=== PATIENT | female | born 1960 | race Caucasian/White ===

== ENCOUNTER → 2017-12-22 10:55 | Outpatient (POV) | payer MEDICAID, SELFPAY | PROVIDERS: PCP Physician Assistant; Visit Provider Internal Medicine | DX: Z00.00 Encounter for general adult medical examination without abnormal findings (principal) ==

== ENCOUNTER → 2018-11-02 15:45 | Outpatient (POV) | payer MEDICAID, SELFPAY | PROVIDERS: Visit Provider Internal Medicine | DX: Z00.00 Encounter for general adult medical examination without abnormal findings (principal) ==

== ENCOUNTER → 2018-11-12 12:49 | Outpatient (CLI) | payer BC, MEDICAID, SELFPAY | PROVIDERS: PCP Family Medicine; Visit Provider Internal Medicine | DX: I35.1 Nonrheumatic aortic (valve) insufficiency (principal) | CPT/HCPCS: 93306 ==

== ENCOUNTER → 2019-09-13 14:38 | Outpatient (POV) | payer BC, MEDICAID, SELFPAY | PROVIDERS: Visit Provider Internal Medicine | DX: Z00.00 Encounter for general adult medical examination without abnormal findings (principal) ==

== ENCOUNTER 2020-12-25 01:47 | Observation (INO) | payer BC, SELFPAY ==
[2020-12-25] VITALS (8 sets, daily range): BP systolic 113–155; BP diastolic 60–90; PULSE 55–76; RESP 14–18; TEMP 36.5–36.8; O2SAT 94–98; BMI 29.7; BMI 30.7
--- NOTE | 2020-12-25 01:54 | CT_ITS ---
PROCEDURE: CT ABDOMEN PELVIS WO CON CLINICAL INDICATION: flank pain Right flank pain COMPARISON: No exams were available for comparison TECHNIQUE: Axial images obtained with sagittal and coronal reformats. All CT scans at the facility use one or more dose reduction, viz: automated exposure control, ma/kV adjustment per patient size (including targeted exams where dose is matched to indication, i.e. head), or iterative reconstruction technique. FINDINGS: There is a medium-sized hiatal hernia. There are atelectatic changes in the left lower lobe. 12 mm hypodensity right hepatic lobe inferiorly and may represent a cyst. There has been a prior cholecystectomy. The liver, adrenal glands, and pancreas have an unremarkable appearance. There is mild dilatation of the right renal collecting system and proximal ureter secondary to a 6 mm stone in the mid right ureter at the L4-5 level. There are multiple left renal calculi. No evidence of appendicitis. There is a mild amount of retained colonic feces. There has been a prior hysterectomy. There does appear to be a small cystocele with a small knuckle bladder projecting into the vaginal region. There are few scattered small mesenteric lymph nodes. There is a small umbilical hernia containing fat. There is also a small left inguinal hernia containing fat. No acute bony findings. IMPRESSION: 1. 6 mm right mid ureteral stone with mild right-sided hydroureteronephrosis. 2. Left nephrolithiasis 3. Small cystocele. 4. Other nonacute findings as described above. Dictated by: Ilan Cross MD 12/25/2020 06:35 Ilan Cross MD in [place] 12/25/2020 06:35
[2020-12-25 02:01] LABS: Microscopic, Urine URINE MICROSCOPIC (MICROSCOPIC)
--- NOTE | 2020-12-25 02:01 | PC.NURSE ---
pt to radiology during this time
[2020-12-25 02:05] LABS: Basophils # 0.1 K/mm3 (0-0.2); Basophils % 0.7 % (0.1-2.0); Eosinophils # 0.1 K/mm3 (0.0-0.4); Eosinophils % 1.5 % (0.1-12.0); Hematocrit 49.3 % (37.0-47.0); Hemoglobin 16.5 g/dL (12.2-16.2); Lymphocytes # 1.7 K/mm3 (0.7-4.5); Mean Corpuscular HGB Conc 33.4 g/dL (31.8-35.4); Mean Corpuscular Hemoglobin 30.7 pg (27.0-31.2); Mean Platelet Volume 7.2 fl (7.4-10.4); Monocytes # 0.2 K/mm3 (0.1-1.0); Monocytes % 3.5 % (1.7-9.3); Neutrophils # 4.9 K/mm3 (1.8-7.8); Neutrophils % 70.3 % (37.0-80.0); Platelet Count 259 K/mm3 (142-424); Red Blood Count 5.36 M/mm3 (4.20-5.40); Red Cell Distribution Width 13.6 % (11.5-17.5)
[2020-12-25 02:06] LABS: Appearance,Urine CLEAR (Clear); Bilirubin,Urine Negative (Negative); Blood, Urine 2+ (Negative); Color,Urine YELLOW (Yellow); Glucose,Urine (UA) Negative (Negative); Ketones,Urine Negative (Negative); Leukocyte Esterase,Urine 1+ (Negative); Nitrate,Urine Negative (Negative); Protein,Urine Negative (Negative); Specific Gravity, Urine 1.025 (1.005-1.030); Urobilinogen,Urine 0.2 EU/dl (0.2)
[2020-12-25 02:09] LABS: Alanine Aminotransferase 32 U/L (12-78); Albumin/Globulin Ratio 1.4 (1.1-1.8); Alkaline Phosphatase 76 U/L (38-126); Anion Gap 11.2 mEq/L (5-15); Aspartate Amino Transferase 37 U/L (14-36); Bilirubin,Total 0.5 mg/dl (0.2-1.3); Blood Urea Nitrogen 20 mg/dl (7-17); Calcium 10.1 mg/dl (8.4-10.2); Carbon Dioxide 26 mmol/L (22.0-30.0); Chloride 104 mmol/L (98-107); Creatinine Clearance Estimated 48 mL/min (50-200); Estimated Glomerular Filt Rate 46 ml/min (>60); GFR (African American) 55 ML/MIN (>60); Globulin 3.7 g/dL (1.3-3.2); Glucose 166 mg/dl (74-100); Potassium 4.2 mmoL/L (3.5-5.1); Sodium 137 mmol/L (136-145); Total Protein,Serum 8.7 g/dl (6.3-8.2)
[2020-12-25 02:14] LABS: C-Reactive Protein 5.8 mg/L (0-4)
[2020-12-25 02:37] LABS: Erythrocyte Sedimentation Rate 16 mm/hr (0-30)
[2020-12-25 02:39] LABS: Bacteria,Urine 1+ /lpf; Mucus,Urine 1+ /lpf
[2020-12-25 02:42] LABS: Lipase 115 U/L (23-300)
[2020-12-25 02:43] LABS: Amylase 78 U/L (30-110)
--- NOTE | 2020-12-25 02:43 | HMH.EDNVD ---
ED Disposition Clinical Impression: Renal colic on right side, Calculus of kidney Disposition: Admitted as Observation Condition on Discharge: Good Instructions: DI for Acute Abdominal Pain Referrals: PCP,No [Non-Staff] - - Critical Care Critical Care Time: No Attestation: On 12/25/20, the high probability of a clinically significant, sudden or life threatening deterioration of the following system(s) required my full and direct attention, intervention and personal management. The time I documented below is in addition to time spent performing reported procedures but includes the following listed in this critical care notation. Medical Decision Making - Medical Records Medical records reviewed: Yes: I reviewed the patient's medical records. - Rodger Inquiry Pt receiving controlled substance: No Vital Signs: 12/25/20 01:45 12/25/20 02:40 Temperature 97.7 F Temperature Source Oral Pulse Rate [Right Brachial] 55 L 65 Respiratory Rate 17 Blood Pressure [Right Arm] 155/90 H 130/64 Blood Pressure Mean [Right Arm] 111 86 Blood Pressure Source [Right Arm] Automatic Cuff Blood Pressure Position [Right Arm] Sitting 02 Sat by Pulse Oximetry 97 97 Oxygen Delivery Method Room Air Room Air - Lab Data Lab results reviewed: Yes: I reviewed the patient's lab results. Lab Results 12/25/20 01:48: WBC 7.0, RBC 5.36, Hgb 16.5 H, Hct 49.3 H, MCV 92.0, MCH 30.7, MCHC 33.4, RDW 13.6, Plt Count 259, MPV 7.2 L, Neut % (Auto) 70.3, Lymph % (Auto) 24.0, [place] % (Auto) 3.5, Eos % (Auto) 1.5, Baso % (Auto) 0.7, Neut # (Auto) 4.9, Lymph # (Auto) 1.7, [place] # (Auto) 0.2, Eos # (Auto) 0.1, Baso # (Auto) 0.1 12/25/20 01:48: Sodium 137, Potassium 4.2, Chloride 104, Carbon Dioxide 26, Anion Gap 11.2, BUN 20 H, Creatinine 1.20 H, Estimated Creat Clear 48, Estimated GFR 46 L, Est GFR ( Amer) 55 L, Glucose 166 H, Calcium 10.1, Total Bilirubin 0.5, AST 37 H, ALT 32, Alkaline Phosphatase 76, C-Reactive Protein 5.8 H, Total Protein 8.7 H, Albumin 5.0, Globulin 3.7 H, Albumin/Globulin Ratio 1.4 12/25/20 01:48: ESR 16 12/25/20 01:48: Amylase 78, Procalcitonin 0.050 12/25/20 01:48: Lipase 115 12/25/20 01:53: Urine Color Yellow, Urine Appearance Clear, Urine pH 7.0, Ur Specific [place] 1.025, Urine Protein Negative, Urine Glucose (UA) Negative, Urine Ketones Negative, Urine Blood 2+, Urine Nitrate Negative, Urine Bilirubin Negative, Urine Urobilinogen 0.2, Ur Leukocyte Esterase 1+ A, Urine RBC 10-20, Urine WBC 5-10, Ur Squamous Epith Cells 3-5, Urine Bacteria 1+, Urine Mucus 1+ Result diagrams: 12/25/20 01:48 12/25/20 01:48 Orders (Tests/Meds): ED MEDICATIONS Generic Name Dose Route Start Last Admin Trade Name Vipin PRN Reason Stop Dose Admin Sodium Chloride 1,000 mls @ 999 mls/hr 12/25/20 02:00 12/25/20 01:52 Sod Chlor 0.9% 1000ml Bag IV 12/25/20 03:00 999 mls/hr .Q1H1M SEAN Administration Tamsulosin HCl 0.4 mg 12/25/20 02:20 12/25/20 02:21 Tamsulosin 0.4mg Capsule PO 01/24/21 02:19 0.4 mg HS SEAN Administration Discontinued Medications Generic Name Dose Route Start Last Admin Trade Name Freq PRN Reason Stop Dose Admin Ketorolac Tromethamine 30 mg 12/25/20 01:51 12/25/20 01:52 Ketorolac 30mg/Ml Vial IV 12/25/20 01:52 30 mg ONCE ONE Administration Morphine Sulfate 4 mg 12/25/20 01:51 12/25/20 01:52 Morphine 4mg/Ml Syringe IV 12/25/20 01:52 4 mg ONCE ONE Administration Ondansetron HCl 4 mg 12/25/20 01:51 12/25/20 01:52 Ondansetron 4mg/2ml Vial IV 12/25/20 01:52 4 mg ONCE ONE Administration ORDERS Category Date Time Status CT abdomen pelvis wo con Stat Cat Scan 12/25/20 01:54 Taken Urine Culture Stat Micro 12/25/20 01:53 Received - CT Data CT Scan: Abdomen, Pelvis Time Received: 02:[address] Reviewed: Yes: I have viewed the radiologist's interpretation Preliminary Findings: Abnormal (3mm kidney stone ) - Physician Consults Physician Consulted: azam
--- NOTE | 2020-12-25 04:20 | PC.NURSE ---
REPORT RECEIVED FROM Hiram FIELDS RN. PENDING COVID IGG/IGM RESULTS
[2020-12-25 05:23] LABS: Coronavirus 19 IgG Antibody Negative (Negative); Coronavirus 19 IgM Antibody Negative (Negative)
--- NOTE | 2020-12-25 05:35 | PC.NURSE ---
pt to ob per wheelchair at this time per s. yogesh beckett
--- NOTE | 2020-12-25 06:47 | HMH.HP ---
*Admission Date: 12/25/20 *Chief complaint: nausea, abdominal pain *History of present illness: 60-year-old female with presentation to the ER last night after acute onset of nausea and vomiting and flank pain. States approximately 10:00 last night she developed severe right flank pain that radiated to her groin that led to her feeling nauseous and vomiting. Denies fever, dysuria, previous similar symptoms. States it was worse than when she had her gallbladder attack. As her symptoms did not improve, she came to the ER for further assessment. On arrival, imaging of her abdomen showed an obstructing 5 mm kidney stone mid ureter with dilation of proximal ureter and hydronephrosis. Pain control achieved with Toradol and opiates. Admitted for further management of obstructing kidney stone. Consult placed for urology. Patient denies previous history of kidney stones that she is aware of. On assessment this morning, she is feeling somewhat better. Pain stable with current regimen. Making adequate urine but has not passed any stones, straining her urine currently. No further vomiting since admission. Remains afebrile. [facility] History I have reviewed the patient's past medical history: Yes Medical History: Reports:: Asthma, Chronic Obstructive Pulmonary Disease (COPD), Hypertension Denies:: Diabetes Mellitus Type 1, Diabetes Mellitus Type 2, Hyperlipidemia *Have you ever received a pneumonia vaccine?: No *Have you received a flu vaccine this season?: No Other Medical History: Reports: Arthritis, Hypothyroidism Laterality Cases: Bilateral: Tonsillectomy Other Surgeries: Yes: Colonoscopy, Hysterectomy-Total, Other - *Social History Smoking Status: Former smoker Tobacco Type: cigarettes # Packs/Day (cigarettes): 0 #Yrs smoked (if former smoker): 10 Alcohol Intake: current Alcohol Intake Frequency:: holidays/special occasions only Substance Use Type: denies use *Occupational Status:: other *Travel in the last 8 weeks: None Family Hx:: Heart Attack, Stroke Review of Systems - Review of Systems Review of systems:: pertinent systems reviewed and negative unless documented below (14 point review of systems performed, pertinent positives and negatives as per HPI) - *Neurologic Denies localized weakness, Denies headache(s), Denies seizure-like activity Meds Home Medications Medication Instructions Recorded Confirmed Type fluticasone furoate 100 1 inh INHALATION Q24H 12/22/17 12/25/20 History mcg-vilanterol 25 mcg/dose inhalation powder nystatin 100,000 unit/gram topical 1 applicatio TOPICAL NEEDED PRN 12/22/17 12/25/20 History powder 20 Days #60 Allergies Allergy/AdvReac Type Severity Reaction Status Date / Time No Known Allergies Allergy Verified 12/25/20 02:17 Exam Vital signs and Labs for Last 24 Hours: Temp Pulse Resp BP Pulse Ox 97.8 F 61 14 121/68 95 12/25/20 06:16 12/25/20 06:16 12/25/20 06:16 12/25/20 06:16 12/25/20 06:16 Laboratory Results - last 24 hr 12/25/20 01:48: WBC 7.0, RBC 5.36, Hgb 16.5 H, Hct 49.3 H, MCV 92.0, MCH 30.7, MCHC 33.4, RDW 13.6, Plt Count 259, MPV 7.2 L, Neut % (Auto) 70.3, Lymph % (Auto) 24.0, [place] % (Auto) 3.5, Eos % (Auto) 1.5, Baso % (Auto) 0.7, Neut # (Auto) 4.9, Lymph # (Auto) 1.7, [place] # (Auto) 0.2, Eos # (Auto) 0.1, Baso # (Auto) 0.1 12/25/20 01:48: Sodium 137, Potassium 4.2, Chloride 104, Carbon Dioxide 26, Anion Gap 11.2, BUN 20 H, Creatinine 1.20 H, Estimated Creat Clear 48, Estimated GFR 46 L, Est GFR ( Amer) 55 L, Glucose 166 H, Calcium 10.1, Total Bilirubin 0.5, AST 37 H, ALT 32, Alkaline Phosphatase 76, C-Reactive Protein 5.8 H, Total Protein 8.7 H, Albumin 5.0, Globulin 3.7 H, Albumin/Globulin Ratio 1.4 12/25/20 01:48: ESR 16 12/25/20 01:48: Amylase 78, Procalcitonin 0.050 12/25/20 01:48: Lipase 115 12/25/20 01:48: SARS-CoV-2 IgG Ab (Rapid) Negative, SARS-CoV-2 IgM Ab (Rapid) Negative 12/25/20 01:53: Urine Color Yellow, Urine Appearance Clear
--- NOTE | 2020-12-25 07:51 | PC.NURSE ---
REPORT RECEIVED FROM Yuliana BUCHANAN RN
--- NOTE | 2020-12-25 08:30 | PC.NURSE ---
PT ASSESSED AT THIS TIME. PT IS A&O X4. BILATERAL LUNG SOUNDS CLEAR. NO EDEMA NOTED. PT STATES R FLANK PAIN AND RATES IT 7/10 ON VERBAL SCALE. PT LYING IN BED ON RIGHT SIDE. WARM BLANKET PROVIDED. DENIES ANY FURTHER NEEDS. WILL CONTINUE TO OBSERVE.
--- NOTE | 2020-12-25 09:31 | PC.NURSE ---
PT MEDICATED PER EMAR AT THIS TIME R/T R FLANK PAIN. RN STAND BY ASSIST TO BR AND BACK TO BED.
--- NOTE | 2020-12-25 09:48 | PC.NURSE ---
DR. DELATORRE AT BEDSIDE AT THIS TIME
--- NOTE | 2020-12-25 10:12 | PC.NURSE ---
DR. DURAN AT BEDSIDE AT THIS TIME.
--- NOTE | 2020-12-25 12:41 | P.CONPHA_ITS ---
[facility] Pharmacy VTE Monitoring - Patient Demographics Admission date: 12/25/20 Report Date: 12/25/20 Time: 12:41 Allergies/Adverse Reactions: Patient Allergies No Known Allergies Allergy (Verified 12/25/20 02:17) Height: 1.7 m Weight: 89.074 kg Patient Problems: Current Active Problems Renal colic on right side (Acute) Calculus of kidney (Acute) Hydronephrosis with obstructing calculus (Acute) - VTE Risk Labs: VTE Related Lab Results Hgb 16.5 g/dL (12.2-16.2) H 12/25/20 01:48 Hct 49.3 % (37.0-47.0) H 12/25/20 01:48 Plt Count 259 K/mm3 (142-424) 12/25/20 01:48 BUN 20 mg/dl (7-17) H 12/25/20 01:48 Creatinine 1.20 mg/dl (0.52-1.04) H 12/25/20 01:48 Estimated Creat Clear 48 mL/min (50-200) 12/25/20 01:48 Was VTE Risk Assessment Performed: Yes VTE Score: 1 VTE Risk Level: Very Low Risk Clinical Trial Participant: No - Prophylaxis VTE Prophylaxis Ordered?: Yes Types of VTE Prophylaxis: TEDS Knee High
--- NOTE | 2020-12-25 13:00 | PC.NURSE ---
DR. DURAN AT BEDSIDE AT THIS TIME. ORDERS TO CHANGE PAIN MEDICATION TO PO HYDROCONE 5-10 MG Q4H PRN AND USE MORPHINE FOR BREAK THROUGH PAIN. IF PT DOES WELL THROUGHOUT THE NIGHT WITH PAIN AND NAUSEA. WANTS TO SEE HER IN OFFICE THURSDAY.
--- NOTE | 2020-12-25 13:44 | PC.NURSE ---
PT MEDICATED PER EMAR AT THIS TIME R/T NAUSEA. PT ATTEMPTED TO EAT LUNCH. WILL CONTINUE TO OBSERVE.
--- NOTE | 2020-12-25 14:13 | HMH.CONS ---
*Admission Date: 12/25/20 *Reason for consult:: Right ureteral stone *History of present illness: Patient is a 60-year-old white female came to the emergency room last evening with the acute onset of right flank pain. Her pain was associated with nausea and vomiting. She presented to the emergency room where a CT scan showed a 6 mm proximal ureteral stone with hydronephrosis. Her white count was normal at 7.0. Her creatinine is slightly elevated at 1.2. Her urine shows some microscopic hematuria. She was admitted for pain control and is on Toradol and morphine as needed. She is also on Flomax. On examination this morning she appears comfortable states no further significant colic that she does continue to have some discomfort. She denies a previous history of kidney stones. [facility] History Medical History: Reports:: Asthma, Chronic Obstructive Pulmonary Disease (COPD), Hypertension Denies:: Diabetes Mellitus Type 1, Diabetes Mellitus Type 2, Hyperlipidemia *Have you ever received a pneumonia vaccine?: No *Have you received a flu vaccine this season?: No Other Medical History: Reports: Arthritis, Hypothyroidism Laterality Cases: Bilateral: Tonsillectomy Other Surgeries: Yes: Colonoscopy, Hysterectomy-Total, Other - *Social History Smoking Status: Former smoker Tobacco Type: cigarettes # Packs/Day (cigarettes): 0 #Yrs smoked (if former smoker): 10 Alcohol Intake: current Alcohol Intake Frequency:: holidays/special occasions only Substance Use Type: denies use *Occupational Status:: other *Travel in the last 8 weeks: None Family Hx:: Heart Attack, Stroke Review of Systems - Review of Systems Review of systems:: pertinent systems reviewed and negative unless documented below - *Neurologic Denies localized weakness, Denies headache(s), Denies seizure-like activity Meds Home Medications Medication Instructions Recorded Confirmed Type nystatin 100,000 unit/gram topical 1 applicatio TOPICAL NEEDED PRN 12/22/17 12/25/20 History powder 20 Days #60 Fluticasone/Salmeterol [Advair 1 inh IH BID 12/25/20 12/25/20 History 250/50mcg Diskus] Allergies Allergy/AdvReac Type Severity Reaction Status Date / Time No Known Allergies Allergy Verified 12/25/20 02:17 Exam Vital signs and Labs for Last 24 Hours: Temp Pulse Resp BP Pulse Ox 97.8 F 72 18 127/63 98 12/25/20 08:00 12/25/20 08:00 12/25/20 08:00 12/25/20 08:00 12/25/20 08:00 Laboratory Results - last 24 hr 12/25/20 01:48: WBC 7.0, RBC 5.36, Hgb 16.5 H, Hct 49.3 H, MCV 92.0, MCH 30.7, MCHC 33.4, RDW 13.6, Plt Count 259, MPV 7.2 L, Neut % (Auto) 70.3, Lymph % (Auto) 24.0, [place] % (Auto) 3.5, Eos % (Auto) 1.5, Baso % (Auto) 0.7, Neut # (Auto) 4.9, Lymph # (Auto) 1.7, [place] # (Auto) 0.2, Eos # (Auto) 0.1, Baso # (Auto) 0.1 12/25/20 01:48: Sodium 137, Potassium 4.2, Chloride 104, Carbon Dioxide 26, Anion Gap 11.2, BUN 20 H, Creatinine 1.20 H, Estimated Creat Clear 48, Estimated GFR 46 L, Est GFR ( Amer) 55 L, Glucose 166 H, Calcium 10.1, Total Bilirubin 0.5, AST 37 H, ALT 32, Alkaline Phosphatase 76, C-Reactive Protein 5.8 H, Total Protein 8.7 H, Albumin 5.0, Globulin 3.7 H, Albumin/Globulin Ratio 1.4 12/25/20 01:48: ESR 16 12/25/20 01:48: Amylase 78, Procalcitonin 0.050 12/25/20 01:48: Lipase 115 12/25/20 01:48: SARS-CoV-2 IgG Ab (Rapid) Negative, SARS-CoV-2 IgM Ab (Rapid) Negative 12/25/20 01:53: Urine Color Yellow, Urine Appearance Clear, Urine pH 7.0, Ur Specific [place] 1.025, Urine Protein Negative, Urine Glucose (UA) Negative, Urine Ketones Negative, Urine Blood 2+, Urine Nitrate Negative, Urine Bilirubin Negative, Urine Urobilinogen 0.2, Ur Leukocyte Esterase 1+ A, Urine RBC 10-20, Urine WBC 5-10, Ur Squamous Epith Cells 3-5, Urine Bacteria 1+, Urine Mucus 1+ I & O for Last 24 hours: Intake & Output 12/22/20 12/23/20 12/24/20 12/25/20 23:59 23:59 23:59 23:59 Intake Total 1000 / 1000 Output Total 550 / 550 Balance 450 /
--- NOTE | 2020-12-25 16:30 | PC.NURSE ---
PT SITTING UP IN BED, VISITOR AT BEDSIDE. PT DENIES ANY PAIN AT THIS TIME AND STATES THAT NAUSEA HAS SUBSIDED. PT GIVEN JELLO PER REQUEST AT THIS TIME. WILL CONTINUE TO OBSERVE.
--- NOTE | 2020-12-25 17:22 | PC.NURSE ---
DR. DELATORRE CALLED TO CHECK ON PT. STATES IF PT DOES WELL THROUGHOUT THE NIGHT WITH NAUSEA AND PAIN THEN OK TO GO HOME.
--- NOTE | 2020-12-25 19:04 | PC.NURSE ---
REPORT GIVEN TO Anthony YANEZ RN.
[2020-12-26 04:40] VITALS: BP 125/76; PULSE 106; RESP 18; TEMP 37.5; O2SAT 93
--- NOTE | 2020-12-26 06:47 | PC.NURSE ---
Pt has slept comfortably throughout the shift, Pt A&O x4, BLT lung sounds CTA, Bowel sounds present in all 4 quadrants. Pt medicated per MAR for pain and nausea, Pts urine strained, IV infusing well. Pt denies SOA, headache, or vomiting
[2020-12-26 07:00] LABS: Basophils % 0.2 % (0.1-2.0); Eosinophils # 0.1 K/mm3 (0.0-0.4); Eosinophils % 0.7 % (0.1-12.0); Hematocrit 40.7 % (37.0-47.0); Hemoglobin 13.4 g/dL (12.2-16.2); Lymphocytes # 1.1 K/mm3 (0.7-4.5); Lymphocytes % 12.9 % (10-50); Mean Corpuscular Hemoglobin 30.9 pg (27.0-31.2); Mean Corpuscular Volume 93.6 fl (81-99); Mean Platelet Volume 7.9 fl (7.4-10.4); Monocytes # 0.4 K/mm3 (0.1-1.0); Monocytes % 4.4 % (1.7-9.3); Neutrophils # 6.8 K/mm3 (1.8-7.8); Neutrophils % 81.8 % (37.0-80.0); Platelet Count 187 K/mm3 (142-424); Red Blood Count 4.35 M/mm3 (4.20-5.40); Red Cell Distribution Width 14.2 % (11.5-17.5); White Blood Count 8.4 K/mm3 (4.8-10.8)
[2020-12-26 07:09] LABS: Chloride 108 mmol/L (98-107); Sodium 137 mmol/L (136-145)
[2020-12-26 07:10] LABS: Potassium 4.2 mmoL/L (3.5-5.1)
[2020-12-26 07:13] LABS: Anion Gap 6.2 mEq/L (5-15); Blood Urea Nitrogen 18 mg/dl (7-17); Carbon Dioxide 27 mmol/L (22.0-30.0); Creatinine Clearance Estimated 47 mL/min (50-200); Estimated Glomerular Filt Rate 29 ml/min (>60); GFR (African American) 35 ML/MIN (>60); Glucose 122 mg/dl (74-100)
[2020-12-26 07:16] LABS: Calcium 8.5 mg/dl (8.4-10.2)
[2020-12-26 08:35] VITALS: BP 128/86; PULSE 74; RESP 18; TEMP 36.8; O2SAT 100
--- NOTE | 2020-12-26 08:42 | HMH.DCSUM ---
General - General Admission date:: 12/25/20 Discharge date: 12/26/20 HPI HPI: 60-year-old female with presentation to the ER last night after acute onset of nausea and vomiting and flank pain. States approximately 10:00 last night she developed severe right flank pain that radiated to her groin that led to her feeling nauseous and vomiting. Denies fever, dysuria, previous similar symptoms. States it was worse than when she had her gallbladder attack. As her symptoms did not improve, she came to the ER for further assessment. On arrival, imaging of her abdomen showed an obstructing 5 mm kidney stone mid ureter with dilation of proximal ureter and hydronephrosis. Pain control achieved with Toradol and opiates. Admitted for further management of obstructing kidney stone. Consult placed for urology. Patient denies previous history of kidney stones that she is aware of. On assessment this morning, she is feeling somewhat better. Pain stable with current regimen. Making adequate urine but has not passed any stones, straining her urine currently. No further vomiting since admission. Remains afebrile. Hospital Course Hospital Course: Patient was admitted, CT scan confirmed the finding of stone, urology was consulted, appreciate input, patient was able to tolerate oral pain medications and nausea medications and antibiotics. Overnight she did well, this morning she was feeling well, keeping fluids down wished to be discharged home. We will discharge with pain medication, nausea medication and antibiotics, urology follow-up arranged. She is instructed to come back if intractable pain occurs. Objective Vital signs: Temp Pulse Resp BP Pulse Ox 99.5 F 106 H 18 125/76 93 L 12/26/20 04:40 12/26/20 04:40 12/26/20 04:40 12/26/20 04:40 12/26/20 04:40 no acute distress - *Routine HEENT Exam Head: Present: normocephalic Eye: Present: EOMI, PERRL ENT: Present: mucous membranes moist - *Routine Neck Exam Present: supple - *Routine Respiratory Exam Present: CTA bilaterally - *Routine Cardiovascular Exam Present: RRR - *Routine Abdominal Exam Present: soft, normoactive bowel sounds. Absent: tenderness - *Routine Extremities Exam Absent: cyanosis, clubbing, edema - *Routine Skin Exam Present: warm. Absent: rash - *Routine Neurological Exam Previously noted upper extremity contractions - Detailed Eye Exam Eyelids: Bilateral normal inspection Results Labs on day of discharge: Labs from last 24 hours 12/26/20 12/26/20 06:40 06:40 WBC 8.4 RBC 4.35 Hgb 13.4 Hct 40.7 MCV 93.6 MCH 30.9 MCHC 33.0 RDW 14.2 Plt Count 187 D MPV 7.9 Neut % (Auto) 81.8 H Lymph % (Auto) 12.9 [place] % (Auto) 4.4 Eos % (Auto) 0.7 Baso % (Auto) 0.2 Neut # (Auto) 6.8 Lymph # (Auto) 1.1 [place] # (Auto) 0.4 Eos # (Auto) 0.1 Baso # (Auto) 0.0 Sodium 137 Potassium 4.2 Chloride 108 H Carbon Dioxide 27 Anion Gap 6.2 BUN 18 H Creatinine 1.80 H D Estimated Creat Clear 47 Estimated GFR 29 L Est GFR ( Amer) 35 L D Glucose 122 H Calcium 8.5 D Preliminary micro results at discharge 12/25/20 01:53 Urine Culture - Preliminary Urine,Clean Catch NO GROWTH AFTER 24 HOURS DS: Diagnosis - Discharge Diagnosis (1) Hydronephrosis with obstructing calculus Status: Acute (2) Renal colic on right side Status: Acute Discharge Plan - Patient Discharge Instructions ACTIVITY: Continue current activity DIET: continue same diet - Follow up Plan Follow up with: Steven Al MD [Staff Physician] - 12/28/20 Disposition: Home, Self-Half-Way Medications: Home Medications Medication Instructions Recorded Confirmed Type nystatin 100,000 unit/gram topical 1 applicatio TOPICAL NEEDED PRN 12/22/17 12/25/20 History powder 20 Days #60 Fluticasone/Salmeterol [Advair 1 inh IH BID 12/25/20 12/25/20 History 250/5
--- NOTE | 2020-12-26 10:50 | PC.NURSE ---
Discharged ambulatory with OB nurse and her daughter present. Verbalized understanding of discharge instructions. Urine collection hat and strainer sent home with her for straining urine.
== END 2020-12-26 10:55 | disposition home or self-care (01) ==
LOC: ER 04:02 → OB 13:18
PROVIDERS: Internal Medicine Adolescent Medicine; Admitting Provider Family Medicine; Emergency Provider Emergency Medicine; Visit Provider Internal Medicine Adolescent Medicine
DX: N13.2 Hydronephrosis with renal and ureteral calculous obstruction (principal); J44.9 Chronic obstructive pulmonary disease, unspecified; I10 Essential (primary) hypertension; Z87.891 Personal history of nicotine dependence; Z79.899 Other long term (current) drug therapy
CPT/HCPCS: 36415; 74176; 80048; 80053; 81001; 82150; 83690; 84145; 85025; 85651; 86140; 86328; 87086; 96365; 96375; 96376; 99283; G0378; J2405

== ENCOUNTER → 2020-12-28 13:24 | Outpatient (CLI) | payer BC, SELFPAY ==
--- NOTE | 2020-12-28 13:29 | XR_ITS ---
PROCEDURE: XR KUB CLINICAL INDICATION: kidney stone COMPARISON: CT CT ABDOMEN PELVIS WO CON from 12/25/2020 FINDINGS: A 6 mm stone is present to the right of the the L4-5 lumbar vertebra in the mid ureteral region. Surgical clips are present in the right upper quadrant. There small stones overlying the left kidney. There is a mild amount of retained colonic feces. There is some sclerosis of the iliac aspect of the right SI joint. IMPRESSION: 1. 6 mm right mid ureteral stone. The stone does not appear significantly changed from 12/25/2020 CT scan 2. Left nephrolithiasis. Dictated by: Ilan Cross MD 12/28/2020 14:03 Ilan Cross MD in [place] 12/28/2020 14:03
== END ==
PROVIDERS: Visit Provider Urology
DX: N20.0 Calculus of kidney (principal)
CPT/HCPCS: 74018

== ENCOUNTER → 2020-12-29 09:10 | Outpatient (CLI) | payer BC, SELFPAY ==
[2020-12-29 09:33] LABS: Basophils % 0.6 % (0.1-2.0); Eosinophils # 0.3 K/mm3 (0.0-0.4); Hematocrit 44.4 % (37.0-47.0); Hemoglobin 14.6 g/dL (12.2-16.2); Lymphocytes # 1.5 K/mm3 (0.7-4.5); Lymphocytes % 27.8 % (10-50); Mean Corpuscular HGB Conc 32.9 g/dL (31.8-35.4); Mean Corpuscular Hemoglobin 30.2 pg (27.0-31.2); Mean Corpuscular Volume 91.8 fl (81-99); Mean Platelet Volume 7.7 fl (7.4-10.4); Monocytes # 0.3 K/mm3 (0.1-1.0); Monocytes % 5.5 % (1.7-9.3); Neutrophils # 3.2 K/mm3 (1.8-7.8); Neutrophils % 60.1 % (37.0-80.0); Platelet Count 264 K/mm3 (142-424); Red Blood Count 4.84 M/mm3 (4.20-5.40); Red Cell Distribution Width 13.8 % (11.5-17.5); White Blood Count 5.3 K/mm3 (4.8-10.8)
[2020-12-29 10:29] LABS: Anion Gap 9.8 mEq/L (5-15); Blood Urea Nitrogen 18 mg/dl (7-17); Calcium 9.3 mg/dl (8.4-10.2); Carbon Dioxide 31 mmol/L (22.0-30.0); Chloride 104 mmol/L (98-107); Estimated Glomerular Filt Rate 29 ml/min (>60); GFR (African American) 35 ML/MIN (>60); Glucose 91 mg/dl (74-100); Potassium 3.8 mmoL/L (3.5-5.1); Sodium 141 mmol/L (136-145)
[2020-12-29 11:14] LABS: Coronavirus 19 IgG Antibody Negative (Negative); Coronavirus 19 IgM Antibody Negative (Negative)
== END ==
PROVIDERS: Visit Provider Urology
DX: Z01.818 Encounter for other preprocedural examination (principal); Z20.822 Contact with and (suspected) exposure to COVID-19; N20.0 Calculus of kidney; N20.1 Calculus of ureter
CPT/HCPCS: 36415; 80048; 85025; 86328

== ENCOUNTER 2020-12-31 08:29 | Day surgery (SDC) | payer BC, SELFPAY ==
[2020-12-31] VITALS (11 sets, daily range): BP systolic 122–138; BP diastolic 71–95; PULSE 66–93; RESP 16–18; TEMP 36.2–43; O2SAT 95–98; BMI 29.7
--- NOTE | 2020-12-31 09:11 | P.PN_ITS ---
[facility] Anesthesia Checklist - Patient Identification Patient Identification: Arm Band - Structural Data Admitted From: Home Planned Operative Procedure/s: Right Uretertoscopy with Stone Extraction Consent for Planned Operative Procedure(s) Verified: Yes Verified Documents: Surgical Consent, History and Physical - NPO Status Verified Time NPO: 00:00 - Additional verifications Anesthesia Reactions: No Hx Blood Transfusions: No Blood Transfusion Reaction: No - Airway Assessment C-Spine Mobility Assessed: Yes (mp2) TMJ Mobility Assessed: Yes Dentition: Poor Dentition (chipped upper teeth) - Neurological Assessment Level of Consciousness: Awake, Alert - Anesthesia Plan Anesthesia Risk discussed: Yes Anesthesia Plan: Verified ASA Class: II Anesthesia Type: General [facility] History I have reviewed the patient's past medical history: Yes Medical History: Reports:: Asthma, Chronic Obstructive Pulmonary Disease (COPD) Denies:: Cancer, Diabetes Mellitus Type 1, Diabetes Mellitus Type 2, Hyperlipidemia, MRSA, Seizures *Have you ever received a pneumonia vaccine?: No *Have you received a flu vaccine this season?: No Other Medical History: Reports: Arthritis, Hypothyroidism. Denies: Blood Transfusion Reaction Anesthesia experience/problems:: nac Laterality Cases: Bilateral: Tonsillectomy Other Surgeries: Yes: Cholecystectomy, Colonoscopy, Dilation and Curettage, Hysterectomy-Total, Other Amputation: No Fractures: Yes (screws in foot) - *Social History Last grade of school completed: Advanced degree Smoking Status: Former smoker Tobacco Type: cigarettes # Packs/Day (cigarettes): 0 #Yrs smoked (if former smoker): 10 Alcohol Intake: current Alcohol Intake Frequency:: holidays/special occasions only Substance Use Type: denies use *Occupational Status:: retired Housing: house *Travel in the last 8 weeks: None Family Hx:: Heart Attack, Stroke
--- NOTE | 2020-12-31 10:00 | XR_ITS ---
PROCEDURE: XR KUB CLINICAL INDICATION: STONE EXTRACTION WITH LASER COMPARISON: CT CT ABDOMEN PELVIS WO CON from 12/25/2020 FINDINGS: Fluoroscopy time: ? Two images are submitted showing a balloon catheter overlying the right pelvic region. IMPRESSION: As above. C-arm utilized for ureteroscopy and manipulation Dictated by: Ilan Cross MD 01/01/2021 06:58 Ilan Cross MD in [place] 01/01/2021 06:58
--- NOTE | 2020-12-31 12:39 | P.PN_ITS ---
[facility] Anesthesia Record Part I Intake, IV Amount: 1,000 Estimated blood loss (mL): 0 Urine output (mL): 0 Blood Pressure: 131/78 SaO2: 98 Pulse Rate: 93 Respiratory Rate: 16 Temperature: 97.4 F Patient is:: Drowsy, Stable Stable to PACU at:: 12:30
--- NOTE | 2020-12-31 12:44 | HMH.OPNOTE ---
Date of procedure: 12/31/20 Pre-op Diagnosis:: 5 mm right proximal ureteral stone Post-op Diagnosis:: 5 mm right distal ureteral stone Procedure performed:: Right ureteroscopy dilation of right ureter, stone extraction Surgeon:: Steven Al MD AUTOMOBILE GLASS TECHNICIAN:: Milan Marshall Anesthesia: GETA Estimated blood loss (mL): 0 Clinical Note:: 60-year-old white female with a recent right renal colic noted to have a 5 mm proximal ureteral stone. She has yet to pass a stone and has continued to have some right flank discomfort. She presents for urologic management today. Operative findings:: 5 mm right distal ureteral stone. Operative note:: Patient taken to the operating room after informed consent was obtained. Placed on the operating table in the supine position and general anesthesia administered. Preoperative antibiotics and sequential compression devices placed. She was then placed into the dorsal lithotomy position and prepped and draped in the standard surgical fashion. A 22 Armenian cystoscope passed into the urethra and into the bladder. Bladder was examined in a systematic fashion there is no evidence of mucosal abnormalities, stones, trabeculation or cellule formation. The ureteral orifices were a little more lateral than normal but are of normal shape and size. A guidewire passed through the scope and into the right ureteral orifice and under fluoroscopy passed into the right renal pelvis. There appeared to be a calcification now in the distal ureter. The cystoscope removed and our semirigid ureteroscope was placed into the bladder but we could not negotiate the right ureteral orifice so the ureteroscope was removed and the distal ureter dilated to 12 ellie for 3 minutes. We then removed the balloon after deflating it and our semirigid ureteroscope was passed back into the right ureter. This time it passed up to the level of the stone. The stone was grasped with a 3 Armenian stone basket and removed without difficulty. The ureteroscope was passed back into the bladder and there was a copious amount blood-tinged urine coming from the right ureteral orifice and no stent was deemed necessary. The bladder drained and the patient tolerated procedure well. She is to be discharged home to continue antibiotics. Condition: stable Disposition: PACU Specimens:: Right ureteral stone Complications:: None
--- NOTE | 2020-12-31 13:35 | HMH.ANESII ---
[facility] Anesthesia Record Part II Discharge Time: 13:00 Destination: Surgical Day Care (OP Surgery) PACU nurse assessment reviewed?: Yes Patient Condition:: Good Anesthesia Complications:: None Swallowing reflex intact?: Yes Cyanosis?: No Blood Pressure: 122/87 Pulse Rate: 68 Temperature: 97.4 F Mental Status: Alert & Oriented Pain level:: 0 Nausea and/or vomitting:: None Intake, IV Amount: 0
[2021-01-11 19:33] LABS: Composition SEE BELOW:; Size 6X4 mm; Specimen Type URETER
[2021-01-11 19:34] LABS: Photo TO FOLLOW
== END 2020-12-31 13:36 | disposition home or self-care (01) ==
LOC: OR 08:31
PROVIDERS: Visit Provider Urology
PROC: (CPT 52352; principal; 2020-12-31 10:00)
DX: N20.1 Calculus of ureter (principal); N23 Unspecified renal colic; J44.9 Chronic obstructive pulmonary disease, unspecified; M19.90 Unspecified osteoarthritis, unspecified site; E03.9 Hypothyroidism, unspecified; Z79.899 Other long term (current) drug therapy
CPT/HCPCS: 52352; 52344; 74018; 76000; 82370; 96374; J0330; J2405; J2710

== ENCOUNTER → 2021-01-17 10:42 | Outpatient (CLI) | payer BC, SELFPAY ==
[2021-01-17 11:03] LABS: Basophils % 0.5 % (0.1-2.0); Eosinophils # 0.2 K/mm3 (0.0-0.4); Eosinophils % 2.1 % (0.1-12.0); Hematocrit 50.1 % (37.0-47.0); Hemoglobin 15.9 g/dL (12.2-16.2); Lymphocytes # 1.4 K/mm3 (0.7-4.5); Lymphocytes % 18.6 % (10-50); Mean Corpuscular HGB Conc 31.7 g/dL (31.8-35.4); Mean Corpuscular Hemoglobin 30.1 pg (27.0-31.2); Mean Corpuscular Volume 94.8 fl (81-99); Mean Platelet Volume 7.6 fl (7.4-10.4); Monocytes # 0.3 K/mm3 (0.1-1.0); Monocytes % 3.3 % (1.7-9.3); Neutrophils # 5.8 K/mm3 (1.8-7.8); Neutrophils % 75.6 % (37.0-80.0); Platelet Count 287 K/mm3 (142-424); Red Blood Count 5.29 M/mm3 (4.20-5.40); Red Cell Distribution Width 13.6 % (11.5-17.5); White Blood Count 7.6 K/mm3 (4.8-10.8)
[2021-01-17 12:25] LABS: Chloride 104 mmol/L (98-107); Potassium 4.3 mmoL/L (3.5-5.1); Sodium 141 mmol/L (136-145)
[2021-01-17 12:27] LABS: Blood Urea Nitrogen 15 mg/dl (7-17); Estimated Glomerular Filt Rate 57 ml/min (>60); GFR (African American) 68 ML/MIN (>60)
[2021-01-17 12:28] LABS: Alanine Aminotransferase 20 U/L (12-78); Albumin Level 5.1 g/dl (3.5-5.0); Albumin/Globulin Ratio 1.3 (1.1-1.8); Alkaline Phosphatase 73 U/L (38-126); Anion Gap 14.3 mEq/L (5-15); Aspartate Amino Transferase 28 U/L (14-36); Bilirubin,Total 1.2 mg/dl (0.2-1.3); Calcium 10.1 mg/dl (8.4-10.2); Carbon Dioxide 27 mmol/L (22.0-30.0); Cholesterol 294 mg/dl (140-200); Globulin 3.8 g/dL (1.3-3.2); Glucose 88 mg/dl (74-100); Total Protein,Serum 8.9 g/dl (6.3-8.2); Triglycerides 185 mg/dl (30-150); VLDL Cholesterol 37 mg/dL (0-40)
[2021-01-17 12:29] LABS: Chol/HDL Ratio 7.2 (1-3.5); HDL Cholesterol 41 mg/dl (40-60)
[2021-01-17 12:58] LABS: Thyroid Stimulating Hormone 2.64 uIU/mL (0.465-4.68)
[2021-01-17 13:20] LABS: Direct LDL Cholesterol 189.65 mg/dL (100-129)
[2021-01-17 13:58] LABS: Vitamin B12 455 pg/mL (239-931)
== END ==
PROVIDERS: Visit Provider Nurse Practitioner Family
DX: Z00.00 Encounter for general adult medical examination without abnormal findings (principal); R79.89 Other specified abnormal findings of blood chemistry; E53.8 Deficiency of other specified B group vitamins; Z79.899 Other long term (current) drug therapy
CPT/HCPCS: 36415; 80053; 80061; 82607; 84443; 85025

== ENCOUNTER → 2021-01-21 10:18 | Outpatient (CLI) | payer BC, SELFPAY ==
--- NOTE | 2021-01-21 10:22 | MM_ITS ---
PROCEDURE: MM DIG SCREENING MAMM BI W/CAD Digital Breast Tomosynthesis Included CLINICAL INDICATION: ROUTINE MEDICAL EXAM There is no personal or family history of breast cancer. COMPARISON: MG DIGMAMMS MAMMOGRAM SCREEN-TRANSCRIPTION TYPIST N/C from 12/23/2004 MG DMSB DIG MAMM-SCREEN BLAYNE from 01/02/2015 MG DMSB DIG MAMM-SCREEN BLAYNE W/CAD from 01/20/2017 TECHNIQUE: Standard CC and MLO images and 3D Tomosynthesis was obtained. R2 CAD reviewed. FINDINGS: The breasts are composed primarily of fat with minimal scattered fibroglandular densities in each breast. There are no CAD markings. There is no suspicious lesion and no suspicious microcalcifications. There are stable fatty replaced nodes in both axilla. IMPRESSION: Stable primarily fatty type breast parenchyma with no suspicious lesions seen BI-RAD Category: 1 Negative FOLLOW-UP: 1YR 1 Year Follow-up (A letter has been sent to the patient regarding results of the study.) Dictated by: Dr. Xavier Curtis MD 01/22/2021 13:37 Dr. Xavier Curtis MD in [place] 01/22/2021 13:37
== END ==
PROVIDERS: PCP Nurse Practitioner Family; Visit Provider Nurse Practitioner Family
DX: Z12.31 Encounter for screening mammogram for malignant neoplasm of breast (principal)
CPT/HCPCS: 77063; 77067

== ENCOUNTER → 2021-03-13 12:47 | Outpatient (CLI) | payer BC, SELFPAY ==
--- NOTE | 2021-03-13 12:56 | CA_ITS ---
APPROVED REPORT EXAM: Comprehensive 2D, Doppler, and color-flow Echocardiogram Sales Agent Financial Report Service: Chandni Medina RVT Ht: 5 ft 7 in Wt: 183lbs BSA: 1.95 BP: 115/75 mmHg Indications: MURMUR,COPOD,EX SMOKER,HTN,?-DELAYED UPTAKE OF CARTOID PULSE 2D Dimensions LVOT 1.70 cm (M/F) 1.5-2.5 LA Volume 19.90 mL LA Volume Index 10.25 mL/m2 (M/F) 16-34 M-Mode Dimensions RVDd 2.54 cm (0.9-2.6) LA Diam 3.25 cm (1.9-4.0) LVDd 4.99 cm (3.5-5.7) Ao Diam 2.88 cm (2.0-3.7) LVDs 2.78 cm (3.5-5.7) IVSd 0.77 cm (0.6-1.1) PWd 0.57 cm (0.6-1.1) EF (Teich) 75.40% FS 44.30% EDV (Teich) 117.70 mL TAPSE 2.44 (<1.7) ESV (Teich) 29.00 mL LV Diastology E Decel Time 267.00 (160-240 msec) E/A Ratio 1.1 MED E' 6.60 (< 7 cm/sec) E'/MED E' Ratio 11.44 (>14) LAT E' 7.60 (<10 cm/sec) E/LAT E' Ratio 9.93 (>14) Aortic Valve LVOT Max 116.00 (70-110 cm/s) LVOT VTI 21.09 cm AoV Peak Garcia. 165.00 (50-130 cm/s) AO Peak GR. 11.00 mmHg AO Mean GR. 5.10 (<5 mmHg) AO VTI 29.43 (18-25 cm) NGUYEN (VTI) 1.63 (2.5-4.5 cm2) Mitral Valve MV E Max Garcia. 76.00 (40-130 cm/s) MV A Velocity 70.00 (40-130 cm/s) E/A Ratio 1.07 MV Decel. Time 267.00 (160-240 ms) MV PHT 78.00 ms Pulmonary Valve PV Peak Velocity 101.00 (50-150 cm/s) Tricuspid Valve TR P. Velocity 220.00 cm/s RAP Estimate 10.00 mmHg RVSP 29.40 mmHg Left Ventricle Left atrium is mildly enlarged, left ventricle is normal size, mild concentric left ventricular hypertrophy, visually estimated ejection fraction 55% with no regional wall motion abnormality, grade 1 diastolic dysfunction seen without tissue Doppler evidence of raise left atrial pressure. Right Ventricle Right atrium and right ventricle are normal size and contractility. Aortic Valve Aortic valve is minimally thickened and calcified, without restriction in the leaflet mobility, there is no aortic stenosis or aortic insufficiency. Mitral Valve Mitral valve is grossly normal, there is mild mitral regurgitation. Tricuspid Valve Tricuspid grossly normal, there is mild tricuspid regurgitation, tricuspid regurgitation jet velocity is inadequate for calculation of the right ventricular systolic pressure. Pulmonic Valve Pulmonic valve is poorly visualized. Great Vessels Aortic root is normal size. Pericardium No significant pericardial effusion noted. Conclusion 1. Mildly enlarged left atrium, normal left ventricular size, mild concentric left ventricular hypertrophy, visually estimated ejection fraction 55% with no regional wall motion abnormality, grade 1 diastolic dysfunction seen without tissue Doppler evidence of raise left atrial pressure. 2. Thickened and calcified aortic valve without Doppler evidence of aortic stenosis or aortic insufficiency. 3. Mild mitral and tricuspid regurgitation. 4. No significant pericardial effusion noted. Electronically signed by : Enoch Gann, 03/14/2021 15:43:08
--- NOTE | 2021-03-13 13:42 | ECG_ITS ---
APPROVED REPORT Exam: Resting ECG HR:58 bpm ECG Measurements Heart Rate 58 AXES VA 134 P 44 QRSd 82 QRS 20 QT 402 T 36 QTc 394 Conclusion Sinus bradycardia Otherwise normal ECG Electronically signed by : Jatinder Li, 03/13/2021 17:33:48
== END ==
PROVIDERS: PCP Nurse Practitioner Family; Visit Provider Internal Medicine
DX: I35.0 Nonrheumatic aortic (valve) stenosis (principal); J44.9 Chronic obstructive pulmonary disease, unspecified
CPT/HCPCS: 93005; 93306

== ENCOUNTER 2021-03-13 13:49 | Outpatient (RCR) | payer BC, SELFPAY | END 2021-03-13 15:21 | disposition home or self-care (01) | LOC: PT 13:49 | PROVIDERS: Visit Provider Internal Medicine | DX: J44.9 Chronic obstructive pulmonary disease, unspecified (principal) ==

== ENCOUNTER → 2021-04-23 12:13 | Outpatient (CLI) | payer BC, SELFPAY ==
--- NOTE | 2021-04-23 12:26 | XR_ITS ---
PROCEDURE: XR FOOT WT BEARING RT 3V CLINICAL INDICATION: comparison COMPARISON: CR FTR3 FOOT-RT-3 VIEWS from 07/07/2017 CR FTL3 FOOT-LT-3 VIEWS from 07/07/2017 FINDINGS: No fracture or dislocation. No lytic or blastic change. There is normal mineralization. There are mild osteoarthritic changes of the talonavicular joint. Other findings:None. IMPRESSION: No change with no acute finding Dictated by: Ilan Cross MD 04/23/2021 15:31 Ilan Cross MD in [place] 04/23/2021 15:31
--- NOTE | 2021-04-23 12:26 | XR_ITS ---
PROCEDURE: XR FOOT WT BEARING LT 3V CLINICAL INDICATION: pain, hx of lisfranc fracture. COMPARISON: CR FTR3 FOOT-RT-3 VIEWS from 07/07/2017 CR FTL3 FOOT-LT-3 VIEWS from 07/07/2017 FINDINGS: There are mild osteoarthritic changes at the talonavicular joint. There has been prior fusion of the 1st, 2nd, and 3rd metatarsal tarsal junction. Longitudinal screws present at the base of the 5th metatarsal. Mild osteoarthritic changes are present at the 4th and 5th metatarsal tarsal junction. Bandage artifact is present at the great toe and at the 5th toe IMPRESSION: Bandage artifact at the 1st and 5th toes. Postsurgical changes which are stable Dictated by: Ilan Cross MD 04/23/2021 15:35 Ilan Cross MD in [place] 04/23/2021 15:35
== END ==
PROVIDERS: PCP Nurse Practitioner Family; Visit Provider Podiatrist
DX: M79.672 Pain in left foot (principal); M79.671 Pain in right foot
CPT/HCPCS: 73630

== ENCOUNTER 2022-04-14 09:02 | Emergency (ER) | payer BC, SELFPAY ==
[2022-04-14 09:20] VITALS: BP 140/84; PULSE 85; RESP 20; TEMP 36.7; O2SAT 95; BMI 27.3
--- NOTE | 2022-04-14 09:55 | HMH.EDUTC ---
[facility] [place] Clinical Impression: Sinusitis Qualifiers: Sinusitis location: unspecified location Chronicity: unspecified Qualified Code(s): J32.9 - Chronic sinusitis, unspecified Disposition: Home, Self-Care Condition on Discharge: Good Instructions: Sinusitis, DI for Sinusitis Additional Instructions: *Monitor Temp, Over the counter Motrin or Tylenol as directed/as needed Tylenol every 4 hours and Motrin every 6 hours (as long as your family doctor has told you that you can take it) for fever or pain. and straight to ER if unable to lower temp less than 101.0 after medication given *Warm salt water gargles may help to soothe the throat *Warm fluids like tea with honey may help to soothe the throat an open drainage passages *Sleep elevated *Humidifier/Vaporizer Take medications as prescribed FOllow up with Family Doctor and dentist Follow up IMMEDIATELY for new or worsening symptoms or no Noticeable improvement over the next 48-72 hours. 911 for difficulty breathing or swallowing Prescriptions: Amoxicillin/Potassium Clav [Amox-Clav 875-125 mg Tablet] 1 tab PO BID #14 tab Transmission Status: Pending to [facility] Referrals: Jatinder Li MD [Primary Care Provider] - As needed Time of Disposition: 10:04 Medical Decision Making - Rodger Inquiry Pt receiving controlled substance: No Rodger was queried for this patient: No Vital Signs: 04/14/22 09:20 04/14/22 10:01 Temperature 98.0 F 98.0 F Temperature Source Oral Pulse Rate 85 Pulse Rate [Right Brachial] 85 Respiratory Rate 20 20 Blood Pressure 140/84 Blood Pressure [Right Arm] 140/84 Blood Pressure Mean [Right Arm] 102 Blood Pressure Source [Right Arm] Automatic Cuff Blood Pressure Position [Right Arm] Sitting 02 Sat by Pulse Oximetry 95 Oxygen Delivery Method Room Air Medical Decision Narrative: Patient states that she has taken augmentin in the past without complications and reactions [facility] [place] - General Stated complaint: h/a, left ear ache, sinus pressure Time Seen by Provider: 04/14/22 09:55 Mode of Arrival: Ambulatory Source of Information: Patient Limitations: No Limitations Description of Symptoms (Recalled from Triage Doc. by RN): PATIENT C/O HEADACHE, SINUS PRESSURE AND LEFT EAR PAIN SINCE THURSDAY HEENT Symptoms (Recalled from RN notes): Yes Resp Symptoms (Recalled from RN notes): No Skin Symptoms (Recalled from RN notes): No MS Symptoms (Recalled from RN notes): No Functional Status (Recalled from RN notes): WNL - History of Present Illness Provider Complaint: Patient states that she has been having pain in her left ear, headache and sinus pain and pressure since Thursday State that she also has a bad tooth on her left upper teeth States that she wasnt sure if she may have a sinus infection making her teeth hurt or tooth making her ear and sinus hurt so she came in - Related Data Home Medications Medication Instructions Recorded Confirmed atorvastatin 20 mg tablet 20 mg PO tab 04/23/21 05/15/21 umeclidinium 62.5 mcg-vilanterol ea INHALATION 04/23/21 05/15/21 25 mcg/actuation powdr for inhalation Previous Rx's Medication Instructions Recorded ciclopirox 0.77 % topical cream 1 applic TOPICAL BID 90 Days #90 g 04/23/21 ketoconazole 2 % topical cream 1 applic TOPICAL QDAY 90 Days #60 g 04/23/21 Amoxicillin/Potassium Clav 1 tab PO BID #14 tab 04/14/22 [Amox-Clav 875-125 mg Tablet] Allergies Allergy/AdvReac Type Severity Reaction Status Date / Time No Known Allergies Allergy Verified 05/15/21 13:12 - Worker's Comp Is this a Worker's Comp case?: No [facility] [place] History - Hepatitis A Screen Attestation statement:: This patient has been screened for Hepatitis A risk factors. I have reviewed the patient's past medical history: Yes Medical History: Reports:: Asthma, Chronic Obstructive Pulmonary Disease (COPD), Hypertension Denies:: Cancer, Diabetes Mellitus Type 1, Diabetes Mellitus
[2022-04-14 10:01] VITALS: BP 140/84; PULSE 85; RESP 20; TEMP 36.7; O2SAT 95
== END 2022-04-14 10:15 | disposition home or self-care (01) ==
PROVIDERS: Emergency Provider Nurse Practitioner; PCP Internal Medicine Adolescent Medicine
DX: J32.9 Chronic sinusitis, unspecified (principal); H92.02 Otalgia, left ear; I10 Essential (primary) hypertension
CPT/HCPCS: 99212; G0463

== ENCOUNTER → 2022-05-09 12:54 | Outpatient (CLI) | payer BC, SELFPAY ==
--- NOTE | 2022-05-09 13:03 | MM_ITS ---
PROCEDURE INFORMATION: Exam: MG Bilateral Screening 3D Mammography Exam date and time: 05/09/2022 12:58 PM Age: 61 years old Clinical indication: Screening examination. No family history of breast cancer. TECHNIQUE: Imaging protocol: Bilateral Screening tomosynthesis and 2D mammography including computer-aided detection (CAD) when performed. COMPARISON: 1. MG MM DIG SCREENING MAMM BI W/CAD 01/21/2021 10:38 AM 2. MG DMSB DIG MAMM-SCREEN BLAYNE W/CAD 01/20/2017 9:26 AM FINDINGS: MAMMOGRAPHY: Breast composition: There are scattered areas of fibroglandular density. Mass: None. Architectural distortion: None. Calcifications: No suspicious calcifications. Asymmetric density: None. Skin thickening: None. Axillary adenopathy: None. IMPRESSION: No mammographic evidence of malignancy. Annual screening is recommended unless otherwise clinically indicated. ASSESSMENT: BI-RADS Category 1: Negative
== END ==
PROVIDERS: PCP Internal Medicine Adolescent Medicine; Visit Provider Internal Medicine Adolescent Medicine
DX: Z12.31 Encounter for screening mammogram for malignant neoplasm of breast (principal)
CPT/HCPCS: 77063; 77067

== ENCOUNTER 2022-07-25 17:38 | Emergency (ER) | payer BC, SELFPAY ==
--- NOTE | 2022-07-25 18:44 | EXP.UTC ---
Discharge Plan Disposition Patient Disposition: Home, Self-Care Condition: Good Prescriptions Prescriptions: New amoxicillin-pot clavulanate 875-125 mg Tablet 1 tab PO Q12H 7 Days Qty: 14 0RF No Action umeclidinium-vilanterol 62.5-25 mcg/actuation blister with device INHALATION atorvastatin 20 mg tablet 20 mg PO ketoconazole 2 % cream 1 applic TOPICAL QDAY 90 Days Qty: 60 3RF Rx Instructions: Apply to affected areas. Do not apply between toes. ciclopirox [Ciclodan] 0.77 % cream 1 applic TOPICAL BID 90 Days Qty: 90 3RF Rx Instructions: Apply to the affected toenails daily. Once a week, smooth nails with zach board amoxicillin-pot clavulanate 1 EACH tablet 1 tab PO BID Qty: 14 0RF Referrals Follow up/Referrals: Jatinder Li MD [Primary Care Provider] - See instructions Clinical Impressions Clinical Impression: Sinusitis Stand Alone Forms Stand Alone Forms: Work/School Release Instructions Patient Instructions: Sore Throat, Sinusitis Discharge ED Provider: Summer Coelho [facility] General Stated complaint: SOA,allergies,earache,Sinus ? Time Seen by Provider: 07/25/22 18:56 History of Present Illness Provider Complaint: Patient states that she has been having sinus congestion and pressure, drianage in the back of her throat, pain and pressure in her ears and feeling achy and having a headache States that today she was having drainage in the back of her throat that was making her throat burn and hurt so she came in to get checked Related Data Home Medications Medication Instructions Recorded Confirmed atorvastatin 20 mg tablet 20 mg PO 04/23/21 05/15/21 umeclidinium 62.5 mcg-vilanterol ea inhalation 04/23/21 05/15/21 25 mcg/actuation powdr for inhalation Previous Rx's Medication Instructions Recorded ciclopirox 0.77 % topical cream 1 applic topical BID toenail 04/23/21 (Ciclodan) fungus 90 days #90 grams ketoconazole 2 % topical cream 1 applic topical QDAY tinea pedis 04/23/21 90 days #60 grams amoxicillin 875 mg-potassium 1 tab PO BID #14 tabs 04/14/22 clavulanate 125 mg tablet amoxicillin 875 mg-potassium 1 tab PO Q12H 7 days #14 tabs 07/25/22 clavulanate 125 mg tablet Allergies Allergy/AdvReac Type Severity Reaction Status Date / Time No Known Allergies Allergy Verified 05/15/21 13:12 PFSH PFSH Medical History (Updated 07/25/22 @ 19:18 by Summer Coelho APRN) Asthma COPD (chronic obstructive pulmonary disease) Hyperlipidemia Kidney stone Surgical History (Updated 07/25/22 @ 19:16 by Maryana Duarte RN) History of cholecystectomy History of hysterectomy History of tonsillectomy Social History (Updated 07/25/22 @ 19:16 by Maryana Duarte RN) Smoking Status: Former smoker pack-years: 10 alcohol intake: never substance use type: denies use current occupational status: other Travel in the last 8 weeks: None housing: house caffeine: Yes ROS Obtained: Yes All systems reviewed & no additional complaints except as documented and Yes Systems reviewed as appropriate & no additional complaints except as documented ENT Ears, Nose, Mouth, and Throat: Reports system reviewed and no additional complaints, except as documented, Reports as per HPI, Reports nasal congestion, Reports sinus pressure and Reports sore throat Cardiovascular Cardiovascular: Reports system reviewed and no additional complaints, except as documented, Reports as per HPI and Denies chest pain Respiratory Respiratory: Reports system reviewed and no additional complaints, except as documented and Reports as per HPI Gastrointestinal Gastrointestingal: Reports system reviewed and no additional complaints, except as documented and as per HPI Physical Exam General General appearance: alert and in no apparent distress Expanded ENT Exam Nose exam: Present sinus tenderness Comment: Pharyngeal erythema wity PND noted Chest
[2022-07-25 19:00] VITALS: BP 146/86; PULSE 77; RESP 19; TEMP 36.8; O2SAT 100; BMI 29.3
[2022-07-25 19:24] LABS: UTC Influenza A Antigen Negative (Negative); UTC Influenza B Antigen Negative (Negative); UTC Strep Screen (Rapid) Negative (Negative)
[2022-07-25 19:25] VITALS: BP 146/86; PULSE 77; RESP 19; TEMP 36.8; O2SAT 100
== END 2022-07-25 19:40 | disposition home or self-care (01) ==
PROVIDERS: Emergency Provider Nurse Practitioner; PCP Internal Medicine Adolescent Medicine
DX: J32.9 Chronic sinusitis, unspecified (principal); J02.9 Acute pharyngitis, unspecified; H92.03 Otalgia, bilateral; R06.02 Shortness of breath; R51.9 Headache, unspecified; E78.5 Hyperlipidemia, unspecified; Z20.822 Contact with and (suspected) exposure to COVID-19; J44.9 Chronic obstructive pulmonary disease, unspecified; Z79.899 Other long term (current) drug therapy; Z87.442 Personal history of urinary calculi; Z87.891 Personal history of nicotine dependence
CPT/HCPCS: 87804; 87880; 99213; C9803; G0463; U0003; U0005

== ENCOUNTER 2022-11-07 06:15 | Day surgery (SDC) | payer BC, SELFPAY ==
[2022-11-04 16:39] VITALS: BMI 28.1
[2022-11-07] VITALS (8 sets, daily range): BP systolic 76–140; BP diastolic 48–88; PULSE 60–83; RESP 16–18; TEMP 36.2–36.5; O2SAT 91–99
--- NOTE | 2022-11-07 07:02 | EXP.ANES.CKL ---
[facility] Disclaimer: The information contained in this section may have been updated after the patient was seen, as this information can be updated by other users. Medical History Asthma COPD (chronic obstructive pulmonary disease) Generalized anxiety disorder Grief Hyperlipidemia Kidney stone Surgical History History of bladder surgery History of cholecystectomy History of hysterectomy History of tonsillectomy Family History Other History of VT (myocardial infarction) Social History Smoking Status: Former smoker pack-years: 10 alcohol intake: never substance use type: denies use current occupational status: other Travel in the last 8 weeks: None housing: house caffeine: Yes [facility] Anesthesia Checklist Patient Identification Patient Identification: Arm Band and Verbal (Name & ) Structural Data Admitted From: Home Planned Operative Procedure/s: Colonoscopy Consent for Planned Operative Procedure(s) Verified: Yes NPO Status Verified Time NPO: 00:00 Additional verifications Anesthesia Reactions: No Hx Blood Transfusions: No Blood Transfusion Reaction: No Airway Assessment C-Spine Mobility Assessed: Yes TMJ Mobility Assessed: Yes Neurological Assessment Level of Consciousness: Awake Hx Seizures: No Numbness or tingling in extremities: No Anesthesia Plan Anesthesia Risk discussed: Yes Anesthesia Plan: Verified ASA Class: II Anesthesia Type: MAC
--- NOTE | 2022-11-07 07:50 | P.PCN_ITS ---
Procedure: Date: 11/07/22 Patient Date of :: 1960 Procedure Performed:: Total colonoscopy to terminal ileum with random biopsies Indications:: Patient is a 62-year-old female. She had undergone colonoscopy [place] [address] Boogie and had a 5 mm polyp in the cecum. Exact histopathology unknown. She was scheduled for colonoscopy. She does state that she has had some stomach issues for a couple of weeks. She had a GI illness and has had some postprandial cramping and some diarrhea. No bleeding. Performing Provider:: Kvng Claudio MD Referring Provider:: Jatinder Li Sedation:: MAC sedation Procedure:: Patient history was obtained and appropriate physical examination was performed. Patient's medications and allergies were reviewed. Informed consent was obtained after explaining the benefits, alternatives, and risks of the procedure including, but not limited to, bleeding, perforation, missed lesions, and adverse reaction to anesthesia medications. Patient was transported to endoscopy procedure room. Patient was connected to monitoring devices. Throughout the procedure the patient's blood pressure, pulse, and oxygen saturations were monitored continuously. Patient identificati on and planned procedure were verified by the staff. Patient was positioned in lateral decubitus position. Digital anorectal exam was performed. Variable stiffness Olympus colonoscope was inserted and advanced under direct visualization to the cecum. Adequacy of the colonic preparation was noted. The colonoscope was advanced a short distance into the terminal ileum very briefly. The colonoscope was then slowly withdrawn while carefully examining the color, texture, anatomy, and integrity of the mucosoa circumferentially. Within the rectum retroflexion was performed. Colonoscope was then withdrawn. Findings:: The colon preparation was excellent. Ileocecal valve and appendiceal orifice were identified. With repeated attempts the colonoscope was advanced into the terminal ileum very briefly and biopsy was obtained. There was limited visualization of the ileum however. Colonoscope slowly withdrawn through the colon with careful surveillance. Due to her history of GI symptoms random right and left colon biopsies were obtained. She had some sigmoid diverticulosis. There were noted to be no polyps. Findings: Minimal diverticulosis. Otherwise unremarkable. Recommendations:: Plan to follow-up on histopathology. GI symptoms could be functional. Likely repeat colonoscopy up to 10 years Complications:: None immediately apparent Estimated blood obtained (mL): 1
== END 2022-11-07 08:57 | disposition home or self-care (01) ==
PROVIDERS: PCP Internal Medicine Adolescent Medicine; Visit Provider Surgery
PROC: 0DJD8ZZ Inspection of Lower Intestinal Tract, Via Natural or Artificial Opening Endoscopic (ICD-10-PCS; CPT 45380; principal; 2022-11-07 07:30)
DX: Z12.11 Encounter for screening for malignant neoplasm of colon (principal); Z86.010 Personal history of colon polyps; Z79.899 Other long term (current) drug therapy
CPT/HCPCS: 45380; J2704

== ENCOUNTER 2023-01-18 23:57 | Emergency (ER) | payer OTHER, SELFPAY ==
[2023-01-18 23:59] VITALS: BP 161/105; PULSE 112; RESP 23; TEMP 37.1; O2SAT 97; BMI 29.7
--- NOTE | 2023-01-19 00:29 | XR_ITS ---
PROCEDURE INFORMATION: Exam: XR Chest Exam date and time: 01/19/2023 12:24 AM Age: 62 years old Clinical indication: Cough and shortness of breath; Additional info: Cough, SOA TECHNIQUE: Imaging protocol: Radiologic exam of the chest. Views: 2 views. COMPARISON: CR CXR CHEST(2 VIEWS-NOT PORTABLE) 07/24/2016 2:22 PM FINDINGS: Lungs: Unremarkable. No consolidation. Pleural spaces: Unremarkable. No pleural effusion. No pneumothorax. Heart/Mediastinum: Large hiatal hernia. Bones/joints: Unremarkable. IMPRESSION: No acute findings.
--- NOTE | 2023-01-19 00:34 | PC.NURSE ---
pt to xray
[2023-01-19 00:36] LABS: Coronavirus 19, PCR Not Detected (NotDetected); Influenza A, PCR Not Detected (NotDetected); Influenza B, PCR Not Detected (NotDetected)
--- NOTE | 2023-01-19 00:36 | HMH.EDSOB ---
Discharge Plan Disposition Patient Disposition: Home, Self-Care Prescriptions Prescriptions: New azithromycin [azithromycin] 250 mg tablet 250 mg PO DIRECTED Qty: 6 0RF Rx Instructions: Take two (2) tablets on day #1, then one (1) tablet day #2 thru #5 prednisone [prednisone] 20 mg tablet 20 mg PO BID Qty: 10 0RF benzonatate 100 mg Capsule 100 mg PO Q8H Qty: 21 0RF No Action atorvastatin 20 mg tablet 20 mg PO DAILY loratadine 10 mg tablet 10 mg PO DAILY Anoro Ellipta 62.5-25 mcg/actuation Blister With Device 1 inh INHALATION DAILY albuterol sulfate [Ventolin HFA] 90 mcg/actuation HFA aerosol inhaler 1 puff INHALATION BIDP PRN (Reason: COPD) Referrals Follow up/Referrals: Jatinder Li MD [Primary Care Provider] - See instructions Clinical Impressions Clinical Impression: Acute exacerbation of chronic obstructive airways disease, Bronchitis, RAD (reactive airway disease) Instructions Patient Instructions: DI for Chronic Obstructive Pulmonary Disease Discharge ED Provider: Stan (ED)Marck Resp/SOB HPI General Chief Complaint: Shortness of Breath/Dyspnea Stated Complaint: SOA,cough,body aches Time Seen by Provider: 01/19/23 00:36 Mode of Arrival: Family Vehicle Source of Information: Patient and Medical Record Limitations: No Limitations Description of Symptoms (Recalled from ER Triage Doc. by RN): Pt c/o non-productive, hacking cough that has been present for about 1 wk. States she was tolerating the cough well until yesterday. She started to have chills, SOA, and increased chest congestion. She has been taking an old prescription of Tessalon pearls, Cold & Cough, Mucinex, and rescue albuterol inhaler. However, the SOA and congestion worsened so she presented to ER. She denies any chest pain. She has not taken her temperature but has felt feverish and chills. She also c/o body aches. 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 Complaint: shortness of breath and cough Onset (ago): day(s) Severity: moderate Consistency/Duration: intermittent Known history of: COPD Associated symptoms: denies other symptoms Related Data Home oxygen amount: none Home Medications Medication Instructions Recorded Confirmed atorvastatin 20 mg tablet 20 mg PO DAILY HLD 06/01/21 02/27/23 albuterol sulfate 90 mcg/actuation 1 puff inhalation BIDP PRN COPD 11/04/22 01/19/23 aerosol inhaler (Ventolin HFA) loratadine 10 mg tablet 10 mg PO DAILY ALLERGIES 11/04/22 01/19/23 umeclidinium 62.5 mcg-vilanterol 1 inh inhalation DAILY COPD 11/04/22 01/19/23 25 mcg/actuation powdr for inhalation (Anoro Ellipta) Previous Rx's Medication Instructions Recorded azithromycin 250 mg tablet 250 mg PO DIRECTED #6 tabs 01/19/23 benzonatate 100 mg capsule 100 mg PO Q8H #21 caps 01/19/23 prednisone 20 mg tablet 20 mg PO BID #10 tabs 01/19/23 Allergies Allergy/AdvReac Type Severity Reaction Status Date / Time No Known Allergies Allergy Verified 10/07/22 09:20 [facility] Disclaimer: The information contained in this section may have been updated after the patient was seen, as this information can be updated by other users. Medical History Asthma COPD (chronic obstructive pulmonary disease) Generalized anxiety disorder Grief Hyperlipidemia Kidney stone Surgical History History of bladder surgery History of cholecystectomy History of hysterectomy History of tonsillectomy Family History Other History of [place] (myocardial infarction) Social History Smoking Status: Never smoker alcohol intake: never substance use type: denies use current occupational status: other Travel in the last 8 weeks: No
[2023-01-19 00:39] LABS: Basophils # 0.1 K/mm3 (0-0.2); Basophils % 1.2 % (0.1-2.0); Eosinophils # 0.5 K/mm3 (0.0-0.4); Eosinophils % 8.5 % (0.1-12.0); Hematocrit 46.8 % (37.0-47.0); Hemoglobin 15.5 g/dL (12.2-16.2); Lymphocytes # 1.2 K/mm3 (0.7-4.5); Lymphocytes % 22.4 % (10-50); Mean Corpuscular HGB Conc 33.1 g/dL (31.8-35.4); Mean Corpuscular Hemoglobin 30.7 pg (27.0-31.2); Mean Corpuscular Volume 92.5 fl (81-99); Mean Platelet Volume 7.2 fl (7.4-10.4); Monocytes # 0.3 K/mm3 (0.1-1.0); Monocytes % 4.9 % (1.7-9.3); Neutrophils # 3.3 K/mm3 (1.8-7.8); Neutrophils % 62.9 % (37.0-80.0); Platelet Count 286 K/mm3 (142-424); Red Blood Count 5.05 M/mm3 (4.20-5.40); White Blood Count 5.3 K/mm3 (4.8-10.8)
--- NOTE | 2023-01-19 00:40 | PC.NURSE ---
pt back to room. Called respiratory for a neb tx
[2023-01-19 00:47] LABS: Alanine Aminotransferase 27 U/L (12-78); Albumin Level 4.4 g/dl (3.5-5.0); Albumin/Globulin Ratio 1.3 (1.1-1.8); Alkaline Phosphatase 60 U/L (38-126); Aspartate Amino Transferase 33 U/L (14-36); Bilirubin,Total 0.7 mg/dl (0.2-1.3); Blood Urea Nitrogen 15 mg/dl (7-17); Calcium 8.6 mg/dl (8.4-10.2); Carbon Dioxide 30 mmol/L (22.0-30.0); Chloride 108 mmol/L (98-107); Creatinine Clearance Estimated 66 mL/min (50-200); Estimated Glomerular Filt Rate 46 ml/min (>60); GFR (African American) 55 ML/MIN (>60); Globulin 3.4 g/dL (1.3-3.2); Glucose 79 mg/dl (74-100); Magnesium 2.4 mg/dl (1.6-2.3); Sodium 139 mmol/L (136-145); Total Protein,Serum 7.8 g/dl (6.3-8.2)
[2023-01-19 00:53] VITALS: PULSE 83
[2023-01-19 00:55] LABS: NT Pro Brain Natriuretic Pep. 24.2 pg/mL (0-125)
[2023-01-19 01:04] LABS: Procalcitonin 0.134 ng/mL (0.0-2.0)
[2023-01-19 01:10] LABS: Erythrocyte Sedimentation Rate 16 mm/hr (0-30)
[2023-01-19 01:11] LABS: Troponin I < 0.01 ng/ml (0.00-0.034)
[2023-01-19 01:17] VITALS: BP 151/88; PULSE 90; RESP 20; TEMP 36.7; O2SAT 97
== END 2023-01-19 01:38 | disposition home or self-care (01) ==
PROVIDERS: Emergency Provider Emergency Medicine; PCP Internal Medicine Adolescent Medicine
DX: J44.1 Chronic obstructive pulmonary disease with (acute) exacerbation (principal); J20.9 Acute bronchitis, unspecified; J45.901 Unspecified asthma with (acute) exacerbation; F41.0 Panic disorder [episodic paroxysmal anxiety]; E78.5 Hyperlipidemia, unspecified; Z90.49 Acquired absence of other specified parts of digestive tract; Z87.442 Personal history of urinary calculi; Z82.49 Family history of ischemic heart disease and other diseases of the circulatory system; Z20.822 Contact with and (suspected) exposure to COVID-19
CPT/HCPCS: 71046; 80053; 83735; 83880; 84145; 84484; 85025; 85651; 86140; 87070; 87205; 96361; 96374; 99285; C9803; U0003; U0005

== ENCOUNTER → 2023-01-20 07:56 | Outpatient (CLI) | payer OTHER, SELFPAY ==
--- NOTE | 2023-01-20 | CA_ITS ---
APPROVED REPORT EXAM: Comprehensive 2D, Doppler, and color-flow Echocardiogram Automation Tech: Tonja Valentine CRT Ht: 5 ft 7 in Wt: 190lbs BSA: 1.98 BP: 161/105 mmHg Indications: COPD, Murmur, Shortness of Breath, Peripheral Edema, Hyperlipidemia 2D Dimensions LVOT 1.85 cm (M/F) 1.5-2.5 LA Volume 32.90 mL LA Volume Index 16.20 mL/m2 (M/F) 16-34 M-Mode Dimensions RVDd 2.61 cm (0.9-2.6) LA Diam 3.11 cm (1.9-4.0) LVDd 4.39 cm (3.5-5.7) Ao Diam 3.79 cm (2.0-3.7) LVDs 2.54 cm (3.5-5.7) IVSd 1.36 cm (0.6-1.1) PWd 0.82 cm (0.6-1.1) EF (Teich) 73.40% FS 42.10% EDV (Teich) 87.20 mL TAPSE 1.17 (<1.7) ESV (Teich) 23.20 mL LV Diastology E Decel Time 207.00 (160-240 msec) E/A Ratio 0.92 MED E' 8.00 (< 7 cm/sec) MED A' 11.90 cm/s E'/MED E' Ratio 9.81 (>14) LAT E' 5.70 (<10 cm/sec) LAT A' 8.10 cm/s E/LAT E' Ratio 13.77 (>14) Aortic Valve LVOT Max 133.00 (70-110 cm/s) LVOT VTI 29.21 cm AoV Peak Garcia. 156.00 (50-130 cm/s) AO Peak GR. 9.70 mmHg AO Mean GR. 5.60 (<5 mmHg) AO VTI 33.25 (18-25 cm) NGUYEN (VTI) 2.36 (2.5-4.5 cm2) Mitral Valve MV A Velocity 85.00 (40-130 cm/s) E/A Ratio 0.92 MV Decel. Time 207.00 (160-240 ms) Pulmonary Valve PV Peak Velocity 107.00 (50-150 cm/s) Tricuspid Valve TR P. Velocity 253.00 cm/s RAP Estimate 10.00 mmHg RVSP 35.50 mmHg Left Ventricle Left atrium is mildly enlarged, left ventricle is normal size, mild concentric left ventricular hypertrophy, estimated ejection fraction 55% with no regional wall motion abnormality, grade 1 diastolic dysfunction seen without tissue Doppler evidence of trace left atrial pressure. Right Ventricle Right atrium and right ventricular normal size and contractility. Aortic Valve Aortic valve is thickened and calcified without aortic stenosis or aortic insufficiency. Mitral Valve Mitral valve is grossly normal, there is trace mitral regurgitation. Tricuspid Valve Tricuspid grossly normal, there is trace tricuspid regurgitation, tricuspid regurgitation jet velocity is inadequate for calculation of the right ventricular systolic pressure. Pulmonic Valve Pulmonic valve is poorly visualized. Great Vessels Aortic root is normal size. Inferior vena cava is normal size with normal inspiratory collapse. Pericardium No significant pericardial effusion noted. Conclusion 1. Mildly enlarged left atrium, normal left ventricular size mild concentric left ventricular hypertrophy, estimated ejection fraction 55% with no regional wall motion abnormality, grade 1 diastolic dysfunction seen without tissue Doppler evidence of raise left atrial pressure. 2. Trace mitral and tricuspid regurgitation. 3. Thickened and calcified aortic valve without aortic stenosis aortic insufficiency. 4. No significant pericardial failure. 5. Inferior vena cava is normal size with normal inspiratory collapse. Electronically signed by : Enoch Gann MD 01/20/2023 19:00:24
--- NOTE | 2023-01-20 | CA_ITS ---
FINAL REPORT CLINICAL HISTORY: Pain edema right leg FINDINGS: DUPLEX VENOUS SONOGRAPHY OF THE BILATERAL LOWER EXTREMITIES Multiple transverse and longitudinal scans were performed of the femoropopliteal deep venous systems, with augmentation and compression maneuvers. FINDINGS: There is echogenic material within the right distal femoral, right popliteal, and right posterior tibial veins which are noncompressive. The left lower extremity shows no evidence of deep vein thrombosis. IMPRESSION: Positive for deep vein thrombosis in the right distal femoral, popliteal, and posterior tibial veins. CAM Flores was notified of these findings at the time of the exam. Reviewed, Interpreted and Dictated by Zainab Mendez MD Transcribed by Nereida Flores Authenticated and [facility]
--- NOTE | 2023-01-20 11:41 | CT_ITS ---
FINAL REPORT TECHNIQUE: Axial imaging of the chest is obtained after the administration of contrast. 3-D MIP reformatted images were also obtained and reviewed per PE protocol. CLINICAL HISTORY: Right lower extremity DVT FINDINGS: The pulmonary arteries are well filled. There is no evidence of pulmonary embolus. There is no aortic dissection or intimal flap. There is no mediastinal, hilar, or axillary lymphadenopathy. There is a large hiatal hernia. There is bilateral lower lobe atelectasis. Reticulonodular opacities in the right lower lobe with a few additional scattered subcentimeter nodules are favored to represent pneumonia. The lungs are otherwise clear. There is no pleural or pericardial effusion. Limited evaluation of the upper abdomen is without acute abnormality. There is no acute osseous abnormality. IMPRESSION: No evidence of pulmonary embolism or aortic dissection. Right lower lobe bronchopneumonia. Three month follow-up chest CT is recommended. Large hiatal hernia. Reviewed, Interpreted and Dictated by Zainab Mendez MD Transcribed by Nereida Flores Authenticated and [facility]
[2023-01-20 11:55] LABS: Blood Urea Nitrogen 22 mg/dl (7-17); Estimated Glomerular Filt Rate 63 ml/min (>60); GFR (African American) 77 ML/MIN (>60)
[2023-01-20 14:30] LABS: Activated Partial Thrombo Time 25.6 seconds (22.8-30.6); INR 1.01 (0.9-1.1); Prothrombin Time 10.9 seconds (10.1-12.5)
[2023-01-20 15:39] LABS: Erythrocyte Sedimentation Rate 72 mm/hr (0-30)
[2023-01-22 15:23] LABS: Anti-Centromere B Antibodies <0.2 AI (0.0-0.9); Anti-DNA (DS) Ab Qn <1 IU/mL (0-9); Anti-Jo-1 <0.2 AI (0.0-0.9); Anti-Smith Antibody <0.2 AI (0.0-0.9); Antichromatin Antibodies 0.4 AI (0.0-0.9); Antiscleroderma-70 Antibodies 0.3 AI (0.0-0.9); RNP Antibodies <0.2 AI (0.0-0.9); Sjogren's Anti-SS-A <0.2 AI (0.0-0.9); Sjogren's Anti-SS-B <0.2 AI (0.0-0.9)
[2023-01-24 02:54] LABS: Protein S Antigen, Total 89 % (60-150)
[2023-01-24 04:34] LABS: Lupus Reflex Interpretation Comment: (.); PTT-LA 33.6 sec (0.0-43.5); dRVVT 42.6 sec (0.0-47.0)
[2023-01-29 18:07] LABS: Protein C Antigen 105 % (60-150)
== END ==
PROVIDERS: Nurse Practitioner Family; PCP Nurse Practitioner Family; Visit Provider Nurse Practitioner
DX: R06.02 Shortness of breath (principal); R00.2 Palpitations; R06.09 Other forms of dyspnea; M79.661 Pain in right lower leg; M79.89 Other specified soft tissue disorders; I82.411 Acute embolism and thrombosis of right femoral vein; I82.441 Acute embolism and thrombosis of right tibial vein; I82.431 Acute embolism and thrombosis of right popliteal vein
CPT/HCPCS: 36415; 71275; 81241; 82565; 84520; 85302; 85305; 85610; 85613; 85651; 85730; 86140; 86225; 86235; 93306; 93970; Q9967

== ENCOUNTER → 2023-05-13 16:46 | Outpatient (CLI) | payer OTHER, SELFPAY ==
--- NOTE | 2023-05-13 16:51 | MM_ITS ---
PROCEDURE INFORMATION: Exam: MG Bilateral Screening 3D Mammography Exam date and time: 05/13/2023 4:38 PM Age: 62 years old Clinical indication: Screening. No family history of breast cancer. TECHNIQUE: Imaging protocol: Bilateral Screening tomosynthesis and 2D mammography including computer-aided detection (CAD) when performed. COMPARISON: 1. MG MM DIG SCREENING MAMM BI W/CAD 05/09/2022 12:58 PM 2. MG MM DIG SCREENING MAMM BI W/CAD 01/21/2021 10:38 AM 3. MG DMSB DIG MAMM-SCREEN BLAYNE W/CAD 01/20/2017 9:26 AM 4. MG DMSB DIG MAMM-SCREEN BLAYNE 01/02/2015 8:35 AM FINDINGS: MAMMOGRAPHY: Breast composition: There are scattered areas of fibroglandular density. Mass: No suspicious mass. Architectural distortion: None. Calcifications: No suspicious calcifications. Asymmetric density: None. Skin thickening: None. Axillary adenopathy: None. IMPRESSION: No mammographic evidence of malignancy. Annual screening is recommended unless otherwise clinically indicated. ASSESSMENT: BI-RADS Category 1: Negative
== END ==
PROVIDERS: PCP Nurse Practitioner Family; Visit Provider Nurse Practitioner Family
DX: Z12.31 Encounter for screening mammogram for malignant neoplasm of breast (principal)
CPT/HCPCS: 77063; 77067

== ENCOUNTER → 2023-05-18 09:24 | Outpatient (CLI) | payer OTHER, SELFPAY ==
[2023-05-18 09:56] LABS: Basophils % 0.7 % (0.1-2.0); Eosinophils # 0.2 K/mm3 (0.0-0.4); Eosinophils % 4.8 % (0.1-12.0); Hematocrit 45.7 % (37.0-47.0); Hemoglobin 14.5 g/dL (12.2-16.2); Lymphocytes # 1.7 K/mm3 (0.7-4.5); Lymphocytes % 34.6 % (10-50); Mean Corpuscular HGB Conc 31.7 g/dL (31.8-35.4); Mean Corpuscular Hemoglobin 28.7 pg (27.0-31.2); Mean Corpuscular Volume 90.5 fl (81-99); Mean Platelet Volume 7.6 fl (7.4-10.4); Monocytes # 0.3 K/mm3 (0.1-1.0); Monocytes % 5.9 % (1.7-9.3); Neutrophils # 2.6 K/mm3 (1.8-7.8); Platelet Count 303 K/mm3 (142-424); Red Blood Count 5.05 M/mm3 (4.20-5.40); Red Cell Distribution Width 13.2 % (11.5-17.5); White Blood Count 4.9 K/mm3 (4.8-10.8)
[2023-05-18 11:18] LABS: Chloride 104 mmol/L (98-107); Potassium 4.1 mmoL/L (3.5-5.1); Sodium 142 mmol/L (136-145)
[2023-05-18 11:21] LABS: Alanine Aminotransferase 28 U/L (12-78); Albumin Level 4.1 g/dl (3.5-5.0); Albumin/Globulin Ratio 1.5 (1.1-1.8); Alkaline Phosphatase 56 U/L (38-126); Anion Gap 14.1 mEq/L (5-15); Aspartate Amino Transferase 32 U/L (14-36); Bilirubin,Total 0.4 mg/dl (0.2-1.3); Blood Urea Nitrogen 13 mg/dl (7-17); Calcium 8.9 mg/dl (8.4-10.2); Carbon Dioxide 28 mmol/L (22.0-30.0); Chol/HDL Ratio 5.8 (1-3.5); Cholesterol 198 mg/dl (140-200); Estimated Glomerular Filt Rate 63 ml/min (>60); GFR (African American) 77 ML/MIN (>60); Globulin 2.7 g/dL (1.3-3.2); Glucose 86 mg/dl (74-100); HDL Cholesterol 34 mg/dl (40-60); Total Protein,Serum 6.8 g/dl (6.3-8.2); Triglycerides 200 mg/dl (30-150); VLDL Cholesterol 40 mg/dL (0-40)
[2023-05-18 11:53] LABS: Thyroid Stimulating Hormone 3.95 uIU/mL (0.465-4.68)
[2023-05-18 13:10] LABS: Vitamin B12 552 pg/mL (239-931)
== END ==
PROVIDERS: PCP Nurse Practitioner Family; Visit Provider Nurse Practitioner Family
DX: E03.9 Hypothyroidism, unspecified (principal); E78.5 Hyperlipidemia, unspecified; E53.8 Deficiency of other specified B group vitamins; Z86.718 Personal history of other venous thrombosis and embolism
CPT/HCPCS: 36415; 80053; 80061; 82607; 84443; 85025

== ENCOUNTER → 2023-10-28 08:39 | Outpatient (CLI) | payer OTHER, SELFPAY ==
--- NOTE | 2023-10-28 08:55 | XR_ITS ---
FINAL REPORT TECHNIQUE: Bone mineral density was calculated of the lumbar spine and hip. CLINICAL HISTORY: post menopausal FINDINGS: Using L1-4, the bone mineral density of the spine is 0.878 g/cm2, corresponding to T-score of -1.5. Using the left hip, the bone mineral density of the femoral neck is 0.661 g/cm2, corresponding to a T-score of -1.7. Using the right hip, the bone mineral density of the femoral neck is 0.681 g/cm2, corresponding to a T-score of -1.5. NOTE: T-score: Standard deviation compared with peak bone mass of young adult mean. *Following the recommendations of the International Society of Bone densitometry, classification of hip BMD is based on the lower of two T-scores; total hip or femoral neck. IMPRESSION: Diminished bone mineral density consistent with low bone density. FRAX data reports 15% major osteoporotic fracture and 1.5% hip fracture. Reviewed, Interpreted and Dictated by Kvng Andrea III, MD Transcribed by Katya Hunter Authenticated and [facility]
== END ==
PROVIDERS: PCP Nurse Practitioner Family; Visit Provider Obstetrics & Gynecology
DX: Z78.0 Asymptomatic menopausal state (principal); Z13.820 Encounter for screening for osteoporosis
CPT/HCPCS: 77080

== ENCOUNTER 2024-01-05 12:03 | Outpatient (CLI) | payer OTHER, SELFPAY ==
--- NOTE | 2024-01-05 12:09 | XR_ITS ---
FINAL REPORT CLINICAL HISTORY: SHORTNESS OF BREATH COMPARISON: 01/19/2023 FINDINGS: TWO-VIEW CHEST The heart size is normal. The mediastinum is normal. There is a moderate hiatal hernia. There is mild scarring in the left lung base. The right lung is clear. There is no pneumothorax. IMPRESSION: No acute cardiopulmonary process. Reviewed, Interpreted and Dictated by Kvng Andrea III, MD Transcribed by Katya Hunter Authenticated and [facility]
--- NOTE | 2024-01-05 13:10 | CA_ITS ---
FINAL REPORT TECHNIQUE: Color Doppler, duplex Doppler and compression sonography of the right lower extremity venous system was performed. CLINICAL HISTORY: PAIN/FULLNESS RIGHT POPLITEAL JAMESON,HX DVT FINDINGS: There is no evidence of deep venous thrombosis from the level of the groin to the calf. The veins are patent and compressible. There is a heterogeneous mass in the popliteal fossa measuring up to 6.6 cm of uncertain etiology. IMPRESSION: No evidence of deep venous thrombosis right lower extremity. Heterogeneous mass in the popliteal fossa. Consider MRI. Reviewed, Interpreted and Dictated by Kvng Andrea III, MD Transcribed by Katya Hunter Authenticated and [facility]
== END 2024-01-05 23:59 ==
LOC: RT 12:03
PROVIDERS: PCP Nurse Practitioner Family; Visit Provider Nurse Practitioner Family
DX: R06.02 Shortness of breath (principal); M79.89 Other specified soft tissue disorders
CPT/HCPCS: 71046; 93971

== ENCOUNTER 2024-01-14 13:32 | Outpatient (CLI) | payer OTHER, SELFPAY ==
--- NOTE | 2024-01-14 13:37 | US_ITS ---
FINAL REPORT CLINICAL HISTORY: KNEE MASS RIGHT-- PT HAD RECENT VASC US FINDINGS: ULTRASOUND SOFT TISSUE RIGHT KNEE Limited sonographic images of the soft tissues of the right knee were obtained in the region of a palpable mass. There are 2 small hypoechoic foci in the region of clinical interest measuring less than 1 cm in size. Significance is unclear. These do not appear to be cystic. No abnormal fluid collection is identified. IMPRESSION: 2 hyperechoic foci in the region of interest measuring less than 1 cm, significance is unclear. Consider MRI if indicated. Reviewed, Interpreted and Dictated by Skip Delvalle MD Transcribed by Nereida Flores Authenticated and [facility]
== END 2024-01-14 23:59 ==
LOC: RAD 13:32
PROVIDERS: PCP Nurse Practitioner Family; Visit Provider Nurse Practitioner Family
DX: R22.41 Localized swelling, mass and lump, right lower limb (principal)
CPT/HCPCS: 76882

== ENCOUNTER → 2024-02-02 14:53 | Outpatient (CLI) | payer OTHER, SELFPAY | PROVIDERS: PCP Nurse Practitioner Family; Visit Provider Nurse Practitioner Family | DX: R06.83 Snoring (principal); R40.0 Somnolence | CPT/HCPCS: G0399 ==

== ENCOUNTER 2024-02-04 08:58 | Outpatient (CLI) | payer OTHER, SELFPAY ==
--- NOTE | 2024-02-04 09:06 | XR_ITS ---
FINAL REPORT CLINICAL HISTORY: Rt Knee Pain COMPARISON: None FINDINGS: Three views of the right knee reveal no evidence of fracture or dislocation. The bony alignment is normal. There is moderate to severe degenerative change, with severe medial compartment narrowing. There is no evidence of joint effusion. No localized soft tissue abnormality is identified. IMPRESSION: Moderate to severe degenerative change with severe medial compartment narrowing. Reviewed, Interpreted and Dictated by Kvng Andrea III, MD Transcribed by Shira Oreilly Authenticated and [facility]
== END 2024-02-04 23:59 ==
LOC: RAD 08:59
PROVIDERS: PCP Nurse Practitioner Family; Visit Provider Orthopaedic Surgery
DX: M25.561 Pain in right knee (principal)
CPT/HCPCS: 73562

== ENCOUNTER 2024-02-20 09:45 | Emergency (ER) | payer OTHER, SELFPAY ==
[2024-02-20 10:00] VITALS: BP 126/89; PULSE 83; RESP 17; TEMP 36.8; O2SAT 96; BMI 35.9
--- NOTE | 2024-02-20 10:11 | ED_ITS ---
Discharge Plan Disposition Patient Disposition: Home, Self-Care Condition: Good Prescriptions Prescriptions: New benzonatate 100 mg capsule 100 mg PO TIDP PRN (Reason: Cough) Qty: 30 0RF methylprednisolone 4 mg Tablets,Dose Pack 4 mg PO DIRECTED 6 Days Qty: 21 0RF Rx Instructions: Take 1 pack as directed for 6 days cefdinir 300 mg capsule 300 mg PO BID Qty: 20 0RF guaifenesin [Mucinex] 600 mg tablet extended release 12hr 600 - 1,200 mg PO BIDP PRN (Reason: Congestion) Qty: 30 0RF No Action rosuvastatin 5 mg tablet 5 mg PO DAILY pitavastatin calcium 2 mg tablet 2 mg PO DAILY Referrals Follow up/Referrals: Belle [place] APRN [Primary Care Provider] - See instructions Activity Restrictions/Add. Instructions Additional Instructions/Restrictions: Drink plenty of fluids. Take tylenol or ibuprofen for pain or fever. Take the medications as directed. Follow up with your regular doctor. GO TO THE ER FOR ANY WORSENING SYMPTOMS Don't start the oral steroids until tomorrow since you had the steroid shot here today. Clinical Impressions Clinical Impression: Acute exacerbation of chronic obstructive airways disease Instructions Patient Instructions: DI for Chronic Obstructive Pulmonary Disease, Dexamethasone Injection Discharge ED Provider: Onel Sexton [facility] General Stated complaint: cough, congestion Mode of Arrival: Ambulatory Source of Information: Patient Limitations: No Limitations Time Seen by Provider: 02/20/24 10:11 Description of Symptoms (Recalled from Triage Doc. by RN): PATIENT C/O PRODUCTIVE COUGH AND CONGETION X 2 DAYS HEENT Symptoms (Recalled from RN notes): Yes Resp Symptoms (Recalled from RN notes): Yes Skin Symptoms (Recalled from RN notes): No MS Symptoms (Recalled from RN notes): No Functional Status (Recalled from RN notes): WNL History of Present Illness Provider Complaint: She states that for the past 3 days she has had worsening chest congestion, productive cough, sinus congestion, and malaise. She has a history of copd, so she came in to try to get ahead of this before it gets worse. Related Data Home Medications Medication Instructions Recorded Confirmed pitavastatin calcium 2 mg tablet 2 mg PO DAILY 02/20/24 02/20/24 rosuvastatin 5 mg tablet 5 mg PO DAILY 02/20/24 02/20/24 Previous Rx's Medication Instructions Recorded benzonatate 100 mg capsule 100 mg PO TIDP PRN Cough #30 caps 02/20/24 cefdinir 300 mg capsule 300 mg PO BID #20 caps 02/20/24 guaifenesin 600 mg tablet, 600 - 1,200 mg (1 - 2 x 600 mg) PO 02/20/24 extended release 12 hr (Mucinex) BIDP PRN Congestion #30 tabs methylprednisolone 4 mg tablets in 4 mg PO DIRECTED 6 days #21 tabs 02/20/24 a dose pack Allergies Allergy/AdvReac Type Severity Reaction Status Date / Time No Known Allergies Allergy Verified 02/04/24 09:28 Worker's Comp Is this a Worker's Comp case?: No [facility] Disclaimer: The information contained in this section may have been updated after the patient was seen, as this information can be updated by other users. Medical History Grief Generalized anxiety disorder Kidney stone COPD (chronic obstructive pulmonary disease) Asthma Hyperlipidemia Surgical History History of bladder surgery History of tonsillectomy History of hysterectomy History of cholecystectomy Family History Other History of [place] (myocardial infarction) Social History Smoking Status: Never smoker alcohol intake: never substance use type: denies use current occupational status: other Travel in the last 8 weeks: None housing: house caffeine: Yes ROS Obtained: Yes All systems reviewed & no additional complaints except as documented Constitutional Constitutional: Reports poor appetite Eyes Eyes: Reports system reviewed and no additional complaints, except as documented ENT Ears, Nose, Mouth, and Throat: Reports as per HPI Cardiovascular Cardiovascular: Reports system reviewed and no additional complaints, except as documented and Denies chest pain Respiratory Respiratory: Denies shortness of breath, Reports chest congestion, Reports cough, Denies stridor and Reports wheezing Gastrointestinal Gastrointestingal: Reports system reviewed and no additional complaints, except as documented; Denies abdominal pain, diarrhea or vomiting Musculoskeletal Musculoskeletal: Reports system reviewed and no additional complaints, except as documented and Denies arthralgias Integumentary/Breasts Skin/Breast: Reports system reviewed and no additional complaints, except as documented and Denies rash Neurologic Neurologic: Denies paresthesias Allergic/Immunologic Allergic/Immunologic: Reports wheezing Physical Exam General General appearance: alert and in no apparent distress Eye Eye exam: Present normal appearance, PERRL and EOMI ENT ENT exam: Present mucous membranes moist and normal external ear exam Expanded ENT Exam External ear exam: Present normal external inspection TM/Canal exam: Bilateral TM: erythema and bulging Nose exam: Absent sinus tenderness Nasal speculum exam: Bilateral: normal Mouth exam: Present normal external inspection; Absent drooling Teeth exam: Present normal inspection Throat exam: Present tonsillar erythema and tonsillomegaly Neck Neck exam: Present normal inspection, full ROM and trachea midline; Absent tenderness, lymphadenopathy or thyromegaly Chest Chest inspection: Present normal inspection and symmetric chest wall rise; Absent tenderness or rash Respiratory Respiratory exam: Present normal lung sounds bilaterally; Absent respiratory distress, wheezes, stridor or accessory muscle use Cardiovascular Cardiovascular exam: Present regular rate, normal rhythm and normal heart sounds Abdominal Exam Abdominal exam: Present soft; Absent distention, tenderness, guarding, rebound or rigidity Extremities Exam Extremities exam: Present normal inspection, full ROM and normal capillary refill; Absent tenderness or calf tenderness Back Exam Back exam: Present normal inspection and full ROM; Absent tenderness Neurological Exam Neurological exam: Present alert and oriented X3 Psychiatric Psychiatric exam: Present normal affect and normal mood Skin Skin exam: Present warm, dry, intact and normal color Lymphatic Lymphatic Findings: no adenopathy Medical Decision Making Medical Records Medical records reviewed: No I reviewed the patient's medical records. Rodger Inquiry Pt receiving controlled substance: No Vital Signs: 02/20/24 10:00 Temperature 98.2 F Temperature Source Oral Pulse Rate [Left Brachial] 83 Respiratory Rate 17 Blood Pressure [Left Arm] 126/89 Blood Pressure Mean [Left Arm] 101 Blood Pressure Source [Left Arm] Automatic Cuff Blood Pressure Position [Left Arm] Sitting 02 Sat by Pulse Oximetry 96 Oxygen Delivery Method Room Air
[2024-02-20] MEDS: DEXAMETHASONE 4MG/ML 1ML VIAL 8 MG IM (10:40)
[2024-02-20 10:42] VITALS: BP 126/89; PULSE 83; RESP 17; TEMP 36.8; O2SAT 96
== END 2024-02-20 10:58 | disposition home or self-care (01) ==
PROVIDERS: Emergency Provider Nurse Practitioner Family; PCP Nurse Practitioner Family
DX: J44.1 Chronic obstructive pulmonary disease with (acute) exacerbation (principal); R05.9 Cough, unspecified; R09.81 Nasal congestion; E78.5 Hyperlipidemia, unspecified
CPT/HCPCS: 96372; 99212; 99214; G0463

== ENCOUNTER 2024-02-29 13:34 | Outpatient (CLI) | payer OTHER, SELFPAY ==
--- NOTE | 2024-02-29 13:48 | XR_ITS ---
FINAL REPORT CLINICAL HISTORY: SHORTNESS OF BREATH, cough copd, asthma COMPARISON: 01/05/2024 FINDINGS: Two views of the chest were obtained. The heart size and pulmonary vascularity are within normal limits. The mediastinum is normal. No acute pulmonary abnormality is identified. There is mild bibasilar scarring. There is no pneumothorax. The bony thorax is intact. There is a moderate hiatal hernia with air-fluid level. IMPRESSION: No active cardiopulmonary disease. Moderate hiatal hernia with air-fluid level. Reviewed, Interpreted and Dictated by Kvng Andrea III, MD Transcribed by Angelique Macias Authenticated and [facility]
--- NOTE | 2024-02-29 13:57 | MR_ITS ---
FINAL REPORT CLINICAL HISTORY: Rt Knee Mass POSTERIOR ASPECT. SWELLING IN KNEE. FINDINGS: Multiplanar MR imaging of the right knee was performed with and without contrast. There is medial meniscal degeneration with a tear of the posterior horn and medial subluxation of the body. Lateral meniscus is intact. The anterior and posterior cruciate ligaments are intact. The medial collateral ligament and lateral ligamentous complex are intact. The patellar and quadriceps tendons are intact. There is no evidence of fracture. No focal abnormality is identified of the articular cartilage. There are osteochondral lesions of the medial femoral condyle and medial tibial plateau. A moderate-sized joint effusion is seen. The musculature is intact. No soft tissue mass or cyst is identified.There is no abnormal contrast enhancement. IMPRESSION: Tear of the posterior horn of the medial meniscus with medial subluxation of the body. Moderate to severe degenerative changes with osteochondral lesions of the medial femoral condyle and medial tibial plateau. Moderate sized joint effusion. No mass or abnormal contrast-enhancement is seen. Reviewed, Interpreted and Dictated by Kvng Andrea III, MD Transcribed by Marlene Nur Authenticated and [facility]
[2024-02-29 14:18] LABS: Blood Urea Nitrogen 21 mg/dl (7-17); Estimated Glomerular Filt Rate 45 ml/min (>60); GFR (African American) 55 ML/MIN (>60)
[2024-02-29] MEDS: SODIUM CHLORIDE 0.9% 10ML SYR (RAD ONLY) 10 ML IV (15:14)
[2024-02-29] MEDS: GADOTERIDOL INJ 17ML SYRINGE 18 ML IV (15:14)
== END 2024-02-29 23:59 | disposition home or self-care (01) ==
LOC: RAD 13:34
PROVIDERS: PCP Nurse Practitioner Family; Visit Provider Orthopaedic Surgery
DX: R06.02 Shortness of breath (principal); R22.41 Localized swelling, mass and lump, right lower limb
CPT/HCPCS: 36415; 71046; 73723; 82565; 84520; A9576

== ENCOUNTER 2024-03-07 11:06 | Outpatient (CLI) | payer OTHER, SELFPAY ==
[2024-03-07 11:44] LABS: Alanine Aminotransferase 32 U/L (12-78); Albumin Level 3.9 g/dl (3.5-5.0); Albumin/Globulin Ratio 1.4 (1.1-1.8); Alkaline Phosphatase 57 U/L (38-126); Aspartate Amino Transferase 30 U/L (14-36); Bilirubin,Total 0.6 mg/dl (0.2-1.3); Blood Urea Nitrogen 16 mg/dl (7-17); Calcium 9.4 mg/dl (8.4-10.2); Carbon Dioxide 28 mmol/L (22.0-30.0); Chloride 108 mmol/L (98-107); Chol/HDL Ratio 4.7 (1-3.5); Cholesterol 231 mg/dl (140-200); Estimated Glomerular Filt Rate 50 ml/min (>60); GFR (African American) 61 ML/MIN (>60); Globulin 2.7 g/dL (1.3-3.2); Glucose 111 mg/dl (74-100); HDL Cholesterol 49 mg/dl (40-60); Sodium 142 mmol/L (136-145); Total Protein,Serum 6.6 g/dl (6.3-8.2); Triglycerides 201 mg/dl (30-150); VLDL Cholesterol 40 mg/dL (0-40)
[2024-03-07 11:55] LABS: Direct LDL Cholesterol 117.61 mg/dL (100-129)
[2024-03-07 12:13] LABS: Basophils # 0.1 K/mm3 (0-0.2); Basophils % 1.5 % (0.1-2.0); Eosinophils # 0.3 K/mm3 (0.0-0.4); Hematocrit 45.2 % (37.0-47.0); Hemoglobin 14.5 g/dL (12.2-16.2); Lymphocytes # 2.2 K/mm3 (0.7-4.5); Lymphocytes % 36.5 % (10-50); Mean Corpuscular Hemoglobin 29.6 pg (27.0-31.2); Mean Corpuscular Volume 92.4 fl (81-99); Mean Platelet Volume 7.6 fl (7.4-10.4); Monocytes # 0.4 K/mm3 (0.1-1.0); Monocytes % 5.8 % (1.7-9.3); Neutrophils % 51.1 % (37.0-80.0); Platelet Count 228 K/mm3 (142-424); Red Blood Count 4.89 M/mm3 (4.20-5.40); Red Cell Distribution Width 14.1 % (11.5-17.5); White Blood Count 5.9 K/mm3 (4.8-10.8)
[2024-03-07 12:17] LABS: Thyroid Stimulating Hormone 4.93 uIU/mL (0.465-4.68)
[2024-03-07 12:36] LABS: Vitamin B12 522 pg/mL (239-931)
== END 2024-03-07 23:59 | disposition home or self-care (01) ==
LOC: LAB 11:07
PROVIDERS: PCP Nurse Practitioner Family; Visit Provider Nurse Practitioner Family
DX: E03.9 Hypothyroidism, unspecified (principal); E53.8 Deficiency of other specified B group vitamins; E78.5 Hyperlipidemia, unspecified; Z68.35 Body mass index [BMI] 35.0-35.9, adult
CPT/HCPCS: 36415; 80053; 80061; 82607; 84443; 85025

== ENCOUNTER 2024-04-20 10:48 | Outpatient (CLI) | payer OTHER, SELFPAY ==
--- NOTE | 2024-04-20 10:52 | FL_ITS ---
FINAL REPORT CLINICAL HISTORY: soa, dysphagia 9.85mGy DAP:160.19 FT: 1.27 FINDINGS: MODIFIED BARIUM SWALLOW History: Dysphagia. FINDINGS: Fluoroscopy was provided for the speech pathologist to evaluate the swallowing mechanism. The patient was given several different consistencies of barium while the swallow was visualized fluoroscopically. The report of the speech pathologist should be consulted prior to making dietary decisions. Fluoro time: 1 minute 27 seconds DAP: 160.19 Radiation exposure in Reference air Kerma: 9.85 mGy. IMPRESSION: Modified barium swallow under fluoroscopic guidance. Please see the report of the speech pathologist for more detail. Films reviewed , interpreted and dictated by Dr. Delvalle. Transcribed by Chilo Acosta PA-C. Reviewed, Interpreted and Dictated by Skip Delvalle MD Transcribed by MARSHA Huston Authenticated and . [facility]
[2024-04-20] MEDS: BARIUM SULFATE(LIQUID E-Z-PAQUE);355ML BOTTLE 355 ML PO (11:42)
--- NOTE | 2024-04-20 11:44 | HMH.SLMBS2 ---
Speech & Language Evaluation Speech/Language Mod Barium Swallow Start: 04/20/24 11:37 Freq: once Status: Complete Protocol: Document 04/20/24 11:37 MISAEL (Rec: 04/20/24 11:44 MISAEL Laptop) General Information General Current Food Consistancy Regular,Thin Liquids Dentition Good Dentition Oxygen Status Room Air Patient Orientation Person,Place,Time,Situation Ability to Follow Directions Excellent Communication Ability No Impairment Voice Voice Quality Normal Voice Pitch Normal Voice Loudness Normal MBS Recommendations Diet Dietary Recommendations Regular,Thin Liquids Treatment/Strategies Strategy/Precaution Recommend Sitting Upright (90 deg),No Straw,Small Bites and Sips, Alternate Liquids/Solids Referrals/Other Recommended Referrals GI Consult Other Recommendations hiatal hernia, globus sensation, minimal to mild retrograde flow of bolus Mod Barium Swallow Impressions Summary and Impressions Oral Phase Impression No Impairment (WFL) Oral Phase Summary No impairment of the oral preparatory and oral transit phases of the swallow. Mastication and manipulation of the bolus are WFL with adequate tongue ROM. Pharyngeal Phase Impression Minimal Impairment Pharyngeal Phase Summary Minimal impairment of the pharyngeal phase of the swallow 2' minimal retrograde flow of solid bolus trials that was cleared with a subsequent swallow. Trace residual observed at the pyriform sinus during straw sips of thin liquids; cleared with secondary swallow. 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 Pt expressed understanding. Speech/Language MBS Assessment/Goals/Plan Assessment Date of Evaluation: 04/20/24 Evaluation Type Initial Certification Assessment/Problems dysphagia per MD order. Does Patient Qualify for Service No Qualify/Failure Comment Based on clinical observations made during instrumental assessment via MBSS, pt's oropharyngeal phases of the swallow appear to be WFL. It is recommended pt pursue GI consult to assess further. At this time, no further skilled speech therapy services are warranted at this time 2' no aspiration or penetration observed. Recommendations PHYSICIAN CERTIFICATION: The specified therapy services are required, authorized, and reviewed every 30 days. Diet Recommendations Normal Liquid Type Recommendations Normal/Thin SL Swallow Guidelines Alt bite w/sip thru meal,Eat at slow rate,Reflux precautions Dysphagia Swallow Precautions/Strategies Sitting Upright (90 deg),No Straw,Small Bites and Sips, Alternate Liquids/Solids Plan Pt/Guardian verbally ack understanding Yes of dx/prognosis/goals G -code Required No Education Instructions provided Discussed results of MBSS, diet recommendations, compensatory strategies, and GI consult referral with pt who expressed understanding. Pt/Caregiver able to recall information Able to recall/restate Reinforcement needed No Mod Barium Swallow Setup Exam Setup Radiologist Kvng Andrea Level of Consciousness Awake,Alert,Appropriate, Follows Commands Mod Barium Swallow-Lat View Textures Lateral View Food Presentation Thin Liquid via Cup,Thin Liquid via Straw,Pureed Food- Thin,Mech. Soft Food- Regular, Barium Tablet,Regular Food, Pudding Oral Phase Labial Closure No Impairment (WFL) Bolus Formation Pooling L/R No Impairment (WFL) Bolus Formation under Tongue No Impairment (WFL) Bolus Formation Scattered Loss No Impairment (WFL) Mastication Rotary Chew No Impairment (WFL) Mastication Munching No Impairment (WFL) Mastication Lateralization No Impairment (WFL) Lingual Movement No Impairment (WFL) Residue Clearing No Impairment (WFL) Pharyngeal Phase A/P Lingual Propulsion Spills No Impairment (WFL) Swallow Response Delay No Impairment (WFL) Base of Tongue Minimal Impairment Epiglottic Coverage No Impairment (WFL) Laryngeal Elevation No Impairment (WFL) Vallecular Retention Clearing No Impairment (WFL) Pharyn. Wall Residue Clearing No Impairment (WFL) Piriform Sinus Retention Minimal Impairment Aspiration? No Silent aspiration? No Mod Barium Swallow-AP View Performed Mod Barium Swallow A/P View Test Not Applicable/Performed PHYSICIAN CERTIFICATION: I certify the specified therapy services for Mago Maxwell are required, authorized, and reviewed every 30 days.
== END 2024-04-20 23:59 | disposition home or self-care (01) ==
LOC: RAD 10:49
PROVIDERS: PCP Nurse Practitioner Family; Visit Provider Nurse Practitioner Family
DX: R13.19 Other dysphagia (principal); R06.02 Shortness of breath; K44.9 Diaphragmatic hernia without obstruction or gangrene
CPT/HCPCS: 70371; 92611

== ENCOUNTER 2024-05-27 15:09 | Outpatient (CLI) | payer OTHER, SELFPAY ==
--- NOTE | 2024-05-27 15:13 | MM_ITS ---
PROCEDURE INFORMATION: Exam: MG Bilateral Screening 3D Mammography Exam date and time: 05/27/2024 2:57 PM Age: 63 years old Clinical indication: Screening examination TECHNIQUE: Imaging protocol: Bilateral Screening tomosynthesis and 2D mammography including computer-aided detection (CAD) when performed. COMPARISON: 1. MG MM DIG SCREENING MAMM BI W/CAD 05/13/2023 4:38 PM 2. MG MM DIG SCREENING MAMM BI W/CAD 05/09/2022 12:58 PM FINDINGS: MAMMOGRAPHY: Breast composition: There are scattered areas of fibroglandular density. Mass: None. Architectural distortion: None. Calcifications: No suspicious calcifications. Asymmetric density: None. Skin thickening: None. Axillary adenopathy: None. IMPRESSION: No mammographic evidence of malignancy. Annual screening is recommended unless otherwise clinically indicated. ASSESSMENT: BI-RADS Category 1: Negative
== END 2024-05-27 23:59 | disposition home or self-care (01) ==
LOC: RAD 15:10
PROVIDERS: PCP Nurse Practitioner Family; Visit Provider Nurse Practitioner Family
DX: Z12.31 Encounter for screening mammogram for malignant neoplasm of breast (principal)
CPT/HCPCS: 77063; 77067

== ENCOUNTER 2025-01-01 09:31 | Emergency (ER) | payer OTHER, SELFPAY ==
[2025-01-01] VITALS (10 sets, daily range): BP systolic 132–173; BP diastolic 83–95; PULSE 49–70; RESP 11–18; TEMP 36.7; O2SAT 95–100; BMI 30.2
--- NOTE | 2025-01-01 09:33 | ECG_ITS ---
APPROVED REPORT Exam: Resting ECG HR:53 bpm ECG Measurements Heart Rate 53 AXES ME 166 P 64 QRSd 106 QRS 50 QT 422 T 42 QTc 405 Conclusion SINUS BRADYCARDIA BORDERLINE ECG Electronically signed by : RANDAL CUI, 01/01/2025 23:25:17
--- NOTE | 2025-01-01 09:35 | CT_ITS ---
PROCEDURE INFORMATION: Exam: CTA Chest With Contrast Exam date and time: 01/01/2025 10:25 AM Age: 64 years old Clinical indication: Pain; Other: Cp R sided to back TECHNIQUE: Imaging protocol: Computed tomographic angiography of the chest with contrast. Exam focused on the arteries. 3D rendering (Not supervised by radiologist): MIP and/or 3D reconstructed images were created by the technologist. Radiation optimization: All CT scans at this facility use at least one of these dose optimization techniques: automated exposure control; mA and/or kV adjustment per patient size (includes targeted exams where dose is matched to clinical indication); or iterative reconstruction. Contrast material: ISOVUE; Contrast volume: 80 ml; Contrast route: INTRAVENOUS (IV); COMPARISON: CT ANGIO CHEST PE PROTOCOL 01/20/2023 12:05 PM FINDINGS: Pulmonary arteries: Normal. No pulmonary emboli. Great vessels off aortic arch: Origin of the great vessels including the innominate artery, the right common carotid artery, the subclavian arteries and the left common carotid artery are normal. Aorta: Unremarkable. No aortic aneurysm. No aortic dissection. Celiac trunk and mesenteric arteries: Flow within the visualized portions of the celiac artery and superior mesenteric artery. Lungs: Dense alveolar airspace consolidation within the right lower lobe greater than left. Air bronchograms. Favor pneumonic process. Pleural spaces: Unremarkable. No pneumothorax. No pleural effusion. Heart: Small amount of fluid within the superior pericardial recess. Mediastinal space: Thoracic inlet is unremarkable. Lymph nodes: mediastinum is unremarkable other than a few small mediastinal lymph nodes. Diaphragm: Large hiatal hernia. Bones/joints: Unremarkable. No acute fracture. Soft tissues: Soft tissues are unremarkable. Other findings: No dissection. No visualized embolism as characterized to the proximal segmental level. Consider alternative form of imaging if indicated. IMPRESSION: 1. Large hiatal hernia. 2. No dissection. No visualized embolism as characterized to the proximal segmental level. Consider alternative form of imaging if indicated. 3. Dense alveolar airspace consolidation within the right lower lobe greater than left. Air bronchograms. Favor pneumonic process. Airspace consolidation represents a change from 2--23. Small right pleural effusion.
--- NOTE | 2025-01-01 09:37 | ED_ITS ---
Discharge Plan Disposition Patient Disposition: Home, Self-Care Prescriptions Prescriptions: No Action pitavastatin calcium 2 mg tablet 2 mg PO DAILY levothyroxine 50 mcg tablet 50 mcg PO DAILY Breztri Aerosphere 160-9-4.8 mcg/actuation HFA aerosol inhaler 1 puff INHALATION DAILY Trelegy Ellipta 200-62.5-25 mcg blister with device 1 inh INHALATION DAILY Referrals Follow up/Referrals: [place] APRN [Primary Care Provider] - See instructions Activity Restrictions/Add. Instructions Additional Instructions/Restrictions: At this time it was felt you are safe to be discharged home. If new or worsening symptoms please do not hesitate to return the emergency department. Please call and schedule an appointment with Dr. Claudio as soon as you are able for evaluation of your hiatal hernia. Please take your antibiotics as prescribed and follow-up with your family doctor within 1 week to ensure resolution of your pneumonia. Clinical Impressions Clinical Impression: Pneumonia, Chest pain, Hiatal hernia Print Language Print Language: Divehi Discharge ED Provider: Pa Matt [facility] General Chief Complaint: Chest Pain Stated Complaint: cp Time Seen by Provider: 01/01/25 09:32 History of Present Illness HPI narrative: Patient is a 64-year-old female with past medical history of COPD not on home oxygen, hyperlipidemia who presents to the emergency department for evaluation of chest pain. Onset was acute, over the last week. Initially it was over her lower sternum and since then has gone to right parasternal area. A couple of times it is radiated through to her back. No abdominal pain, no vomiting. It is worse with position with rolling over and movement. She has a cough but it is at her baseline with COPD and is not worse than normal. No other acute complaints at this time. No trauma reported. Related Data Home Medications ?Medication ?Instructions ?Recorded ?Confirmed pitavastatin calcium 2 mg tablet 2 mg PO DAILY 02/20/24 01/01/25 budesonide 160 mcg-glycopyr 9 1 puff inhalation DAILY 01/01/25 01/01/25 mcg-formot 4.8 mcg/actuation HFA inhaler (Breztri Aerosphere) fluticasone fur. 200 mcg-umeclid 1 inh inhalation DAILY 01/01/25 01/01/25 62.5 mcg-vilant 25 mcg inhalat.powder (Trelegy Ellipta) levothyroxine 50 mcg tablet 50 mcg PO DAILY 01/01/25 01/01/25 Allergies Allergy/AdvReac Type Severity Reaction Status Date / Time No Known Allergies Allergy Verified 03/17/24 09:26 [facility] Disclaimer: The information contained in this section may have been updated after the patient was seen, as this information can be updated by other users. Medical History Grief Generalized anxiety disorder Kidney stone COPD (chronic obstructive pulmonary disease) Asthma Hyperlipidemia Surgical History History of bladder surgery History of tonsillectomy History of hysterectomy History of cholecystectomy Family History Other History of MT (myocardial infarction) Social History (Updated 01/01/25 @ 09:50 by Beatris Colvin RN) Smoking Status: Never smoker alcohol intake: never substance use type: denies use current occupational status: other Travel in the last 8 weeks: None housing: house caffeine: Yes Have you lived/traveled outside [place] in past 30 days?: No Contact w/someone who lives/traveled outside US past 30 days?: No Exposure to someone with infectious disease in past 14 days?: No Do you have a fever (greater than 100.4 F or 38 C)?: No Have you tested positive for COVID-19: No Exposed to someone with COVID-19 in past 14 days?: No Do you have a sore throat?: No Do you have a cough?: No Do you have any weakness?: No Do you have any diarrhea?: No Are you experiencing any unusual bleeding?: No Do you have any muscle aches/pain?: No Do you have any abdominal pain?: No Are you experiencing loss of taste or smell?: No Other Medical History Have you received the Flu Vaccine for this season: No Have you received the Pneumonia Vaccine: Yes ROS Obtained: Yes Systems reviewed as appropriate & no additional complaints except as documented Physical Exam General General appearance: alert and in no apparent distress Head Head exam: atraumatic and normocephalic Eye Eye exam: Present PERRL ENT ENT exam: Present mucous membranes moist Neck Neck exam: Present normal inspection Chest Chest inspection: Present normal inspection and symmetric chest wall rise Respiratory Respiratory exam: Present normal lung sounds bilaterally; Absent respiratory distress, wheezes, stridor or accessory muscle use Cardiovascular Cardiovascular exam: Present regular rate and normal rhythm Abdominal Exam Abdominal exam: Present soft; Absent tenderness, guarding, rebound or rigidity Extremities Exam Extremities exam: Present normal inspection Neurological Exam Neurological exam: Present alert Psychiatric Psychiatric exam: Present normal affect Skin Skin exam: Present warm and dry HEART Score HEART Score HEART Score assessment performed?: Yes History (anamnesis): Moderately suspicious ECG: Normal Age: 45-65 years Risk factors: 1-2 risk factors Troponin: </= normal limit HEART Score: 3 Critical Care Critical Care Time Critical Care Time: No Medical Decision Making Rodger Inquiry Pt receiving controlled substance: No Vital Signs Vital Signs: 01/01/25 09:32 01/01/25 09:33 01/01/25 10:00 Temperature 98.0 F Temperature Source Oral Pulse Rate 58 L 60 Pulse Rate [Apical] 70 Respiratory Rate 18 12 12 Blood Pressure 169/95 H 161/86 H Blood Pressure [Right Arm] 169/95 H Blood Pressure Mean [Right Arm] 119 Blood Pressure Source [Right Arm] Automatic Cuff Blood Pressure Position [Right Arm] Sitting 02 Sat by Pulse Oximetry 99 100 97 Oxygen Delivery Method Room Air Room Air Room Air 01/01/25 10:15 01/01/25 10:32 01/01/25 10:45 Temperature Temperature Source Pulse Rate 59 L 63 49 L Pulse Rate [Apical] Respiratory Rate 14 16 11 L Blood Pressure 162/86 H 173/93 H Blood Pressure [Right Arm] Blood Pressure Mean [Right Arm] Blood Pressure Source [Right Arm] Blood Pressure Position [Right Arm] 02 Sat by Pulse Oximetry 97 97 96 Oxygen Delivery Method Room Air Room Air Room Air 01/01/25 11:00 Temperature Temperature Source Pulse Rate Pulse Rate [Apical] Respiratory Rate 11 L Blood Pressure 150/94 H Blood Pressure [Right Arm] Blood Pressure Mean [Right Arm] Blood Pressure Source [Right Arm] Blood Pressure Position [Right Arm] 02 Sat by Pulse Oximetry 96 Oxygen Delivery Method Room Air Lab Data Labs: Lab Results 01/01/25 09:38: WBC 10.4, RBC 4.89, Hgb 13.2, Hct 41.6, MCV 85.1, MCH 27.0, MCHC 31.7 L, RDW 13.1, Plt Count 315, MPV 8.7, Neut % (Auto) 74.1, Lymph % (Auto) 18.7, [place] % (Auto) 4.5, Eos % (Auto) 1.8, Baso % (Auto) 0.4, Neut # (Auto) 7.7, Lymph # (Auto) 2.0, [place] # (Auto) 0.5, Eos # (Auto) 0.2, Baso # (Auto) 0.0, Sodium 140, Potassium 3.7, Chloride 103, Carbon Dioxide 29, Anion Gap 11.7, BUN 19 H, Creatinine 0.90, Estimated Creat Clear 76, Estimated GFR 63, Est GFR ( Amer) 76, Glucose 110 H, Calcium 9.4, Total Bilirubin 0.5, AST 34, ALT 30, Alkaline Phosphatase 81, Troponin I < 0.01, Total Protein 8.3 H D, Albumin 4.6, Globulin 3.7 H, Albumin/Globulin Ratio 1.2, Lipase 106, SARS-CoV-2 (PCR) Not detected, HCV Ab MILES w/Rflx PCR Qn Negative, HIV Ag/Ab Combo Qual Negative, Influenza A Untype (PCR) Not detected, Influenza Type B (PCR) Not detected 01/01/25 09:38 01/01/25 09:38 Response Orders (Tests/Meds): ED MEDICATIONS Discontinued Medications Generic Name Dose Route Start Last Admin Trade Name Freq PRN Reason Stop Dose Admin Acetaminophen 1,000 mg 01/01/25 09:35 01/01/25 09:49 Acetaminophen 500mg Tab PO 01/01/25 09:36 1,000 mg ONCE ONE Administration Aspirin 324 mg 01/01/25 09:35 01/01/25 09:49 Aspirin 81mg Chewable Tablet PO 01/01/25 09:36 324 mg ONCE ONE Administration Iopamidol 80 ml 01/01/25 10:30 01/01/25 10:31 Iopamidol-370 (76%);100ml Bottle IV 01/01/25 10:31 80 ml ONCE ONE Administration Levofloxacin 500 mg 01/01/25 11:14 Levofloxacin 500mg Tab PO 01/01/25 11:15 ONCE ONE Morphine Sulfate 4 mg 01/01/25 09:35 01/01/25 09:49 Morphine 4mg/Ml Syringe IV 01/01/25 09:36 4 mg ONCE ONE Administration Ondansetron HCl 4 mg 01/01/25 09:35 01/01/25 09:49 Ondansetron 4mg/2ml Vial IV 01/01/25 09:36 4 mg ONCE ONE Administration Sodium Chloride 10 ml 01/01/25 10:30 01/01/25 10:31 Sodium Chloride 0.9% 10ml Syr (Rad Only) IV 01/01/25 10:31 10 ml ONCE ONE Administration Sodium Chloride 50 ml 01/01/25 10:30 01/01/25 10:31 0.9 % Sodium Chloride 50 Ml Vial IV 01/01/25 10:31 50 ml ONCE ONE Administration ORDERS Category Date Time Status CT angio chest - dissection Stat Cat Scan 01/01/25 09:35 Completed CBC w/Auto Diff [Complete Blood Count Auto Diff] Stat Lab 01/01/25 09:38 Completed CMP [Comprehensive Metabolic Panel] Stat Lab 01/01/25 09:38 Completed HIV Combo Stat Lab 01/01/25 09:38 Completed Hepatitis C Ab Qual. W/ RFX Stat Lab 01/01/25 09:38 Completed Lipase Stat Lab 01/01/25 09:38 Completed Rapid PCR Covid and Flu A/B Stat Lab 01/01/25 09:38 Completed Trop I [Troponin I] Stat Lab 01/01/25 09:38 Completed Troponin I Q3H Lab 01/01/25 12:45 Ordered Troponin I Q3H Lab 01/01/25 15:45 Ordered ECG Data Tracing #1: ECG Narrative: Independently interpreted by me rate is 53, rhythm is regular, axis is normal, sinus bradycardia, no ST elevation in anatomical contiguous leads, QTc 405. [facility] Narrative Medical Decision Narrative: In summary patient is 64-year-old female past medical history described above who presents emergency department for evaluation of chest pain. Patient is hemodynamically stable and nontoxic-appearing upon arrival, afebrile. Differential diagnosis includes musculoskeletal chest pain, ACS, aortic dissection, pulmonary embolism, viral infection, among others. Workup will be conducted with hematologic labs, CT angio chest dissection protocol. Initial inventions include aspirin, morphine, Tylenol, Zofran. Initial workup reviewed by me, hematologic labs have no significant leukocytosis, no anemia. No PAM or critical electrolyte abnormality. Initial troponin undetectably low. CTA chest informally interpreted by me no obvious large dissection or saddle pulmonary embolism. The patient was placed in observation status at 10:52 AM. Medical necessity for observational status is imaging reading and serial exams in the setting of chest pain. The patient was provided serial reevaluations and cardiac monitoring while awaiting results. CT imaging informally interpreted by me, no saddle pulmonary embolism, no obvious aortic dissection. Formal read shows a large hiatal hernia, no evidence of dissection or pulmonary embolism, dense alveolar airspace consolidation right lower lobe greater than left favoring pneumonic process. Upon repeat evaluation patient continued to be well-appearing no respiratory distress, saturating well on room air. Given this I feel that although patient has pneumonia is appropriate for outpatient management at this time. First dose of levofloxacin will be administered here and she will be discharged with additional 4 days of levofloxacin was given return precautions verbalized understanding. Total time in observation 25 minutes.
[2025-01-01 09:43] LABS: Coronavirus 19, PCR Not Detected (NotDetected); Influenza A, PCR Not Detected (NotDetected); Influenza B, PCR Not Detected (NotDetected)
[2025-01-01 09:48] LABS: Basophils % 0.4 % (0.1-2.0); Eosinophils # 0.2 K/mm3 (0.0-0.4); Eosinophils % 1.8 % (0.1-12.0); Hematocrit 41.6 % (37.0-47.0); Hemoglobin 13.2 g/dL (12.2-16.2); Lymphocytes % 18.7 % (10-50); Mean Corpuscular HGB Conc 31.7 g/dL (31.8-35.4); Mean Corpuscular Volume 85.1 fl (81-99); Mean Platelet Volume 8.7 fl (7.4-10.4); Monocytes # 0.5 K/mm3 (0.1-1.0); Monocytes % 4.5 % (1.7-9.3); Neutrophils # 7.7 K/mm3 (1.8-7.8); Neutrophils % 74.1 % (37.0-80.0); Platelet Count 315 K/mm3 (142-424); Red Blood Count 4.89 M/mm3 (4.20-5.40); Red Cell Distribution Width 13.1 % (11.5-17.5); White Blood Count 10.4 K/mm3 (4.8-10.8)
[2025-01-01] MEDS: ASPIRIN 81MG CHEWABLE TABLET 324 MG PO (09:49)
[2025-01-01] MEDS: MORPHINE 4MG/ML SYRINGE 4 MG IV (09:49)
[2025-01-01] MEDS: ACETAMINOPHEN 500MG TAB 1000 MG PO (09:49)
[2025-01-01] MEDS: ONDANSETRON 4MG/2ML VIAL 4 MG IV (09:49)
[2025-01-01 09:51] LABS: Albumin Level 4.6 g/dl (3.5-5.0); Chloride 103 mmol/L (98-107); Potassium 3.7 mmoL/L (3.5-5.1); Sodium 140 mmol/L (136-145)
[2025-01-01 09:53] LABS: Blood Urea Nitrogen 19 mg/dl (7-17); Creatinine Clearance Estimated 76 mL/min (50-200); Estimated Glomerular Filt Rate 63 ml/min (>60); GFR (African American) 76 ML/MIN (>60)
[2025-01-01 09:54] LABS: Alanine Aminotransferase 30 U/L (12-78); Albumin/Globulin Ratio 1.2 (1.1-1.8); Alkaline Phosphatase 81 U/L (38-126); Anion Gap 11.7 mEq/L (5-15); Aspartate Amino Transferase 34 U/L (14-36); Bilirubin,Total 0.5 mg/dl (0.2-1.3); Carbon Dioxide 29 mmol/L (22.0-30.0); Globulin 3.7 g/dL (1.3-3.2); Lipase 106 U/L (23-300); Total Protein,Serum 8.3 g/dl (6.3-8.2)
[2025-01-01 09:55] LABS: Calcium 9.4 mg/dl (8.4-10.2); Glucose 110 mg/dl (74-100)
--- NOTE | 2025-01-01 10:18 | PC.NURSE ---
PT TO CT
[2025-01-01 10:19] LABS: Troponin I < 0.01 ng/ml (0.00-0.034)
[2025-01-01] MEDS: 0.9 % SODIUM CHLORIDE 50 ML VIAL IV (10:31)
[2025-01-01] MEDS: SODIUM CHLORIDE 0.9% 10ML SYR (RAD ONLY) 10 ML IV (10:31)
[2025-01-01] MEDS: IOPAMIDOL-370 (76%);100ML BOTTLE 80 ML IV (10:31)
--- NOTE | 2025-01-01 10:31 | PC.NURSE ---
PT RETURNED FROM CT
--- NOTE | 2025-01-01 10:38 | PC.NURSE ---
ROUNDED ON THE PT. THE PT VOICES THAT SHE DOES NOT NEED ANYTHING AT THIS TIME. CALL LIGHT IS WITHIN REACH OF THE PT.
[2025-01-01 10:45] LABS: HIV Combo NEGATIVE (Negative)
[2025-01-01 10:54] LABS: Hepatitis C Ab Qual. W/ RFX NEGATIVE (Negative)
[2025-01-01] MEDS: levoFLOXacin 500MG TAB 500 MG PO (11:30)
--- NOTE | 2025-01-01 11:42 | PC.NURSE ---
ROUNDED ON THE PT. THE PT VOICES THAT SHE DOES NOT NEED ANYTHING AT THIS TIME. CALL LIGHT IS WITHIN REACH OF THE PT.
== END 2025-01-01 11:48 | disposition home or self-care (01) ==
PROVIDERS: Emergency Provider Emergency Medicine; PCP Nurse Practitioner Family
DX: J18.9 Pneumonia, unspecified organism (principal); K44.9 Diaphragmatic hernia without obstruction or gangrene; R07.9 Chest pain, unspecified; R05.9 Cough, unspecified
CPT/HCPCS: 71275; 80053; 83690; 84484; 85025; 86803; 87389; 87636; 93005; 96374; 96375; 99285; J2270; J2405; Q9967

== ENCOUNTER 2025-02-15 12:10 | Outpatient (CLI) | payer OTHER, SELFPAY ==
--- NOTE | 2025-02-15 12:15 | XR_ITS ---
FINAL REPORT CLINICAL HISTORY: HX OF PNEUMONIA/ sob COMPARISON: 02/29/2024 FINDINGS: PA and lateral views of the chest were obtained. The cardiac and mediastinal silhouettes are within normal limits. A large hiatal hernia is unchanged. Discoid opacity in the lingula and left lower lobe is favored to represent atelectasis. The lungs are otherwise clear. There is no pleural effusion or pneumothorax. A chronic midthoracic compression fracture is noted. IMPRESSION: Lingular and left lower lobe atelectasis. Stable, large, hiatal hernia. Reviewed, Interpreted and Dictated by Zainab Mendez MD Transcribed by Nereida Flores Authenticated and [facility]
== END 2025-02-15 23:59 | disposition home or self-care (01) ==
LOC: RAD 12:11
PROVIDERS: PCP Nurse Practitioner Family; Visit Provider Nurse Practitioner
DX: R06.02 Shortness of breath (principal); Z87.01 Personal history of pneumonia (recurrent)
CPT/HCPCS: 71046

== ENCOUNTER 2025-05-30 12:57 | Outpatient (CLI) | payer OTHER, SELFPAY ==
--- OUTSIDE RECORDS SUMMARY | 2025-05-29 13:41 | XMS_ITS | Encounter Summary ---
Author Organization [facility] Address [address] [place] [address] Care Team Providers Care Pillowcase Folder Name Role Phone Belle Barksdale Lizbeth DOMINGUEZ Primary Care Provider [phone] Reason for Referral * Imaging (Routine) - Closed Specialty Diagnoses / Procedures Referred By Niya delarosa Referred To Contact Radiology Diagnoses Lung nodules Procedures CT Chest wo IV Contrast Rebekah Son APRN [address] [address] Phone: tel: fax: Referral ID Status Reason Start Date Expiration Date Visits Re quested Visits Authorized [id number] Closed 11/25/2024 05/27/2026 1 1 Reason for Visit * Imaging (Routine) - Closed Specialty Diagnoses / Procedures Referred By Niya delarosa Referred To Contact Radiology Diagnoses Lung nodules Procedures CT Chest wo IV Contrast Rebekah Son APRN [address] [address] Phone: tel: fax: Referral ID Status Reason Start Date Expiration Date Visits Re quested Visits Authorized [id number] Closed 11/25/2024 05/27/2026 1 1 Encounter Details Date Type Department Care Team (Latest Contact Info) Description 05/29/2025 1:41 PM EDT - 05/29/2025 11:59 PM EDT Hospital Encounter [facility] Radiology [address] [place] [address] Lung nodules Discharge Disposition: Home or Self Care Social History Tobacco Use Types Packs/Day Years Used Date Smoking Tobacco: Former Cigarettes 3 10.9 0 12/20/1975 - 1986 Passive Smoke Exposure: Past Smokeless Tobacco: Never Alcohol Use Standard Drinks/Week Comments Yes 0 (1 standard drink = 0.6 oz pure alcohol) Alcoholic Drinks/day: Social alcohol use PHQ-2 Answer Date Recorded Patient Health Questionnaire-2 Score 0 11/25/2024 PHQ-9 Answer Date Recorded Patient Health Questionnaire-9 Score 0 11/25/2024 Comments Unknown Sex and Gender Information Value Date Recorded Sex Assigned at Not on file Legal Sex Female 6:07 PM EDT Gender Identity Not on file Sexual Orientation Not on file documented as of this encounter Medications at Time of Discharge albuterol (Ventolin HFA) 108 (90 Base) MCG/ACT inhalerIndications :Chronic obstructive pulmonary disease, unspecified COPD type (CMS/HCC) INHALE 2 PUFFS EVERY 4 (FOUR) HOURS IF NEEDED FOR WHEEZING. 18 g 5 02/22/2024 Fluticasone-Umecli din-Vilant (Trelegy Ellipta) 200-62.5-25 MCG/ACT aerosol powder Inhale 1 puff 1 (one) time each day. 60 each 11 08/17/2024 furosemide (Lasix) 20 MG tablet 04/22/2024 HM Mucus Relief 600 MG 12 hr tablet 02/20/2024 ibuprofen 200 MG tablet Take 1 tablet (200 mg) by mouth every 6 (six) hours if needed for mild pain. ipratropium-albute rol (Duo-Neb) 0.5-2.5 mg/3 mL nebulizer solution 01/27/2023 levothyroxine (Synthroid, Levoxyl) 25 MCG tablet Take 2 tablets (50 mcg) by mouth 1 (one) time each day. 05/05/2024 Pitavastatin Calcium 2 MG tablet 01/15/2024 documented as of this encounter Plan of Treatment Upcoming Encounters Date Type Department Care Team (Late st Contact Info) Description 11/06/2025 3:40 PM EST Office Visit [facility] [address] [place] [address] Rebekah Son, POULTICE MACHINE OPERATOR [address] [place] [address] documented as of this encounter Procedures Procedure Name Priority Date/Time Associated Diagnosis Comments CT CHEST WO IV CONTRAST Routine 05/29/2025 1:50 PM EDT Lung nodules documented in this encounter Results * CT Chest wo IV Contrast (05/29/2025 1:50 PM EDT) Anatomical Region Laterality Modality Chest Computed Tomogra phy Impressions 05/29/2025 3:14 PM EDT Stable bilateral pulmonary nodules. No new or suspicious pulmonary nodules. Based on current guidelines, further follow-up is not required. CRITICAL RESULT: No. COMMUNICATION: Per this written report. By electronically signing this report, I, the attending physician, attest that I have personally reviewed the images/data for the above examination(s) and agree with the final edited report. Drafted by Joaquin Kwon MD on 05/29/2025 2:31 PM Final report signed by Jatinder Lyons MD on 05/29/2025 3:14 PM Narrative 05/29/2025 3:14 PM EDT CLINICAL INDICATION: Lung nodules, multiple TECHNIQUE: Multiple CT helical images were obtained from thoracic inlet through upper abdomen without administration of IV contrast. Total DLP (Dose-Length Product): 103.09 mGy.cm. Please note: The reported value represents the total of one or more individual components during the CT acquisition on this date and at this time, and as such, the same value may appear in more than one CT report depending on the interpreting/reporting physicians. COMPARISON: CT chest 05/20/2024 FINDINGS: Mediastinum and Pleura: No mediastinal or hilar adenopathy. No pleural or pericardial effusion. Moderate to large hiatal hernia. Lungs: Central airways are patent. Mild upper lobe predominant centrilobular emphysema. Unchanged multifocal areas of right middle lobe and lower lobe scarring. Stable subcentimeter pulmonary nodules in both lung (series 3, image 70, 150, 176, 183, and 186). No new or suspicious pulmonary nodules. Upper Abdomen: No suspicious lesions in the partially visualized upper abdomen. Surgically absent gallbladder. Nonobstructing left renal calculus, unchanged. Musculoskeletal: No suspicious lytic or sclerotic lesion. Chronic appearing T8 compression fracture. Procedure Note Jatinder Lyons MD - 05/29/2025 CLINICAL INDICATION: Lung nodules, multiple TECHNIQUE: Multiple CT helical images were obtained from thoracic inlet through upperabdomen without administration of IV contrast. Total DLP (Dose-Length Product): 103.09 mGy.cm. Please note: The reportedvalue represents the total of one or more individual components during theCT acquisition on this date and at this time, and as such, the same valuemay appear in more than one CT report depending on theinterpreting/reporting physicians. COMPARISON: CT chest 05/20/2024 FINDINGS: Mediastinum and Pleura: No mediastinal or hilar adenopathy. No pleural orpericardial effusion. Moderate to large hiatal hernia. Lungs: Central airways are patent. Mild upper lobe predominantcentrilobular emphysema. Unchanged multifocal areas of right middle lobeand lower lobe scarring. Stable subcentimeter pulmonary nodules in bothlung (series 3, image 70, 150, 176, 183, and 186). No new or suspiciouspulmonary nodules. Upper Abdomen: No suspicious lesions in the partially visualized upperabdomen. Surgically absent gallbladder. Nonobstructing left renalcalculus, unchanged. Musculoskeletal: No suspicious lytic or sclerotic lesion. Chronicappearing T8 compression fracture. IMPRESSION: Stable bilateral pulmonary nodules. No new or suspicious pulmonarynodules. Based on current guidelines, further follow-up is not required. CRITICAL RESULT: No. COMMUNICATION: Per this written report. By electronically signing this report, I, the attending physician, attjoanna I have personally reviewed the images/data for the aboveexamination(s) and agree with the final edited report. Drafted by Joaquin Kwon MD on 05/29/2025 2:31 PM Final report signed by Jatinder Lyons MD on 05/29/2025 3:14 PM us Rebekah Son POULTICE MACHINE OPERATOR IMG CT PROCEDURES Final R esult documented in this encounter Visit Diagnoses Diagnosis Lung nodules Other diseases of lung, not elsewhere classified documented in this encounter Additional Health Concerns Assessment Noted Time PHQ-9 Depression Total Score: 0 11/25/19 25 1:48 PM EST A fall risk assessment has been complete d for the patient 05/29/2025 2:51 PM EDT A Body Mass Index follow-up plan has been documented for the patient 05/29/2025 4:11 PM EDT documented as of this encounter Care Teams Pillowcase Folder Relationship Specialty Start Date End Date Belle Barksdale, ALBERTO [facility] [place] [address] PCP - General 04/05/21 documented as of this encounter
--- OUTSIDE RECORDS SUMMARY | 2025-05-29 15:10 | XMS_ITS | Encounter Summary ---
Author Organization [facility] Address [address] [place] [address] Care Team Providers Care Yard Jacker Name Role Phone Belle Barksdale ALBERTO Primary Care Provider [phone] Reason for Referral * Consultation (Routine) - Authorized Specialty Diagnoses / Procedures Referred By Niya t Referred To Contact Diagnoses Asthma-COPD overlap syndrome (CMS/HCC) Dyspnea on exertion Rebekah Son APRN [address] [address] Phone: tel: fax: Referral ID Status Reason Start Date Expiration Date V isits Requested Visits Authorized [id number] Authorized 05/29/2025 11/28/2026 1 1 * Consultation (Routine) - Pending Review Specialty Diagnoses / Procedures Referred By Contsabrina delarosa Referred To Contact Pulmonology Diagnoses Asthma-COPD overlap syndrome (CMS/HCC) Dyspnea on exertion Rebekah Son APRN [address] [address] Phone: tel: fax: [facility] [address] [place] [address] Phone: tel: fax: Referral ID Status Reason Start Date Expiration Date V isits Requested Visits Authorized [id number] Pending Review 05/29/2025 11/28/2026 1 1 Scheduling Instructions EKG done in past [address] [facility] I have ordered repeat PFTs Reason for Visit * Reason Comments Follow-up Lung nodules Encounter Details Date Type Department Care Team (Late st Contact Info) Description 05/29/2025 3:10 PM EDT [facility] Visit [facility] [address] [place] [address] Rebekah Son APRN [address] [place] [address] Asthma-COPD overlap syndrome (CMS/HCC) (Primary Dx); Dyspnea on exertion; Hiatal hernia; Allergic rhinitis, unspecified seasonality, unspecified trigger; Lung nodules Social History Tobacco Use Types Packs/Day Years [...] on file documented as of this encounter Last Filed Vital Signs Vital Sign Reading Time Taken Comments Blood Pressure 129/88 05/29/2025 2:45 PM EDT Pulse 86 05/29/2025 2:45 PM EDT Temperature 37 C (98.6 F) 05/29/2025 2:45 PM EDT Respiratory Rate - - Oxygen Saturation 95% 05/29/2025 2:45 PM EDT RA Inhaled Oxygen Concentration - - Weight 87.6 kg (193 lb 2 oz) 05/29/2025 2:45 PM EDT Height 167.6 cm (5' 6 ) 05/29/2025 2:45 PM EDT Body Mass Index 31.17 05/29/2025 2:45 PM EDT documented in this encounter Miscellaneous Notes * Progress Notes - Rebekah Son S, ROLLING MACHINE OPERATOR - 05/29/2025 3:10 PM EDT PULMONARY FOLLOW-UP VISIT: Mago Maxwell is a 64 y.o. female is presenting today for for follow up of COPD/asthma overlap HISTORY OF PRESENT ILLNESS She is overall doing well, but feels she is more short of breath with day to day activities. Hernia is bothering her, has gas pains and has to reposition to get comfortable. She is wondering if this is affecting her lung function. She does not feel any reflux or heartburn; only if she eats ice cream late. Had pneumonia over the winter that cleared She had an ECG when she was in the ED at [facility] at this time. Has a hard time with cold air, and steps. Has been doing trelegy, one puff daily. Takes lasix PRN for peripheral edema, however hasn't needed in a long time. She had a sleep study done and she was negative for ERNA. She did have her swallow study done which she tells me was normal and she was referred to GI for her hiatal hernia. Her PCP has started her on Synthroid for elevated TSH. PMHx, Surgical Hx, Family Hx, and Social Hx Reviewed in EMR. Significant Changes Noted Above. Immunizations: Immunization History Administered Date(s) Administered Influenza, injectable, quadrivalent, preservative free 11/09/2023 Influenza, recombinant, quadrivalent, injectable, preservative free 08/26/2022 Influenza, seasonal, injectable 09/13/2019 [place] COVID-19 Vaccine (Purple Cap) 12+ 07/15/2021 Pneumococcal 20-richard Conj Vaccine 05/20/2022 Tdap 11/09/2023 VACCINE / DOSE DATE DATE DATE Flu 09/13/2019 08/26/2022 11/09/2023 Tetanus 11/09/2023 Pneumovax Shingles Allergies: Tree extract Medications: Current Outpatient Medications Medication Sig Dispense Refill albuterol (Ventolin HFA) 108 (90 Base) MCG/ACT inhaler INHALE 2 PUFFS EVERY 4 (FOUR) HOURS IF NEEDED FOR WHEEZING. 18 g 5 Gkeiuqkxhdf-Gmeazdijh-Jlvhyl (Trelegy Ellipta) 200-62.5-25 MCG/ACT aerosol powder Inhale 1 puff 1 (one) time each day. 60 each 11 HM Mucus Relief 600 MG 12 hr tablet ibuprofen 200 MG tablet Take 1 tablet (200 mg) by mouth every 6 (six) hours if needed for mild pain. ipratropium-albuterol (Duo-Neb) 0.5-2.5 mg/3 mL nebulizer solution levocetirizine (Xyzal) 5 MG tablet Take 1 tablet (5 mg) by mouth 1 (one) time each day in the evening. (Patient taking differently: Take 1 tablet (5 mg) by mouth 1 (one) time each day in the evening.) 30 tablet 11 levothyroxine (Synthroid, Levoxyl) 25 MCG tablet Take 2 tablets (50 mcg) by mouth 1 (one) time eachday. (Patient taking differently: Take 2 tablets (50 mcg) by mouth 1 (one) time each day.) Pitavastatin Calcium 2 MG tablet (Patient taking differently: Take 2 mg by mouth.) furosemide (Lasix) 20 MG tablet No current facility-administered medications for this visit. REVIEW OF SYSTEMS Review of Systems Constitutional: Negative for chills, diaphoresis, fatigue, fever and unexpected weight change. HENT: Negative for postnasal drip, rhinorrhea and sore throat. Respiratory: Positive for shortness of breath. Negative for cough, chest tightness and wheezing. Cardiovascular: Negative for leg swelling. Skin: Negative for color change, pallor and rash. Allergic/Immunologic: Positive for environmental allergies. Psychiatric/Behavioral: Negative for sleep disturbance. Assessment Scales: CAT: COPD ASSESSMENT (CAT) How often do you cough?: 2 Do you have phelgm (mucus) in your chest?: 2 Do you have tightness in your chest?: 0 No tightness at all Do you feel breathless walking up a hill or stairs?: 3 Are you limited to doing activities at home?: 3 Are you confident in leaving home despite your lung condition?: 0 Confident leaving home Do you have the ability to sleep soundly despite your lung condition?: 0 Sleeps very soundly How are your energy levels?: 3 COPD Score Score: 13 PHYSICAL EXAMINATION Visit Vitals BP 129/88 Pulse 86 Temp 37 ??C (98.6 ??F) (Oral) Ht 1.676 m (5' 6 ) Wt 87.6 kg (193 lb 2 oz) SpO2 95% Comment: RA BMI 31.17 kg/m?? Physical Exam Vitals reviewed. Constitutional: General: She is not in acute distress. Appearance: Normal appearance. She is not ill-appearing. HENT: Head: Normocephalic. Nose: Nose normal. Eyes: Conjunctiva/sclera: Conjunctivae normal. Pupils: Pupils are equal, round, and reactive to light. Cardiovascular: Rate and Rhythm: Normal rate and regular rhythm. Pulmonary: Effort: Pulmonary effort is normal. No respiratory distress. Breath sounds: Normal breath sounds. No wheezing, rhonchi or rales. Musculoskeletal: Cervical back: Normal range of motion. Right lower leg: No edema. Left lower leg: No edema. Skin: General: Skin is warm and dry. Capillary Refill: Capillary refill takes less than 2 seconds. Coloration: Skin is not pale. Findings: No bruising or rash. Nails: There is no clubbing. Neurological: Mental Status: She is alert and oriented to person, place, and time. Psychiatric: Mood and Affect: Mood normal. Behavior: Behavior normal. Thought Content: Thought content normal. Judgment: Judgment normal. DATA Data Reviewed (personally by me this visit): Radiology Results: I have personally reviewed the images in EMR. CT Chest 05/29/25 CT CHEST WO IV CONTRAST authorized by: Rebekah Son APRN Study Result Narrative & Impression CLINICAL INDICATION: Lung nodules, multiple TECHNIQUE: Multiple [...] and lower lobe scarring. Stable subcentimeter pulmonary nodulesin both lung (series 3, image 70, 150, 176, 183, and 186). No new or suspicious pulmonary nodules. Upper Abdomen: No suspicious lesions in the partially visualized upper abdomen. Surgically absent gallbladder. Nonobstructing left renal calculus, unchanged. Musculoskeletal: No suspicious lytic or sclerotic lesion. Chronic appearing T8 compression fracture. IMPRESSION: Stable bilateral pulmonary nodules. No new or suspicious pulmonary nodules. Based on current guidelines, further follow-up is not required. Pulmonary Function Testing: (03/30/2024) I have personally reviewed and interpreted these values. Impression: Spirometry: Reduced FEV1 with a normal FVC and reduced ratio consistent with mild obstruction. There is no significant positive bronchodilator response. Lung Volumes: Normal lung volumes. Diffusion Capacity: Diffusion capacity uncorrected for Hb is normal. IMPRESSION 1. Asthma-COPD overlap syndrome (CMS/HCC) 2. Dyspnea on exertion 3. Hiatal hernia 4. Allergic rhinitis, unspecified seasonality, unspecified trigger 5. Lung nodules Orders Placed This Encounter Procedures Ambulatory referral to Pulmonary Rehab Standing Status: Future Expiration Date: 11/30/2026 Referral Priority: Routine Referral Type: Consultation Number of Visits Requested: 1 PT eval and treat Standing Status: Future Expiration Date: 11/30/2026 Pulmonary function testing Standing Status: Future Expected Date: 05/29/2025 Expiration Date: 11/30/2026 Reason for Exam:: copd/asthma Which PFTs would you like to perform?: Full PFT (Spirometry, Lung Volumes and Diffusion Capacity) Type of spirometry:: Pre and post bronchodilator Where will this be performed?: PFT Lab DISCUSSION/SUMMARY Mago Maxwell is a 64 y.o. female who presented today for follow up on COPD/asthma. #Asthma/COPD Overlap -having more dyspnea with daily activities -CAT Score 13 -mild upper lobe predominant emphysema --one exacerbation since last seen, treated for pneumonia; I have ensured this cleared on chest imaging -- PFT showed a 17%/236mL BD response and patient has had significant improvement in symptoms with the addition of ICS to her inhaler (Trelegy) -- Will continue triple therapy with trelegy -Placed order for pulmonary rehab -Placed order for updated PFTs to be done prior -had EKG at [facility] in the last 6 months --last eos 320, can consider repeating and starting dupixent if still elevated #Lung Nodules -- CT today showed stable small right-sided pulmonary nodules and no new nodules. -will no longer need to follow as it has been 2 years. #Allergic Rhinitis -- She is having symptom control with Xyzal -- Continue to avoid allergens Hiatal hernia -moderate to large -will repeat PFTs, had normal TLC one year ago FU 4 mo to assess response to pulmonary rehab Plan/Recommendations: Diagnoses and all orders for this visit: Asthma-COPD overlap syndrome (CMS/HCC) - Pulmonary function testing; Future - PT eval and treat; Future - Ambulatory referral to Pulmonary Rehab; Future Dyspnea on exertion - Pulmonary function testing; Future - PT eval and treat; Future - Ambulatory referral to Pulmonary Rehab; Future Hiatal hernia Allergic rhinitis, unspecified seasonality, unspecified trigger Lung nodules I will follow-up with the patient in 6 months, or sooner if needed. The patient was agreeable to the above plan, and all questions were answered accordingly. I spent 30 minutes performing all or some of the following: Reviewing the history , performing an examination and evaluation, entering clinical information into the EHR, interpreting the results, counseling family/patient/caregiver, reviewing x-rays and laboratories, ordering medications, tests andprocedures, referring and communicating with consulting health rn palliative care and care coordination. Rebekah Son APRN [facility] Phone number: [phone] Fax number: [phone] documented in this encounter Plan of Treatment Upcoming Encounters Date Type Department Care Team (Late st Contact Info) Description 11/06/2025 3:40 PM EST [facility] [address] [place] [address] Rebekah Son, ROLLING MACHINE OPERATOR [address] [place] [address] Scheduled Orders Name Type Priority Associated Diagnoses Orde r Schedule Pulmonary function testing PFT Routine Asthma-COPD overlap syndrome Dyspnea on exertion Expected: 05/29/2025 (Approximate), Expires: 11/30/2026 Scheduled Referrals Name Type Priority Associated Diagnoses Order Schedule Ambulatory referral to Pulmonary Rehab Outpatient Referral Routine Asthma-COPD overlap syndrome Dyspnea on exertion 1 Occurrences starting 05/29/2025 until 11/30/2026 Follow Up Pulm Outpatient Referral Routine Asthma-COPD overlap syndrome Dyspnea on exertion Expected: 09/29/2025, Expires: 06/29/2026 documented as of this encounter Visit Diagnoses Diagnosis Asthma-COPD overlap syndrome (CMS/HCC)- Primary Dyspnea on exertion Other dyspnea and respiratory abnormality Hiatal hernia Diaphragmatic hernia without mention of obstruction or gangrene Allergic rhinitis, unspecified seasonality, unspecified trigger Lung nodules Other diseases of lung, not [...] documented as of this encounter Care Teams Yard Jacker Relationship Specialty Start Date End Date Belle Barksdale S, ROLLING MACHINE OPERATOR [address] [place] [address] PCP - General 04/05/21 documented as of this encounter
--- NOTE | 2025-05-30 13:01 | MM_ITS ---
PROCEDURE INFORMATION: Exam: MG Bilateral Screening 3D Mammography Exam date and time: 05/30/2025 1:04 PM Age: 64 years old Clinical indication: Screening examination TECHNIQUE: Imaging protocol: Bilateral Screening tomosynthesis and 2D mammography including computer-aided detection (CAD) when performed. COMPARISON: 1. MG MM DIG SCREENING MAMM BI W/CAD 05/27/2024 2:57 PM 2. MG MM DIG SCREENING MAMM BI W/CAD 05/13/2023 4:38 PM FINDINGS: MAMMOGRAPHY: Breast composition: There are scattered areas of fibroglandular density. Mass: No suspicious masses. Architectural distortion: None. Calcifications: No suspicious calcifications. Asymmetric density: None. Skin thickening: None. Axillary adenopathy: None. IMPRESSION: No mammographic evidence of malignancy. Annual screening is recommended unless otherwise clinically indicated. ASSESSMENT: BI-RADS Category 1: Negative.
--- OUTSIDE RECORDS SUMMARY | 2025-05-30 13:02 | XMS_ITS | Encounter Summary ---
Author Organization Healthcare Address [address] [place] [address] Care Team Providers Care Coat Finisher Name Role Phone Belle Barksdale ALBERTO Primary Care Provider [phone] Reason for Visit * Reason Comments Med Refill Encounter Details Date Type Department Care Team (Late st Contact Info) Description 08/22/2023 Refill [facility] [address] [place] [address] Onel Hopper MD [address] [place] [address] Asthma, unspecified asthma severity, unspecified whether complicated, unspecified whether persistent (Primary Dx) Social History Tobacco Use Types Packs/Day Years Used Date Smoking Tobacco: Former Cigarettes 3 10.9 0 12/20/1975 - 1986 Passive Smoke Exposure: Past Smokeless Tobacco: Never Alcohol Use Standard Drinks/Week Comments Yes 0 (1 standard drink = 0.6 oz pure alcohol) Alcoholic Drinks/day: Social alcohol use Comments Unknown Sex and Gender Information Value Date Recorded Sex Assigned at Not on file Legal Sex Female 6:07 PM EDT Gender Identity Not on file Sexual Orientation Not on file documented as of this encounter Plan of Treatment Upcoming Encounters Date Type Department Care Team (Late Contact Info) Description 11/06/2025 3:40 PM EST Office Visit [facility] [address] [place] [address] Rebekah Son APRN [address] [place] [address] documented as of this encounter Visit Diagnoses Diagnosis Asthma, unspecified asthma severity, unspecified whether complicated, unspecified whether persistent- Primary documented in this encounter Additional Health Concerns Assessment Noted Time A fall risk assessment has been complete d for the patient 05/20/2023 9:54 AM EDT A Body Mass Index follow-up plan has been documented for the patient 05/20/2023 10:30 AM EDT documented as of this encounter Care Teams Coat Finisher Relationship Specialty Start Date End Date Belle Barksdale, COPYING MACHINE REPAIRER [address] [facility] [address] [place] [address] PCP - General 04/05/21 documented as of this encounter
--- OUTSIDE RECORDS SUMMARY | 2025-05-30 13:02 | XMS_ITS | Data Portability ---
Author Organization [facility] Address [address] [place] [address] Assessment No assessment recorded. Plan of Treatment Reminders Order Date Submit Date Provider Last Modified By Organization Details Last Modified Time Details Appointments None recorded. Lab urinalysis, dipstick 2022 023 otoniel [employer], [address] [place] [address] , [place], [address], 3 16:08:09 culture, urine 2022 023 ANISHA [facility], [address], [address], [place], [address], 3 03:08:14 thyroperoxi dase Ab, serum 2022 023 ANISHA [facility], [address], [address], [place], [address], 3 20:08:23 HbA1c (hemoglobin A1c), blood 2022 023 ANISHA [facility], [address], [address], [place], [address], 3 20:08:22 Referral None recorded. Procedures None recorded. Surgeries None recorded. Imaging MAMMO, screening, bilateral [email or web address], [address], [place], [address], 5 10:24:45 MAMMO, screening, bilateral 2022 023 [facility] (X-Ray), [address], [place], [address], 4 16:52:00 DEXA 2022 023 [facility] (X-Ray), [address], [place], [address], 3 13:10:03 Medication Orders estradiol 0.025 mg/24 hr semiweekly transdermal patch 2022 023 [facility], [address], [place], [place], [id number], 3 13:59:17 estradiol 0.025 mg/24 hr semiweekly transdermal patch 2022 023 [facility], [address], [address], [place], [address], 3 16:42:07 Patient TargetsNo targets recorded. Patient Instructions Encounter Date Encounter Id Patient Instructions Last Modified By Organization Details Last Modified Time 05/22/2023 [id number] mammogram: about this test [email or web address] Not available 05/22/2023 15:15:34 medical record request* [email or web address] Not available 11/06/2023 14:50:51 07/16/2023 [id number] medical record request* [email or web address] Not available 08/21/2023 20:47:33 chronic obstructive pulmonary disease (COPD): care instructions mercedeszeszach Not available 07/16/2023 13:59:17 learning about copd and how to prevent lung infections solzeszach Not available 07/16/2023 13:59:17 learning about healthy weight solzeszach Not available 07/22/2023 13:08:03 body mass index: care instructions mercedeszeszach Not available 07/22/2023 13:08:03 medical record request* otoniel Not available 08/21/2023 20:47:33 Reason for Referral None Reported. Results Created Date Observation Date Name Description Value Unit Range Abnormal Flag Note LastModifiedBy Organization Detail LastModifiedTime 05/22/2005/23/2023 HEMOG LOBIN A1C hemoglobin A1C 5.6 % 4.8-5. 6 Predi abete s: 5.7 - 6.4 Diabe irma: >6.4 Glyce christina contr ol for adult s with diabe irma: <7.0 Not Available [facility] ([facility]) [address] [place], [address], 05/25/2023 20:08:22 05/22/2005/23/2023 THYRO ID ANTIB ODIES thyroid peroxidase (tpo) Ab <9 IU/mL 0-34 Not Available [facility] ([facility]) [address] [place], [address], 05/25/2023 20:08:23 05/22/20 23 05/25/2023 THYRO ID ANTIB ODIES thyroglobuli n antibody <1.0 IU/mL 0.0-0. 9 Thyro globu nadeen Antib kristopher measu red by Beckmarco an Coult er Metho dolog y Not Available [facility] ([facility]) [address] [place], [address], 05/25/2023 20:08:23 07/16/20 23 07/18/2023 URINE CULTU RE, ROUTI NE urine culture, routine Final report Not Available [facility] ([facility]) [address] [place], [address], 07/18/2023 03:08:14 07/16/2007/18/2023 URINE CULTU RE, ROUTI NE result 1 COMMEN T Cultu re shows less than 10,00 0 colon y formi ng units of bacte mindy per kolton liter of urine . This colon y count is not gener ally consi dered to be clini ronnie signi fican t. Not Available [facility] ([facility]) [address] [facility] [facility], [place], [address], 07/18/2023 03:08:14 07/16/20 23 07/16/2023 urina lysis , dipst ick Leukocytes Negati ve Not Available [employer] [address] [place] [address] , [place], [address], 07/16/2023 13:59:32 07/16/20 23 07/16/2023 urina lysis , dipst ick Nitrite negati ve Not Available [facility]/[address] , [place], [address], 07/16/2023 13:59:32 07/16/20 23 07/16/2023 urina lysis , dipst ick Protein Negati ve Not Available [facility]/[address] , [place], [address], 07/16/2023 13:59:32 07/16/20 23 07/16/2023 urina lysis , dipst ick pH 7.0 Not Available [address] , [place], [address], 07/16/2023 13:59:32 07/16/20 23 07/16/2023 urina lysis , dipst ick Blood Small Not Available [facility]/[address] , [place], [address], 07/16/2023 13:59:32 07/16/20 23 07/16/2023 urina lysis , dipst ick Ketone Negati ve Not Available [address] , [place], [address], 07/16/2023 13:59:32 07/16/20 23 07/16/2023 urina lysis , dipst ick Bilirubin Negati ve Not Available [facility]/Gyn [address] [place] [address] , [place], [address], 07/16/2023 13:59:32 07/16/20 23 07/16/2023 urina lysis , dipst ick Glucose Negati ve Not Available [employer] [address] [place] [address] , [place], [address], 07/16/2023 13:59:32 07/16/20 23 07/16/2023 urina lysis , dipst ick Appearance Clear Not Available [facility] [employer] [address] [place] [address] , [place], [address], 07/16/2023 13:59:32 07/16/20 23 07/16/2023 urina lysis , dipst ick Color Yellow Not Available [employer] [address] [place] [address] , [place], [address], 07/16/2023 13:59:32 07/21/20 23 05/13/20[address] medic al recor d reque st* No observ ation record ed. [email or web address] [facility] (Med Record) [address], [place], [address], 11/06/2023 14:50:51 10/28/20 23 10/28/2023 DEXA No observ ation record ed. [email or web address] [facility] [address], [place], [address], 01/07/2024 16:59:26 09/06/20 24 05/27/2024 MAMMO , scree moustapha, bilat eral No observ ation record ed. [email or web address] [facility] (Med Record) [address], [place], [address], 09/07/2024 14:45:18 Result Notes None recorded. Problems Name Problem SNOMED Code Status Onset Date Resolution Date Notes Provider Name and Address Organization Details Recorded Time Chronic obstructive pulmonary disease 95446692 Active 2022 Alma Rikki null, [place] - [facility] 3 14:10:28 History of deep vein thrombosis 134149146 Active 2022 Alma Rikki null, [place] - [facility] 3 14:11:04 Hypercholester olemia 79369299 Active 2022 Alma Brandt null, [place] - [facility] 3 14:16:31 Seasonal allergy 422160680 Active 2022 Alma Brandt null, [place] - [facility] 3 14:17:07 Fibrocystic disease of breast 49724106 Active 2022 Alma Brandt null, [place] - [facility] 3 14:30:34 Hiatal hernia 06181145 Active 2022 Vinita Cruz, DO [address], [place], [address], [place] - [facility] 3 15:03:21 Acquired absence of cervix and uterus 427280071 Active 2022 Vinita Cruz, DO [address], [place], [address], [place] [facility] 3 13:07:40 Osteopenia 177706027 Active 2022 Vinita Cruz, DO [address], [place], [address], [place] [facility] 4 17:42:17 Problem Notes None recorded. Procedures Surgical History Date Name Laterality Status Provider Name and Address Organization Details Recorded Time 024 Date of Last Mammogram completed Caroline Wick APRN [address], [place], [address], [place] - [facility] 09/06/2024 21:26:11 023 Most Recent Bone Density completed Eileen Su [place] - [facility] 01/07/2024 16:59:15 023 Most Recent Mammogram completed Carmela Zacarias [place] - [facility] 07/23/2023 14:00:50 01/01/2 023 Colposcopy completed Zelda CHAPA [facility] 11/07/2024 13:56:07 016 dental surgery completed Zelda CAHPA [facility] 11/07/2024 13:56:26 009 Adnexal surgery completed Zelda CHAPA [facility] 11/07/2024 13:56:26 008 Hysterectomy completed Zelda CHAPA [facility] 11/07/2024 13:56:26 989 Dilation and Curettage, sharp completed Zelda CHAPA [facility] 11/07/2024 13:56:26 ureterorenoscopy with fragmentation and removal of calculus of kidney completed Alma Brandt [facility] 05/22/2023 14:20:02 Hysterectomy, Total laparoscopic completed Alma Brandt [facility] 05/22/2023 14:21:25 foot repair completed Alma Brandt [facility] 05/22/2023 14:22:42 Imaging Results None recorded. Procedure Notes None recorded. Medical Equipment None Reported. Allergies Allergen ID Allergen Name Allergen Category Reaction Reaction Severity Criticality Documentation Date Start Date Code Code System Note Provider Name and Address Organization Details Recorded Time 598711 tree and shrub pollen environme nt,medica tion Not available Not available Not available 07/16/2023 [address] [place] Lora [facility] 13:04:41 Medications Name Sig Start Date Stop Date Status Note LastModified by Organization Details LastModified Time atorvastatin 20 mg tablet Take 1 tablet every day by oral route. active Not Available Not Available No t Available Claritin 10 mg tablet Take 1 tablet every day by oral route. active Not Available Not Available No t Available Synthroid 25 mcg tablet Take 2 tablets every day by oral route. active Not Available Not Available No t Available furosemide 20 mg tablet Take 1 tablet every day by oral route as needed. active Not Available Not Available No t Available estradiol 0.025 mg/24 hr semiweekly transdermal patch Apply 1 patch twice a week by transdermal route. 2022 active Not Available Not Available Not Avai lable potassium acetate take one daily active Not Available Not Available No t Available Xyzal 5 mg tablet Take 1 tablet every day by oral route. active Not Available Not Available No t Available pitavastatin calcium 4 mg tablet Take 1 tablet every day by oral route. active Not Available Not Available No t Available Probiotic active Not Available Not Julisa ilable Not Available Xarelto 20 mg tablet Take 1 tablet every day by oral route. active Not Available Not Available No t Available Anoro Ellipta 62.5 mcg-25 mcg/actuatio n powder for inhalation Inhale 1 puff every day by inhalation route. active Not Available Not Available No t Available Trelegy Ellipta 200 mcg-62.5 mcg-25 mcg powder for inhalation Inhale 1 puff every day by inhalation route. active Not Available Not Available No t Available albuterol 90 mcg-budesoni de 80 mcg/actuatio n HFA aerosol inhaler Inhale 1 g by inhalation route. active Not Available Not Available No t Available Vitals Date Recorded Body height Body mass index (BMI) Body weight Systolic And Diastolic Provider Name and Address Organization Details Last Updated DateTime 05/22/2023 170.18 cm 30.7 kg/m2 72326.82 g 122/78 mm[Hg] Alma Brandt [facility] 05/22/2023 14:30:23 Date Recorded Body height Body mass index (BMI) Body weight Systolic And Diastolic Provider Name and Address Organization Details Last Updated DateTime 07/16/2023 170.18 cm 30.7 kg/m2 94814.1 g 128/60 mm[Hg] Ravindra Nixonjose roberto [facility] 07/16/2023 13:03:58 Date Recorded Body weight Body mass index (BMI) Body height Systolic And Diastolic Provider Name and Address Organization Details Last Updated DateTime 11/07/2024 24638.92 g 31.3 kg/m2 167.64 cm 130/86 mm[Hg] Zelda Mcdonough [facility] 11/07/2024 13:55:53 Social History Question Answer Notes LastModified by Organizat ion Details LastModified Time Tobacco Smoking Status [facility]23 14:27:19 Do You Have An Advance Directive? No Information not available 11/07/2024 How Many Years Have You Consumed Alcohol? 5 Information not available 11/07/2024 Is Blood Transfusion Acceptable In An Emergency? Yes Information not available 11/07/2024 What Is Your Level Of Caffeine Consumption? Occasional [email or web address] Information not available 05/22/2023 How Much Tobacco Do You Chew? None Information not available 11/07/2024 In The 14 Days Before Symptom Onset, Have You Had Close Contact With A Laboratory-confir med COVID-19 While That Case Was Ill? No Information not available 11/07/2024 In The 14 Days Before Symptom Onset, Have You Had Close Contact With A Person Who Is Under Investigation For COVID-19 While That Person Was Ill? No Information not available 11/07/2024 Have You Been To An Area Known To Be High Risk For COVID-19? No Information not available 11/07/2024 Are You Deaf Or Do You Have Serious Difficulty Hearing? No Information not available 11/07/2024 What Type Of Diet Are You Following? REGULAR Information not available 11/07/2024 Have You Processed Blood Or Body Fluids From An Ebola Virus Disease Patient Without Appropriate PPE? No Information not available 11/07/2024 Do You Reside In Or Have You Traveled To An Area Where Ebola Virus Transmission Is Active? No Information not available 11/07/2024 What Is The Highest Grade Or Level Of School You Have Completed Or The Highest Degree You Have Received? [id number] Information not available 11/07/2024 When Did You Quit Smoking? 16+[place]ssince [place] [address] Information not available 05/22/2023 Have You Recently Or Are You Planning To Travel To An Area With Zika Virus? No Information not available 11/07/2024 What Was The Date Of Your Most Recent Tobacco Screening? 11/07/2024 Information not available 11/07/2024 How Many Children Do You Have? 4 Information not available 11/07/2024 Do You Use Protection Against STDs? No Information not available 11/07/2024 What Is Your Relationship Status? [email or web address] Information not available 05/22/2023 Do You Use Your Seat Belt Or Car Seat Routinely? Yes Information not available 11/07/2024 Are You Sexually Active? No Information not available 11/07/2024 Do You Have Smoke And Carbon Monoxide Detectors In Your Home? Yes Information not available 11/07/2024 At What Age Did You Start Smoking Tobacco? 16 Stopped In 1984 [email or web address] Information not available 05/22/2023 Are You Passively Exposed To Smoke? No Information no t available 11/07/2024 Do You Use Sunscreen Routinely? Yes Information not available 11/07/2024 Has Tobacco Cessation Counseling Been Provided? No [email or web address] Information not available 05/22/2023 Sex: Female Functional Status Question Answer Note LastModified by Organizat ion Details LastModified Time Do you use any illicit or recreational drugs? No [email or web address] Information not available 05/22/2023 Do you or have you ever used any other forms of tobacco or nicotine? No [email or web address] Information not available 05/22/2023 What is your level of alcohol consumption? Occasional [email or web address] Information not available 05/22/2023 Do you or have you ever used smokeless tobacco? Never used smokeless tobacco Information not available 11/07/2024 Are you currently employed? No Information not available 11/07/2024 Are you able to care for yourself? Yes [email or web address] Information not available 05/22/2023 Do you or have you ever used e-cigarettes or vape? Never used electronic cigarettes Information not available 11/07/2024 What is your exercise level? Occasional Information not available 11/07/2024 Mental Status Question Answer Note LastModified by Organization D etails LastModified Time Do you feel stressed (tense, restless, nervous, or anxious, or unable to sleep at night)? [id number] Information not available 11/07/2024 Family History Relationship Description Onset Age of this Age Resolved Age Notes LastModified by Organization Details LastModified Time Unspecified Relation Family history of Not known - Adopted evirgin Not available 2023 13:56:00 Unspecified Relation Harmful pattern of use of alcohol evirgin Not available 2023 13:56:01 Unspecified Relation Asthma evirgin Not available 13:56:01 Unspecified Relation Dementia evirgin Not available 11/07/20 13:56:01 Father Myocardial infarction evirgin Not available 11/07 13:56:01 Mother Cardiac pacemaker procedure evirgin Not available 2023 13:56:01 Son Anxiety disorder evirgin Not available 2023 13:56:01 Daughter Anxiety disorder evirgin Not available 2023 13:56:01 Medical History Condition Response Obesity Y Kidney Stones Y Blood clot Y Gynecological History Statement/Question Response Abnormal Pap N Date of Last Mammogram 05/27/2024 Date of LMP 11/23/2007 Post Menopausal Bleeding N STIs/STDs N Colposcopy 11/23/2022 HPV Vaccine N Most Recent Mammogram 05/13/2023 Current Control Method Hysterectom y Age at Menarche 12 Age at First Child 19 Last Annual Exam/Provider 2022 SMO If Post Menopausal, Age at Menopause 48 Date of Last Colonoscopy Most Recent Bone Density 10/28/2023 Sexually Active? N Date of Last Pap Smear LMP Approximate Hormone Replacement Therapy Y Obstetrics History GPAL:G 5 P 3 1 1 4 Type Value Full Term 3 Spontaneous 1 Premature 1 Living 4 Total 5 Immunizations Vaccine Type Date Status Note Provider Nam e and Address Organization Details Recorded Time Influenza, recombinant, quadrivalent, PF 2 completed Alma santana, [place] - [facility] 05/22/2023 14:14:34 COVID-19, mRNA, LNP-S, PF, 30 mcg/0.3 mL dose 1 completed Alma santana, [place] - [facility] 05/22/2023 14:14:34 Pneumococcal conjugate PCV20, polysaccharide [id number] conjugate, adjuvant, PF 2 completed Alma santana, [place] - [facility] 05/22/2023 14:14:34 Influenza, split virus, trivalent, preservative 9 completed Alma santana, [place] - [facility] 05/22/2023 14:14:34 Past Encounters Encounter ID Performer Location Encounter Start Date Encounter Closed Date Diagnosis/Indication Diagnosis SNOMED-CT Code Diagnosis ICD10 Code Diagnosis Note [id number] DO Eliseo Sweeney 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 [address] 07/16/2023 12:49:14 07/16/2023 13:57:39 Routine gynecologic examination done 7877376691 9101 Z01.419 Depression screening 171 992427 Z13.31 Diet education 48873353 Z71.3 Counseling 117949296 Z71 .82 Exercise counsellin g. Patient encouraged to exercise 30 minutes 5 days a week. 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 10 Acquired a bsence of cervix and uterus 429353621 Z90.710 Body mass index 30+ - obesity 273561809 Z68.30 Obesity 612543593 E66.9 [id number] Vinita Cruz DO [employer] EXEC[employer] [address] [place] [address] [place] [address] 11/07/2024 13:47:11 11/07/2024 14:42:37 Routine gynecologic examination done 7839281074 9101 Z01.419 Depression screening 171 Z13.31 Diet education 49887550 Z71.3 Counseling 492053088 Z71 .82 Exercise counselnadeen gForeign Patient encouraged to exercise 30 minutes 5 days a week. Examinatio n of blood pressure 220861287 Z01.30 Vaccine de clined by patient 0669662943 Z28.21 Screening mammography 24 461143 Z12.31 Health Concerns Section Related Observation LastModified by Organization Detai ls LastModified Time None Recorded Concern Status LastModified by Organization Details LastModified Time None Recorded Advance Directives Directive N: Payers Insurance Date Sequence Insurance Name Policy Number Policy Harper Covered Member ID Harper Member ID Guarantor Name 11/04/2024 [place] [id number] [place] [place]ICAID) Mago Maxwell [id number] Mago Maxwell 11/17/2024 1 [place] [facility] (MEDICAID HMO) Mago Maxwell [id number] Mago Maxwell Notes Date Note Type Note Provider Name and Address Organization Details Recorded Time 05/22/2023 text/html Mago presents today as as new patient to discuss hormone replacement therapy for weight gain. Having weight issues that has been the same weight for years - with no change no matter the intervention. Hysterectomy with cystocele, rectocele, mesh bladder sling - no issues. No vaginal dryness. No current partner. Sleep - able to go to sleep, will take magnesium tablet occasionally, wakes up about 4 am and cannot go to sleep - would like to get 8 hours. Does not smoke, quit years ago. Reports having loose stools with any fast foods - having regular bowel movements daily. Recently, had labs last week at PCP. Will sign records release. Discussed DVT is a contraindication for estrogen HRT, she accepted risks that if she has a stroke or other clot related sequelae or , that it was her responsibility, not mine. Vinita Cruz DO [address], [place], [address], [place] - [facility] 05/22/2023 16:43:29 07/16/2023 text/html Annual - MOBRepo rted bypatient.History:Last annual exam: 10 yr; no gynecologic complaints Current Contraception:Postmeno pausal Preventive measures:Mammogram performed within the past year; Up to date on colonoscopy screeningNotes:Still has not lost weight.Will continue estrogen while taking Xarelto. Discussed risks of blood clots and contraindications of HRT with history of blood clot and she reiterated that she was willing to take the risk of possible stroke, heart attack or . Vinita Cruz DO [address], [place], [address], [place] - [facility] 07/22/2023 13:08:39 11/07/2024 text/html Annual - MOBRepo rted bypatient.History:Last annual exam: 2022; no gynecologic complaints; no change in interval history Current Contraception:[place] us relationship; History of hysterectomy Preventive measures:Encourage self breast examination; Encourage regular exercise; Encourage no tobacco use; Mammogram performed within the past year (-2023); Up to date on colonoscopy screening (2022); Up to date on Dexa Scan (2022); All immunization are currentNotes:Did not feel that HRT was helpful and discontinued. Vinita Cruz, [address], [place], [address], [place] - [facility] 11/07/2024 16:22:04 OBGyn Episode No OBEpisode recorded.
--- OUTSIDE RECORDS SUMMARY | 2025-05-30 13:02 | XMS_ITS | Encounter Summary ---
Author Organization Healthcare Address [address] [place] [address] Care Team Providers Care Retail Route Supervisor Name Role Phone Belle Barksdale ALBERTO Primary Care Provider [phone] Encounter Details Date Type Department Care Team (Latest Contact Info) Description 05/29/2025 Travel Social History Tobacco Use Types Packs/Day Years [...] Description 11/06/2025 3:40 PM EST [facility] [address] [place] [address] Rebekah Son APRN [address] [place] [address] documented as of this encounter Visit Diagnoses Not on filedocumented in this encounter Additional Health Concerns Assessment Noted Time PHQ-9 Depression Total Score: 0 11/25/19 25 1:48 PM EST A fall risk assessment has been complete d for the patient 05/29/2025 2:51 PM EDT A Body Mass Index follow-up plan has been documented for the patient 05/29/2025 4:11 PM EDT documented as of this encounter Care Teams Retail Route Supervisor Relationship Specialty Start Date End Date Belle Barksdale APRN [address] [place] [address] PCP - General 04/05/21 documented as of this encounter
--- OUTSIDE RECORDS SUMMARY | 2025-05-30 13:02 | XMS_ITS | Clinical Summary ---
Author Organization [facility] Address [address] [place] [address] Care Team Providers Care Telecommunications Engineer Name Role Phone Belle Barksdale APRN Primary Care Provider [phone] Allergies Active Allergy Reactions Criticality Noted Date Comments Tree Extract Other - please docum ent in the comment field Low 05/20/2024 Medications ipratropium-alb uterol (Duo-Neb) 0.5-2.5 mg/3 mL nebulizer solution 01/28/20 23 Active Pitavastatin Calcium 2 MG tablet 01/15/20 24 Active albuterol (Ventolin HFA) 108 (90 Base) MCG/ACT inhalerIndicati ons:Chronic obstructive pulmonary disease, unspecified COPD type (CMS/HCC) INHALE 2 PUFFS EVERY 4 (FOUR) HOURS IF NEEDED FOR WHEEZING. 18 g 5 02/22/20 24 Active levocetirizine (Xyzal) 5 MG tablet Take 1 tablet (5 mg) by mouth 1 (one) time each day in the evening. 30 tablet 11 04/07/20 24 Active Additional Information Patient taking differently: No details specified, Reason: Other (not refilled), Reported on 05/29/2025 furosemide (Lasix) 20 MG tablet 04/22/20 24 Active HM Mucus Relief 600 MG 12 hr tablet 02/20/20 24 Active levothyroxine (Synthroid, Levoxyl) 25 MCG tablet Take 2 tablets (50 mcg) by mouth 1 (one) time each day. 05/05/20 24 Active ibuprofen 200 MG tablet Take 1 tablet (200 mg) by mouth every 6 (six) hours if needed for mild pain. Active Fluticasone-Ume clidin-Vilant (Trelegy Ellipta) 200-62.5-25 MCG/ACT aerosol powder Inhale 1 puff 1 (one) time each day. 60 each 08/17/20 24 Active gentamicin (Garamycin) 0.1 % ointment APPLY UP TO 4 GRAMS TO AFFECTED AREAS TWICE DAILY DIRECTED 05/20/20 025 Discontinued Xarelto 20 MG tablet 05/11/20 025 Discontinued atorvastatin (Lipitor) 20 MG tablet 05/12/20 025 Discontinued Xarelto 15 MG tablet 10/02/20 025 Discontinued rosuvastatin (Crestor) 10 MG tablet 11/11/20 025 Discontinued rosuvastatin (Crestor) 5 MG tablet 12/07/19 025 Discontinued estradiol (Lulu) 0.025 MG/24HR 07/23/20 025 Discontinued estradiol (Lulu) 0.025 MG/24HR 05/22/20 025 Discontinued estradiol (Lulu) 0.025 MG/24HR 08/22/20 025 Discontinued Lulu 0.025 MG/24HR 06/22/20 025 Discontinued Active Problems No known active problems Encounters Date Type Department Care Team Description 05/29/2025 3:10 PM EDT [facility] Visit [facility] [address] [place] [address] Rebekah Son APRN Asthma-COPD overlap syndrome (CMS/HCC) (Primary Dx); Dyspnea on exertion; Hiatal hernia; Allergic rhinitis, unspecified seasonality, unspecified trigger; Lung nodules 05/29/2025 1:41 PM EDT - 05/29/2025 11:59 PM EDT Hospital Encounter [facility] [address] [place] [address] Lung nodules Discharge Disposition: Home or Self Care 05/29/2025 Travel from Last 3 Months Immunizations Immunization Administration Dates Next Due Influenza, injectable, quadrivalent, preservativ e free 11/09/2023 Influenza, recombinant, quad rivalent, injectable, preservative free 08/26/2022 Influenza, seasonal, injectable 09/13/2019 [facility] COVID-19 Vaccine (Purple Cap) 12 + 07/15/2021 Pneumococcal 20-richard Conj Vaccine 05/20/2022 Tdap 11/09/2023 Family History Medical History Relation Name Comments Cardiac disorder Other Relation Name Status Comments Other Social History Tobacco Use Types Packs/Day Years Used Date Smoking Tobacco: Former Cigarettes 3 10.9 0 12/20/1975 - 1986 Passive Smoke Exposure: Past Smokeless Tobacco: Never Tobacco Cessation:Counseling Given: Not Answered Alcohol Use Standard Drinks/Week Comments Yes 0 [...] on file Sexual Orientation Not on file Last Filed Vital Signs Vital Sign Reading Time Taken Comments Blood Pressure 129/88 05/29/2025 2:45 PM EDT Pulse 86 05/29/2025 2:45 PM EDT Temperature 37 C (98.6 F) 05/29/2025 2:45 PM EDT Respiratory Rate 16 05/20/2023 9:57 AM EDT Oxygen Saturation 95% 05/29/2025 2:45 PM EDT RA Inhaled Oxygen Concentration - - Weight 87.6 kg (193 lb 2 oz) 05/29/2025 2:45 PM EDT Height 167.6 cm (5' 6 ) 05/29/2025 2:45 PM EDT Body Mass Index 31.17 05/29/2025 2:45 PM EDT Plan of Treatment Upcoming Encounters Date Type Department Care Team (Late st Contact Info) Description 11/06/2025 3:40 PM EST [facility] [address] [place] [address] Rebekah Son S, WEB CONTENT WRITER [address] [place] [address] Health Maintenance Due Date Last Done Comments [facility]-HIV Screening 1960 [facility]-Hepatitis C Screening 1960 [facility]-Infant/Child/Adol SDOH Screenings 1960 [facility]- SDOH Screenings 1978 [facility]-Adult SDOH Screenings 1978 CT Colonography 2005 Colonoscopy 2005 FIT-DNA 2005 FIT 2005 FOBT 2005 Sigmoidoscopy 2005 [facility]-Colorectal Cancer Screening 2005 [facility]-Breast Cancer Screening 2010 [facility]-Zoster Vaccines (1 of 2) 2010 [facility]-RSV Vaccine: 60+ Years or (1 - Risk 60-74 years 1-dose series) 2020 [id number] Vaccine (2 - Pfizer risk series) 08/05/2021 07/15/2021 [facility]-Influenza Vaccine (#1) 07/24/202511/09, 08/26/2022, 09/13/2019 [facility]-Depression Screening 11/25/2025 025, 11/25/2024, 05/20/2022 [facility]-DTaP,Tdap,and Td Vaccines (2 - Td or Tdap) 11/09/2033 11/09/2023 [facility]-Pneumococcal Vaccine: 50+ Years Completed 05/20/2022 [facility]-Obesity Intervention Completed 025, 11/25/2024, 05/20/2024, Additional history exists HPV Vaccines Aged Out No longer eligi ble based on patient's age to complete this topic [facility]-HIB Vaccines Aged Out No longer e ligible based on patient's age to complete this topic [facility]-Hepatitis A Vaccines Aged Out No longer eligible based on patient's age to complete this topic [facility]-IPV Vaccines Aged Out No longer e ligible based on patient's age to complete this topic [facility]-Rotavirus Vaccines Aged Out No lo nger eligible based on patient's age to complete this topic Procedures Procedure Name Priority Date/Time Associated Diagnosis Comments CT CHEST WO IV CONTRAST Routine 05/29/2025 1:50 PM EDT Lung nodules from Last 3 Months Results * CT Chest wo IV Contrast [...] signing this report, I, the attending physician, attjanettethat I have personally reviewed the images/data for the aboveexamination(s) and agree with the final edited report. Drafted by Joaquin Kwon MD on 05/29/2025 2:31 PM Final report signed by Jatinder Lyons MD on 05/29/2025 3:14 PM Rebekah oSn WEB CONTENT WRITER IMG CT PROCEDURES Final R esult from Last 3 Months Insurance [employer] Care Teams Telecommunications Engineer Relationship Specialty Start Date End Date Belle Barksdale APRN [address] [facility] [address] [place] [address] PCP - General 04/05/21
== END 2025-05-30 23:59 | disposition home or self-care (01) ==
LOC: RAD 12:58
PROVIDERS: PCP Nurse Practitioner Family; Visit Provider Obstetrics & Gynecology
DX: Z12.31 Encounter for screening mammogram for malignant neoplasm of breast (principal); R92.323 Mammographic fibroglandular density, bilateral breasts
CPT/HCPCS: 77063; 77067

== ENCOUNTER 2025-09-20 15:56 | Outpatient (CLI) | payer OTHER, SELFPAY ==
--- OUTSIDE RECORDS SUMMARY | 2025-07-26 13:00 | XMS_ITS | Encounter Summary ---
Author Organization [facility] Address [address] [place] [address] Care Team Providers Care Brigadier Name Role Phone Belle Barksdale APRN Primary Care Provider [phone] Encounter Details Date Type Department Care Team (Late st Contact Info) Description 07/26/2025 1:00 PM EDT Office Visit [facility] [address] [place] [address] Chronic obstructive pulmonary disease, unspecified COPD type (CMS/HCC) (Primary Dx) Social History Tobacco Use Types [...] Sign Reading Time Taken Comments Blood Pressure - - Pulse - - Temperature - - Respiratory Rate - - Oxygen Saturation - - Inhaled Oxygen Concentration - - Weight 89.7 kg (197 lb 12 oz) 07/26/2025 2:00 PM EDT Height - - Body Mass Index 31.92 07/03/2025 2:00 PM EDT documented in this encounter Miscellaneous Notes * Progress Notes - Ronel Romero - 07/26/2025 1:00 PM EDT Pulmonary Rehab Daily Note Patient Name: Mago Maxwell Today's Date: 07/26/2025 General General Time In: 1250 Time Out: 1420 Family/Caregiver Present: No Visit Number: 7 Physician on Site: Radha simon md Pain: 0 Weight: 89.7 kg (197 lb 12 oz) Vital Signs Resting Vital Signs SpO2: 98 % Pulse: 64 Supplemental Oxygen : Room Air BP: 110/78 Dyspnea Index: 0 Falls: 0 Meds Taken: y Meds Changed: n Breathing Assessment Breathing Assessment Breathing Assessment: clear bilateral Exercise Exercise Modalities Track Walk: Yes Recumbent Stepper : Yes Weights: Yes Track Walk Assistive Device: None Time: 20 Minutes Number of Laps: 30 Exercise SPO2: 98 Exercise HR: 114 Supplemental Oxygen: Room air Exercise BP: 112/69 Exercise Dyspnea: 1 Rate of Percieved Exertion: 1 Signs and Symptoms: pt tolerated well Seated Stepper Resistance Level: 7 Steps per Minute: 68 Time: 20 Minutes Total Steps: 1347 Steps METS: 4.1 Exercise SPO2: 98 Exercise Heart Rate: 87 Supplemental Oxygen : Room Air Exercise BP: 110/80 Exercise Dyspnea: 1 Rate of Percieved Exertion: 2 Signs and Symptoms: Pt tolerated exercise well Weights Exercise Sets: 2 Reps: 10 Weight: 4 lbs Time: 10 Minutes Exercise SpO2: 97 Exercise HR: 103 Supplemental Oxygen: Room air Exercise Dyspnea: 2 Rate of Perceived Exertion: 1 Signs and Symptoms: pt tolerated well Cool Down Cool Down Exercises Cool Down Exercises: 10 Post-Activity Vital Signs Post-Activity Vital signs SpO2: 94 % Pulse: 96 Supplemental Oxygen : Room Air BP: 118/80 Dyspnea Index: 0 Educational Classes/20 Minutes everyday activities/exercise (ADLs) MW documented in this encounter Plan of Treatment Upcoming Encounters Date Type Department Care Team (Late st Contact Info) Description 09/25/2025 1:00 PM EST Office Visit [facility] Pulmonary Rehab [address] [place] [address] 10/17/2025 4:00 PM EST Appointment Cardiac Imaging [address] [place] [address] 12/05/2025 3:40 PM EST Office Visit [facility] [address], [address] [place] [address] Rebekah Son APRN [address] [place] [address] documented as of this encounter Visit Diagnoses Diagnosis Chronic obstructive pulmonary disease, unspecified COPD type (CMS/HCC)- Primary documented in this encounter Additional Health Concerns Assessment Noted Time PHQ-9 Depression Total Score: 0 11/25/19 25 1:48 PM EST A fall risk assessment has been complete d for the patient 05/29/2025 2:51 PM EDT A Body Mass Index follow-up plan has been documented for the patient 07/26/2025 2:37 PM EDT documented as of this encounter Care Teams Brigadier Relationship Specialty Start Date End Date Belle Barksdale S, GREEN HOUSE MANAGER [address] [facility] [address] [place] [address] PCP - General 04/05/21 documented as of this encounter
--- OUTSIDE RECORDS SUMMARY | 2025-07-31 13:00 | XMS_ITS | Encounter Summary ---
Author Organization Healthcare Address [address] [place] [address] Care Team Providers Care Coding Clerk Name Role Phone Belle Barksdale APRN Primary Care Provider Encounter Details Date Type Department Care Team (Late st Contact Info) Description 07/31/2025 1:00 PM EDT Office Visit [facility] [address] [place] [phone] COPD with asthma (CMS/HCC) (Primary Dx) Social [...] Description 09/25/2025 1:00 PM EST [facility] [address] [place] [address] 10/17/2025 4:00 PM EST Appointment Cardiac Imaging [address] [place] [address] 12/05/2025 3:40 PM EST Office Visit [facility] [address] [place] [address] Rebekah Son APRN [address] [place] [address] documented as of this encounter Visit Diagnoses Diagnosis COPD with asthma (CMS/[facility])- Primary documented in this encounter Additional Health Concerns Assessment Noted Time PHQ-9 Depression Total Score: 0 11/25/19 25 1:48 PM EST A fall risk assessment has been complete d for the patient 05/29/2025 2:51 PM EDT A Body Mass Index follow-up plan has been documented for the patient 07/31/2025 2:11 PM EDT documented as of this encounter Care Teams Coding Clerk Relationship Specialty Start Date End Date Belle Barksdale, ALBERTO [address] [facility] [address] [place] [address] PCP - General 04/05/21 documented as of this encounter
--- OUTSIDE RECORDS SUMMARY | 2025-08-07 13:00 | XMS_ITS | Encounter Summary ---
Author Organization Healthcare Address [address] [place] [address] Care Team Providers Care Personnel Psychologist Name Role Phone Belle Barksdale APRN Primary Care Provider [phone] Encounter Details Date Type Department Care Team (Late st Contact Info) Description 08/07/2025 1:00 PM EDT Office Visit [facility] [address] [place] [phone] COPD with asthma (CMS/HCC) (Primary Dx) Social [...] Description 09/25/2025 1:00 PM EST Office Visit [facility] [address] [place] [address] 10/17/2025 4:00 PM EST Appointment Cardiac Imaging [address] [place] [address] 12/05/2025 3:40 PM EST Office Visit [facility] [address], [address] [place] [address] Rebekah Son, ALBERTO [address] [place] [address] documented as of this encounter [...] documented as of this encounter Care Teams Personnel Psychologist Relationship Specialty Start Date End Date Belle Barksdale S, CANVAS CUTTER [address] [place] [address] PCP - General 04/05/21 documented as of this encounter
--- OUTSIDE RECORDS SUMMARY | 2025-08-09 13:00 | XMS_ITS | Encounter Summary ---
Author Organization Healthcare Address [address] [place] [address] Care Team Providers Care Last Marker Name Role Phone Belle Barksdale APRN Primary Care Provider [phone] Encounter Details Date Type Department Care Team (Late st Contact Info) Description 08/09/2025 1:00 PM EDT Office Visit [facility] [address] [place] [phone] COPD with asthma (CMS/HCC) (Primary Dx) Social [...] Description 09/25/2025 1:00 PM EST Office Visit [facility] Re[facility] [address] [place] [address] 10/17/2025 4:00 PM EST Appointment Cardiac Imaging [address] [place] [address] 12/05/2025 3:40 PM EST [facility] Visit [facility] Medicine [facility] [address], [address] [place] [address] Rebekah Son, SUPERVISOR TUMBLING AND ROLLING [address] [facility] [address] [place] [address] documented as of this encounter Visit Diagnoses [...] documented as of this encounter Care Teams Last Marker Relationship Specialty Start Date End Date Belle Barksdale, SUPERVISOR TUMBLING AND ROLLING [address] [facility] [address] [place], [place] [id number] PCP - General 04/05/21 documented as of this encounter
--- OUTSIDE RECORDS SUMMARY | 2025-08-14 13:00 | XMS_ITS | Encounter Summary ---
Author Organization Healthcare Address [address] [place] [address] Care Team Providers Care Geospatial Scientist Name Role Phone Belle Barksdale APRN Primary Care Provider [phone] Encounter Details Date Type Department Care Team (Late st Contact Info) Description 08/14/2025 1:00 PM EDT Office Visit [facility] [address] [place] [address] Chronic obstructive bronchitis (CMS/HCC) (Primary Dx) Social [...] Description 09/25/2025 1:00 PM EST Office Visit [facility] Pulmonary Rehab [address] [place] [address] 10/17/2025 4:00 PM EST Appointment Cardiac Imaging [address] [place] [address] 12/05/2025 3:40 PM EST Office Visit [facility] [address], [address] [place] [address] Rebekah Son, ALBERTO [address] [place] [address] documented as of this encounter [...] documented as of this encounter Care Teams Geospatial Scientist Relationship Specialty Start Date End Date Belle Barksdale, NANOSYSTEMS ENGINEER [address] [place] [address] PCP - General 04/05/21 documented as of this encounter
--- OUTSIDE RECORDS SUMMARY | 2025-08-16 13:00 | XMS_ITS | Encounter Summary ---
Author Organization Healthcare Address [address] [place] [address] Care Team Providers Care Relief Manager Name Role Phone Belle Barksdale APRN Primary Care Provider [phone] Encounter Details Date Type Department Care Team (Late st Contact Info) Description 08/16/2025 1:00 PM EDT Office Visit [facility] [address] [place] [address] COPD with asthma (CMS/HCC) (Primary Dx) Social [...] Description 09/25/2025 1:00 PM EST Office Visit [facility] [address] [place] [address] 10/17/2025 4:00 PM EST Appointment Cardiac Imaging [address] [place] [address] 12/05/2025 3:40 PM EST Office Visit [facility] Medicine Specialties [address], [address] [place] [address] Rebekah Son APRN [address] [place] [address] documented as of this encounter Visit Diagnoses Diagnosis COPD with asthma (CMS/[facility])- Primary documented in this encounter Additional Health Concerns Assessment Noted Time PHQ-9 Depression Total Score: 0 11/25/19 25 1:48 PM EST A fall risk assessment has been complete d for the patient 05/29/2025 2:51 PM EDT A Body Mass Index follow-up plan has been documented for the patient 08/16/2025 2:10 PM EDT documented as of this encounter Care Teams Relief Manager Relationship Specialty Start Date End Date Belle Barksdale, ALBERTO [address] [address] PCP - General 04/05/21 documented as of this encounter
--- OUTSIDE RECORDS SUMMARY | 2025-08-21 13:00 | XMS_ITS | Encounter Summary ---
Author Organization Healthcare Address [address] [place] [address] Care Team Providers Care Dental Ceramist Helper Name Role Phone Belle Barksdale APRN Primary Care Provider [phone] Encounter Details Date Type Department Care Team (Late st Contact Info) Description 08/21/2025 1:00 PM EDT Office Visit [place] [facility] [address] [place] [phone] COPD with asthma (CMS/HCC) (Primary Dx) Social [...] Description 09/25/2025 1:00 PM EST Office Visit [facility] Pulmonary Rehab [address] [place] [address] 10/17/2025 4:00 PM EST Appointment Cardiac Imaging [address] [place] [address] 12/05/2025 3:40 PM EST Office Visit [place] [facility] [address], [address] [place] [address] Rebekah Son, ALBERTO [address] [place] [address] documented as of this encounter Visit Diagnoses [...] documented as of this encounter Care Teams Dental Ceramist Helper Relationship Specialty Start Date End Date Belle Barksdale, STREET SPRINKLER [address] [place] [address] PCP - General 04/05/21 documented as of this encounter
--- OUTSIDE RECORDS SUMMARY | 2025-08-23 13:00 | XMS_ITS | Encounter Summary ---
Author Organization Healthcare Address [address] [place] [address] Care Team Providers Care Assembler Mechanical Ordnance Name Role Phone Belle Barksdale APRN Primary Care Provider [phone] Encounter Details Date Type Department Care Team (Late st Contact Info) Description 08/23/2025 1:00 PM EDT Office Visit [place] [facility] [address] [place] [phone] COPD with asthma (CMS/HCC) (Primary Dx) Social [...] Description 09/25/2025 1:00 PM EST Office Visit [facility] Pulmonary Rehab [address] [place] [address] 10/17/2025 4:00 PM EST Appointment Cardiac Imaging [address] [place] [address] 12/05/2025 3:40 PM EST Office Visit [facility] Medicine Specialties [address], [address] [place] [address] Rebekah Son, BURNER SHAFT [address] [facility] [address] [place] [address] documented as of this encounter Visit Diagnoses Diagnosis COPD with asthma (CMS/[facility])- Primary documented in this encounter Additional Health Concerns Assessment Noted Time PHQ-9 Depression Total Score: 0 11/25/19 25 1:48 PM EST A fall risk assessment has been complete d for the patient 05/29/2025 2:51 PM EDT A Body Mass Index follow-up plan has been documented for the patient 08/23/2025 2:12 PM EDT documented as of this encounter Care Teams Assembler Mechanical Ordnance Relationship Specialty Start Date End Date Belle Barksdale, BURNER SHAFT [address] [facility] [address] [place] [address] PCP - General 04/05/21 documented as of this encounter
--- OUTSIDE RECORDS SUMMARY | 2025-08-28 13:00 | XMS_ITS | Encounter Summary ---
Author Organization Healthcare Address [address] [place] [address] Care Team Providers Care R&D Lab Technician Name Role Phone Belle Barksdale APRN Primary Care Provider Encounter Details Date Type Department Care Team (Late st Contact Info) Description 08/28/2025 1:00 PM EDT Office Visit [place] [facility] [address] [place] [address] Chronic obstructive bronchitis (CMS/HCC) (Primary Dx) Social [...] Description 09/25/2025 1:00 PM EST Office Visit [facility] Pulmonary Rehab [address] [place] [address] 10/17/2025 4:00 PM EST Appointment Cardiac Imaging [address] [place] [address] 12/05/2025 3:40 PM EST Office Visit [place] [facility] [address], [address] [place] [address] Rebekah Son APRN [address] [place] [address] documented as of this encounter [...] documented as of this encounter Care Teams R&D Lab Technician Relationship Specialty Start Date End Date Belle Barksdale, AX SURVEY WORKER [address] [place] [facility] [address] [place] [address] PCP - General 04/05/21 documented as of this encounter
--- OUTSIDE RECORDS SUMMARY | 2025-09-06 10:30 | XMS_ITS | Encounter Summary ---
Author Organization Healthcare Address [address] [place] [address] Care Team Providers Care Asphalt Paver Operator Name Role Phone Belle Barksdale APRN Primary Care Provider [phone] Encounter Details Date Type Department Care Team (Late st Contact Info) Description 09/06/2025 10:30 AM EDT Office [facility] [address] [place] [address] COPD with asthma (CMS/HCC) (Primary Dx) Social [...] Description 09/25/2025 1:00 PM EST [facility] [address] [place] [address] 10/17/2025 4:00 PM EST Appointment Cardiac Imaging [address] [place] [address] 12/05/2025 3:40 PM EST Office Visit [facility] [address] [place] [address] Rebekah Son, ALBERTO [address] [place] [address] documented as of this encounter [...] documented as of this encounter Care Teams Asphalt Paver Operator Relationship Specialty Start Date End Date Belle Barksdale, GUSSET FOLDER [address] [place] [address] PCP - General 04/05/21 documented as of this encounter
--- OUTSIDE RECORDS SUMMARY | 2025-09-11 13:00 | XMS_ITS | Encounter Summary ---
Author Organization Healthcare Address [address] [place] [address] Care Team Providers Care Career And Technology Education Teacher Name Role Phone Belle Barksdale APRN Primary Care Provider [phone] Encounter Details Date Type Department Care Team (Late st Contact Info) Description 09/11/2025 1:00 PM EDT Office Visit [place] [facility] [address] [place] [phone] COPD with asthma (CMS/HCC) (Primary Dx) Social [...] Description 09/25/2025 1:00 PM EST Office Visit [facility] [address] [place] [address] 10/17/2025 4:00 PM EST Appointment Cardiac Imaging [address] [place] [address] 12/05/2025 3:40 PM EST Office Visit [place] [facility] [address] [place] [address] Rebekah Son APRN [address] [place] [address] documented as of this encounter Visit Diagnoses Diagnosis COPD with asthma (CMS/[facility])- Primary documented in this encounter Additional Health Concerns Assessment Noted Time PHQ-9 Depression Total Score: 0 11/25/19 25 1:48 PM EST A fall risk assessment has been complete d for the patient 05/29/2025 2:51 PM EDT A Body Mass Index follow-up plan has been documented for the patient 09/11/2025 2:10 PM EDT documented as of this encounter Care Teams Career And Technology Education Teacher Relationship Specialty Start Date End Date Belle Barksdale, ALBERTO [address] [facility] [address] [place] [address] PCP - General 04/05/21 documented as of this encounter
--- OUTSIDE RECORDS SUMMARY | 2025-09-13 10:40 | XMS_ITS | Encounter Summary ---
Author Organization [facility] Address [address] [place] [address] Care Team Providers Care Parking Lot Manager Name Role Phone Belle Barksdale ALBERTO Primary Care Provider [phone] Reason for Referral * Consultation (Routine) - Authorized Specialty Diagnoses / Procedures Referred By Contac t Referred To Contact Diagnoses Other fatigue Dyspnea on exertion COPD exacerbation (CMS/HCC) COPD with asthma (CMS/HCC) Asthma-COPD overlap syndrome (CMS/HCC) Allergic rhinitis, unspecified seasonality, unspecified trigger Hiatal hernia Amanuel Barlow APRN [address] [address] Phone: tel: fax: Referral ID Status Reason Start Date Expiration Date V isits Requested Visits Authorized [id number] Authorized 09/19/2025 03/21/2027 1 1 * Imaging (Routine) - Pending Review Specialty Diagnoses / Procedures Referred By Contac t Referred To Contact Cardiology Diagnoses Dyspnea on exertion Procedures Echo, Adult Transthoracic Complete Amanuel Barlow APRN [address] [address] Phone: tel: fax: Referral ID Status Reason Start Date Expiration Date Visits Requested Visits Authorized [id number] Pending Review Perform Procedure 03/15/2027 1 1 Reason for Visit * Reason Comments Asthma COPD Follow-up * Consultation (Routine) - Closed Specialty Diagnoses / Procedures Referred By Niya delarosa Referred To Contact Diagnoses Asthma-COPD overlap syndrome (CMS/HCC) Dyspnea on exertion Amanuel Barlow APRN [address] [facility] [address] [place] [address] Phone: tel: fax: Referral ID Status Reason Start Date Expiration Date Visits Re quested Visits Authorized [id number] Closed 05/29/2025 11/28/2026 1 1 Encounter Details Date Type Department Care Team (Late st Contact Info) Description 09/13/2025 10:40 AM EDT Office Visit [place] [facility] Medicine Specialties [address] [place] [address] Amanuel Barlow APRN [address] [facility] [address] [place] [address] Other fatigue (Primary Dx); Dyspnea [...] 09/13/2025 10:07 AM EDT Adria Wellington y Manas Trouble concentrating on things, [...] preservative free 08/26/2022 Influenza, seasonal, injectable 09/13/2019 [employer] COVID-19 Vaccine (Purple Cap) + 07/15/2021 Pneumococcal 20-richard Conj Vaccine 05/20/2022 Tdap 11/09/2023 VACCINE / DOSE DATE DATE DATE Flu 09/13/2019 08/26/2022 11/09/2023 Tetanus 11/09/2023 Pneumovax Shingles Allergies: Tree extract Medications: Current Outpatient Medications Medication Sig Dispense Refill albuterol (Ventolin HFA) 108 (90 Base) MCG/ACT inhaler Inhale 2 puffs every 4 hours as needed for wheezing. 18 g 5 Motrdtxeqsv-Yrqucvnew-Lfuhkd (Trelegy Ellipta) 200-62.5-25 MCG/ACT aerosol powder Inhale [...] Expiration Date: 03/17/2027 Release to patient in [facility]: Immediate [1] Comprehensive metabolic panel Standing Status: Future Expected Date: 09/13/2025 Expiration Date: 03/17/2027 [facility] [1] IgE Standing Status: Future Expected Date: 09/13/2025 Expiration Date: 03/17/2027 [facility] [1] N-Terminal Probnp, Plasma Standing Status: Future Expected Date: 09/13/2025 Expiration Date: 03/14/2027 [facility] [1] TSH Standing Status: Future Expected Date: 09/13/2025 Expiration Date: 03/17/2027 Release to patient in [facility]: Immediate [1] T4, free Standing Status: Future Expected Date: 09/13/2025 Expiration Date: 03/17/2027 Release to patient in [facility]: Immediate [1] Echo, Adult Transthoracic Complete Standing Status: Future Expected Date: 09/13/2025 Expiration Date: 09/13/2027 Release to patient in [facility]: Immediate DISCUSSION/SUMMARY Mago Maxwell is a 64 [...] trelegy -continue pulmonary rehab -had EKG at [facility] in the last 6 months --last eos [...] and communicating with consulting health health care manager and care coordination. Amanuel Barlow APRN Medicine Specialties Clinic Pulmonary Division [facility] Phone number: [phone] Fax number: [phone] documented in this encounter Plan of Treatment Upcoming Encounters Date Type Department Care Team (Late st Contact Info) Description 09/25/2025 1:00 PM EST Office Visit [facility] Pulmonary Rehab [address] [place] [address] 10/17/2025 4:00 PM EST Appointment Cardiac Imaging [address] [place] [address] 12/05/2025 3:40 PM EST Office Visit [facility] Medicine Specialties [address] [place] [address] Amanuel Barlow APRN [address] [place] [address] Scheduled Orders Name Type Priority Associated Diagnoses [...] - 1.7 ng/dL 09/13/2025 2:41 PM EDT [facility] Blood Venous blood specimen / Unknown Venipuncture / Unknown 09/13/2025 11:47 AM EDT 09/13/2025 11:47 AM EDT us Amanuel Barlow RN B[facility] LAB BLOOD ORDERABLES Florecita l Result Performing Organization Address City/[facility]/ZIP Co de Phone Number [facility] [address] [place] [address] * (ABNORMAL) TSH (09/13/2025 11:47 AM EDT) Thyroid Stimulating Hormone, Plasma 6.62(H) 0.40 - 4.20 uIU/mL 09/13/2025 2:[address] [facility] Blood Venous blood specimen / Unknown Venipuncture / Unknown 09/13/2025 11:47 AM EDT 09/13/2025 11:47 AM EDT us HendersonAmanuel Lizbeth Barlow RN B[facility]TH[facility] LAB BLOOD ORDERABLES Florecita l Result Performing Organization Address [facility]/[place] [address] * N-Terminal Probnp, Plasma (09/13/2025 11:47 AM EDT) N-Terminal, PROBNP, Plasma <50 0 - 899 pg/mL 09/13/2025 2:[address] [facility] Blood Venous blood specimen / Unknown Venipuncture / Unknown 09/13/2025 11:47 AM EDT 09/13/2025 11:47 AM EDT us HendersonAmanuel Lizbeth Barlow RN [facility] LAB BLOOD ORDERABLES Florecita l Result Performing Organization Address City/[facility]/ZIP Co de Phone Number [facility] [address] [place] [address] * IgE (09/13/2025 11:47 AM EDT) Immunoglobulin E 84 <=214 kU/L 09/15/20 8:41 AM EDT [facility] ([facility]) Blood Venous blood specimen / Unknown Venipuncture / Unknown 09/13/2025 11:47 AM EDT 09/13/2025 11:47 AM EDT Narrative JUNE LILI DEE) - 09/15/2025 8:41 AM EDT REFERENCE INTERVAL: Immunoglobulin E, Serum Access complete set of age- and/or gender-specific reference intervals for this test in the [employer] Test Directory ([place] [employer]). Performed By: [facility] [address] [place] [address] Peat Shredder Tender: Stanley Jarvis MD, PhD CLIA Number: [id number] us Amanuel Barlow RN [facility] LAB BLOOD ORDERABLES Florecita manas Result [facility]) [address] [place] [address] * (ABNORMAL) Comprehensive metabolic panel (09/13/2025 11:47 AM EDT) Glucose, Plasma 95 74 - 99 mg/dL 09/13/2025 2:41 PM EDT [facility] BUN, Plasma 19 8 - 23 mg/dL 09/13/2025 2:41 PM EDT [facility] Creatinine, Plasma 1.16(H) 0.60 - 1.10 mg/dL 09/13/2025 2:41 PM EDT [facility] BUN/Creatinine Ratio 16 09/13/2025 2:41 PM EDT [facility] Sodium, Plasma 142 136 - 145 mmol/L 09/13/2025 2:41 PM EDT [facility] Potassium, Plasma 4.7 3.6 - 4.9 mmol/L 09/13/2025 2:41 PM EDT [facility] Chloride, Plasma 105 97 - 107 mmol/L 09/13/2025 2:41 PM EDT [facility] CO2, Plasma 25 22 - 29 mmol/L 09/13/2025 2:41 PM EDT [facility] Anion Gap 12 6 - 16 mmol/L 09/13/2025 2:41 PM EDT [facility] Total Calcium, Plasma 9.5 8.9 - 10.2 mg/dL 09/13/2025 2:41 PM EDT [facility] Total Protein 7.6 6.3 - 7.9 g/dL 09/13/2025 2:41 PM EDT [facility] Albumin, Plasma 4.2 3.5 - 5.2 g/dL 09/13/2025 2:41 PM EDT [facility] AST, Plasma 20 10 - 35 U/L 09/13/2025 2:41 PM EDT [facility] ALT, Plasma 22 10 - 35 U/L 09/13/2025 2:41 PM EDT [facility] Alkaline Phosphatase, Plasma 73 46 - 142 U/L 09/13/2025 2:41 PM EDT [facility] Total Bilirubin, Plasma 0.3 0.2 - 1.1 mg/dL 09/13/2025 2:41 PM EDT [facility] eGFRcr 52.8 mL/min/1.7 3m*2 09/13/2025 2:41 PM EDT [facility] Comment:Reported eGFRcr in m L/min/1.73m2 is based the CKD-EPI 2020 equation that does not use a race coefficient. Blood Venous blood specimen / Unknown Venipuncture / Unknown 09/13/2025 11:47 AM EDT 09/13/2025 11:47 AM EDT us Amanuel Barlow APRN LAB BLOOD ORDERABLES Florecita l Result [facility] [address] [place] [address] * (ABNORMAL) CBC and differential (09/13/2025 11:47 AM EDT) WBC Count 6.38 3.70 - 10.30 10*3/uL LAB HEMATOLOGY METHOD 09/13/2025 1:59 PM EDT [facility] RBC Count 5.00 3.90 - 5.20 10*6/uL LAB HEMATOLOGY METHOD 09/13/2025 1:59 PM EDT [facility] HGB 11.4 11.2 - 15.7 g/dL LAB HEMATOLOGY METHOD 09/13/2025 1:59 PM EDT [facility] HCT 38.1 34.0 - 45.0 % LAB HEMATOLOGY METHOD 09/13/2025 1:59 PM EDT [facility] Platelet Count 380(H) 155 - 369 10*3/uL LAB HEMATOLOGY METHOD 09/13/2025 1:59 PM EDT [facility] MCV 76(L) 79 - 98 fL LAB HEMATOLOGY METHOD 09/13/2025 1:59 PM EDT [facility] MCH 22.8(L) 26.0 - 32.0 pg LAB HEMATOLOGY METHOD 09/13/2025 1:59 PM EDT [facility] MCHC 29.9(L) 30.7 - 35.5 g/dL LAB HEMATOLOGY METHOD 09/13/2025 1:59 PM EDT [facility] RDW 16.9(H) 11.5 - 14.5 % LAB HEMATOLOGY METHOD 09/13/2025 1:59 PM EDT [facility] MPV 9.0 8.8 - 12.5 fL LAB HEMATOLOGY METHOD 09/13/2025 1:59 PM EDT [facility] nRBC 0.0 <=0.0 per 100 WBCs LAB HEMATOLOGY METHOD 09/13/2025 1:59 PM EDT [facility] Differential Type Automated LAB HEMATOLOGY METHOD 09/13/2025 1:59 PM EDT [facility] Neutrophils % 63 % LAB HEMATOLOGY METHOD 09/13/2025 1:59 PM EDT [facility] Lymphocytes % 27 % LAB HEMATOLOGY METHOD 09/13/2025 1:59 PM EDT [facility] Monocytes % 6 % LAB HEMATOLOGY METHOD 09/13/2025 1:59 PM EDT [facility] Eosinophils % 2 % LAB HEMATOLOGY METHOD 09/13/2025 1:59 PM EDT [facility] Basophils % 1 % LAB HEMATOLOGY METHOD 09/13/2025 1:59 PM EDT [facility] Immature Granulocytes % 1 % LAB HEMATOLOGY METHOD 09/13/2025 1:59 PM EDT [facility] Neutrophils Absolute 4.07 1.60 - 6.10 10*3/uL LAB HEMATOLOGY METHOD 09/13/2025 1:59 PM EDT [facility] Lymphocytes Absolute 1.70 1.20 - 3.90 10*3/uL LAB HEMATOLOGY METHOD 09/13/2025 1:59 PM EDT [facility] Monocytes Absolute 0.41 0.30 - 0.90 10*3/uL LAB HEMATOLOGY METHOD 09/13/2025 1:59 PM EDT [facility] Eosinophils Absolute 0.11 0.00 - 0.50 10*3/uL LAB HEMATOLOGY METHOD 09/13/2025 1:59 PM EDT [facility] Basophils Absolute 0.06 0.00 - 0.10 10*3/uL LAB HEMATOLOGY METHOD 09/13/2025 1:59 PM EDT [facility] Immature Granulocytes Absolute 0.03 0.00 - 0.06 10*3/uL LAB HEMATOLOGY METHOD 09/13/2025 1:59 PM EDT [facility] Blood Venous blood specimen / Unknown Venipuncture / Unknown 09/13/2025 11:47 AM EDT 09/13/2025 11:47 AM EDT Narrative [facility] - 09/13/2025 1:59 PM EDT Therapeutic decision making should be based on absolute values, rather than percentages. us Amanuel Barlow APRN LAB BLOOD ORDERABLES Florecita l Result [facility] [address] [place] [address] documented in this encounter Visit Diagnoses Diagnosis [...] documented as of this encounter Care Teams Parking Lot Manager Relationship Specialty Start Date End Date Belle Barksdale APRN [address] [place] [address] PCP - General 04/05/21 documented as of this encounter
--- OUTSIDE RECORDS SUMMARY | 2025-09-18 13:00 | XMS_ITS | Encounter Summary ---
Author Organization Healthcare Address [address] [place] [address] Care Team Providers Care Voice Pathologist Name Role Phone Belle Barksdale APRN Primary Care Provider [phone] Encounter Details Date Type Department Care Team (Late st Contact Info) Description 09/18/2025 1:00 PM EDT Office Visit [place] [facility] Pulmonary Rehab [address] [place] [address] COPD with asthma (CMS/HCC) (Primary Dx) Social [...] Description 09/25/2025 1:00 PM EST Office Visit [facility] Pulmonary Rehab [address] [place] [address] 10/17/2025 4:00 PM EST Appointment Cardiac Imaging [address] [place] [address] 12/05/2025 3:40 PM EST Office Visit [facility] Medicine Specialties [address] [place] [address] Rebekah Son, ALBERTO [address] [place] [address] documented as of this encounter Visit Diagnoses [...] documented as of this encounter Care Teams Voice Pathologist Relationship Specialty Start Date End Date Belle Barksdale, ALBERTO [address] [facility] [address] [place] [address] PCP - General 04/05/21 documented as of this encounter
--- NOTE | 2025-09-20 15:58 | XR_ITS ---
FINAL REPORT CLINICAL HISTORY: cough/chest congestion, soa r/o pneumonia COMPARISON: 02/15/2025 FINDINGS: CHEST 2 VIEWS PA AND LATERAL The heart is normal in size. The mediastinum is unremarkable. There is mild scarring in the lung bases. Large hiatal hernia is identified. There is no pneumothorax. IMPRESSION: No acute process. Reviewed, Interpreted and Dictated by Skip Delvalle MD Transcribed by Katya Hunter Authenticated and [facility]
--- OUTSIDE RECORDS SUMMARY | 2025-09-20 16:02 | XMS_ITS | Encounter Summary ---
Author Organization [facility] Address [address] [place] [address] Care Team Providers Care Child Care Center Administrator Name Role Phone Belle Barksdale APRN Primary Care Provider [phone] Reason for Visit * Reason Comments Med Refill Encounter Details Date Type Department Care Team (Late Contact Info) Description 08/22/2023 Refill [facility] Medicine Specialties [address] [place] [address] Onel Hopper MD [address] [place] [address] Asthma, unspecified asthma severity, unspecified [...] Upcoming Encounters Date Type Department Care Team ([facility] Contact Info) Description 09/25/2025 1:00 PM EST Office Visit [facility] Pulmonary Rehab [address] [place] [address] 10/17/2025 4:00 PM EST Appointment Cardiac Imaging [address] [place] [address] 12/05/2025 3:40 PM EST Office Visit [place] [facility] Medicine Specialties [address] [place] [address] Rebekah Son APRN [address] [place] [address] documented as of this encounter [...] documented as of this encounter Care Teams Child Care Center Administrator Relationship Specialty Start Date End Date Belle Barksdale APRN [address] [facility] [address] [place] [address] PCP - General 04/05/21 documented as of this encounter
--- OUTSIDE RECORDS SUMMARY | 2025-09-20 16:03 | XMS_ITS | Encounter Summary ---
Author Organization Healthcare Address [address] [place] [address] Care Team Providers Care Phlebotomy Services Representative Name Role Phone Belle Barksdale APRN Primary Care Provider Encounter Details Date Type Department Care Team (Latest Contact Info) Description 08/07/2025 Travel Social History Tobacco Use Types Packs/Day [...] Description 09/25/2025 1:00 PM EST Office Visit [facility] Pulmonary Rehab [address] [place] [address] 10/17/2025 4:00 PM EST Appointment Cardiac Imaging [address] [place] [address] 12/05/2025 3:40 PM EST Office Visit [facility] Medicine Specialties [address] [place] [address] Rebekah Son, COMMUNICATIONS SCIENTIST [address] [place] [address] documented as of this encounter Visit Diagnoses [...] documented as of this encounter Care Teams Phlebotomy Services Representative Relationship Specialty Start Date End Date Belle Barksdale, ALBERTO [address] [facility] [address] [place] [address] PCP - General 04/05/21 documented as of this encounter
--- OUTSIDE RECORDS SUMMARY | 2025-09-20 16:03 | XMS_ITS | Encounter Summary ---
Author Organization Healthcare Address [address] [place] [address] Care Team Providers Care Juvenile Justice Officer Name Role Phone Belle Barksdale APRN Primary Care Provider [phone] Encounter Details Date Type Department Care Team (Latest Contact Info) Description 08/28/2025 Travel Social History Tobacco Use Types Packs/Day [...] Description 09/25/2025 1:00 PM EST Office Visit [facility] Pulmonary Rehab [address] [place] [address] 10/17/2025 4:00 PM EST Appointment Cardiac Imaging [address] [place] [address] 12/05/2025 3:40 PM EST Office Visit [facility] Medicine Specialties [address] [place] [address] Rebekah Son, TRAPPER BIRD [address] [place] [address] documented as of this encounter Visit Diagnoses [...] documented as of this encounter Care Teams Juvenile Justice Officer Relationship Specialty Start Date End Date Belle Barksdale, ALBERTO [address] [facility] [address] [place] [address] PCP - General 04/05/21 documented as of this encounter
--- OUTSIDE RECORDS SUMMARY | 2025-09-20 16:03 | XMS_ITS | Encounter Summary ---
Author Organization Healthcare Address [address] [place] [place] [address] Care Team Providers Care Color Artist Name Role Phone Belle Barksdale APRN Primary Care Provider [phone] Encounter Details Date Type Department Care Team (Latest Contact Info) Description 09/06/2025 Travel Social History Tobacco Use Types Packs/Day [...] Description 09/25/2025 1:00 PM EST Office Visit [facility] Pulmonary Rehab [address] [place] [address] 10/17/2025 4:00 PM EST Appointment Cardiac Imaging [address] [place] [address] 12/05/2025 3:40 PM EST Office Visit [facility] Medicine Specialties [address], [address] [place] [address] Rebekah Son, BIOLOGY INTERN [address] [place] [phone] documented as of this encounter Visit Diagnoses [...] documented as of this encounter Care Teams Color Artist Relationship Specialty Start Date End Date Belle Barksdale, ALBERTO 1210 [facility] [address] [place] [address] PCP - General 04/05/21 documented as of this encounter
--- OUTSIDE RECORDS SUMMARY | 2025-09-20 16:03 | XMS_ITS | Encounter Summary ---
Author Organization Healthcare Address [address] [place] [address] Care Team Providers Care News Production Supervisor Name Role Phone Belle Barksdale APRN Primary Care Provider [phone] Encounter Details Date Type Department Care Team (Latest Contact Info) Description 08/21/2025 Travel Social History Tobacco Use Types Packs/Day [...] Description 09/25/2025 1:00 PM EST Office Visit [facility] Pulmonary Rehab [address] [place] [address] 10/17/2025 4:00 PM EST Appointment Cardiac Imaging [address] [place] [address] 12/05/2025 3:40 PM EST Office Visit [facility] Medicine Specialties [address], [address] [place] [address] Rebekah Son, ANVILSMITH [address] [place] [phone] documented as of this encounter Visit Diagnoses [...] documented as of this encounter Care Teams News Production Supervisor Relationship Specialty Start Date End Date Belle Barksdale, ALBERTO 1210 [facility] [address] [place] [address] PCP - General 04/05/21 documented as of this encounter
--- OUTSIDE RECORDS SUMMARY | 2025-09-20 16:03 | XMS_ITS | Data Portability ---
Author Organization Formerly [facility] Address [address] [place] [address] Assessment No assessment recorded. Plan of Treatment Reminders Order Date Submit Date Provider Last Modified By Organization Details Last Modified Time Details Appointments None recorded. Lab urinalysis, dipstick 2022 023 [email or web address] [place] [facility]uss[facility], [address] [place] [address] , [place], [address], 3 16:08:09 culture, urine 2022 023 [place] [facility], [address], [address], [place], [address], 3 03:08:14 thyroperoxi dase Ab, serum 2022 023 ANISHA [facility], [address], [address], [place], [address], 3 20:08:23 HbA1c (hemoglobin A1c), blood 2022 023 [place] [facility], [address], [address], [place], [address], 3 20:08:22 Referral None recorded. Procedures None recorded. Surgeries None recorded. Imaging MAMMO, screening, bilateral 2023 025 [facility] Scheduling Department -New Scheduling Process, [address], [place], [address], 5 14:59:53 MAMMO, screening, bilateral 2022 023 [facility] (X-Ray), [address], [place], [address], 4 16:52:00 DEXA 2022 023 [facility] (X-Ray), [address], [place], [address], 3 13:10:03 Medication Orders estradiol 0.025 mg/24 hr semiweekly transdermal patch 2022 023 Personal [facility] - [facility], [address], [place], [place], [id number], 3 13:59:17 estradiol 0.025 mg/24 hr semiweekly transdermal patch 2022 023 [facility], [address], [place], [address], 3 16:42:07 Patient TargetsNo targets recorded. Patient Instructions Encounter Date Encounter Id Patient Instructions Last Modified By Organization Details Last Modified Time 05/22/2023 [id number] mammogram: about this test [email or web address] Not available 05/22/2023 15:15:34 medical record request* [email or web address] Not available 11/06/2023 14:50:51 07/16/2023 [id number] medical record request* [email or web address] Not available 08/21/2023 20:47:33 chronic obstructive pulmonary disease (COPD): care instructions [email or web address] Not available 07/16/2023 13:59:17 learning about copd and how to prevent lung infections [email or web address] Not available 07/16/2023 13:59:17 learning about healthy weight [email or web address] Not available 07/22/2023 13:08:03 body mass index: care instructions [email or web address] Not available 07/22/2023 13:08:03 medical record request* [email or web address] Not available 08/21/2023 20:47:33 Reason for Referral None Reported. Results Created Date Observation Date Name Description Value Unit Range Abnormal Flag Note LastModifiedBy Organization Detail LastModifiedTime 05/22/2005/23/2023 HEMOG LOBIN A1C hemoglobin A1C 5.6 % 4.8-5. 6 Predi abete s: 5.7 - 6.4 Diabe irma: >6.4 Glyce christina contr ol for adult s with diabe irma: <7.0 Not Available [facility] ([facility]) [address] [place], [address], 05/25/2023 20:08:22 05/22/2005/23/2023 THYRO ID ANTIB ODIES thyroid peroxidase (tpo) Ab <9 IU/mL 0-34 Not Available [facility] ([facility]) [address] [place], [address], 05/25/2023 20:08:23 05/22/20 23 05/25/2023 THYRO ID ANTIB ODIES thyroglobuli n antibody <1.0 IU/mL 0.0-0. 9 Thyro globu nadeen Antib kristopher measu red by Beckmarco an Coult er Metho dolog y Not Available [facility] ([facility]) [address] [place], [address], 05/25/2023 20:08:23 07/16/20 23 07/18/2023 URINE CULTU RE, ROUTI NE urine culture, routine Final report Not Available [facility] ([facility]) [address] [place], [address], 07/18/2023 03:08:14 07/16/2007/18/2023 URINE CULTU RE, ROUTI NE result 1 COMMEN T Cultu re shows less than 10,00 0 colon y formi ng units of bacte mindy per kolton liter of urine . This colon y count is not gener ally consi dered to be clini ronnie signi fican t. Not Available [facility] ([facility]) [address] [facility], [place], [address], 07/18/2023 03:08:14 07/16/20 23 07/16/2023 urina lysis , dipst ick Leukocytes Negati ve Not Available [place] [facility] [address] [place] [address] , [place], [address], 07/16/2023 13:59:32 07/16/20 23 07/16/2023 urina lysis , dipst ick Nitrite negati ve Not Available [facility]/[address] , [place], [address], 07/16/2023 13:59:32 07/16/20 23 07/16/2023 urina lysis , dipst ick Protein Negati ve Not Available [facility]/[address] , [place], [address], 07/16/2023 13:59:32 07/16/20 23 07/16/2023 urina lysis , dipst ick pH 7.0 Not Available [address] , [place], [address], 07/16/2023 13:59:32 07/16/20 23 07/16/2023 urina lysis , dipst ick Blood Small Not Available [facility]/[address] , [place], [address], 07/16/2023 13:59:32 07/16/20 23 07/16/2023 urina lysis , dipst ick Ketone Negati ve Not Available [address] , [place], [address], 07/16/2023 13:59:32 07/16/20 23 07/16/2023 urina lysis , dipst ick Bilirubin Negati ve Not Available [facility] [address] [place] [address] , [place], [address], 07/16/2023 13:59:32 07/16/20 23 07/16/2023 urina lysis , dipst ick Glucose Negati ve Not Available [place] [facility] [address] [place] [address] , [place], [address], 07/16/2023 13:59:32 07/16/20 23 07/16/2023 urina lysis , dipst ick Appearance Clear Not Available [facility] Fisher Mussel [address] [place] [address] , [place], [address], 07/16/2023 13:59:32 07/16/20 23 07/16/2023 urina lysis , dipst ick Color Yellow Not Available [place] [facility] [address] [place] [address] , [place], [address], 07/16/2023 13:59:32 07/21/20 23 05/13/2023 medic al recor d reque st* No observ ation record ed. [email or web address] [facility] (Med Record) [address], [place], [address], 11/06/2023 14:50:51 10/28/20 23 10/28/2023 DEXA No observ ation record ed. [email or web address] [facility] [address], [place], [address], 01/07/2024 16:59:26 09/06/20 24 05/27/2024 MAMMO , scree moustapha, bilat eral No observ ation record ed. [email or web address] [facility] (Med Record) [address], [place], [address], 09/07/2024 14:45:18 06/01/20 25 05/30/2025 MAMMO , scree moustapha, bilat eral No observ ation record ed. [email or web address] [facility] [address], [place], [place], [address], 06/05/2025 09:28:47 Result Notes None recorded. Problems Name Problem SNOMED Code Status Onset Date Resolution Date Notes Provider Name and Address Organization Details Recorded Time Chronic obstructive pulmonary disease 26230417 Active 2022 Alma Brandt null, [place] - [facility] 3 14:10:28 History of deep vein thrombosis 066304292 Active 2022 Alma Brandt null, [place] - [facility] 3 14:11:04 Hypercholester olemia 57753985 Active 2022 Alma Brandt null, [place] - [facility] 3 14:16:31 Seasonal allergy 515597180 Active 2022 Alma Brandt null, [place] - [facility] 3 14:17:07 Fibrocystic disease of breast 33246395 Active 2022 Alma Brandt null, [place] - [facility] 3 14:30:34 Hiatal hernia 77716326 Active 2022 Vinita Cruz DO [address], [place], [address], [place] - [facility] 3 15:03:21 Acquired absence of cervix and uterus 385046915 Active 2022 Vinita Cruz DO [address], [place], [address], [place] - [facility] 3 13:07:40 Osteopenia 424310780 Active 2022 Vinita Cruz DO [address], [place], [address], [place] - [facility] 4 17:42:17 Problem Notes None recorded. Procedures Surgical History Date Name Laterality Status Provider Name and Address Organization Details Recorded Time 025 Date of Last Mammogram completed Eileen Everett [place] - [facility] 06/02/2025 10:31:29 023 Most Recent Bone Density completed Eileen Su [facility] 01/07/2024 16:59:15 023 Most Recent Mammogram completed Carmela Zacarias [facility] 07/23/2023 14:00:50 023 Colposcopy completed Zelda Mcdonough [facility] 11/07/2024 13:56:07 016 dental surgery completed Zelda Mcdonough [facility] 11/07/2024 13:56:26 009 Adnexal surgery completed Zelda Mcdonough [facility] 11/07/2024 13:56:26 008 Hysterectomy completed Zelda Mcdonough [facility] 11/07/2024 13:56:26 989 Dilation and Curettage, sharp completed Zelda Mcdonough [facility] 11/07/2024 13:56:26 ureterorenoscopy with fragmentation and removal of calculus of kidney completed Alma Brandt [facility] 05/22/2023 14:20:02 Hysterectomy, Total laparoscopic completed Alma Brandt [facility] 05/22/2023 14:21:25 foot repair completed Alma Brandt [facility] 05/22/2023 14:22:42 Imaging Results None recorded. Procedure Notes None recorded. Medical Equipment None Reported. Allergies Allergen ID Allergen Name Allergen Category Reaction Reaction Severity Criticality Documentation Date Start Date Code Code System Note Provider Name and Address Organization Details Recorded Time 143958 tree and shrub pollen environme nt,medica tion Not available Not available Not available 07/16/2023 Ravindra santana [facility] 13:04:41 Medications Name Sig Start Date Stop [...] height Body mass index (BMI) Body weight Pain severity - 0-10 verbal numeric rating [Score] - Reported Systolic And Diastolic Provider Name and Address Organization Details Last Updated DateTime 05/22/2023 170.18 cm 30.7 kg/m2 48631.82 g 0 122/78 mm[Hg] Alma Brandt [place] - [facility] 3 14:30:23 Date Recorded Body height Body mass index (BMI) Body weight Pain severity - 0-10 verbal numeric rating [Score] - Reported Systolic And Diastolic Provider Name and Address Organization Details Last Updated DateTime 07/16/2023 170.18 cm 30.7 kg/m2 89070.1 g 0 128/60 mm[Hg] Ravindra Hussainjose roberto [place] - [facility] 3 13:03:58 Date Recorded Body weight Body mass index (BMI) Body height Pain severity - 0-10 verbal numeric rating [Score] - Reported Systolic And Diastolic Provider Name and Address Organization Details Last Updated DateTime 11/07/2024 23922.92 g 31.3 kg/m2 167.64 cm 0 130/86 mm[Hg] Zelda Sharonda [place] - [facility] 4 13:55:53 Social History Question Answer Notes LastModified by Organizat ion Details LastModified Time Tobacco Smoking Status Former Smoker Alma Brandt null, [place] - [facility] 05/22/2023 14:27:19 Do You Have An Advance Directive? No Information not available 11/07/2024 How Many Years Have You Consumed Alcohol? 5 Information not available 11/07/2024 Is Blood Transfusion Acceptable In An Emergency? Yes Information not available 11/07/2024 What Is Your Level Of Caffeine Consumption? Occasional [email or web address] Information not available 05/22/2023 How Much Tobacco [...] Or The Highest Degree You Have Received? [id number] Information not available 11/07/2024 When Did You Quit Smoking? 16+yearssince [email or web address] Information not available 05/22/2023 Have You Recently [...] available 11/07/2024 What Is Your Relationship Status? [email or web address] Information not available 05/22/2023 Do You Use Your Seat Belt Or Car Seat Routinely? Yes Information not available 11/07/2024 Are You Sexually Active? No Information not available 11/07/2024 Do You Have Smoke And Carbon Monoxide Detectors In Your Home? Yes Information not available 11/07/2024 At What Age Did You Start Smoking Tobacco? 16 Stopped In 1984 [email or web address] Information not available 05/22/2023 Are You Passively Exposed To Smoke? No Information no t available 11/07/2024 Do You Use Sunscreen Routinely? Yes Information not available 11/07/2024 Has Tobacco Cessation Counseling Been Provided? No [email or web address] Information not available 05/22/2023 Sex: Female Functional Status Question Answer Note LastModified by Organizat ion Details LastModified Time Do you use any illicit or recreational drugs? No [email or web address] Information not available 05/22/2023 Do you or have you ever used any other forms of tobacco or nicotine? No [email or web address] Information not available 05/22/2023 What is your level of alcohol consumption? Occasional [email or web address] Information not available 05/22/2023 Do you or have you ever used smokeless tobacco? Never used smokeless tobacco Information not available 11/07/2024 Are you currently employed? No Information not available 11/07/2024 Are you able to care for yourself independently? Yes [email or web address] Information not available 05/22/2023 Do you or have you ever used e-cigarettes or vape? Never used electronic cigarettes Information not available 11/07/2024 What is your exercise level? Occasional Information not available 11/07/2024 Mental Status Question Answer Note LastModified by Organization D etails LastModified Time Do you feel stressed (tense, restless, nervous, or anxious, or unable to sleep at night)? [id number] Information not available 11/07/2024 Family History Relationship [...] available 2023 13:56:01 Medical History Condition Response Kidney Stones Y Obesity Y Blood clot Y Gynecological History Statement/Question Response Abnormal Pap N Date of Last Mammogram 05/30/2025 Date of LMP 11/23/2007 Post Menopausal Bleeding [...] recombinant, quadrivalent, PF 2 completed Alma santana, [place] - [facility] 05/22/2023 14:14:34 COVID-19, mRNA, LNP-S, PF, 30 mcg/0.3 mL dose 1 completed Alma [place]antana, [place] - [facility] 05/22/2023 14:14:34 Pneumococcal conjugate PCV20, polysaccharide [id number] conjugate, adjuvant, PF 2 completed Alma [place]antana, [place] - [facility] 05/22/2023 14:14:34 Influenza, split virus, trivalent, preservative 9 completed [place] - [facility] 05/22/2023 14:14:34 Past Encounters Encounter ID Performer Location Encounter Start Date Encounter Closed Date Diagnosis/Indication Diagnosis SNOMED-CT Code Diagnosis ICD10 Code Diagnosis IMO Codes Diagnosis Note [id number] DO [place] [employer] INTERN [address] [place] [address] [place] [address] 05/22/2023 13:56:48 05/22/2023 15:36:33 Menopausal syndrome 318837778 N95.9 Screening mammography 24 288757 Z12.31 [id number] DO [place] [employer] [address] [place] [address] [place] [id number] 07/16/2023 12:49:14 07/16/2023 13:57:39 Routine gynecologic examination done 6114728612 9101 Z01.419 Depression screening 171 933474 Z13.31 Diet education 71106403 Z71.3 Counseling 022895610 Z71 .82 Exercise counselnadeen g. Patient encouraged to exercise 30 minutes 5 days a week. Examinatio n of blood pressure 642036683 Z01.30 Vaccine de clined by patient 9514378717 02 Z28.21 Screening mammography 24 442668 Z12.31 Chronic ob structive pulmonary disease 06922831 J44.9 Postmenopausal state 764 03295 Z78.0 History of terminal carman steroid use due to COPD Menopausal syndrome 1237 62574 N95.9 Screening for malignant neoplasm of colon 300004296 Z12.11 Cystocele 953181667 N81. 10 Acquired a bsence of cervix and uterus 198287966 Z90.710 Body mass index 30+ - obesity 365754836 Z68.30 Obesity 622917343 E66.9 [id number] DO Eliseo Sween[place] RESEARCH INTERN [address] [place] [address] [place] [address] 11/07/2024 13:47:11 11/07/2024 14:42:37 Routine gynecologic examination done 7282523838 9101 Z01.419 Depression screening 171 597145 Z13.31 Diet education 65218583 Z71.3 Counseling 792170832 Z71 .82 Exercise counselnadeen mays Patient encouraged to exercise 30 minutes 5 days a week. Examinatio n of blood pressure 868030597 Z01.30 Vaccine de clined by patient 5734844130 02 Z28.21 Screening mammography 24 997378 Z12.31 Health Concerns Section Related Observation LastModified by Organization Detai ls LastModified Time None Recorded Concern Status LastModified by Organization Details LastModified Time None Recorded Advance Directives Directive N: Payers Insurance Date Sequence Insurance Name Policy Number Policy Harper Covered Member ID Harper Member ID Guarantor Name 11/04/2024 [place] [id number] [employer] (MEDICAID) Mago Hans [id number] Mago Maxwell 11/17/2024 1 [facility] [facility] (MEDICAID [facility] Mago Maxwell [id number] Mago Maxwell Notes Date Note Type Note Provider Name and Address Organization Details Recorded Time 05/22/2023 text/html ROS as noted in the HPI Mago presents today as as new patient [...] it was her responsibility, not mine. Vinita Cruz, DO [address], [place], [address], [place] - [facility] 05/22/2023 16:43:29 07/16/2023 text/html Annual - MOBRepo rted by PatientHistoryFor history, patient reportslast annual exam: 10 [email or web address] gynecologic complaints.Contracepti onFor current contraception, patient reportspostmenopausal. Preventative measuresFor preventive measures, patient reportsmammogram performed within the past yearandup to date on colonoscopy screening.Still has not lost weight.Will continue estrogen while taking Xarelto. Discussed risks of blood clots and contraindications of HRT with history of blood clot and she reiterated that she was willing to take the risk of possible stroke, heart attack or . Vinita Cruz DO [address], [place], [address], [facility] - [facility] 07/22/2023 13:08:39 11/07/2024 text/html Annual - MOBRepo rted by PatientHistoryFor history, patient reportslast annual exam: 2022,no gynecologic complaints, andno change in interval history.ContraceptionF or current contraception, patient reportsmonogamous relationshipandhistory of hysterectomy.Preventat marcella measuresFor preventive measures, patient reportsmammogram performed within the past year (-2023),up to date on colonoscopy screening (2022),up to date on dexa scan (2022),all immunization are current,encourage self breast examination,encourage regular exercise, andencourage no tobacco use.Did not feel that HRT was helpful and discontinued. Vinita Cruz DO [address], [place], [address], [facility] - [facility] 11/07/2024 16:22:04 OBGyn Episode No OBEpisode recorded.
--- OUTSIDE RECORDS SUMMARY | 2025-09-20 16:03 | XMS_ITS | Encounter Summary ---
Author Organization Healthcare Address [address] [place] [address] Care Team Providers Care Sales Account Specialist Name Role Phone Belle Barksdale ALBERTO Primary Care Provider [phone] Encounter Details Date Type Department Care Team (Latest Contact Info) Description 07/31/2025 Travel Social History Tobacco Use Types Packs/Day [...] Description 09/25/2025 1:00 PM EST Office Visit [facility] Pulmonary Rehab [address] [place] [address] 10/17/2025 4:00 PM EST Appointment Cardiac Imaging [address] [place] [address] 12/05/2025 3:40 PM EST Office Visit [facility] Medicine Specialties [address] [place] [address] Rebekah Son, HUMAN PERFORMANCE CONSULTANT [address] [place] [address] documented as of this encounter Visit Diagnoses [...] as of this encounter Care Teams Sales Account Specialist Relationship Specialty Start Date End Date Belle Barksdale, ALBERTO 1210 [facility] [address] [place] [address] PCP - General 04/05/21 documented as of this encounter
--- OUTSIDE RECORDS SUMMARY | 2025-09-20 16:03 | XMS_ITS | Encounter Summary ---
Author Organization Healthcare Address [address] [place] [address] Care Team Providers Care Recreation Attendant Supervisor Name Role Phone Belle Barksdale APRN Primary Care Provider [phone] Encounter Details Date Type Department Care Team (Latest Contact Info) Description 09/13/2025 Travel Social History Tobacco Use Types Packs/Day [...] on file documented as of this encounter Functional Status * AUDIT-C Score Answer Date of Assessment Author 2 09/13/2025 10:06 AM EDT Crystal Wellington * Question Answer Date of Assessment Author Q1: How often do you have a drink containing alcohol? 2-4 times a month 09/13/2025 10:06 AM Adria Cortez Q2: How many drinks containing alcohol do you have on a typical day when you are drinking? 1 or 2 09/13/2025 10:06 AM Adria Cortez Q3: How often do you have six or more drinks on one occasion? Never 09/13/2025 10:06 AM Adria Cortez * Over the past 2 weeks, how often have you been bothered by any of the following problems? Question Answer Date of Assessment Author Little interest or pleasure in doing things Not at all 09/13/2025 10:07 AM Adria Cortez Feeling down, depressed, or hopeless Not at all 09/13/2025 10:07 AM Adria Cortez Patient Health Questionnaire -2 Score 0 09/13/2025 10:07 AM Adria Cortez * Question Answer Date of Assessment Author Trouble falling or staying asleep, or sleeping too much Not at all 09/13/2025 10:07 AM Crystal Carpio Feeling tired or having abimael le energy Not at all 09/13/2025 10:07 AM Adria Cortez Poor appetite or overeating Not at all 09/13/2025 10 :07 AM Crystal Cortez Feeling bad about yourself - or that you are a failure or have let yourself or your family down Not at all 09/13/2025 10:07 AM Adria Cortez Trouble concentrating on things, such as reading the newspaper or watching television Not at all 09/13/2025 10:07 AM Adria Cortez Moving or speaking so slowly that other people could have noticed? Or the opposite - being so fidgety or restless that you have been moving around a lot more than usual. Not at all 09/13/2025 10:07 AM Crystal Stevens Thoughts that you would be better off or hurting yourself in some way Not at all 09/13/2025 10:07 AM EDT Marcy Wellington L Patient Health Questionnaire -9 Score 0 09/13/2025 10:07 AM EDT Adria Wellington documented as of this encounter Plan of Treatment Upcoming Encounters Date Type Department Care Team (Late st Contact Info) Description 09/25/2025 1:00 PM EST Office Visit [facility] Pulmonary Rehab [address] [place] [address] 10/17/2025 4:00 PM EST Appointment Cardiac Imaging [address] [place] [address] 12/05/2025 3:40 PM EST Office Visit [facility] Medicine Specialties [address] [place] [address] Rebekah Son APRN [address] [place] [address] documented as of this encounter Visit Diagnoses [...] documented as of this encounter Care Teams Recreation Attendant Supervisor Relationship Specialty Start Date End Date Belle Barksdale APRN [address] [place] [facility] [address] [place] [address] PCP - General 04/05/21 documented as of this encounter
--- OUTSIDE RECORDS SUMMARY | 2025-09-20 16:03 | XMS_ITS | Encounter Summary ---
Author Organization Healthcare Address [address] [place] [place] [address] Care Team Providers Care Space Engineer Name Role Phone Belle Barksdale APRN Primary Care Provider Encounter Details Date Type Department Care Team (Latest Contact Info) Description 09/11/2025 Travel Social History Tobacco Use Types Packs/Day [...] Description 09/25/2025 1:00 PM EST Office Visit [facility] Pulmonary Rehab [address] [place] [address] 10/17/2025 4:00 PM EST Appointment Cardiac Imaging [address] [place] [address] 12/05/2025 3:40 PM EST Office Visit [facility] Medicine Specialties [address], [address] [place] [address] Rebekah Son, TUNNEL ELASTIC OPERATOR LOCKSTITCH [address] [place] [phone] documented as of this encounter Visit Diagnoses [...] documented as of this encounter Care Teams Space Engineer Relationship Specialty Start Date End Date Belle Barksdale, ALBERTO [address] [facility] [address] [place] [address] PCP - General 04/05/21 documented as of this encounter
--- OUTSIDE RECORDS SUMMARY | 2025-09-20 16:03 | XMS_ITS | Encounter Summary ---
Author Organization Healthcare Address [address] [place] [address] Care Team Providers Care Brand Sales Consultant Name Role Phone Belle Barksdale ALBERTO Primary Care Provider [phone] Encounter Details Date Type Department Care Team (Latest Contact Info) Description 07/26/2025 Travel Social History Tobacco Use Types Packs/Day [...] 09/25/2025 1:00 PM EST Office Visit [facility] Pulmonary Rehab [address] [place] [address] 10/17/2025 4:00 PM EST Appointment Cardiac Imaging [address] [place] [address] 12/05/2025 3:40 PM EST Office Visit [facility] Medicine Specialties [address] [place] [address] Rebekah Son, ALLOCATIONS CLERK [address] [place] [address] documented as of this encounter Visit Diagnoses [...] documented as of this encounter Care Teams Brand Sales Consultant Relationship Specialty Start Date End Date Belle Barksdale, ALBERTO [address] [facility] [address] [place] [address] PCP - General 04/05/21 documented as of this encounter
--- OUTSIDE RECORDS SUMMARY | 2025-09-20 16:03 | XMS_ITS | Encounter Summary ---
Author Organization Healthcare Address [address] [place] [place] [address] Care Team Providers Care Auditor Appraiser Name Role Phone Belle Barksdale APRN Primary Care Provider [phone] Encounter Details Date Type Department Care Team (Latest Contact Info) Description 08/09/2025 Travel Social History Tobacco Use Types Packs/Day [...] Description 09/25/2025 1:00 PM EST Office Visit [facility] Pulmonary Rehab [address] [place] [address] 10/17/2025 4:00 PM EST Appointment Cardiac Imaging [address] [place] [address] 12/05/2025 3:40 PM EST Office Visit [facility] Medicine Specialties [address] [place] [address] Rebekah Son, KAIAKO KURA KAUPAPA MAORI [address] [place] [phone] documented as of this encounter Visit Diagnoses [...] documented as of this encounter Care Teams Auditor Appraiser Relationship Specialty Start Date End Date Belle Barksdale, ALBERTO [address] [facility] [address] [place] [address] PCP - General 04/05/21 documented as of this encounter
--- OUTSIDE RECORDS SUMMARY | 2025-09-20 16:03 | XMS_ITS | Encounter Summary ---
Author Organization Healthcare Address [address] [place] [address] Care Team Providers Care Data Steward Name Role Phone Belle Barksdale ALBERTO Primary Care Provider Encounter Details Date Type Department Care Team (Latest Contact Info) Description 08/14/2025 Travel Social History Tobacco Use Types Packs/Day [...] Visit [facility] Pulmonary Rehab [address] [place] [address] 10/17/2025 4:00 PM EST Appointment Cardiac Imaging [address] [place] [address] 12/05/2025 3:40 PM EST Office Visit [facility] Medicine Specialties [address] [place] [address] Rebekah Son, CONSUMER LENDING MANAGER [address] [place] [address] documented as of this encounter Visit Diagnoses [...] documented as of this encounter Care Teams Data Steward Relationship Specialty Start Date End Date Belle Barksdale, ALBERTO [address] [facility] [address] [place] [address] PCP - General 04/05/21 documented as of this encounter
--- OUTSIDE RECORDS SUMMARY | 2025-09-20 16:03 | XMS_ITS | Encounter Summary ---
Author Organization Healthcare Address [address] [place] [address] Care Team Providers Care Grinder Name Role Phone Belle Barksdale APRN Primary Care Provider [phone] Encounter Details Date Type Department Care Team (Latest Contact Info) Description 09/18/2025 Travel Social History Tobacco Use Types Packs/Day [...] Upcoming Encounters Date Type Department Care Team ( st Contact Info) Description 09/25/2025 1:00 PM EST [facility] [address] [place] [address] 10/17/2025 4:00 PM EST Appointment Cardiac Imaging [address] [place] [address] 12/05/2025 3:40 PM EST [facility] Medicine Specialties [address] [place] [address] Rebekah Son, CAMPAIGN MARKETING MANAGER [address] [place] [address] documented as of this encounter [...] documented as of this encounter Care Teams Grinder Relationship Specialty Start Date End Date Belle Barksdale, CAMPAIGN MARKETING MANAGER [address] [place] [address] PCP - General 04/05/21 documented as of this encounter
--- OUTSIDE RECORDS SUMMARY | 2025-09-20 16:03 | XMS_ITS | Encounter Summary ---
Author Organization Healthcare Address [address] [place] [address] Care Team Providers Care School Psychological Examiner Name Role Phone Belle Barksdale APRN Primary Care Provider [phone] Encounter Details Date Type Department Care Team (Latest Contact Info) Description 08/16/2025 Travel Social History Tobacco Use Types Packs/Day [...] [facility] Pulmonary Rehab [address] [place] [address] 10/17/2025 4:00 PM EST Appointment Cardiac Imaging [address] [place] [address] 12/05/2025 3:40 PM EST Office Visit [facility] Medicine Specialties [address] [place] [address] Rebekah Son, TECHNICAL SPEC [address] [place] [address] documented as of this encounter Visit Diagnoses [...] documented as of this encounter Care Teams School Psychological Examiner Relationship Specialty Start Date End Date Belle Barksdale, ALBERTO [address] [facility] [address] [place] [address] PCP - General 04/05/21 documented as of this encounter
--- OUTSIDE RECORDS SUMMARY | 2025-09-20 16:03 | XMS_ITS | Encounter Summary ---
Author Organization [facility] Address [address] [place] [address] Care Team Providers Care Yarder Boss Name Role Phone Belle Barksdale ALBERTO Primary Care Provider [phone] Reason for Visit * Reason Onset Date Comments Med Refill 07/28/2025 Encounter Details Date Type Department Care Team (Late st Contact Info) Description 07/28/2025 Refill [facility] Medicine Specialties [address] [place] [address] Rebekah Son, FAMILY COACH [address] [place] [address] Social History Tobacco Use Types Packs/Day Years [...] Description 09/25/2025 1:00 PM EST Office Visit [facility] Pulmonary Rehab [address] [place] [address] 10/17/2025 4:00 PM EST Appointment Cardiac Imaging [address] [place] [address] 12/05/2025 3:40 PM EST Office Visit [facility] Medicine Specialties [address] [place] [address] Rebekah Son, ALBERTO [address] [place] [address] documented as of this encounter Visit Diagnoses [...] documented as of this encounter Care Teams Yarder Boss Relationship Specialty Start Date End Date Belle Barksdale, FAMILY COACH [address] [facility] [address] [place] [address] PCP - General 04/05/21 documented as of this encounter
--- OUTSIDE RECORDS SUMMARY | 2025-09-20 16:03 | XMS_ITS | Encounter Summary ---
Author Organization Healthcare Address [address] [place] [address] Care Team Providers Care Therapy Technician Name Role Phone Belle Barksdale ALBERTO Primary Care Provider [phone] Encounter Details Date Type Department Care Team (Latest Contact Info) Description 08/23/2025 Travel Social History Tobacco Use Types Packs/Day [...] 09/25/2025 1:00 PM EST Office Visit [facility] Pulmonary Rehab [address] [place] [address] 10/17/2025 4:00 PM EST Appointment Cardiac Imaging [address] [place] [address] 12/05/2025 3:40 PM EST Office Visit [facility] Medicine Specialties [address] [place] [address] Rebekah Son, POLITICAL SCIENCE CHAIR [address] [place] [address] documented as of this encounter Visit Diagnoses [...] documented as of this encounter Care Teams Therapy Technician Relationship Specialty Start Date End Date Belle Barksdale, ALBERTO [address] [facility] [address] [place] [address] PCP - General 04/05/21 documented as of this encounter
--- OUTSIDE RECORDS SUMMARY | 2025-09-20 16:03 | XMS_ITS | Clinical Summary ---
Author Organization [facility] Address [address] [place] [address] Care Team Providers Care Tour Agent Name Role Phone Belle Barksdale APRN Primary Care Provider [phone] Allergies Active Allergy Reactions Criticality Noted Date Comments Tree Extract Other - please docum ent in the comment field Low 05/20/2024 Medications Pitavastatin Calcium 2 MG tablet 01/15/20 24 Active furosemide (Lasix) 20 MG tablet 04/22/20 24 Active HM Mucus Relief 600 MG 12 hr tablet 02/20/20 24 Active levothyroxine (Synthroid, Levoxyl) 25 MCG tablet Take 2 tablets (50 mcg) by mouth 1 (one) time each day. 05/05/20 24 Active ibuprofen 200 MG tablet Take 1 tablet (200 mg) by mouth every 6 (six) hours if needed for mild pain. Active levocetirizine (Xyzal) 5 MG tabletIndication s:Asthma-COPD overlap syndrome (CMS/HCC) TAKE 1 TABLET BY MOUTH 1 (ONE) TIME EACH DAY IN THE EVENING. 30 tablet 10 06/26/20 25 Active albuterol (Ventolin HFA) 108 (90 Base) MCG/ACT inhalerIndicatio ns:Chronic obstructive pulmonary disease, unspecified COPD type (CMS/HCC) Inhale 2 puffs every 4 hours as needed for wheezing. 18 g 5 07/11/20 25 Active ipratropium-albu terol (Duo-Neb) 0.5-2.5 mg/3 mL nebulizer solutionIndicati ons:Chronic obstructive pulmonary disease, unspecified COPD type (CMS/HCC) Take 3 mL by nebulization daily. May also take 3 mL daily as needed for wheezing. 540 mL 07/11/20 25 Active Fluticasone-Umec lidin-Vilant (Trelegy Ellipta) 200-62.5-25 MCG/ACT aerosol powder Inhale 1 puff daily. 60 each 11 07/28/20 25 Active predniSONE (Deltasone) 20 MG tabletIndication s:COPD exacerbation (CMS/HCC) Take 2 tablets by mouth daily for 5 days. 10 tablet 09/13/20 25 025 azithromycin (Zithromax) 250 MG tabletIndication s:COPD exacerbation (CMS/HCC) Take 2 by mouth today then 1 daily for 4 days 6 tablet 09/13/20 025 Active Problems Problem Noted Date Diagnosed Date Asthma-COPD overlap syndrome 06/30/2025 Assessment & Plan (06/30/2025 2:53 PM EDT): Orders: PT eval and treat Dyspnea on exertion 06/30/2025 Assessment & Plan (06/30/2025 2:53 PM EDT): Orders: PT eval and treat Encounters Date Type Department Care Team Description 09/18/2025 1:00 PM EDT Office Visit [facility] [address] [place] [address] COPD with asthma (CMS/HCC) (Primary Dx) 09/18/2025 Travel 09/14/2025 Results Follow-Up [facility] [address] [place] [address] Rebekah Son APRN 09/13/2025 10:40 AM EDT Office Visit [facility] [address] [place] [address] Rebekah Son APRN Other fatigue (Primary Dx); Dyspnea on exertion; COPD exacerbation (CMS/HCC); COPD with asthma (CMS/HCC); Asthma-COPD overlap syndrome (CMS/HCC); Allergic rhinitis, unspecified seasonality, unspecified trigger; Hiatal hernia 09/13/2025 Travel 09/11/2025 1:00 PM EDT Office Visit [facility] [address] [place] [address] COPD with asthma (CMS/HCC) (Primary Dx) 09/11/2025 Travel 09/06/2025 10:30 AM EDT Office Visit [facility] [address] [place] [address] COPD with asthma (CMS/HCC) (Primary Dx) 09/06/2025 Travel 08/28/2025 1:00 PM EDT Office Visit [facility] [address] [place] [address] Chronic obstructive bronchitis (CMS/HCC) (Primary Dx) 08/28/2025 Travel 08/23/2025 1:00 PM EDT Office Visit [facility] [address] [place] [address] COPD with asthma (CMS/HCC) (Primary Dx) 08/23/2025 Travel 08/21/2025 1:00 PM EDT Office Visit [facility] [address] [place] [address] COPD with asthma (CMS/HCC) (Primary Dx) 08/21/2025 Travel 08/16/2025 1:00 PM EDT Office Visit [facility] [address] [place] [address] COPD with asthma (CMS/HCC) (Primary Dx) 08/16/2025 Travel 08/14/2025 1:00 PM EDT Office Visit [facility] [address] [place] [address] Chronic obstructive bronchitis (CMS/HCC) (Primary Dx) 08/14/2025 Travel 08/09/2025 1:00 PM EDT Office Visit [facility] [address] [place] [address] COPD with asthma (CMS/HCC) (Primary Dx) 08/09/2025 Travel 08/07/2025 1:00 PM EDT Office Visit [facility] [address] [place] [address] COPD with asthma (CMS/HCC) (Primary Dx) 08/07/2025 Travel 07/31/2025 1:00 PM EDT Office Visit [facility] [address] [place] [address] COPD with asthma (CMS/HCC) (Primary Dx) 07/31/2025 Travel 07/28/2025 Refill [facility] [address] [place] [address] Rebekah Son APRN 07/26/2025 1:00 PM EDT Office Visit [facility] [address] [place] [address] Chronic obstructive pulmonary disease, unspecified COPD type (CMS/HCC) (Primary Dx) 07/26/2025 Travel 07/19/2025 1:00 PM EDT Office Visit [facility] [address] [place] [address] COPD with asthma (CMS/HCC) (Primary Dx) 07/19/2025 Travel 07/17/2025 1:00 PM EDT Office Visit [facility] [address] [place] [address] COPD with asthma (CMS/HCC) (Primary Dx) 07/17/2025 Travel 07/12/2025 1:00 PM EDT Office Visit [facility] [address] [place] [address] COPD with asthma (CMS/HCC) (Primary Dx) 07/12/2025 Travel 07/11/2025 Refill [facility] [address] [place] [address] Rebekah Son, DIANETICIST Chronic obstructive pulmonary disease, unspecified COPD type (CMS/HCC) 07/11/2025 Refill [facility] [address], [address] [place] [address] Halina Peterson it security project manager obstructive pulmonary disease, unspecified COPD type (CMS/HCC) 07/10/2025 1:00 PM EDT Office Visit [facility] [address] [place] [phone] COPD with asthma (CMS/HCC) (Primary Dx) 07/10/2025 Travel 07/05/2025 1:00 PM EDT Office Visit [facility] [address] [place] [phone] Chronic obstructive pulmonary disease, unspecified COPD type (CMS/HCC) (Primary Dx) 07/05/2025 Travel 07/03/2025 1:00 PM EDT Office Visit [facility] [address] [place] [phone] Asthma-COPD overlap syndrome (CMS/HCC) (Primary Dx) 07/03/2025 Travel 06/30/2025 2:00 PM EDT Office Visit [facility] [address] [place] [phone] Darshan Kaminski Asthma-COPD overlap syndrome (CMS/HCC) (Primary Dx); Dyspnea on exertion 06/30/2025 Plan of Care Documentation [facility] [address] [place] [phone] 06/30/2025 Travel 06/26/2025 3:00 PM EDT Ancillary Procedure [facility] [address] [place] [phone] Asthma-COPD overlap syndrome (CMS/HCC); Dyspnea on exertion 06/26/2025 Travel 06/26/2025 Refill [facility] [address] [place] [phone] Rebekah Son APRN Asthma-COPD overlap syndrome (CMS/HCC) (Primary Dx) from Last 3 Months Immunizations Immunization Administration Dates Next Due Influenza, injectable, quadrivalent, preservativ e free 11/09/2023 Influenza, recombinant, quad rivalent, injectable, preservative free 08/26/2022 Influenza, seasonal, injectable 09/13/2019 [employer] COVID-19 Vaccine (Purple Cap) 12 + 07/15/2021 [...] Answered Alcohol Use Standard Drinks/Week Comments Yes 1 [...] Pulse 113 09/18/2025 2:00 PM EDT Temperature 36.5 C (97.7 F) 09/13/2025 10:05 AM EDT Respiratory Rate 16 09/13/2025 10:05 AM EDT Oxygen Saturation 98% 09/18/2025 2:00 PM EDT Inhaled Oxygen Concentration - - Weight 88.7 kg (195 lb 8.8 oz) 09/18/2025 2:00 P M EDT Height 167.6 cm (5' 6 ) 09/13/2025 10:05 AM EDT Body Mass Index 31.56 09/13/2025 10:05 AM EDT Plan of Treatment Upcoming Encounters Date Type Department Care Team (Late st Contact Info) Description 09/25/2025 1:00 PM EST Office Visit [facility] [address] [place] [address] 10/17/2025 4:00 PM EST Appointment Cardiac Imaging [address] [place] [address] 12/05/2025 3:40 PM EST Office Visit [facility] [address] [place] [address] Rebekah Son S, DIANETICIST [address] [place] [address] Health Maintenance Due Date Last [...] - Risk 60-74 years 1-dose series) 2020 [id number] Vaccine (2 - Pfizer risk series) 08/05/2021 07/15/2021 [facility]-Influenza Vaccine (#1) 07/24/202511/09, 08/26/2022, 09/13/2019 [facility]-Depression Screening 09/13/2026 025, 09/13/2025, 05/20/2022 [facility]-DTaP,Tdap,and Td Vaccines (2 - Td or Tdap) 11/09/2033 11/09/2023 [facility]-Pneumococcal Vaccine: 50+ Years Completed 05/20/2022 [facility]-Obesity Intervention Completed 025, 09/13/2025, 09/11/2025, Additional history exists HPV Vaccines Aged Out [...] Procedure Name Priority Date/Time Associated Diagnosis Comments CBC WITH AUTO DIFFERENTIAL Routine 09/13/2025 11:47 AM EDT Dyspnea on exertion COMPREHENSIVE METABOLIC PANEL, PLASMA Routine 09/13/2025 11:47 AM EDT Dyspnea on exertion IMMUNOGLOBULIN E Routine 09/13/2025 11:4 7 AM EDT Dyspnea on exertion N-TERMINAL PROBNP, PLASMA Routine 09/13/2025 11:47 AM EDT Dyspnea on exertion TSH Routine 09/13/2025 11:47 AM EDT Other fatigue FREE T4, PLASMA Routine 09/13/2025 11:47 AM EDT Other fatigue HC DIFFUSING CAPACITY - CARBON MONOXIDE DIFFUSING CAPACITY Routine 06/26/2025 3:25 PM EDT Asthma-COPD overlap syndrome (CMS/HCC) Dyspnea on exertion from Last 3 Months Results * N-Terminal Probnp, Plasma (09/13/2025 11:47 AM EDT) N-Terminal, PROBNP, Plasma <50 0 - 899 pg/mL 09/13/2025 2:41 PM EDT [facility] Blood Venous blood specimen / Unknown Venipuncture / Unknown 09/13/2025 11:47 AM EDT 09/13/2025 11:47 AM EDT us Rebekah S Son DIANETICIST LAB BLOOD ORDERABLES Florecita l Result [facility] [address] [place] [address] * (ABNORMAL) CBC and differential (09/13/2025 11:47 AM EDT) WBC Count 6.38 3.70 - 10.30 10*3/uL LAB HEMATOLOGY METHOD 09/13/2025 1:59 PM EDT [facility] RBC Count 5.00 3.90 - 5.20 10*6/uL LAB HEMATOLOGY METHOD 09/13/2025 1:59 PM EDT [facility] HGB 11.4 11.2 - 15.7 g/dL LAB HEMATOLOGY METHOD 09/13/2025 1:59 PM EDT [facility] HCT 38.1 34.0 - 45.0 % LAB HEMATOLOGY METHOD 09/13/2025 1:59 PM EDT [facility] Platelet Count 380(H) 155 - 369 10*3/uL LAB HEMATOLOGY METHOD 09/13/2025 1:59 PM EDT [facility] MCV 76(L) 79 - 98 fL LAB HEMATOLOGY METHOD 09/13/2025 1:59 PM EDT [facility] MCH 22.8(L) 26.0 - 32.0 pg LAB HEMATOLOGY METHOD 09/13/2025 1:59 PM EDT [facility] MCHC 29.9(L) 30.7 - 35.5 g/dL LAB HEMATOLOGY METHOD 09/13/2025 1:59 PM EDT [facility] RDW 16.9(H) 11.5 - 14.5 % LAB HEMATOLOGY METHOD 09/13/2025 1:59 PM EDT [facility] MPV 9.0 8.8 - 12.5 fL LAB HEMATOLOGY METHOD 09/13/2025 1:59 PM EDT [facility] nRBC 0.0 <=0.0 per 100 WBCs LAB HEMATOLOGY METHOD 09/13/2025 1:59 PM EDT [facility] Differential Type Automated LAB HEMATOLOGY METHOD 09/13/2025 1:59 PM EDT [facility] Neutrophils % 63 % LAB HEMATOLOGY METHOD 09/13/2025 1:59 PM EDT [facility] Lymphocytes % 27 % LAB HEMATOLOGY METHOD 09/13/2025 1:59 PM EDT [facility] Monocytes % 6 % LAB HEMATOLOGY METHOD 09/13/2025 1:59 PM EDT [facility] Eosinophils % 2 % LAB HEMATOLOGY METHOD 09/13/2025 1:59 PM EDT [facility] Basophils % 1 % LAB HEMATOLOGY METHOD 09/13/2025 1:59 PM EDT [facility] Immature Granulocytes % 1 % LAB HEMATOLOGY METHOD 09/13/2025 1:59 PM EDT [facility] Neutrophils Absolute 4.07 1.60 - 6.10 10*3/uL LAB HEMATOLOGY METHOD 09/13/2025 1:59 PM EDT [facility] Lymphocytes Absolute 1.70 1.20 - 3.90 10*3/uL LAB HEMATOLOGY METHOD 09/13/2025 1:59 PM EDT [facility] Monocytes Absolute 0.41 0.30 - 0.90 10*3/uL LAB HEMATOLOGY METHOD 09/13/2025 1:59 PM EDT [facility] Eosinophils Absolute 0.11 0.00 - 0.50 10*3/uL LAB HEMATOLOGY METHOD 09/13/2025 1:59 PM EDT [facility] Basophils Absolute 0.06 0.00 - 0.10 10*3/uL LAB HEMATOLOGY METHOD 09/13/2025 1:59 PM EDT [facility] Immature Granulocytes Absolute 0.03 0.00 - 0.06 10*3/uL LAB HEMATOLOGY METHOD 09/13/2025 1:59 PM EDT [facility] Blood Venous blood specimen / Unknown Venipuncture / Unknown 09/13/2025 11:47 AM EDT 09/13/2025 11:47 AM EDT Narrative [facility] - 09/13/2025 1:59 PM EDT Therapeutic decision making should be based on absolute values, rather than percentages. us Rebekah Son APRN LAB BLOOD ORDERABLES Florecita l Result [facility] [address] [place] [address] * (ABNORMAL) TSH (09/13/2025 11:47 AM EDT) Thyroid Stimulating Hormone, Plasma 6.62(H) 0.40 - 4.20 uIU/mL 09/13/2025 2:41 PM EDT [facility] Blood Venous blood specimen / Unknown Venipuncture / Unknown 09/13/2025 11:47 AM EDT 09/13/2025 11:47 AM EDT Rebekah Son APRN LAB BLOOD ORDERABLES Florecita l Result Performing Organization Address City/[facility]/ZIP Co de Phone Number [facility] [address] [place] [address] * T4, free (09/13/2025 11:47 AM EDT) Free T4, Plasma 1.2 0.8 - 1.7 ng/dL 09/13/2025 2:41 PM EDT [facility] Blood Venous blood specimen / Unknown Venipuncture / Unknown 09/13/2025 11:47 AM EDT 09/13/2025 11:47 AM EDT Rebekah Son APRN LAB BLOOD ORDERABLES Florecita l Result Performing Organization Address City/[facility]/[place] [address] * IgE (09/13/2025 11:47 AM EDT) Immunoglobulin E 84 <=214 kU/L 09/15/20 8:41 AM EDT [facility]) Blood Venous blood specimen / Unknown Venipuncture / Unknown 09/13/2025 11:47 AM EDT 09/13/2025 11:47 AM EDT Narrative [facility]) - 09/15/2025 8:41 AM EDT REFERENCE INTERVAL: Immunoglobulin E, Serum Access complete set of age- and/or gender-specific reference intervals for this test in the [facility] Directory (bead Button). Performed By: [email or web address] [address] Official Greeter: Stanley Jarvis MD, PhD CLIA Number: [id number] us Rebekah Lizbeth Huy DIANETICIST LAB BLOOD ORDERABLES Florecita malagon Result [facility] [address] [place] [address] * (ABNORMAL) Comprehensive metabolic panel (09/13/2025 11:47 AM EDT) Pathologist [facility] Glucose, Plasma 95 74 - 99 mg/dL 09/13/2025 2:41 PM EDT [facility] BUN, Plasma 19 8 - 23 mg/dL 09/13/2025 2:41 PM EDT [facility] Creatinine, Plasma 1.16(H) 0.60 - 1.10 mg/dL 09/13/2025 2:41 PM EDT [facility] BUN/Creatinine Ratio 16 09/13/2025 2:41 PM EDT [facility] Sodium, Plasma 142 136 - 145 mmol/L 09/13/2025 2:41 PM EDT [facility] Potassium, Plasma 4.7 3.6 - 4.9 mmol/L 09/13/2025 2:41 PM EDT [facility] Chloride, Plasma 105 97 - 107 mmol/L 09/13/2025 2:41 PM EDT [facility] CO2, Plasma 25 22 - 29 mmol/L 09/13/2025 2:41 PM EDT [facility] Anion Gap 12 6 - 16 mmol/L 09/13/2025 2:41 PM EDT [facility] Total Calcium, Plasma 9.5 8.9 - 10.2 mg/dL 09/13/2025 2:41 PM EDT [facility] Total Protein 7.6 6.3 - 7.9 g/dL 09/13/2025 2:41 PM EDT [facility] Albumin, Plasma 4.2 3.5 - 5.2 g/dL 09/13/2025 2:41 PM EDT [facility] AST, Plasma 20 10 - 35 U/L 09/13/2025 2:41 PM EDT [facility] ALT, Plasma 22 10 - 35 U/L 09/13/2025 2:41 PM EDT [facility] Alkaline Phosphatase, Plasma 73 46 - 142 U/L 09/13/2025 2:41 PM EDT [facility] Total Bilirubin, Plasma 0.3 0.2 - 1.1 mg/dL 09/13/2025 2:41 PM EDT [facility] eGFRcr 52.8 mL/min/1.7 3m*2 09/13/2025 2:41 PM EDT [facility] Comment:Reported eGFRcr in m L/min/1.73m2 is based the CKD-EPI 2020 equation that does not use a race coefficient. Blood Venous blood specimen / Unknown Venipuncture / Unknown 09/13/2025 11:47 AM EDT 09/13/2025 11:47 AM EDT us Rebekah Son APRN LAB BLOOD ORDERABLES Florecita malagon Result [facility] [address] [place] [address] * (ABNORMAL) Pulmonary function testing (06/26/2025 3:25 PM EDT) AFH8HBY 2.90 2.50 - 4.25 L VYAIRE PFT FVC PRED 3.35 VYAIRE PFT FVC LLN 2.50 VYAIRE PFT FVCPREZSCORE -0.86 VYAIRE PFT FVCPRE%PRED 87 % % VYAIRE PFT FVC PREDAUT [facility] GLI (2011) VYAIRE PFT FVC Z-SCORE -0.86 VYAIRE PFT FEV1 PRE 1.74(A) 1.94 - 3.25 L VYAIRE PFT FEV1 PRED 2.61 VYAIRE PFT FEV1 LLN 1.94 VYAIRE PFT [id number] -2.12 VYAIRE PFT FEV1_Pre%Pred 67 % % VYAIRE PFT FEV1 PREDAUT [facility] GLI (2011) VYAIRE PFT FEV1 Z-SCORE -2.12 VYAIRE PFT FEV1/FVC PRE 59.88(A) 65.89 - 89.11 % VYAIRE PFT [id number] 78 VYAIRE PFT [id number] 66 VYAIRE PFT [id number] -2.33 VYAIRE PFT IUB7CEGZCH%PRED 76 % % VYAIRE PFT [id number] [facility] (2011) VYAIRE PFT LLU4MEWQEONFL -2 VYAIRE PFT UGR77-50% PRE 0.83(A) 1.08 - 3.77 L/s VYAIRE PFT EYZ28-07%_Pred 2.21 VYAIRE PFT CSM6642%LLN 1.08 VYAIRE PFT ZSL5896%PREZSCORE -2.13 VYAIRE PFT AJS3732%PRE%PRED 37 % % VYAIRE PFT YCF1985%[facility]ED[facility] [place] (2011) VYAIRE PFT PEF PRE 6.51 4.66 - 8.41 L/s VYAIRE PFT PEF PRED 6.53 VYAIRE PFT PEF LLN 4.66 VYAIRE PFT PEFPREZSCORE -0.02 VYAIRE PFT PEFPRE%PRED 100 % % VYAIRE PFT PEF [facility] III (1998) VYAIRE PFT YKNMYWEVYQDLUZDM5HJB 17.03 15.87 - 26.99 ml/(min* mmHg) VYAIRE PFT DLCOSINGLEBREATH PRED 20.87 VYAIRE PFT DLCOSINGLEBREATH LLN 15.87 VYAIRE PFT DLCOSINGLEBREATH Z-SCORE -1.23 VYAIRE PFT DLCOSINGLEBREATH % PRED 81.6 % VYAIRE PFT DLCOSINGLEBREATH PRED[facility] (2019) VYAIRE PFT DLCOSINGLEBREATH Z-SCORE -1.23 06/26/2025 3:38 PM EDT VYAIRE PFT RQIZOVYIYXIJGQOJM0GF E 17.03 15.87 - 26.99 ml/(min* mmHg) VYAIRE PFT DLCOCSINGLEBREATH PRED 20.87 VYAIRE PFT DLCOCSINGLEBREATH LLN 15.87 VYAIRE PFT DLCOCSINGLEBREATH Z-SCORE -1.23 VYAIRE PFT DLCOCSINGLEBREATH % PRED 81.6 % VYAIRE PFT DLCOCSINGLEBREATH PR[facility] Stanojevic TLCO GLI (2019) VYAIRE PFT [id number] 3.84 3.12 - 5.13 ml/(min* mmHg*L) VYAIRE PFT DLCOVAPRED 4.06 VYAIRE PFT DLCOVALLN 3.12 VYAIRE PFT DLCOVAZSCORE -0.36 VYAIRE PFT DLCOVA%PRED 94.7 % VYAIRE PFT DLCOVAPREDAUT Stanojevic TLCO GLI (2019) VYAIRE PFT DLCOVAZSCORE -0.36 06/26/2025 3:38 PM EDT VYAIRE PFT [id number] 3.84 3.12 - 5.13 ml/(min* mmHg*L) VYAIRE PFT DLCOC SB/VA PRED 4.06 VYAIRE PFT DLCOC SB/VA LLN 3.12 VYAIRE PFT DLCOC SB/VA Z-SCORE -0.36 VYAIRE PFT DLCOC SB/VA % PRED 94.7 % VYAIRE PFT DLCOC SB/VA [facility] Stanojevic TLCO GLI (2019) VYAIRE PFT DLCOC SB/VA Z-SCORE -0.36 06/26 3:38 PM EDT VYAIRE PFT RQBPHOOMLQEBNI9TWN 4.43 4.12 - 6.22 L VYAIRE PFT VASINGLEBREATH PRED 5.11 VYAIRE PFT VASINGLEBREATH LLN 4.12 VYAIRE PFT VASINGLEBREATH Z-SCORE -1.11 VYAIRE PFT VASINGLEBREATH % PRED 86.6 % VYAIRE PFT VASINGLEBREATH PRED[facility] Stanojevic TLCO GLI (2019) VYAIRE PFT VASINGLEBREATH Z-SCORE -1.11 06/26/2025 3:38 PM EDT VYAIRE PFT [id number] 2.87 2.50 - 4.25 L VYAIRE PFT IVCSINGLEBREATH PRED 3.35 VYAIRE PFT IVCSINGLEBREATH LLN 2.50 VYAIRE PFT IVCSINGLEBREATH Z-SCORE -0.91 VYAIRE PFT IVCSINGLEBREATH % PRED 85.7 % VYAIRE PFT IVCSINGLEBREATH PRED[facility] (2011) VYAIRE PFT JOE% VCMAX PRE 95.02 % VYAIRE PFT TLC SB PRE 4.58 4.49 - 6.83 L VYAIRE PFT TLCSINGLEBREATH PRED 5.59 VYAIRE PFT TLCSINGLEBREATH LLN 4.49 VYAIRE PFT TLCSINGLEBREATH Z-SCORE -1.49 VYAIRE PFT TLCSINGLEBREATH % PRED 81.9 % VYAIRE PFT TLCSINGLEBREATH PREDCh[facility] Home Lung volumes GLI (2019)__ VYAIRE PFT HB PRE 13.40 g(Hb)/dL VYAIRE PFT QBC9RIN 5.40 4.49 - 6.83 L VYAIRE PFT TLCPRED 5.59 VYAIRE PFT TLCLLN 4.49 VYAIRE PFT TLCULN 6.83 VYAIRE PFT TLCZSCORE -0.27 VYAIRE PFT TLC%PRED 96.5 % VYAIRE PFT TLCPREDAUTOhio[facility] Lung volumes GLI (2019)__ VYAIRE PFT VC0PRE 3.02 2.50 - 4.25 L VYAIRE PFT VCPRED 3.35 VYAIRE PFT VCLLN 2.50 VYAIRE PFT VCULN 4.25 VYAIRE PFT VCZSCORE -0.62 VYAIRE PFT VC%PRED 90.2 % VYAIRE PFT VCPREDAUTGILA [facility] (2011) VYAIRE PFT IC0PRE 1.00(A) 1.74 - 3.47 L VYAIRE PFT ICPRED 2.60 VYAIRE PFT ICLLN 1.74 VYAIRE PFT ICULN 3.47 VYAIRE PFT IC Z-SCORE -3.08 VYAIRE PFT IC%PRED 38.6 % VYAIRE PFT ICPREDAUTOhiohealth [facility]ide [facility] Lung volumes GLI (2019)__ VYAIRE PFT BCTWCTBU3AZO 4.40(A) 2.20 - 4.21 L VYAIRE PFT FRCPLETH PRED 3.09 VYAIRE PFT FRCPLETH LLN 2.20 VYAIRE PFT FRCPLETH ULN 4.21 VYAIRE PFT FRCPLETH Z-SCORE 1.88 VYAIRE PFT FRCPLETH % PRED 142.3 % VYAIRE PFT FRCPLETH PREDAUTH [facility] Lung volumes GLI (2019)__ VYAIRE PFT TKP4ACN 2.02(A) 0.28 - 1.82 L VYAIRE PFT ERVPRED 0.89 VYAIRE PFT ERVLLN 0.28 VYAIRE PFT ERVULN 1.82 VYAIRE PFT ERV Z-SCORE 1.95 VYAIRE PFT ERV%PRED 227.1 % VYAIRE PFT ERVPREDAUTOhiohealth Riverside [facility] Hospital Lung volumes GLI (2019)__ VYAIRE PFT RV0PRE 2.38 1.24 - 3.06 L VYAIRE PFT RVPRED 2.03 VYAIRE PFT RVLLN 1.24 VYAIRE PFT RVULN 3.06 VYAIRE PFT RVZSCORE 0.60 VYAIRE PFT RV%PRED 117.1 % VYAIRE PFT RVPREDAUT [facility] Lung volumes GLI (2019)__ VYAIRE PFT RV%FAA7TLK 43.99 24.39 - 47.95 % VYAIRE PFT RV%TLCPRED 36 VYAIRE PFT RV%TLCLLN 24 VYAIRE PFT RV%TLCULN 48 VYAIRE PFT RV%TLCZSCORE 1.12 VYAIRE PFT RV%TLC%PRED 122.9 % VYAIRE PFT RV%TLCPREDAUT [facility]ar Lung volumes GLI (2019)__ VYAIRE PFT Anatomical Region Laterality Modality PFT 06/26/2025 2:26 PM EDT Narrative 06/26/2025 9:39 PM EDT Pulmonary Function Testing Report Mago Maxwell [facility] The patient underwent spirometry, lung volumes by body plethysmography, and diffusion capacity testing. All tests were appropriately administered via ATS/ERS criteria. All tests are acceptable and interpretable unless noted otherwise. Spirometry: Reduced FEV1 with a normal FVC and reduced ratio consistent with mild obstruction. Lung Volumes: Normal lung volumes. Diffusion Capacity: Diffusion capacity uncorrected for Hb is normal. Trend: Compared to previous study dated 03/30/2024, there has been a significant increase in FEV1 and decrease in DLCO. Rebekah Son APRN PFT ORDERABLES Final Res ult from Last 3 Months Insurance [employer] Care Teams Tour Agent Relationship Specialty Start Date End Date Belle Barksdale APRN [address] [facility] [place] [address] PCP - General 04/05/21
--- OUTSIDE RECORDS SUMMARY | 2025-09-20 16:03 | XMS_ITS | Encounter Summary ---
Author Organization Healthcare Address [address] [place] [address] Care Team Providers Care Analytical Lead Name Role Phone Belle Barksdale ALBERTO Primary Care Provider [phone] Encounter Details Date Type Department Care Team (Late st Contact Info) Description 09/14/2025 Results Follow-Up [facility] Medicine Specialties [address] [place] [address] Rebekah Son APRN [address] [place] [address] Social History Tobacco Use Types [...] Description 09/25/2025 1:00 PM EST [facility] [address] [place] [address] 10/17/2025 4:00 PM EST Appointment Cardiac Imaging [address] [place] [address] 12/05/2025 3:40 PM EST Office Visit [facility] Medicine Specialties [address] [place] [address] Rebekah Son S, ALBERTO [address] [place] [address] documented as of this encounter Visit Diagnoses [...] documented as of this encounter Care Teams Analytical Lead Relationship Specialty Start Date End Date Belle Barksdale S, 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
[2025-09-20 21:15] LABS: Coronavirus 19, PCR Not Detected (NotDetected); Influenza A, PCR Not Detected (NotDetected); Influenza B, PCR Not Detected (NotDetected)
== END 2025-09-20 23:59 | disposition home or self-care (01) ==
LOC: RAD 15:56
PROVIDERS: PCP Nurse Practitioner Family; Visit Provider Nurse Practitioner
DX: J06.9 Acute upper respiratory infection, unspecified (principal); R09.89 Other specified symptoms and signs involving the circulatory and respiratory systems; R06.02 Shortness of breath
CPT/HCPCS: 71046; 87631

== ENCOUNTER 2025-09-29 12:27 | Outpatient (CLI) | payer OTHER, SELFPAY ==
--- OUTSIDE RECORDS SUMMARY | 2025-07-31 12:00 | XMS_ITS | Encounter Summary ---
Author Organization [facility] Address [address] [place] [address] Care Team Providers Care Medical Esthetician Name Role Phone Belle Barksdale APRN Primary Care Provider [phone] Encounter Details Date Type Department Care Team (Late st Contact Info) Description 07/31/2025 1:00 PM EDT [facility] Visit [facility] [address] [place] [id number] COPD with asthma (CMS/HCC) (Primary Dx) Social History Tobacco Use [...] - Inhaled Oxygen Concentration - - Weight 88.8 kg (195 lb 12.3 oz) 07/31/2025 1:00 PM EDT Height - - Body Mass Index 31.6 07/03/2025 2:00 PM EDT documented in this encounter Miscellaneous Notes * Progress Notes - Ronel Romero - 07/31/2025 1:00 PM EDT Pulmonary Rehab Daily Note Patient Name: Mago Maxwell Today's Date: 07/31/2025 General General Time In: 1250 Time Out: 1420 Visit Number: 8 Physician on Site: ned fitzpatrick md Pain: 4 Weight: 88.8 kg (195 lb 12.3 oz) Vital Signs Resting Vital Signs SpO2: 98 % Pulse: 84 Supplemental Oxygen : Room Air BP: 120/80 Dyspnea Index: 3 Falls: 0 Meds Taken: y Meds Changed: n Breathing Assessment Breathing Assessment Breathing Assessment: clear bilateral Exercise Exercise Modalities Treadmill: Yes UBE: Yes Weights: Yes Treadmill Exercise Speed: 1.5 mph Grade: 0 % Time: 20 Minutes Distance: 0.41 METS: 1.88 Exercise SpO2: 98 Exercise HR: 103 Supplemental Oxygen : Room Air Exercise BP: 114/80 Exercise Dyspnea: 2 Rate of Perceived Exertion: 2 Signs & Symptoms: pt tolerated well Upper Body Ergometer Resistance: 6 Revolutions per Minute: 42 Time: 20 Distance: 2.43 METS: 3.4 Exercise SPO2: 96 Exercise HR: 128 Supplemental Oxygen: Room air Exercise BP: 130/80 Exercise Dyspnea: 2 Rate of Percieved Exertion: 2 Signs and Symptoms: pt tolerated well Weights Exercise Sets: 2 Reps: 12 Weight: 4 lbs Time: 10 Minutes Exercise SpO2: 96 Exercise HR: 120 Supplemental Oxygen: Room air Exercise Dyspnea: 2 Rate of Perceived Exertion: 3 Signs and Symptoms: pt tolerated well Cool Down Cool Down Exercises Cool Down Exercises: 10 Post-Activity Vital Signs Post-Activity Vital signs SpO2: 96 % Pulse: 116 Supplemental Oxygen : Room Air BP: 118/78 Dyspnea Index: 0.5 Educational Classes/20 Minutes Nutrition 1/2- AN Pt given education packet documented in this encounter Plan of Treatment Upcoming Encounters Date Type Department Care Team (Late st Contact Info) Description 10/02/2025 1:00 PM EST [facility] Visit [facility] [address] [place] [address] 10/17/2025 4:00 PM EST Appointment Cardiac Imaging [address] [place] [address] 12/05/2025 3:40 PM EST Office Visit [facility] [address] [place] [address] Rebekah Son APRN [address] [place] [address] documented as of this encounter Visit Diagnoses Diagnosis COPD with asthma (CMS/[facility])- Primary documented in this encounter Additional Health Concerns Assessment Noted Time PHQ-9 Depression Total Score: 0 11/25/19 25 1:48 PM EST A fall risk assessment has been complete d for the patient 05/29/2025 2:51 PM EDT A Body Mass Index follow-up plan has been documented for the patient 07/31/2025 2:11 PM EDT documented as of this encounter Care Teams Medical Esthetician Relationship Specialty Start Date End Date Belle Barksdale, ALBERTO [address] [facility] [address] [place] [address] PCP - General 04/05/21 documented as of this encounter
--- OUTSIDE RECORDS SUMMARY | 2025-08-07 12:00 | XMS_ITS | Encounter Summary ---
Author Organization Healthcare Address [address] [place] [address] Care Team Providers Care Crystallizer Operator Name Role Phone Belle Barksdale APRN Primary Care Provider [phone] Encounter Details Date Type Department Care Team (Late st Contact Info) Description 08/07/2025 1:00 PM EDT Office Visit [facility] [address] [place] [phone] COPD with asthma (CMS/HCC) (Primary Dx) Social [...] - Inhaled Oxygen Concentration - - Weight 89.3 kg (196 lb 13.9 oz) 08/07/2025 2:00 PM EDT Height - - Body Mass Index 31.78 07/03/2025 2:00 PM EDT documented in this encounter Miscellaneous Notes * Progress Notes - Ronel Romero - 08/07/2025 1:00 PM EDT Pulmonary Rehab Daily Note Patient Name: Mago Maxwell Today's Date: 08/07/2025 General General Time In: 1250 Time Out: 1420 Family/Caregiver Present: No Visit Number: 9 Physician on Site: Dung Álvarez MD Pain: 0 Weight: 89.3 kg (196 lb 13.9 oz) Vital Signs Resting Vital Signs SpO2: 96 % Pulse: 110 Supplemental Oxygen : Room Air BP: 120/80 Dyspnea Index: 0.5 Falls: 0 Meds Taken: y Meds Changed: n Breathing Assessment Breathing Assessment Breathing Assessment: clear bilateral Warm Up Exercise Exercise Modalities Treadmill: Yes UBE: Yes Weights: Yes Treadmill Exercise Speed: 2 mph Grade: 1.5 % Time: 20 Minutes Distance: 0.67 METS: 2.7 Exercise SpO2: 95 Exercise HR: 120 Supplemental Oxygen : Room Air Exercise BP: 136/80 Exercise Dyspnea: 2 Rate of Perceived Exertion: 2 Signs & Symptoms: pt tolerated well Upper Body Resistance: 7 Revolutions per Minute: 37 Time: 20 Distance: 2.48 METS: 3.2 Exercise SPO2: 94 Exercise HR: 113 Supplemental Oxygen: Room air Exercise BP: 118/78 Exercise Dyspnea: 2 Rate of Percieved Exertion: 3 Signs and Symptoms: pt tolerated well Weights Exercise Sets: 1 Reps: 10 Weight: 4 lbs Time: 10 Minutes Exercise SpO2: 95 Exercise HR: 118 Supplemental Oxygen: Room air Exercise Dyspnea: 1 Rate of Perceived Exertion: 0.5 Signs and Symptoms: pt tolerated Post-Activity Vital Signs Post-Activity Vital signs SpO2: 98 % Pulse: 111 Supplemental Oxygen : Room Air BP: 116/80 Dyspnea Index: 0 Educational Classes/20 Minutes Oxygen MW Pt given education packet documented in this encounter Plan of Treatment Upcoming Encounters Date Type Department Care Team (Late st Contact Info) Description 10/02/2025 1:00 PM EST Office Visit [facility] [address] [place] [address] 10/17/2025 4:00 PM EST Appointment Cardiac Imaging [address] [place] [address] 12/05/2025 3:40 PM EST Office Visit [facility] [address], [address] [place] [address] Rebekah Son, ALBERTO [address] [place] [address] documented as of this encounter Visit Diagnoses Diagnosis COPD with asthma (CMS/HCC)- Primary documented in this encounter Additional Health Concerns Assessment Noted Time PHQ-9 Depression Total Score: 0 11/25/19 25 1:48 PM EST A fall risk assessment has been complete d for the patient 05/29/2025 2:51 PM EDT A Body Mass Index follow-up plan has been documented for the patient 08/07/2025 2:33 PM EDT documented as of this encounter Care Teams Crystallizer Operator Relationship Specialty Start Date End Date Belle Barksdale S, RESIDENTIAL FIELD MANAGER [address] [place] [address] PCP - General 04/05/21 documented as of this encounter
--- OUTSIDE RECORDS SUMMARY | 2025-08-09 12:00 | XMS_ITS | Encounter Summary ---
Author Organization Healthcare Address [address] [place] [address] Care Team Providers Care Cereal Supervisor Name Role Phone Belle Barksdale APRN Primary Care Provider [phone] Encounter Details Date Type Department Care Team (Late st Contact Info) Description 08/09/2025 1:00 PM EDT [facility] [address] [place] [id number] COPD with asthma (CMS/HCC) (Primary Dx) Social [...] on file documented as of this encounter Miscellaneous Notes * Progress Notes - Ronel Romero - 08/09/2025 1:00 PM EDT Pulmonary Rehab Daily Note Patient Name: Mago Maxwell Today's Date: 08/09/2025 General General Time In: 1250 Time Out: 1420 Family/Caregiver Present: No Visit Number: 10 Physician on Site: drea gaspar md Pain: 0 Vital Signs Resting Vital Signs SpO2: 95 % Pulse: 99 Supplemental Oxygen : Room Air BP: 128/80 Dyspnea Index: 0.5 Falls: 0 Meds Taken: y Meds Changed: n Breathing Assessment Breathing Assessment Breathing Assessment: clear bilateral Exercise Exercise Modalities Treadmill: Yes Recumbent Stepper : Yes Weights: Yes Treadmill Exercise Speed: 2 mph Grade: 1.5 % Time: 20 Minutes Distance: 0.78 METS: 2.93 Exercise SpO2: 95 Exercise HR: 130 Supplemental Oxygen : Room Air Exercise BP: 130/70 Exercise Dyspnea: 2 Rate of Perceived Exertion: 2 Signs & Symptoms: pt tolerated well Seated Stepper Resistance Level: 6 Steps per Minute: 66 Time: 20 Minutes Total Steps: 1001 Steps METS: 2.93 Exercise SPO2: 99 Exercise Heart Rate: 120 Supplemental Oxygen : Room Air Exercise BP: 128/80 Exercise Dyspnea: 0.5 Rate of Percieved Exertion: 2 Signs and Symptoms: Pt tolerated exercise well Weights Exercise Sets: 3 Reps: 10 Weight: 4 lbs Time: 10 Minutes Exercise SpO2: 96 Exercise HR: 128 Supplemental Oxygen: Room air Exercise Dyspnea: 2 Rate of Perceived Exertion: 2 Signs and Symptoms: pt tolerated well Cool Down Cool Down Exercises Cool Down Exercises: 10 Post-Activity Vital Signs Post-Activity Vital signs SpO2: 96 % Pulse: 112 Supplemental Oxygen : Room Air BP: 116/80 Dyspnea Index: 0 Rate of Percieved Exertion: 0.5 Educational Classes/20 Minutes Tobacco use/smoking cessation NW Pt given education packet documented in this encounter Plan of Treatment Upcoming Encounters Date Type Department Care Team (Late st Contact Info) Description 10/02/2025 1:00 PM EST Office Visit [facility] Pulmonary Rehab [address] [place] [address] 10/17/2025 4:00 PM EST Appointment Cardiac Imaging [address] [place] [address] 12/05/2025 3:40 PM EST Office Visit [facility] Medicine Specialties [address], [address] [place] [address] Rebekah Son, SCHEDULING ANALYST [address] [facility] [address] [place] [address] documented as of this encounter Visit Diagnoses Diagnosis COPD with asthma (CMS/HCC)- Primary documented in this encounter Additional Health Concerns Assessment Noted Time PHQ-9 Depression Total Score: 0 11/25/19 25 1:48 PM EST A fall risk assessment has been complete d for the patient 05/29/2025 2:51 PM EDT A Body Mass Index follow-up plan has been documented for the patient 08/09/2025 2:26 PM EDT documented as of this encounter Care Teams Cereal Supervisor Relationship Specialty Start Date End Date Belle Barksdale, SCHEDULING ANALYST [address] [facility] [address] [place], [place] [id number] PCP - General 04/05/21 documented as of this encounter
--- OUTSIDE RECORDS SUMMARY | 2025-08-14 12:00 | XMS_ITS | Encounter Summary ---
Author Organization Healthcare Address [address] [place] [address] Care Team Providers Care Gas Transfer Operator Name Role Phone Belle Barksdale APRN Primary Care Provider [phone] Encounter Details Date Type Department Care Team (Late st Contact Info) Description 08/14/2025 1:00 PM EDT Office Visit [facility] [address] [place] [address] Chronic obstructive bronchitis (CMS/HCC) (Primary Dx) Social History Tobacco Use [...] - Inhaled Oxygen Concentration - - Weight 88.7 kg (195 lb 8.8 oz) 08/14/2025 2:00 P M EDT Height - - Body Mass Index 31.56 07/03/2025 2:00 PM EDT documented in this encounter Miscellaneous Notes * Progress Notes - Ronel Romero - 08/14/2025 1:00 PM EDT Pulmonary Rehab Daily Note Patient Name: Mago Maxwell Today's Date: 08/14/2025 General General Time Out: 1420 Family/Caregiver Present: No Visit Number: 11 Physician on Site: Nilson Nicholson aprn Pain: 0 Weight: 88.7 kg (195 lb 8.8 oz) Vital Signs Resting Vital Signs SpO2: 97 % Pulse: 97 Supplemental Oxygen : Room Air BP: 136/80 Dyspnea Index: 0 Falls: 0 Meds Taken: y Meds Changed: n Breathing Assessment Breathing Assessment Breathing Assessment: clear bilateral Exercise Exercise Modalities Treadmill: Yes UBE: Yes Weights: Yes Treadmill Exercise Assessment Speed: 2 mph Grade: 2 % Time: 20 Minutes Distance: 0.65 METS: 3.13 Exercise SpO2: 94 Exercise HR: 135 Supplemental Oxygen : Room Air Exercise BP: 120/80 Exercise Dyspnea: 2 Rate of Perceived Exertion: 5 Signs & Symptoms: pt tolerated well Upper Body Ergometer Resistance: 7-8 Revolutions per Minute: 33 Time: 20 Distance: 2.82 METS: 3.1 Exercise SPO2: 95 Exercise HR: 141 Supplemental Oxygen: Room air Exercise BP: 118/78 Exercise Dyspnea: 1 Rate of Percieved Exertion: 3 Signs and Symptoms: pt tolerated well Weights Exercise Sets: 3 Reps: 12 Weight: 4 lbs Time: 10 Minutes Exercise SpO2: 96 Exercise HR: 137 Supplemental Oxygen: Room air Exercise Dyspnea: 1 Rate of Perceived Exertion: 2 Signs and Symptoms: pt tolerated well Cool Down Cool Down Exercises Cool Down Exercises: 10 Post-Activity Vital Signs Post-Activity Vital signs SpO2: 96 % Pulse: 117 Supplemental Oxygen : Room Air BP: 116/80 Dyspnea Index: 0 Rate of Percieved Exertion: 0.5 Educational Classes/20 Minutes Diabetes MW Pt given education packet documented in this encounter Plan of Treatment Upcoming Encounters Date Type Department Care Team (Late st Contact Info) Description 10/02/2025 1:00 PM EST Office Visit [facility] Pulmonary Rehab [address] [place] [address] 10/17/2025 4:00 PM EST Appointment Cardiac Imaging [address] [place] [address] 12/05/2025 3:40 PM EST Office Visit [facility] [address], [address] [place] [address] Rebekah Son, ALBERTO [address] [place] [address] documented as of this encounter Visit Diagnoses Diagnosis Chronic obstructive bronchitis (CMS/HCC)- Primary Obstructive chronic bronchitis without exacerbation documented in this encounter Additional Health Concerns Assessment Noted Time PHQ-9 Depression Total Score: 0 11/25/19 1:48 PM EST A fall risk assessment has been complete d for the patient 05/29/2025 2:51 PM EDT A Body Mass Index follow-up plan has been documented for the patient 08/14/2025 2:35 PM EDT documented as of this encounter Care Teams Gas Transfer Operator Relationship Specialty Start Date End Date Belle Barksdale, FUNERAL HOME MANAGER [address] [place] [address] PCP - General 04/05/21 documented as of this encounter
--- OUTSIDE RECORDS SUMMARY | 2025-08-16 12:00 | XMS_ITS | Encounter Summary ---
Author Organization Healthcare Address [address] [place] [address] Care Team Providers Care Business Support Coordinator Name Role Phone Belle Barksdale APRN Primary Care Provider [phone] Encounter Details Date Type Department Care Team (Late st Contact Info) Description 08/16/2025 1:00 PM EDT Office Visit [facility] [address] [place] [address] COPD with asthma (CMS/HCC) (Primary Dx) Social [...] Sign Reading Time Taken Comments Blood Pressure 120/80 08/16/2025 2:00 PM EDT Pulse 126 08/16/2025 2:00 PM EDT Temperature - - Respiratory Rate - - Oxygen Saturation 96% 08/16/2025 2:00 PM EDT Inhaled Oxygen Concentration - - Weight - - Height - - Body Mass Index - - documented in this encounter Miscellaneous Notes * Progress Notes - Ronel Romero - 08/16/2025 1:00 PM EDT Pulmonary Rehab Daily Note Patient Name: Mago Maxwell Today's Date: 08/16/2025 General General Time In: 1250 Time Out: 1420 Family/Caregiver Present: No Visit Number: 12 Physician on Site: drea Colón md Pain: 0 Vital Signs Resting Vital Signs SpO2: 97 % Pulse: 104 Supplemental Oxygen : Room Air BP: 120/80 Dyspnea Index: 0.5 Falls: 0 Meds Taken: y Meds Changed: n Breathing Assessment Breathing Assessment Breathing Assessment: clear bilateral Exercise Exercise Modalities Treadmill: Yes Recumbent Stepper : Yes Weights: Yes Treadmill Exercise Assessment Speed: 3 mph Grade: 1.5 % Time: 20 Minutes Distance: 0.85 METS: 3.37 Exercise SpO2: 95 Exercise HR: 140 Supplemental Oxygen : Room Air Exercise BP: 120/80 Exercise Dyspnea: 2 Rate of Perceived Exertion: 2 Signs & Symptoms: pt tolerated well Seated Stepper Resistance Level: 7 Steps per Minute: 72 Time: 20 Minutes Total Steps: 1307 Steps METS: 3.7 Exercise SPO2: 95 Exercise Heart Rate: 130 Supplemental Oxygen : Room Air Exercise BP: 138/80 Exercise Dyspnea: 1 Rate of Percieved Exertion: 2 Signs and Symptoms: Pt tolerated exercise well Weights Exercise Sets: 3 Reps: 15 Weight: 4 lbs Time: 10 Minutes Exercise SpO2: 96 Exercise HR: 118 Supplemental Oxygen: Room air Exercise Dyspnea: 2 Rate of Perceived Exertion: 2 Signs and Symptoms: pt tolerated well Cool Down Cool Down Exercises Cool Down Exercises: 10 Post-Activity Vital Signs Post-Activity Vital signs SpO2: 96 % Pulse: 118 Supplemental Oxygen : Room Air BP: 122/78 Dyspnea Index: 0.5 Rate of Percieved Exertion: 0 Functional Assessments Six Minute Walk Test Six Minute Walk Test: Yes Heart Rate: (!) 126 SpO2: 96 % Supplemental Oxygen : Room Air BP: 120/80 Exercise Dyspnea: 2 Rate of Percieved Exertion: 1 Symptoms: pt tolerated well Educational Classes/20 Minutes Physiology of Lung Disease - Part 1 (anatomy of healthy lungs) MW Pt given education packet documented in this encounter Plan of Treatment Upcoming Encounters Date Type Department Care Team (Late st Contact Info) Description 10/02/2025 1:00 PM EST Office Visit [facility] [address] [place] [address] 10/17/2025 4:00 PM EST Appointment Cardiac Imaging [address] [place] [address] 12/05/2025 3:40 PM EST Office Visit [facility] Medicine Specialties [address], [address] [place] [address] Rebekah Son APRN [address] [place] [address] documented as of this encounter Visit Diagnoses Diagnosis COPD with asthma (CMS/[facility])- Primary documented in this encounter Additional Health Concerns Assessment Noted Time PHQ-9 Depression Total Score: 0 11/25/19 25 1:48 PM EST A fall risk assessment has been complete d for the patient 05/29/2025 2:51 PM EDT A Body Mass Index follow-up plan has been documented for the patient 08/16/2025 2:10 PM EDT documented as of this encounter Care Teams Business Support Coordinator Relationship Specialty Start Date End Date Belle Barksdale, ALBERTO [address] [address] PCP - General 04/05/21 documented as of this encounter
--- OUTSIDE RECORDS SUMMARY | 2025-08-21 12:00 | XMS_ITS | Encounter Summary ---
Author Organization Healthcare Address [address] [place] [address] Care Team Providers Care Automotive Service Technician Name Role Phone Belle Barksdale APRN Primary Care Provider Encounter Details Date Type Department Care Team (Late st Contact Info) Description 08/21/2025 1:00 PM EDT Office Visit [place] [facility] [address] [place] [phone] COPD with asthma (CMS/HCC) (Primary Dx) Social [...] Description 10/02/2025 1:00 PM EST Office [facility] Pulmonary Rehab [address] [place] [address] 10/17/2025 4:00 PM EST Appointment Cardiac Imaging [address] [place] [address] 12/05/2025 3:40 PM EST Office Visit [place] [facility] [address], [address] [place] [address] Rebekah Son, ALBERTO [address] [place] [address] documented as of this encounter Visit Diagnoses [...] documented as of this encounter Care Teams Automotive Service Technician Relationship Specialty Start Date End Date Belle Barksdale, DIRECTOR COMPENSATION [address] [place] [address] PCP - General 04/05/21 documented as of this encounter
--- OUTSIDE RECORDS SUMMARY | 2025-08-23 12:00 | XMS_ITS | Encounter Summary ---
Author Organization Healthcare Address [address] [place] [address] Care Team Providers Care Research Contracts Supervisor Name Role Phone Belle Barksdale APRN Primary Care Provider [phone] Encounter Details Date Type Department Care Team (Late st Contact Info) Description 08/23/2025 1:00 PM EDT Office Visit [place] [facility] [address] [place] [phone] COPD with asthma (CMS/HCC) (Primary Dx) Social [...] Description 10/02/2025 1:00 PM EST Office Visit [facility] Pulmonary Rehab [address] [place] [address] 10/17/2025 4:00 PM EST Appointment Cardiac Imaging [address] [place] [address] 12/05/2025 3:40 PM EST Office Visit [facility] Medicine Specialties [address], [address] [place] [address] Rebekah Son, SALES INCENTIVE ANALYST [address] [facility] [address] [place] [address] documented as of this encounter Visit Diagnoses Diagnosis COPD with asthma (CMS/[facility])- Primary documented in this encounter Additional Health Concerns Assessment Noted Time PHQ-9 Depression Total Score: 0 11/25/19 25 1:48 PM EST A fall risk assessment has been complete d for the patient 05/29/2025 2:51 PM EDT A Body Mass Index follow-up plan has been documented for the patient 08/23/2025 2:12 PM EDT documented as of this encounter Care Teams Research Contracts Supervisor Relationship Specialty Start Date End Date Belle Barksdale, SALES INCENTIVE ANALYST [address] [facility] [address] [place] [address] PCP - General 04/05/21 documented as of this encounter
--- OUTSIDE RECORDS SUMMARY | 2025-08-28 12:00 | XMS_ITS | Encounter Summary ---
Author Organization Healthcare Address [address] [place] [address] Care Team Providers Care Hydrographic Engineer Name Role Phone Belle Barksdale APRN Primary Care Provider Encounter Details Date Type Department Care Team (Late st Contact Info) Description 08/28/2025 1:00 PM EDT Office Visit [place] [facility] [address] [place] [address] Chronic obstructive bronchitis (CMS/HCC) (Primary Dx) Social [...] Description 10/02/2025 1:00 PM EST Office Visit [facility] Pulmonary Rehab [address] [place] [address] 10/17/2025 4:00 PM EST Appointment Cardiac Imaging [address] [place] [address] 12/05/2025 3:40 PM EST Office Visit [place] [facility] [address], [address] [place] [address] Rebekah Son APRN [address] [place] [address] documented as of this encounter [...] documented as of this encounter Care Teams Hydrographic Engineer Relationship Specialty Start Date End Date Belle Barksdale, DIRECTOR PROCESS ENGINEERING [address] [place] [facility] [address] [place] [address] PCP - General 04/05/21 documented as of this encounter
--- OUTSIDE RECORDS SUMMARY | 2025-09-06 09:30 | XMS_ITS | Encounter Summary ---
Author Organization Healthcare Address [address] [place] [address] Care Team Providers Care Stakes Player Name Role Phone Belle Barksdale APRN Primary Care Provider [phone] Encounter Details Date Type Department Care Team (Late st Contact Info) Description 09/06/2025 10:30 AM EDT Office Visit [place] [facility] [address] [place] [address] COPD with asthma (CMS/HCC) (Primary Dx) Social [...] Description 10/02/2025 1:00 PM EST Office Visit [place] [facility] [address] [place] [address] 10/17/2025 4:00 PM EST Appointment Cardiac Imaging [address] [place] [address] 12/05/2025 3:40 PM EST Office Visit [place] [facility] [address], [address] [place] [address] Rebekah Son, ALBERTO [address] [place] [address] documented as of this encounter [...] documented as of this encounter Care Teams Stakes Player Relationship Specialty Start Date End Date Belle Barksdale, GAME AUTHOR [address] [place] [address] PCP - General 04/05/21 documented as of this encounter
--- OUTSIDE RECORDS SUMMARY | 2025-09-11 12:00 | XMS_ITS | Encounter Summary ---
Author Organization Healthcare Address [address] [place] [address] Care Team Providers Care Orthotic Aide Name Role Phone Belle Barksdale APRN Primary Care Provider [phone] Encounter Details Date Type Department Care Team (Late st Contact Info) Description 09/11/2025 1:00 PM EDT Office Visit [place] [facility] [address] [place] [phone] COPD with asthma (CMS/HCC) (Primary Dx) Social [...] Description 10/02/2025 1:00 PM EST Office Visit [facility] [address] [place] [address] 10/17/2025 4:00 PM EST Appointment Cardiac Imaging [address] [place] [address] 12/05/2025 3:40 PM EST Office Visit [place] [facility] [address] [place] [address] Rebekah Son APRN [address] [place] [address] documented as of this encounter [...] documented as of this encounter Care Teams Orthotic Aide Relationship Specialty Start Date End Date Belle Barksdale, ALBERTO [address] [facility] [address] [place] [address] PCP - General 04/05/21 documented as of this encounter
--- OUTSIDE RECORDS SUMMARY | 2025-09-13 09:40 | XMS_ITS | Encounter Summary ---
Author Organization [facility] Address [address] [place] [address] Care Team Providers Care Gauge Inspector Name Role Phone Belle Barksdale ALBERTO Primary Care Provider [phone] Reason for Referral * Consultation (Routine) - Authorized Specialty Diagnoses / Procedures Referred By Contac t Referred To Contact Diagnoses Other fatigue Dyspnea on exertion COPD exacerbation (CMS/HCC) COPD with asthma (CMS/HCC) Asthma-COPD overlap syndrome (CMS/HCC) Allergic rhinitis, unspecified seasonality, unspecified trigger Hiatal hernia Amanuel Barlow APRN [address] [address] Phone: tel: fax: Referral ID Status Reason Start Date Expiration Date V isits Requested Visits Authorized [id number] Authorized 09/19/2025 03/21/2027 1 1 * Imaging (Routine) - Pending Review Specialty Diagnoses / Procedures Referred By Contac t Referred To Contact Cardiology Diagnoses Dyspnea on exertion Procedures Echo, Adult Transthoracic Complete Amanuel Barlow APRN [address] [address] Phone: tel: fax: Referral ID Status Reason Start Date Expiration Date Visits Requested Visits Authorized [id number] Pending Review Perform Procedure 03/15/2027 1 1 Reason for Visit * Reason Comments Asthma COPD Follow-up * Consultation (Routine) - Closed Specialty Diagnoses / Procedures Referred By Niya delarosa Referred To Contact Diagnoses Asthma-COPD overlap syndrome (CMS/HCC) Dyspnea on exertion Amanuel Barlow APRN [address] [facility] [address] [place] [address] Phone: tel: fax: Referral ID Status Reason Start Date Expiration Date Visits Re quested Visits Authorized [id number] Closed 05/29/2025 11/28/2026 1 1 Encounter Details Date Type Department Care Team (Late st Contact Info) Description 09/13/2025 10:40 AM EDT [facility] Visit [facility] [address] [place] [address] Amanuel Barlow APRN [address] [facility] [address] [place] [address] Other fatigue (Primary Dx); Dyspnea [...] Not at all 09/13/2025 10:07 AM EDT dAria Wellington y Manas Trouble concentrating on things, such as reading [...] preservative free 08/26/2022 Influenza, seasonal, injectable 09/13/2019 [facility] COVID-19 Vaccine (Purple Cap) + 07/15/2021 Pneumococcal 20-richard Conj Vaccine 05/20/2022 Tdap 11/09/2023 VACCINE / DOSE DATE DATE DATE Flu 09/13/2019 08/26/2022 11/09/2023 Tetanus 11/09/2023 Pneumovax Shingles Allergies: Tree extract Medications: Current Outpatient Medications Medication Sig Dispense Refill albuterol (Ventolin HFA) 108 (90 Base) MCG/ACT inhaler Inhale 2 puffs every 4 hours as needed for wheezing. 18 g 5 Jrwgojqcghs-Hwtrxrmfj-Jdgrev (Trelegy Ellipta) 200-62.5-25 MCG/ACT aerosol powder Inhale [...] Expiration Date: 03/17/2027 Release to patient in [facility]: Immediate [1] Comprehensive metabolic panel Standing Status: Future Expected Date: 09/13/2025 Expiration Date: 03/17/2027 [facility] [1] IgE Standing Status: Future Expected Date: 09/13/2025 Expiration Date: 03/17/2027 [facility] [1] N-Terminal Probnp, Plasma Standing Status: Future Expected Date: 09/13/2025 Expiration Date: 03/14/2027 [facility] [1] TSH Standing Status: Future Expected Date: 09/13/2025 Expiration Date: 03/17/2027 Release to patient in [facility]: Immediate [1] T4, free Standing Status: Future Expected Date: 09/13/2025 Expiration Date: 03/17/2027 Release to patient in [facility]: Immediate [1] Echo, Adult Transthoracic Complete Standing Status: Future Expected Date: 09/13/2025 Expiration Date: 09/13/2027 Release to patient in [facility]: Immediate DISCUSSION/SUMMARY Mago Maxwell is [...] trelegy -continue pulmonary rehab -had EKG at [facility] in the last 6 months --last eos [...] andprocedures, referring and communicating with consulting health coronary care unit nurse and care coordination. Amanuel Barlow APRN Medicine Specialties Clinic Pulmonary Division [facility] Phone number: [phone] Fax number: [phone] documented in this encounter Plan of Treatment Upcoming Encounters Date Type Department Care Team (Late st Contact Info) Description 10/02/2025 1:00 PM EST Office Visit [facility] Pulmonary Rehab [address] [place] [address] 10/17/2025 4:00 PM EST Appointment Cardiac Imaging [address] [place] [address] 12/05/2025 3:40 PM EST Office Visit [facility] Medicine Specialties [address] [place] [address] Amanuel Barlow APRN [address] [place] [address] Scheduled Orders Name Type Priority Associated Diagnoses [...] - 1.7 ng/dL 09/13/2025 2:41 PM EDT [facility] Blood Venous blood specimen / Unknown Venipuncture / Unknown 09/13/2025 11:47 AM EDT 09/13/2025 11:47 AM EDT us Amanuel Barlow [employer] LAB BLOOD ORDERABLES Florecita l Result Performing Organization Address City/[facility]/ZIP Co de Phone Number [facility] [address] [place] [address] * (ABNORMAL) TSH (09/13/2025 11:47 AM EDT) Thyroid Stimulating Hormone, Plasma 6.62(H) 0.40 - 4.20 uIU/mL 09/13/2025 2:41 PM EDT [facility] Blood Venous blood specimen / Unknown Venipuncture / Unknown 09/13/2025 11:47 AM EDT 09/13/2025 11:47 AM EDT us HendersonAmanuel Lizbeth Barlow [employer] LAB BLOOD ORDERABLES Florecita l Result Performing Organization Address [facility]/[place] [address] * N-Terminal Probnp, Plasma (09/13/2025 11:47 AM EDT) N-Terminal, PROBNP, Plasma <50 0 - 899 pg/mL 09/13/2025 2:41 PM EDT [facility] Blood Venous blood specimen / Unknown Venipuncture / Unknown 09/13/2025 11:47 AM EDT 09/13/2025 11:47 AM EDT us HendersonAmanuel Lizbeth Barlow [employer] LAB BLOOD ORDERABLES Florecita l Result Performing Organization Address City/[facility]/ZIP Co de Phone Number [facility] [address] [place] [address] * IgE (09/13/2025 11:47 AM EDT) Immunoglobulin E 84 <=214 kU/L 09/15/20 8:41 AM EDT [facility]) Blood Venous blood specimen / Unknown Venipuncture / Unknown 09/13/2025 11:47 AM EDT 09/13/2025 11:47 AM EDT Narrative JUNE LILI DEE) - 09/15/2025 8:41 AM EDT REFERENCE INTERVAL: Immunoglobulin E, Serum Access complete set of age- and/or gender-specific reference intervals for this test in the [facility] Test Directory ([facility]utor). Performed By: [facility] [address] [place] [address] Platform Attendant: Stanley Jarvis MD, PhD CLIA Number: [id number] us Amanuel Barlow [employer] LAB BLOOD ORDERABLES Florecita manas Result [facility]) [address] [place] [address] * (ABNORMAL) Comprehensive metabolic panel (09/13/2025 11:47 AM EDT) Glucose, Plasma 95 74 - 99 mg/dL 09/13/2025 2:41 PM EDT [facility] BUN, Plasma 19 8 - 23 mg/dL 09/13/2025 2:41 PM EDT [facility] Creatinine, Plasma 1.16(H) 0.60 - 1.10 mg/dL 09/13/2025 2:41 PM EDT [facility] BUN/Creatinine Ratio 16 09/13/2025 2:41 PM EDT [facility] Sodium, Plasma 142 136 - 145 mmol/L 09/13/2025 2:41 PM EDT [facility] Potassium, Plasma 4.7 3.6 - 4.9 mmol/L 09/13/2025 2:41 PM EDT [facility] Chloride, Plasma 105 97 - 107 mmol/L 09/13/2025 2:41 PM EDT [facility] CO2, Plasma 25 22 - 29 mmol/L 09/13/2025 2:41 PM EDT [facility] Anion Gap 12 6 - 16 mmol/L 09/13/2025 2:41 PM EDT [facility] Total Calcium, Plasma 9.5 8.9 - 10.2 mg/dL 09/13/2025 2:41 PM EDT [facility] Total Protein 7.6 6.3 - 7.9 g/dL 09/13/2025 2:41 PM EDT [facility] Albumin, Plasma 4.2 3.5 - 5.2 g/dL 09/13/2025 2:41 PM EDT [facility] AST, Plasma 20 10 - 35 U/L 09/13/2025 2:41 PM EDT [facility] ALT, Plasma 22 10 - 35 U/L 09/13/2025 2:41 PM EDT [facility] Alkaline Phosphatase, Plasma 73 46 - 142 U/L 09/13/2025 2:41 PM EDT [facility] Total Bilirubin, Plasma 0.3 0.2 - 1.1 mg/dL 09/13/2025 2:41 PM EDT [facility] eGFRcr 52.8 mL/min/1.7 3m*2 09/13/2025 2:41 PM EDT [facility] Comment:Reported eGFRcr in m L/min/1.73m2 is based the CKD-EPI 2020 equation that does not use a race coefficient. Blood Venous blood specimen / Unknown Venipuncture / Unknown 09/13/2025 11:47 AM EDT 09/13/2025 11:47 AM EDT us Amanuel Barlow APRN LAB BLOOD ORDERABLES Florecita l Result [facility] [address] [place] [address] * (ABNORMAL) CBC and differential (09/13/2025 11:47 AM EDT) WBC Count 6.38 3.70 - 10.30 10*3/uL LAB HEMATOLOGY METHOD 09/13/2025 1:59 PM EDT [facility] RBC Count 5.00 3.90 - 5.20 10*6/uL LAB HEMATOLOGY METHOD 09/13/2025 1:59 PM EDT [facility] HGB 11.4 11.2 - 15.7 g/dL LAB HEMATOLOGY METHOD 09/13/2025 1:59 PM EDT [facility] HCT 38.1 34.0 - 45.0 % LAB HEMATOLOGY METHOD 09/13/2025 1:59 PM EDT [facility] Platelet Count 380(H) 155 - 369 10*3/uL LAB HEMATOLOGY METHOD 09/13/2025 1:59 PM EDT [facility] MCV 76(L) 79 - 98 fL LAB HEMATOLOGY METHOD 09/13/2025 1:59 PM EDT [facility] MCH 22.8(L) 26.0 - 32.0 pg LAB HEMATOLOGY METHOD 09/13/2025 1:59 PM EDT [facility] MCHC 29.9(L) 30.7 - 35.5 g/dL LAB HEMATOLOGY METHOD 09/13/2025 1:59 PM EDT [facility] RDW 16.9(H) 11.5 - 14.5 % LAB HEMATOLOGY METHOD 09/13/2025 1:59 PM EDT [facility] MPV 9.0 8.8 - 12.5 fL LAB HEMATOLOGY METHOD 09/13/2025 1:59 PM EDT [facility] nRBC 0.0 <=0.0 per 100 WBCs LAB HEMATOLOGY METHOD 09/13/2025 1:59 PM EDT [facility] Differential Type Automated LAB HEMATOLOGY METHOD 09/13/2025 1:59 PM EDT [facility] Neutrophils % 63 % LAB HEMATOLOGY METHOD 09/13/2025 1:59 PM EDT [facility] Lymphocytes % 27 % LAB HEMATOLOGY METHOD 09/13/2025 1:59 PM EDT [facility] Monocytes % 6 % LAB HEMATOLOGY METHOD 09/13/2025 1:59 PM EDT [facility] Eosinophils % 2 % LAB HEMATOLOGY METHOD 09/13/2025 1:59 PM EDT [facility] Basophils % 1 % LAB HEMATOLOGY METHOD 09/13/2025 1:59 PM EDT [facility] Immature Granulocytes % 1 % LAB HEMATOLOGY METHOD 09/13/2025 1:59 PM EDT [facility] Neutrophils Absolute 4.07 1.60 - 6.10 10*3/uL LAB HEMATOLOGY METHOD 09/13/2025 1:59 PM EDT [facility] Lymphocytes Absolute 1.70 1.20 - 3.90 10*3/uL LAB HEMATOLOGY METHOD 09/13/2025 1:59 PM EDT [facility] Monocytes Absolute 0.41 0.30 - 0.90 10*3/uL LAB HEMATOLOGY METHOD 09/13/2025 1:59 PM EDT [facility] Eosinophils Absolute 0.11 0.00 - 0.50 10*3/uL LAB HEMATOLOGY METHOD 09/13/2025 1:59 PM EDT [facility] Basophils Absolute 0.06 0.00 - 0.10 10*3/uL LAB HEMATOLOGY METHOD 09/13/2025 1:59 PM EDT [facility] Immature Granulocytes Absolute 0.03 0.00 - 0.06 10*3/uL LAB HEMATOLOGY METHOD 09/13/2025 1:59 PM EDT [facility] Blood Venous blood specimen / Unknown Venipuncture / Unknown 09/13/2025 11:47 AM EDT 09/13/2025 11:47 AM EDT Narrative [facility] - 09/13/2025 1:59 PM EDT Therapeutic decision making should be based on absolute values, rather than percentages. us Amanuel Barlow APRN LAB BLOOD ORDERABLES Florecita l Result [facility] [address] [place] [address] documented in this encounter Visit Diagnoses Diagnosis [...] documented as of this encounter Care Teams Gauge Inspector Relationship Specialty Start Date End Date Belle Barksdale APRN [address] [place] [address] PCP - General 04/05/21 documented as of this encounter
--- OUTSIDE RECORDS SUMMARY | 2025-09-18 12:00 | XMS_ITS | Encounter Summary ---
Author Organization Healthcare Address [address] [place] [address] Care Team Providers Care Print And Pattern Designer Name Role Phone Belle Barksdale APRN Primary Care Provider [phone] Encounter Details Date Type Department Care Team (Late st Contact Info) Description 09/18/2025 1:00 PM EDT Office Visit [place] [facility] Pul[facility] Rehab [address] [place] [address] COPD with asthma (CMS/HCC) (Primary Dx) Social [...] Description 10/02/2025 1:00 PM EST Office Visit [facility] Pulmonary Rehab [address] [place] [address] 10/17/2025 4:00 PM EST Appointment Cardiac Imaging [address] [place] [address] 12/05/2025 3:40 PM EST Office Visit [facility] Medicine Specialties [address] [place] [address] eRbekah Son, ALBERTO [address] [place] [address] documented as of this encounter Visit Diagnoses [...] documented as of this encounter Care Teams Print And Pattern Designer Relationship Specialty Start Date End Date Belle Barksdale, ALBERTO [address] [facility] [address] [place] [address] PCP - General 04/05/21 documented as of this encounter
--- NOTE | 2025-09-29 | CA_ITS ---
FINAL REPORT TECHNIQUE: Left lower extremity venous duplex was performed with augmentation and compression. CLINICAL HISTORY: Left ankle pain with swelling FINDINGS: Proper flow is seen throughout the deep venous system. There is no evidence of deep venous thrombosis. IMPRESSION: no deep venous thrombosis of the left lower extremity. Reviewed, Interpreted and Dictated by [email or web address] Delvalle MD Transcribed by Angelique Maicas Authenticated and [facility]
--- OUTSIDE RECORDS SUMMARY | 2025-09-29 12:30 | XMS_ITS | Data Portability ---
Author Organization [facility] Address [address] [place] [address] Assessment No assessment recorded. Plan of Treatment Reminders Order Date Submit Date Provider Last Modified By Organization Details Last Modified Time Details Appointments None recorded. Lab urinalysis, dipstick 2022 023 [email or web address] [place] [employer], [address] [place] [address] , [place], [address], 3 16:08:09 culture, urine 2022 023 [place] [facility], [address], [address], [place], [address], 3 03:08:14 thyroperoxi dase Ab, serum 2022 023 ANISHA [facility], [address], [address] [address], [place], [address], 3 20:08:23 HbA1c (hemoglobin A1c), blood 2022 023 [place] [facility], [address], [address], [place], [address], 3 20:08:22 Referral None recorded. Procedures None recorded. Surgeries None recorded. Imaging MAMMO, screening, bilateral 2023 025 [facility] Scheduling Department -New Scheduling Process, [address], [place], [address], 5 14:59:53 MAMMO, screening, bilateral 2022 023 [facility] (X-Ray), [address], [place], [address], 4 16:52:00 DEXA 2022 023 [facility] (X-Ray), [address], [place], [address], 3 13:10:03 Medication Orders estradiol 0.025 mg/24 hr semiweekly transdermal patch 2022 023 [facility], [address], [place], [place], [id number], 3 13:59:17 estradiol 0.025 mg/24 hr semiweekly transdermal patch 2022 023 [employer] [facility], [address], [place], [address], 3 16:42:07 Patient TargetsNo targets recorded. Patient Instructions Encounter Date Encounter Id Patient Instructions Last Modified By Organization Details Last Modified Time 05/22/2023 [id number] mammogram: about this test [email or web address] Not available 05/22/2023 15:15:34 medical record request* [email or web address] Not available 11/06/2023 14:50:51 07/16/2023 [id number] medical record request* [email or web address] Not available 08/21/2023 [...] with diabe irma: <7.0 Not Available [facility] ([facility]) [address] [place], [address], 05/25/2023 20:08:22 05/22/2005/23/2023 THYRO ID ANTIB ODIES thyroid peroxidase (tpo) Ab <9 IU/mL 0-34 Not Available [facility] ([facility]) [address] [place], [address], 05/25/2023 20:08:23 05/22/20 23 05/25/2023 THYRO ID ANTIB ODIES thyroglobuli n antibody <1.0 IU/mL 0.0-0. 9 Thyro globu nadeen Antib kristopher measu red by Beckmarco an Coult er Metho dolog y Not Available [facility] ([facility]) [address] [place], [address], 05/25/2023 20:08:23 07/16/20 23 07/18/2023 URINE CULTU RE, ROUTI NE urine culture, routine Final report Not Available [facility] ([facility]) [address] [place], [address], 07/18/2023 03:08:14 07/16/2007/18/2023 URINE CULTU RE, ROUTI NE result 1 COMMEN T Cultu re shows less than 10,00 0 colon y formi ng units of bacte mindy per kolton liter of urine . This colon y count is not gener ally consi dered to be clini ronnie signi fican t. Not Available [facility] ([facility]) [address] [facility], [place], [address], 07/18/2023 03:08:14 07/16/20 23 07/16/2023 urina lysis , dipst ick Leukocytes Negati ve Not Available [place] [employer] [address] [place] [address] , [place], [address], 07/16/2023 13:59:32 07/16/20 23 07/16/2023 urina lysis , dipst ick Nitrite negati ve Not Available [facility]/[address] , [place], [address], 07/16/2023 13:59:32 07/16/20 23 07/16/2023 urina lysis , dipst ick Protein Negati ve Not Available [facility]/[address] , [place], [address], 07/16/2023 13:59:32 07/16/20 23 07/16/2023 urina lysis , dipst ick pH 7.0 Not Available [address] , [place], [address], 07/16/2023 13:59:32 07/16/20 23 07/16/2023 urina lysis , dipst ick Blood Small Not Available [facility]/[address] , [place], [address], 07/16/2023 13:59:32 07/16/20 23 07/16/2023 urina lysis , dipst ick Ketone Negati ve Not Available [address] , [place], [address], 07/16/2023 13:59:32 07/16/20 23 07/16/2023 urina lysis , dipst ick Bilirubin Negati ve Not Available [facility]yn [address] [place] [address] , [place], [address], 07/16/2023 13:59:32 07/16/20 23 07/16/2023 urina lysis , dipst ick Glucose Negati ve Not Available [place] [employer] [address] [place] [address] , [place], [address], 07/16/2023 13:59:32 07/16/20 23 07/16/2023 urina lysis , dipst ick Appearance Clear Not Available [facility] [employer] Operator [address] [place] [address] , [place], [address], 07/16/2023 13:59:32 07/16/20 23 07/16/2023 urina lysis , dipst ick Color Yellow Not Available [place] [employer] [address] [place] [address] , [place], [address], 07/16/2023 13:59:32 07/21/20 23 05/13/2023 medic al recor d reque st* No observ ation record ed. [email or web address] [facility] (Med Record) [address], [place], [address], 11/06/2023 14:50:51 10/28/20 23 10/28/2023 DEXA No observ ation record ed. [email or web address] [facility] [address], [place], [address], 01/07/2024 16:59:26 09/06/20 24 05/27/2024 MAMMO , scree moustapha, bilat eral No observ ation record ed. [email or web address] [facility] (Med Record) [address], [place], [address], 09/07/2024 14:45:18 06/01/20 25 05/30/2025 MAMMO , scree moustapha, bilat eral No observ ation record ed. [email or web address] [facility] [address], [place], [place], [address], 06/05/2025 09:28:47 Result Notes None recorded. Problems Name Problem SNOMED Code Status Onset Date Resolution Date Notes Provider Name and Address Organization Details Recorded Time Chronic obstructive pulmonary disease 39482912 Active 2022 Alma Brandt null, [place] - [facility] 3 14:10:28 History of deep vein thrombosis 600372163 Active 2022 Alma Brandt null, [place] - [facility] 3 14:11:04 Hypercholester olemia 49385442 Active 2022 Alma Brandt null, [place] - [facility] 3 14:16:31 Seasonal allergy 382580117 Active 2022 Alma Brandt null, [place] - [facility] 3 14:17:07 Fibrocystic disease of breast 44077058 Active 2022 Alma Brandt null, [place] - [facility] 3 14:30:34 Hiatal hernia 79172374 Active 2022 Vinita Cruz DO [address], [place], [address], [place] - [facility] 3 15:03:21 Acquired absence of cervix and uterus 835585932 Active 2022 Vinita Cruz DO [address], [place], [address], [place] - [facility] 3 13:07:40 Osteopenia 964221160 Active 2022 Vinita Cruz DO [address], [place], [address], [place] - [facility] 4 17:42:17 Problem Notes None recorded. Procedures Surgical History Date Name Laterality Status Provider Name and Address Organization Details Recorded Time 025 Date of Last Mammogram completed Eileen Everett [place] - [facility] 06/02/2025 10:31:29 023 Most Recent Bone Density completed Eileen Su [facility] 01/07/2024 16:59:15 023 Most Recent Mammogram completed Carmela Zacarias [facility] 07/23/2023 14:00:50 023 Colposcopy completed Zelda Mcdonough [facility] 11/07/2024 13:56:07 016 dental surgery completed Zelda Mcdonough [facility] 11/07/2024 13:56:26 009 Adnexal surgery completed Zelda Mcdonough [facility] 11/07/2024 13:56:26 008 Hysterectomy completed Zelda Mcdonough [facility] 11/07/2024 13:56:26 989 Dilation and Curettage, sharp completed Zelda Mcdonough [facility] 11/07/2024 13:56:26 ureterorenoscopy with fragmentation and removal of calculus of kidney completed Alma Brandt [facility] 05/22/2023 14:20:02 Hysterectomy, Total laparoscopic completed Alma Brandt [facility] 05/22/2023 14:21:25 foot repair completed Alma Brandt [facility] 05/22/2023 14:22:42 Imaging Results None recorded. Procedure Notes None recorded. Medical Equipment None Reported. Allergies Allergen ID Allergen Name Allergen Category Reaction Reaction Severity Criticality Documentation Date Start Date Code Code System Note Provider Name and Address Organization Details Recorded Time [id number] tree and shrub pollen environme nt,medica tion Not available Not available Not available 07/16/2023 Ravindra santana [facility] 13:04:41 Medications Name Sig Start Date [...] Updated DateTime 05/22/2023 170.18 cm 30.7 kg/m2 72492.82 g 0 122/78 mm[Hg] Alma Brandt [place] - [facility] 3 14:30:23 Date Recorded Body height Body mass index (BMI) Body weight Pain severity - 0-10 verbal numeric rating [Score] - Reported Systolic And Diastolic Provider Name and Address Organization Details Last Updated DateTime 07/16/2023 170.18 cm 30.7 kg/m2 22569.1 g 0 128/60 mm[Hg] Ravindra Hussainjose roberto [place] - [facility] 3 13:03:58 Date Recorded Body weight Body mass index (BMI) Body height Pain severity - 0-10 verbal numeric rating [Score] - Reported Systolic And Diastolic Provider Name and Address Organization Details Last Updated DateTime 11/07/2024 87940.92 g 31.3 kg/m2 167.64 cm 0 130/86 [...] Is Your Level Of Caffeine Consumption? Occasional [email or web address] Information not available 05/22/2023 How Much Tobacco [...] Or The Highest Degree You Have Received? [id number] Information not available 11/07/2024 When Did You Quit Smoking? 16+yearssince lastcigarcarin [email or web address] Information not available 05/22/2023 Have You Recently [...] available 11/07/2024 What Is Your Relationship Status? [email or web address] Information not available 05/22/2023 Do You Use Your Seat Belt Or Car Seat Routinely? Yes Information not available 11/07/2024 Are You Sexually Active? No Information not available 11/07/2024 Do You Have Smoke And Carbon Monoxide Detectors In Your Home? Yes Information not available 11/07/2024 At What Age Did You Start Smoking Tobacco? 16 Stopped In 1984 [email or web address] Information not available 05/22/2023 Are You Passively Exposed To Smoke? No Information no t available 11/07/2024 Do You Use Sunscreen Routinely? Yes Information not available 11/07/2024 Has Tobacco Cessation Counseling Been Provided? No [email or web address] Information not available 05/22/2023 Sex: Female Functional Status Question Answer Note LastModified by Organizat ion Details LastModified Time Do you use any illicit or recreational drugs? No [email or web address] Information not available 05/22/2023 Do you or have you ever used any other forms of tobacco or nicotine? No [email or web address] Information not available 05/22/2023 What is your level of alcohol consumption? Occasional [email or web address] Information not available 05/22/2023 Do you or have you ever used smokeless tobacco? Never used smokeless tobacco Information not available 11/07/2024 Are you currently employed? No Information not available 11/07/2024 Are you able to care for yourself independently? Yes Information not available 05/22/2023 Do you or have you ever used e-cigarettes or vape? Never used electronic cigarettes Information not available 11/07/2024 What is your exercise level? Occasional Information not available 11/07/2024 Mental Status Question Answer Note LastModified by Organization D etails LastModified Time Do you feel stressed (tense, restless, nervous, or anxious, or unable to sleep at night)? [id number] Information not available 11/07/2024 Family History Relationship [...] recombinant, quadrivalent, PF 2 completed Alma [place]ant[place], [place] - [facility] 05/22/2023 14:14:34 COVID-19, mRNA, LNP-S, PF, 30 mcg/0.3 mL dose 1 completed Al[place], [place] [facility] 05/22/2023 14:14:34 Pneumococcal conjugate PCV20, polysaccharide RTV285 conjugate, adjuvant, PF 2 completed Alma [place], [place] - [facility] 05/22/2023 14:14:34 Influenza, split virus, trivalent, preservative 9 completed [place] - [facility] 05/22/2023 14:14:34 Past Encounters Encounter ID Performer Location Encounter Start Date Encounter Closed Date Diagnosis/Indication Diagnosis SNOMED-CT Code Diagnosis ICD10 Code Diagnosis IMO Codes Diagnosis Note [id number] DO Luna [place] [employer] [address] [place] [address] [place] [phone] 05/22/2023 13:56:48 05/22/2023 15:36:33 Menopausal syndrome 241965034 N95.9 Screening mammography 24 430495 Z12.31 [id number] DO Luna [place] [employer] [address] [place] [address] [place] [phone] 07/16/2023 12:49:14 07/16/2023 13:57:39 Routine gynecologic examination done 9674043289 9101 Z01.419 Depression screening 171 995429 Z13.31 Diet education 33423386 Z71.3 Counseling 474445201 Z71 .82 Exercise counselnadeen g. Patient encouraged to exercise 30 minutes 5 days a week. Examinatio n of blood pressure 193235801 Z01.30 Vaccine de clined by patient 5578513348 02 Z28.21 Screening mammography 24 609971 Z12.31 Chronic ob structive pulmonary disease 11767595 J44.9 Postmenopausal state 764 60372 Z78.0 History of emt intermediate steroid use due to COPD Menopausal syndrome 1237 56751 N95.9 Screening for malignant neoplasm of colon 008860616 Z12.11 Cystocele 651264437 N81. 10 Acquired a bsence of cervix and uterus 052644652 Z90.710 Body mass index 30+ - obesity 388240380 Z68.30 Obesity 216396279 E66.9 [id number] DO Eliseo [place] [employer] [address] [place] [address] [place] [id number] 11/07/2024 13:47:11 11/07/2024 14:42:37 Routine gynecologic examination done 1391497602 9101 Z01.419 Depression screening 171 508027 Z13.31 Diet education 90753295 Z71.3 Counseling 943901704 Z71 .82 Exercise counselnadeen mays Patient encouraged to exercise 30 minutes 5 days a week. Examinatio n of blood pressure 385672906 Z01.30 Vaccine de clined by patient 6123121487 02 Z28.21 Screening mammography 24 484482 Z12.31 Health Concerns Section Related Observation LastModified by Organization Detai ls LastModified Time None Recorded Concern Status LastModified by Organization Details LastModified Time None Recorded Advance Directives Directive N: Payers Insurance Date Sequence Insurance Name Policy Number Policy Harper Covered Member ID Harper Member ID Guarantor Name 11/04/2024 [place] [id number] [employer] (MEDICAID) Mago Hans [id number] Mago Maxwell 11/17/2024 1 [facility] (MEDICAID [facility] [place] Mago Maxwell [id number] Mago Maxwell Notes Date Note Type Note [...] mine. Vinita Cruz, DO [address], [place], [address], [place] - [facility] 05/22/2023 16:43:29 07/16/2023 text/html [...] . Vinita Cruz DO [address], [place], [address], [facility] - [facility] 07/22/2023 13:08:39 11/07/2024 text/html [...] discontinued. Vinita Cruz DO [address], [place], [address], [facility] - [facility] 11/07/2024 16:22:04 OBGyn Episode No OBEpisode recorded.
--- OUTSIDE RECORDS SUMMARY | 2025-09-29 12:30 | XMS_ITS | Encounter Summary ---
Author Organization [facility] Address [address] [place] [address] Care Team Providers Care Tying Machine Operator Name Role Phone Belle Barksdale APRN Primary Care Provider [phone] Reason for Visit * Reason Comments Med Refill Encounter Details Date Type Department Care Team (Late Contact Info) Description 08/22/2023 Refill [facility] Medicine Specialties [address] [place] [address] Onel Hopper MD [address] [place] [address] Asthma, unspecified asthma severity, unspecified [...] Department Care Team (Late Contact Info) Description 10/02/2025 1:00 PM EST Office Visit [facility] Pulmonary Rehab [address] [place] [address] 10/17/2025 4:00 PM EST Appointment Cardiac Imaging [address] [place] [address] 12/05/2025 3:40 PM EST Office Visit [place] [facility] [address] [place] [address] Rebekah Son APRN [address] [place] [address] documented as of this encounter [...] documented as of this encounter Care Teams Tying Machine Operator Relationship Specialty Start Date End Date Belle Barksdale APRN [address] [facility] [address] [place] [address] PCP - General 04/05/21 documented as of this encounter
--- OUTSIDE RECORDS SUMMARY | 2025-09-29 12:31 | XMS_ITS | Encounter Summary ---
Author Organization Healthcare Address [address] [place] [address] Care Team Providers Care Fire Investigation Manager Name Role Phone Belle Barksdale APRN [...] Description 10/02/2025 1:00 PM EST Office Visit [facility] Pulmonary Rehab [address] [place] [address] 10/17/2025 4:00 PM EST Appointment Cardiac Imaging [address] [place] [address] 12/05/2025 3:40 PM EST Office Visit [facility] Medicine Specialties [address] [place] [address] Rebekah Son, RELIEF PILOT [address] [place] [address] documented as of this encounter Visit Diagnoses [...] documented as of this encounter Care Teams Fire Investigation Manager Relationship Specialty Start Date End Date Belle Barksdale, ALBERTO [address] [facility] [address] [place] [address] PCP - General 04/05/21 documented as of this encounter
--- OUTSIDE RECORDS SUMMARY | 2025-09-29 12:31 | XMS_ITS | Encounter Summary ---
Author Organization Healthcare Address [address] [place] [address] Care Team Providers Care Pattern Technician Name Role Phone Belle Barksdale APRN Primary Care Provider [phone] Encounter Details Date Type Department Care Team [...] Care Team ( st Contact Info) Description 10/02/2025 1:00 PM EST [facility] Pul[facility] [address] [place] [address] 10/17/2025 4:00 PM EST Appointment Cardiac Imaging [address] [place] [address] 12/05/2025 3:40 PM EST [facility] Medicine [facility]ties [address] [place] [address] Rebekah Son, DIGITAL MEDIA SPECIALIST [address] [place] [address] documented as of this encounter [...] documented as of this encounter Care Teams Pattern Technician Relationship Specialty Start Date End Date Belle Barksdale, DIGITAL MEDIA SPECIALIST [address] [place] [address] PCP - General 04/05/21 documented as of this encounter
--- OUTSIDE RECORDS SUMMARY | 2025-09-29 12:31 | XMS_ITS | Encounter Summary ---
Author Organization Healthcare Address [address] [place] [address] Care Team Providers Care Rv Detailer Name Role Phone Belle Barksdale APRN Primary Care Provider [phone] Encounter Details Date Type Department Care Team [...] Description 10/02/2025 1:00 PM EST Office Visit [facility] Pulmonary Rehab [address] [place] [address] 10/17/2025 4:00 PM EST Appointment Cardiac Imaging [address] [place] [address] 12/05/2025 3:40 PM EST Office Visit [facility] Medicine Specialties [address] [place] [address] Rebekah Son, AUTOMOTIVE REFINISH TECHNICIAN [address] [place] [address] documented as of this encounter Visit Diagnoses [...] documented as of this encounter Care Teams Rv Detailer Relationship Specialty Start Date End Date Belle Barksdale, ALBERTO [address] [place] [facility] [address] [place] [address] PCP - General 04/05/21 documented as of this encounter
--- OUTSIDE RECORDS SUMMARY | 2025-09-29 12:31 | XMS_ITS | Clinical Summary ---
Author Organization [facility] [place] [facility] Address [address] [place] [address] Care Team Providers Care Precision Printing Worker Name Role Phone Belle Barksdale APRN Primary Care Provider [phone] Allergies Active Allergy Reactions Criticality Noted Date [...] Description 09/18/2025 1:00 PM EDT Office Visit [facility] [address] [place] [address] COPD with asthma (CMS/HCC) (Primary Dx) 09/18/2025 Travel 09/14/2025 Results Follow-Up [facility] [address] [place] [address] Rebekah Son APRN 09/13/2025 10:40 AM EDT Office Visit [facility] [address] [place] [address] Rebekah Son APRN Other fatigue (Primary Dx); Dyspnea on exertion; COPD exacerbation (CMS/HCC); COPD with asthma (CMS/HCC); Asthma-COPD overlap syndrome (CMS/HCC); Allergic rhinitis, unspecified seasonality, unspecified trigger; Hiatal hernia 09/13/2025 Travel 09/11/2025 1:00 PM EDT Office Visit [facility] [address] [place] [address] COPD with asthma (CMS/HCC) (Primary Dx) 09/11/2025 Travel 09/06/2025 10:30 AM EDT Office Visit [facility] [address] [place] [address] COPD with asthma (CMS/HCC) (Primary Dx) 09/06/2025 Travel 08/28/2025 1:00 PM EDT Office Visit [facility] [address] [place] [address] Chronic obstructive bronchitis (CMS/HCC) (Primary Dx) 08/28/2025 Travel 08/23/2025 1:00 PM EDT Office Visit [facility] [address] [place] [address] COPD with asthma (CMS/HCC) (Primary Dx) 08/23/2025 Travel 08/21/2025 1:00 PM EDT Office Visit [facility] [address] [place] [address] COPD with asthma (CMS/HCC) (Primary Dx) 08/21/2025 Travel 08/16/2025 1:00 PM EDT Office Visit [facility] [address] [place] [address] COPD with asthma (CMS/HCC) (Primary Dx) 08/16/2025 Travel 08/14/2025 1:00 PM EDT [facility] Visit [facility] [address] [place] [address] Chronic obstructive bronchitis (CMS/HCC) (Primary Dx) 08/14/2025 Travel 08/09/2025 1:00 PM EDT Office Visit [facility] [address] [place] [address] COPD with asthma (CMS/HCC) (Primary Dx) 08/09/2025 Travel 08/07/2025 1:00 PM EDT Office Visit [facility] [address] [place] [address] COPD with asthma (CMS/HCC) (Primary Dx) 08/07/2025 Travel 07/31/2025 1:00 PM EDT Office Visit [facility] [address] [place] [address] COPD with asthma (CMS/HCC) (Primary Dx) 07/31/2025 Travel 07/28/2025 Refill [facility] [address] [place] [address] Rebekah Son APRN 07/26/2025 1:00 PM EDT Office Visit [facility] [address] [place] [address] Chronic obstructive pulmonary disease, unspecified COPD type (CMS/HCC) (Primary Dx) 07/26/2025 Travel 07/19/2025 1:00 PM EDT Office Visit [facility] [address] [place] [address] COPD with asthma (CMS/HCC) (Primary Dx) 07/19/2025 Travel 07/17/2025 1:00 PM EDT Office Visit [facility] [address] [place] [address] COPD with asthma (CMS/HCC) (Primary Dx) 07/17/2025 Travel 07/12/2025 1:00 PM EDT Office Visit [facility] [address] [place] [address] COPD with asthma (CMS/HCC) (Primary Dx) 07/12/2025 Travel 07/11/2025 Refill [facility] [address] [place] [address] Rebekah Son, BOOK COVERER Chronic obstructive pulmonary disease, unspecified COPD type (CMS/HCC) 07/11/2025 Refill [facility] [address], [address] [place] [address] Halina Peterson filling winder obstructive pulmonary disease, unspecified COPD type (CMS/HCC) 07/10/2025 1:00 PM EDT Office Visit [facility] [address] [place] [address] COPD with asthma (CMS/HCC) (Primary Dx) 07/10/2025 Travel 07/05/2025 1:00 PM EDT Office Visit [facility] [address] [place] [address] Chronic obstructive pulmonary disease, unspecified COPD type (CMS/HCC) (Primary Dx) 07/05/2025 Travel 07/03/2025 1:00 PM EDT Office Visit [facility] [address] [place] [address] Asthma-COPD overlap syndrome (CMS/HCC) (Primary Dx) 07/03/2025 Travel 06/30/2025 2:00 PM EDT Office Visit [facility] [address] [place] [address] Darshan Kaminski Asthma-COPD overlap syndrome (CMS/HCC) (Primary Dx); Dyspnea on exertion 06/30/2025 Plan of Care Documentation [facility] [address] [place] [address] 06/30/2025 Travel from Last 3 Months Immunizations Immunization Administration Dates Next Due Influenza, injectable, quadrivalent, preservativ e free 11/09/2023 Influenza, recombinant, quad rivalent, injectable, preservative free 08/26/2022 Influenza, seasonal, injectable 09/13/2019 [email or web address] COVID-19 Vaccine (Purple Cap) 12 + 07/15/2021 [...] Description 10/02/2025 1:00 PM EST Office Visit [facility] [address] [place] [address] 10/17/2025 4:00 PM EST Appointment Cardiac Imaging [address] [place] [address] 12/05/2025 3:40 PM EST Office Visit [facility] [address] [place] [address] HuyiMkelna S, BOOK COVERER [address] [place] [address] Health Maintenance Due Date Last Done Comments [facility]-HIV Screening 1960 [facility]-Hepatitis C Screening 1960 [facility]-/Child/Adol SDOH Screenings 1960 [facility]- SDOH Screenings 1978 [facility]-Adult SDOH Screenings 1978 CT Colonography 2005 Colonoscopy 2005 FIT-DNA 2005 FIT 2005 FOBT 2005 Sigmoidoscopy 2005 [facility]-Colorectal Cancer Screening 2005 [facility]-Breast Cancer Screening 2010 [facility]-Zoster Vaccines (1 of 2) 2010 [facility]-RSV Vaccine: 60+ Years or (1 - Risk 60-74 years 1-dose series) 2020 [id number] Vaccine (2 - Pfizer risk series) 08/05/2021 [...] Routine 09/13/2025 11:47 AM EDT Other fatigue from Last 3 Months Results * N-Terminal Probnp, Plasma (09/13/2025 11:47 AM EDT) N-Terminal, PROBNP, Plasma <50 0 - 899 pg/mL 09/13/2025 2:41 PM EDT [facility] Blood Venous blood specimen / Unknown Venipuncture / Unknown 09/13/2025 11:47 AM EDT 09/13/2025 11:47 AM EDT us Rebekah Son APRN LAB BLOOD ORDERABLES Florecita l Result [facility] [address] [place] [address] * (ABNORMAL) CBC and differential (09/13/2025 11:47 AM EDT) WBC Count 6.38 3.70 - 10.30 10*3/uL LAB HEMATOLOGY METHOD 09/13/2025 1:59 PM EDT [facility] RBC Count 5.00 3.90 - 5.20 10*6/uL LAB HEMATOLOGY METHOD 09/13/2025 1:59 PM EDT [facility] HGB 11.4 11.2 - 15.7 g/dL LAB HEMATOLOGY METHOD 09/13/2025 1:59 PM EDT [facility] HCT 38.1 34.0 - 45.0 % LAB HEMATOLOGY METHOD 09/13/2025 1:59 PM EDT [facility] Platelet Count 380(H) 155 - 369 10*3/uL LAB HEMATOLOGY METHOD 09/13/2025 1:59 PM EDT [facility] MCV 76(L) 79 - 98 fL LAB HEMATOLOGY METHOD 09/13/2025 1:59 PM EDT [facility] MCH 22.8(L) 26.0 - 32.0 pg LAB HEMATOLOGY METHOD 09/13/2025 1:59 PM EDT [facility] MCHC 29.9(L) 30.7 - 35.5 g/dL LAB HEMATOLOGY METHOD 09/13/2025 1:59 PM EDT [facility] RDW 16.9(H) 11.5 - 14.5 % LAB HEMATOLOGY METHOD 09/13/2025 1:59 PM EDT [facility] MPV 9.0 8.8 - 12.5 fL LAB HEMATOLOGY METHOD 09/13/2025 1:59 PM EDT [facility] nRBC 0.0 <=0.0 per 100 WBCs LAB HEMATOLOGY METHOD 09/13/2025 1:59 PM EDT [facility] Differential Type Automated LAB HEMATOLOGY METHOD 09/13/2025 1:59 PM EDT [facility] Neutrophils % 63 % LAB HEMATOLOGY METHOD 09/13/2025 1:59 PM EDT [facility] Lymphocytes % 27 % LAB HEMATOLOGY METHOD 09/13/2025 1:59 PM EDT [facility] Monocytes % 6 % LAB HEMATOLOGY METHOD 09/13/2025 1:59 PM EDT [facility] Eosinophils % 2 % LAB HEMATOLOGY METHOD 09/13/2025 1:59 PM EDT [facility] Basophils % 1 % LAB HEMATOLOGY METHOD 09/13/2025 1:59 PM EDT [facility] Immature Granulocytes % 1 % LAB HEMATOLOGY METHOD 09/13/2025 1:59 PM EDT [facility] Neutrophils Absolute 4.07 1.60 - 6.10 10*3/uL LAB HEMATOLOGY METHOD 09/13/2025 1:59 PM EDT [facility] Lymphocytes Absolute 1.70 1.20 - 3.90 10*3/uL LAB HEMATOLOGY METHOD 09/13/2025 1:59 PM EDT [facility] Monocytes Absolute 0.41 0.30 - 0.90 10*3/uL LAB HEMATOLOGY METHOD 09/13/2025 1:59 PM EDT [facility] Eosinophils Absolute 0.11 0.00 - 0.50 10*3/uL LAB HEMATOLOGY METHOD 09/13/2025 1:59 PM EDT [facility] Basophils Absolute 0.06 0.00 - 0.10 10*3/uL LAB HEMATOLOGY METHOD 09/13/2025 1:59 PM EDT [facility] Immature Granulocytes Absolute 0.03 0.00 - 0.06 10*3/uL LAB HEMATOLOGY METHOD 09/13/2025 1:59 PM EDT [facility] Blood Venous blood specimen / Unknown Venipuncture / Unknown 09/13/2025 11:47 AM EDT 09/13/2025 11:47 AM EDT Narrative [facility] - 09/13/2025 1:59 PM EDT Therapeutic decision making should be based on absolute values, rather than percentages. Rebekah Son BOOK COVERER LAB BLOOD ORDERABLES Florecita l Result Performing Organization Address City/[facility]/ZIP Co de Phone Number [facility] [address] [place] [address] * (ABNORMAL) TSH (09/13/2025 11:47 AM EDT) Thyroid Stimulating Hormone, Plasma 6.62(H) 0.40 - 4.20 uIU/mL 09/13/2025 2:41 PM EDT [facility] Blood Venous blood specimen / Unknown Venipuncture / Unknown 09/13/2025 11:47 AM EDT 09/13/2025 11:47 AM EDT Rebekah Son BOOK COVERER LAB BLOOD ORDERABLES Florecita l Result [facility] [address] [place] [address] * T4, free (09/13/2025 11:47 AM EDT) Pathologist [facility] [place] Free T4, Plasma 1.2 0.8 - 1.7 ng/dL 09/13/2025 2:41 PM EDT [facility] Blood Venous blood specimen / Unknown Venipuncture / Unknown 09/13/2025 11:47 AM EDT 09/13/2025 11:47 AM EDT Rebekah Son BOOK COVERER LAB BLOOD ORDERABLES Florecita l Result [facility] [address] [place] [address] * IgE (09/13/2025 11:47 AM EDT) [facility] Immunoglobulin E 84 <=214 kU/L 09/15/20 8:41 AM EDT [facility] ([facility]) Blood Venous blood specimen / Unknown Venipuncture / Unknown 09/13/2025 11:47 AM EDT 09/13/2025 11:47 AM EDT Narrative [facility] ([facility] - 09/15/2025 8:41 AM EDT REFERENCE INTERVAL: Immunoglobulin E, Serum Access complete set of age- and/or gender-specific reference intervals for this test in the [facility] Test Directory ([employer]). Performed By: [email or web address] [address] [place] [id number] Assistant Guest Services Manager: Stanley Jarvis MD, PhD CLIA Number: [id number] Rebekah Son APRN LAB BLOOD ORDERABLES Florecita l Result [facility] [address] [place] [address] * (ABNORMAL) Comprehensive metabolic panel (09/13/2025 11:47 AM EDT) [facility] Glucose, Plasma 95 74 - 99 mg/dL 09/13/2025 2:41 PM EDT [facility] BUN, Plasma 19 8 - 23 mg/dL 09/13/2025 2:41 PM EDT [facility] Creatinine, Plasma 1.16(H) 0.60 - 1.10 mg/dL 09/13/2025 2:41 PM EDT [facility] BUN/Creatinine Ratio 16 09/13/2025 2:41 PM EDT [facility] Sodium, Plasma 142 136 - 145 mmol/L 09/13/2025 2:41 PM EDT [facility] Potassium, Plasma 4.7 3.6 - 4.9 mmol/L 09/13/2025 2:41 PM EDT [facility] Chloride, Plasma 105 97 - 107 mmol/L 09/13/2025 2:41 PM EDT [facility] CO2, Plasma 25 22 - 29 mmol/L 09/13/2025 2:41 PM EDT [facility] Anion Gap 12 6 - 16 mmol/L 09/13/2025 2:41 PM EDT [facility] Total Calcium, Plasma 9.5 8.9 - 10.2 mg/dL 09/13/2025 2:41 PM EDT [facility] Total Protein 7.6 6.3 - 7.9 g/dL 09/13/2025 2:41 PM EDT [facility] Albumin, Plasma 4.2 3.5 - 5.2 g/dL 09/13/2025 2:41 PM EDT [facility] AST, Plasma 20 10 - 35 U/L 09/13/2025 2:41 PM EDT [facility] ALT, Plasma 22 10 - 35 U/L 09/13/2025 2:41 PM EDT [facility] Alkaline Phosphatase, Plasma 73 46 - 142 U/L 09/13/2025 2:41 PM EDT [facility] Total Bilirubin, Plasma 0.3 0.2 - 1.1 mg/dL 09/13/2025 2:41 PM EDT [facility] eGFRcr 52.8 mL/min/1.7 3m*2 09/13/2025 2:41 PM EDT [facility] Comment:Reported eGFRcr in m L/min/1.73m2 is based the CKD-EPI 2020 equation that does not use a race coefficient. Blood Venous blood specimen / Unknown Venipuncture / Unknown 09/13/2025 11:47 AM EDT 09/13/2025 11:47 AM EDT us Rebekah Son APRN LAB BLOOD ORDERABLES Florecita malagon Result [facility] [address] [place] [address] from Last 3 Months Insurance [employer] [facility] MEDICAID Care Teams Precision Printing Worker Relationship Specialty Start Date End Date Belle Barksdale APRN [address] [place] [address] PCP - General 04/05/21
--- OUTSIDE RECORDS SUMMARY | 2025-09-29 12:31 | XMS_ITS | Encounter Summary ---
Author Organization Healthcare Address [address] [place] [address] Care Team Providers Care Mems Process Engineer Name Role Phone Belle Barksdale APRN Primary Care Provider [phone] Encounter Details Date Type Department Care Team [...] Description 10/02/2025 1:00 PM EST Office Visit [facility] [address] [place] [address] 10/17/2025 4:00 PM EST Appointment Cardiac Imaging [address] [place] [address] 12/05/2025 3:40 PM EST Office Visit [facility] [address], [address] [place] [address] Rebekah Son, CERTIFIED PARALEGAL [address] [place] [address] documented as of this encounter Visit Diagnoses [...] documented as of this encounter Care Teams Mems Process Engineer Relationship Specialty Start Date End Date Belle Barksdale, ALBERTO [address] [facility] [address] [place] [address] PCP - General 04/05/21 documented as of this encounter
--- OUTSIDE RECORDS SUMMARY | 2025-09-29 12:31 | XMS_ITS | Encounter Summary ---
Author Organization Healthcare Address [address] [place] [place] [address] Care Team Providers Care Sample Weaver Name Role Phone Belle Barksdale ALBERTO Primary Care Provider [phone] Encounter Details Date Type Department Care Team [...] Description 10/02/2025 1:00 PM EST Office Visit [facility] [address] [place] [address] 10/17/2025 4:00 PM EST Appointment Cardiac Imaging [address] [place] [address] 12/05/2025 3:40 PM EST Office Visit [facility] [address], [address] [place] [address] Rebekah Son, VALUE ENGINEER [address] [place] [address] documented as of this encounter Visit Diagnoses [...] documented as of this encounter Care Teams Sample Weaver Relationship Specialty Start Date End Date Belle Barksdale, ALBERTO [address] [facility] [place] [address] [place] [address] PCP - General 04/05/21 documented as of this encounter
--- OUTSIDE RECORDS SUMMARY | 2025-09-29 12:31 | XMS_ITS | Encounter Summary ---
Author Organization Healthcare Address [address] [place] [place] [address] Care Team Providers Care Fur Drummer Name Role Phone Belle Barksdale APRN Primary Care Provider [phone] Encounter Details Date Type Department Care Team [...] Description 10/02/2025 1:00 PM EST Office Visit [facility] [address] [place] [address] 10/17/2025 4:00 PM EST Appointment Cardiac Imaging [address] [place] [address] 12/05/2025 3:40 PM EST Office Visit [facility] [address] [place] [address] Rebekah Son APRN [address] [place] [address] documented as of this encounter Visit Diagnoses [...] documented as of this encounter Care Teams Fur Drummer Relationship Specialty Start Date End Date Belle Barksdale APRN [address] [facility] [facility] [address] [place] [address] PCP - General 04/05/21 documented as of this encounter
--- OUTSIDE RECORDS SUMMARY | 2025-09-29 12:31 | XMS_ITS | Encounter Summary ---
Author Organization Healthcare Address [address] [place] [address] Care Team Providers Care Biomechanical Engineer Name Role Phone Belle Barksdale APRN Primary Care Provider [phone] Encounter Details Date Type Department Care Team [...] Visit [facility] [address] [place] [address] 10/17/2025 4:00 PM EST Appointment Cardiac Imaging [address] [place] [address] 12/05/2025 3:40 PM EST Office Visit [facility] [address] [place] [address] Rebekah Son, BLADE GROOVER [address] [place] [address] documented as of this encounter Visit Diagnoses [...] documented as of this encounter Care Teams Biomechanical Engineer Relationship Specialty Start Date End Date Belle Barksdale, ALBERTO [address] [facility] [address] [place] [address] PCP - General 04/05/21 documented as of this encounter
--- OUTSIDE RECORDS SUMMARY | 2025-09-29 12:31 | XMS_ITS | Encounter Summary ---
Author Organization Healthcare Address [address] [place] [address] Care Team Providers Care Edi Developer Name Role Phone Belle Barksdale APRN Primary Care Provider [phone] Encounter Details Date Type Department Care Team [...] Description 10/02/2025 1:00 PM EST Office Visit [facility] Re[facility] [address] [place] [address] 10/17/2025 4:00 PM EST Appointment Cardiac Imaging [address] [place] [address] 12/05/2025 3:40 PM EST Office Visit [facility] Medicine Specialties [address] [place] [address] Rebekah Son, DEPUTY MANAGER [address] [place] [address] documented as of this encounter Visit Diagnoses [...] documented as of this encounter Care Teams Edi Developer Relationship Specialty Start Date End Date Belle Barksdale, ALBERTO [address] [facility] [address] [place] [address] PCP - General 04/05/21 documented as of this encounter
--- OUTSIDE RECORDS SUMMARY | 2025-09-29 12:31 | XMS_ITS | Encounter Summary ---
Author Organization Healthcare Address [address] [place] [address] Care Team Providers Care Powder Hand Name Role Phone Belle Barksdale ALBERTO Primary Care Provider [phone] Encounter Details Date Type Department Care Team (Late st Contact Info) Description 09/14/2025 Results Follow-Up [facility] [address] [place] [address] Rebekah Son APRN [address] [place] [address] Social History Tobacco Use Types [...] Description 10/02/2025 1:00 PM EST Office Visit [facility] [address] [place] [address] 10/17/2025 4:00 PM EST Appointment Cardiac Imaging [address] [place] [address] 12/05/2025 3:40 PM EST Office Visit [facility] Medicine [facility]ties [address] [place] [address] Rebekah Son S, ALBERTO [address] [place] [address] documented as of this encounter Visit Diagnoses [...] documented as of this encounter Care Teams Powder Hand Relationship Specialty Start Date End Date Belle Barksdale S, INSTALLATION DRAFTER [address] [place] [address] PCP - General 04/05/21 documented as of this encounter
--- OUTSIDE RECORDS SUMMARY | 2025-09-29 12:31 | XMS_ITS | Encounter Summary ---
Author Organization Healthcare Address [address] [place] [address] Care Team Providers Care Oil Painter Name Role Phone Belle Barksdale APRN Primary Care Provider [phone] Encounter Details Date Type Department Care Team [...] Description 10/02/2025 1:00 PM EST Office Visit [facility] [address] [place] [address] 10/17/2025 4:00 PM EST Appointment Cardiac Imaging [address] [place] [address] 12/05/2025 3:40 PM EST Office Visit [facility] Medicine Specialties [address] [place] [address] Rebekah Son, DIFFUSER OPERATOR [address] [place] [address] documented as of this encounter Visit Diagnoses [...] documented as of this encounter Care Teams Oil Painter Relationship Specialty Start Date End Date Belle Barksdale, ALBERTO [address] [facility] [address] [place] [address] PCP - General 04/05/21 documented as of this encounter
--- OUTSIDE RECORDS SUMMARY | 2025-09-29 12:31 | XMS_ITS | Encounter Summary ---
Author Organization Healthcare Address [address] [place] [address] Care Team Providers Care Cloth Doubling Machine Operator Name Role Phone Belle Barksdale ALBERTO Primary Care Provider [phone] Encounter Details Date Type Department Care Team [...] Description 10/02/2025 1:00 PM EST Office Visit [facility] Pulmonary Rehab [address] [place] [address] 10/17/2025 4:00 PM EST Appointment Cardiac Imaging [address] [place] [address] 12/05/2025 3:40 PM EST Office Visit [facility] Medicine Specialties [address], [address] [place] [address] Rebekah Son, PHYSICAL THERAPY MANAGER [address] [place] [address] documented as of this encounter Visit Diagnoses [...] documented as of this encounter Care Teams Cloth Doubling Machine Operator Relationship Specialty Start Date End Date Belle Barksdale, ALBERTO [address] [facility] [address] [place] [address] PCP - General 04/05/21 documented as of this encounter
--- OUTSIDE RECORDS SUMMARY | 2025-09-29 12:31 | XMS_ITS | Encounter Summary ---
Author Organization Healthcare Address [address] [place] [address] Care Team Providers Care Emd Teacher Name Role Phone Belle Barksdale ALBERTO Primary Care Provider [phone] Encounter Details Date Type Department Care Team [...] Description 10/02/2025 1:00 PM EST Office Visit [facility] Pulmonary Rehab [address] [place] [address] 10/17/2025 4:00 PM EST Appointment Cardiac Imaging [address] [place] [address] 12/05/2025 3:40 PM EST Office Visit [facility] Medicine Specialties [address] [place] [address] Rebekah Son, PASSENGER SERVICE MANAGER [address] [place] [address] documented as of this encounter Visit Diagnoses [...] documented as of this encounter Care Teams Emd Teacher Relationship Specialty Start Date End Date Belle Barksdale, ALBERTO [address] [facility] [address] [place] [address] PCP - General 04/05/21 documented as of this encounter
--- OUTSIDE RECORDS SUMMARY | 2025-09-29 12:31 | XMS_ITS | Encounter Summary ---
Author Organization Healthcare Address [address] [place] [place] [address] Care Team Providers Care Plastics Technician Name Role Phone Belle Barksdale APRN Primary Care Provider [phone] Encounter Details Date Type Department Care Team [...] Description 10/02/2025 1:00 PM EST Office Visit [facility] Pulmonary Rehab [address] [place] [address] 10/17/2025 4:00 PM EST Appointment Cardiac Imaging [address] [place] [address] 12/05/2025 3:40 PM EST Office Visit [facility] Medicine Specialties [address], [address] [place] [address] Rebekah Son, SUPERVISOR LACE TEARING [address] [place] [phone] documented as of this encounter Visit Diagnoses [...] documented as of this encounter Care Teams Plastics Technician Relationship Specialty Start Date End Date Belle Barksdale, ALBERTO [address] [facility] [address] [place] [address] PCP - General 04/05/21 documented as of this encounter
--- NOTE | 2025-09-29 12:34 | XR_ITS ---
FINAL REPORT CLINICAL HISTORY: PAIN AND SWELLING COMPARISON: 04/23/2021 FINDINGS: LEFT FOOT Three views of the left foot demonstrate multiple orthopedic screws securing the tarsometatarsal joints. There is no acute fracture or dislocation. The joint spaces are obscured, probably due to underlying fusion. Large plantar calcaneal spur is noted. There is soft tissue edema over the dorsum of the foot measuring 1.8 cm. IMPRESSION: Soft tissue edema without acute bony abnormality. Chronic changes. Reviewed, Interpreted and Dictated by Skip Delvalle MD Transcribed by Angelique Macias Authenticated and [facility]
--- NOTE | 2025-09-29 12:34 | XR_ITS ---
FINAL REPORT CLINICAL HISTORY: PAIN AND SWELLING COMPARISON: None FINDINGS: LEFT ANKLE Three views demonstrate no acute fracture or dislocation. Moderate soft tissue edema is noted about the ankle. The ankle mortise is intact. There are multiple orthopedic screws securing the tarsometatarsal joints. IMPRESSION: Soft tissue edema without acute bony abnormality. Reviewed, Interpreted and Dictated by Skip Delvalle MD Transcribed by Angelique Macias Authenticated and . [facility]
== END 2025-09-29 23:59 | disposition home or self-care (01) ==
LOC: RT 12:28
PROVIDERS: PCP Nurse Practitioner Family; Visit Provider Nurse Practitioner Family
DX: M79.672 Pain in left foot (principal); M25.572 Pain in left ankle and joints of left foot; M79.89 Other specified soft tissue disorders; R60.0 Localized edema
CPT/HCPCS: 73610; 73630; 93971

== ENCOUNTER 2025-10-04 13:38 | Outpatient (CLI) | payer OTHER, SELFPAY ==
--- OUTSIDE RECORDS SUMMARY | 2025-08-07 12:00 | XMS_ITS | Encounter Summary ---
Author Organization Healthcare Address [address] [place] [address] Care Team Providers Care Customer Service Dispatcher Name Role Phone Belle Barksdale APRN Primary Care Provider [phone] Encounter Details Date Type Department Care Team (Late st Contact Info) Description 08/07/2025 1:00 PM EDT [facility] Visit [facility] [address] [place] [phone] COPD with asthma (CMS/HCC) (Primary Dx) Social [...] Care Team (Late st Contact Info) Description 10/17/2025 4:00 PM EST Appointment Cardiac Imaging [address] [place] [address] 12/05/2025 3:40 PM EST Office Visit [facility] [address] [place] [address] Rebekah Son S, SECURITY SYSTEMS ADMINISTRATOR [address] [place] [address] documented as of this encounter [...] documented as of this encounter Care Teams Customer Service Dispatcher Relationship Specialty Start Date End Date Belle Barksdale S, SECURITY SYSTEMS ADMINISTRATOR [address] [facility] [address] [place] [address] PCP - General 04/05/21 documented as of this encounter
--- OUTSIDE RECORDS SUMMARY | 2025-08-09 12:00 | XMS_ITS | Encounter Summary ---
Author Organization Healthcare Address [address] [place] [address] Care Team Providers Care Weight Training Instructor Name Role Phone Belle Barksdale APRN Primary Care Provider [phone] Encounter Details Date Type Department Care Team (Late st Contact Info) Description 08/09/2025 1:00 PM EDT Office Visit [facility] [address] [place] [phone] COPD with asthma (CMS/HCC) (Primary Dx) Social [...] PM EST Appointment Cardiac Imaging [address] [place] [address] 12/05/2025 3:40 PM EST Office Visit [place] [facility] [address], [address] [place] [address] Rebekah Son S, FINANCE EXECUTIVE [address] [place] [phone] documented as of this encounter Visit Diagnoses [...] documented as of this encounter Care Teams Weight Training Instructor Relationship Specialty Start Date End Date Belle Barksdale, ALBERTO [address] [place] [address] PCP - General 04/05/21 documented as of this encounter
--- OUTSIDE RECORDS SUMMARY | 2025-08-14 12:00 | XMS_ITS | Encounter Summary ---
Author Organization Healthcare Address [address] [place] [address] Care Team Providers Care Dye Operator Name Role Phone Belle Barksdale APRN Primary Care Provider [phone] Encounter Details Date Type Department Care Team (Late st Contact Info) Description 08/14/2025 1:00 PM EDT Office Visit [facility] [address] [place] [address] Chronic obstructive bronchitis (CMS/HCC) (Primary Dx) Social [...] PM EST Appointment Cardiac Imaging [address] [place] [address] 12/05/2025 3:40 PM EST Office Visit [facility] [address], [address] [place] [address] Rebekah Son APRN [address] [place] [address] documented as of this encounter [...] documented as of this encounter Care Teams Dye Operator Relationship Specialty Start Date End Date Belle Barksdale, ALBERTO [address] [facility] [address] [place] [address] PCP - General 04/05/21 documented as of this encounter
--- OUTSIDE RECORDS SUMMARY | 2025-08-16 12:00 | XMS_ITS | Encounter Summary ---
Author Organization Healthcare Address [address] [place] [address] Care Team Providers Care Glove Pairer Name Role Phone Belle Barksdale APRN Primary Care Provider [phone] Encounter Details Date Type Department Care Team (Late st Contact Info) Description 08/16/2025 1:00 PM EDT Office Visit [facility] [address] [place] [address] COPD with asthma (CMS/HCC) (Primary Dx) Social [...] PM EST Appointment Cardiac Imaging [address] [place] [address] 12/05/2025 3:40 PM EST Office Visit [facility] [address], [address] [place] [address] Rebekah Son APRN [address] [place] [address] documented as of this encounter Visit Diagnoses [...] documented as of this encounter Care Teams Glove Pairer Relationship Specialty Start Date End Date Belle Barksdale, ALBERTO 1210 [facility] [address] [place] [address] PCP - General 04/05/21 documented as of this encounter
--- OUTSIDE RECORDS SUMMARY | 2025-08-21 12:00 | XMS_ITS | Encounter Summary ---
Author Organization Healthcare Address [address] [place] [address] Care Team Providers Care Kitchen Designer Name Role Phone Belle Barksdale APRN Primary Care Provider [phone] Encounter Details Date Type Department Care Team (Late st Contact Info) Description 08/21/2025 1:00 PM EDT Office Visit [place] [facility] [address] [place] [address] COPD with asthma (CMS/HCC) (Primary Dx) Social [...] - Inhaled Oxygen Concentration - - Weight 88.6 kg (195 lb 5.2 oz) 08/21/2025 2:00 P M EDT Height - - Body Mass Index 31.53 07/03/2025 2:00 PM EDT documented in this encounter Miscellaneous Notes * Progress Notes - Ronel Romero - 08/21/2025 1:00 PM EDT Pulmonary Rehab Daily Note Patient Name: Mago Maxwell Today's Date: 08/21/2025 General General Time In: 1250 Time Out: 1420 Family/Caregiver Present: No Visit Number: 13 Physician on Site: Tatiana Stephenson APRN Pain: 0 Weight: 88.6 kg (195 lb 5.2 oz) Vital Signs Resting Vital Signs SpO2: 97 % Pulse: 69 Supplemental Oxygen : Room Air BP: 126/80 Dyspnea Index: 0 Falls: 0 Meds Taken: y Meds Changed: n Breathing Assessment Breathing Assessment Breathing Assessment: clear bilateral Exercise Exercise Modalities Treadmill: Yes UBE: Yes Weights: Yes Treadmill Exercise Assessment Speed: 2.5 mph Grade: 4 % Time: 20 Minutes Distance: 0.76 METS: 2.5 Exercise SpO2: 95 Exercise HR: 148 Supplemental Oxygen : Room Air Exercise BP: 136/80 Exercise Dyspnea: 3 Rate of Perceived Exertion: 3 Signs & Symptoms: pt tolerated well Upper Body Ergometer Resistance: 8-9 Revolutions per Minute: 34 Time: 20 Distance: 1.68 METS: 3.3 Exercise SPO2: 97 Exercise HR: 143 Supplemental Oxygen: Room air Exercise BP: 138/80 Exercise Dyspnea: 3 Rate of Percieved Exertion: 3 Signs and Symptoms: pt tolerated well Weights Exercise Sets: 1 Reps: 10 Weight: 4 lbs Time: 10 Minutes Exercise SpO2: 97 Exercise HR: 129 Supplemental Oxygen: Room air Exercise Dyspnea: 2 Rate of Perceived Exertion: 2 Signs and Symptoms: pt tolerated well Cool Down Cool Down Exercises Cool Down Exercises: 10 Post-Activity Vital Signs Post-Activity Vital signs SpO2: 96 % Pulse: 118 Supplemental Oxygen : Room Air BP: 126/78 Dyspnea Index: 1 Rate of Percieved Exertion: 0 Educational Classes/20 Minutes Physiology of Lung Disease - Part 2 (COPD, lung disease) AN Pt given education packet documented in this encounter Plan of Treatment Upcoming Encounters Date Type Department Care Team (Late st Contact Info) Description 10/17/2025 4:00 PM EST Appointment Cardiac Imaging [address] [place] [address] 12/05/2025 3:40 PM EST Office Visit [place] [facility] [address], [address] [place] [address] Rebekah Son APRN [address] [place] [address] documented as of this encounter Visit Diagnoses Diagnosis COPD with asthma (CMS/[facility])- Primary documented in this encounter Additional Health Concerns Assessment Noted Time PHQ-9 Depression Total Score: 0 11/25/19 25 1:48 PM EST A fall risk assessment has been complete d for the patient 05/29/2025 2:51 PM EDT A Body Mass Index follow-up plan has been documented for the patient 08/21/2025 2:27 PM EDT documented as of this encounter Care Teams Kitchen Designer Relationship Specialty Start Date End Date Belle Barksdale, ALBERTO 1210 [facility] [address] [place] [address] PCP - General 04/05/21 documented as of this encounter
--- OUTSIDE RECORDS SUMMARY | 2025-08-23 12:00 | XMS_ITS | Encounter Summary ---
Author Organization Healthcare Address [address] [place] [address] Care Team Providers Care Fairing Worker Name Role Phone Belle Barksdale APRN Primary Care Provider [phone] Encounter Details Date Type Department Care Team (Late st Contact Info) Description 08/23/2025 1:00 PM EDT Office Visit [place] [facility] [address] [place] [phone] COPD with asthma (CMS/HCC) (Primary Dx) Social [...] * Progress Notes - Ronel Romero - 08/23/2025 1:00 PM EDT Pulmonary Rehab Daily Note Patient Name: Mago Maxwell Today's Date: 08/23/2025 General General Time In: 1250 Time Out: 1420 Family/Caregiver Present: No Visit Number: 14 Physician on Site: Erika Garcia MD Pain: 0 Vital Signs Resting Vital Signs SpO2: 96 % Pulse: 90 Supplemental Oxygen : Room Air BP: 128/78 Dyspnea Index: 0 Falls: 0 Meds Taken: y Meds Changed: n Breathing Assessment Breathing Assessment Breathing Assessment: clear bilateral Exercise Exercise Modalities Treadmill: Yes Recumbent Stepper : Yes Weights: Yes Treadmill Exercise Speed: 2 mph Grade: 4 % Time: 20 Minutes Distance: 0.69 METS: 2.3 Exercise SpO2: 96 Exercise HR: 127 Supplemental Oxygen : Room Air Exercise BP: 140/70 Exercise Dyspnea: 2 Rate of Perceived Exertion: 2 Signs & Symptoms: pt tolerated well Seated Stepper Resistance Level: 7-8-9 Steps per Minute: 44 Time: 20 Minutes Total Steps: 909 Steps METS: 3.6 Exercise SPO2: 95 Exercise Heart Rate: 141 Supplemental Oxygen : Room Air Exercise BP: 144/66 Exercise Dyspnea: 2 Rate of Percieved Exertion: 5 Signs and Symptoms: pt tolerated well Weights Exercise Sets: 1 Reps: 10 Weight: 4 lbs Time: 10 Minutes Exercise SpO2: 7 Exercise HR: 129 Supplemental Oxygen: Room air Exercise Dyspnea: 2 Rate of Perceived Exertion: 2 Signs and Symptoms: pt tolerated well Cool Down Cool Down Exercises Cool Down Exercises: 10 Post-Activity Vital Signs Post-Activity Vital signs SpO2: 96 % Pulse: 112 Supplemental Oxygen : Room Air BP: 112/72 Dyspnea Index: 1 Rate of Percieved Exertion: 0 Educational Classes/20 Minutes Staying healthy AN Pt education given. documented in this encounter Plan of Treatment Upcoming Encounters Date Type Department Care Team (Late st Contact Info) Description 10/17/2025 4:00 PM EST Appointment Cardiac Imaging [address] [place] [address] 12/05/2025 3:40 PM EST Office Visit [place] [facility] [address], [address] [place] [address] Rebekah Son APRN [address] [place] [address] documented as of this encounter Visit Diagnoses Diagnosis COPD with asthma (CMS/[facility])- Primary documented in this encounter Additional Health Concerns Assessment Noted Time PHQ-9 Depression Total Score: 0 11/25/19 25 1:48 PM EST A fall risk assessment has been complete d for the patient 05/29/2025 2:51 PM EDT A Body Mass Index follow-up plan has been documented for the patient 08/23/2025 2:12 PM EDT documented as of this encounter Care Teams Fairing Worker Relationship Specialty Start Date End Date Belle Barksdale APRN [address] [place] [address] PCP - General 04/05/21 documented as of this encounter
--- OUTSIDE RECORDS SUMMARY | 2025-08-28 12:00 | XMS_ITS | Encounter Summary ---
Author Organization Healthcare Address [address] [place] [address] Care Team Providers Care Early Intervention School Psychologist Name Role Phone Belle Barksdale APRN Primary Care Provider [phone] Encounter Details Date Type Department Care Team (Late st Contact Info) Description 08/28/2025 1:00 PM EDT Office Visit [place] [facility] [address] [place] [address] Chronic obstructive bronchitis (CMS/HCC) (Primary Dx) Social [...] - Inhaled Oxygen Concentration - - Weight 88.4 kg (194 lb 14.2 oz) 08/28/2025 2:00 PM EDT Height - - Body Mass Index 31.46 07/03/2025 2:00 PM EDT documented in this encounter Miscellaneous Notes * Progress Notes - Ronel Romero - 08/28/2025 1:00 PM EDT Pulmonary Rehab Daily Note Patient Name: Mago Maxwell Today's Date: 08/28/2025 General General Time In: 1250 Time Out: 1420 Family/Caregiver Present: No Visit Number: 15 Physician on Site: Caroline Price MD Pain: 0 Weight: 88.4 kg (194 lb 14.2 oz) Vital Signs Resting Vital Signs SpO2: 97 % Pulse: 95 Supplemental Oxygen : Room Air BP: 126/80 Dyspnea Index: 0 Falls: 0 Meds Taken: y Meds Changed: n Breathing Assessment Breathing Assessment Breathing Assessment: clear bilateral Exercise Exercise Modalities Treadmill: Yes UBE: Yes Weights: Yes Treadmill Exercise Assessment Speed: 3 mph Grade: 1 % Time: 20 Minutes Distance: 0.90 METS: 3.3 Exercise SpO2: 95 Exercise HR: 122 Supplemental Oxygen : Room Air Exercise BP: 118/76 Exercise Dyspnea: 2 Rate of Perceived Exertion: 2 Signs & Symptoms: pt tolerated well Upper Body Ergometer Resistance: 5-7 Revolutions per Minute: 42 Time: 20 Distance: 3.0 METS: 3.0 Exercise SPO2: 95 Exercise HR: 125 Supplemental Oxygen: Room air Exercise BP: 120/78 Exercise Dyspnea: 2 Rate of Percieved Exertion: 3 Signs and Symptoms: pt tolerated Weights Exercise Sets: 2 Reps: 10 Weight: 4 lbs Time: 10 Minutes Exercise SpO2: 94 Exercise HR: 128 Supplemental Oxygen: Room air Exercise Dyspnea: 2 Rate of Perceived Exertion: 2 Signs and Symptoms: pt tolerated well Cool Down Cool Down Exercises Cool Down Exercises: 10 Post-Activity Vital Signs Post-Activity Vital signs SpO2: 96 % Pulse: 114 Supplemental Oxygen : Room Air BP: 110/82 Dyspnea Index: 1 Rate of Percieved Exertion: 0 Educational Classes/20 Minutes No class today- pt will have ADL education as scheduled. documented in this encounter Plan of Treatment Upcoming Encounters Date Type Department Care Team (Late st Contact Info) Description 10/17/2025 4:00 PM EST Appointment Cardiac Imaging [address] [place] [address] 12/05/2025 3:40 PM EST Office Visit [place] [facility] [address], [address] [place] [address] Rebekah Son APRN [address] [place] [address] documented as of this encounter [...] plan has been documented for the patient 08/28/2025 2:40 PM EDT documented as of this encounter Care Teams Early Intervention School Psychologist Relationship Specialty Start Date End Date Belle Barksdale APRN [address] [facility] [address] [place] [address] PCP - General 04/05/21 documented as of this encounter
--- OUTSIDE RECORDS SUMMARY | 2025-09-06 09:30 | XMS_ITS | Encounter Summary ---
Author Organization Healthcare Address [address] [place] [address] Care Team Providers Care Melting Furnace Skimmer Name Role Phone Belle Barksdale APRN Primary Care Provider [phone] Encounter Details Date Type Department Care Team (Late st Contact Info) Description 09/06/2025 10:30 AM EDT Office Visit [place] [facility] [address] [place] [address] COPD with asthma (CMS/HCC) (Primary Dx) Social [...] PM EST Appointment Cardiac Imaging [address] [place] [address] 12/05/2025 3:40 PM EST Office Visit [place] [facility] [address], [address] [place] [address] Rebekah Son, ALBERTO [address] [place] [address] documented as of this encounter Visit Diagnoses Diagnosis COPD with asthma (CMS/[facility])- Primary documented in this encounter Additional Health Concerns Assessment Noted Time PHQ-9 Depression Total Score: 0 11/25/19 25 1:48 PM EST A fall risk assessment has been complete d for the patient 05/29/2025 2:51 PM EDT A Body Mass Index follow-up plan has been documented for the patient 09/06/2025 12:57 PM EDT documented as of this encounter Care Teams Melting Furnace Skimmer Relationship Specialty Start Date End Date Belle Barksdale, AT RISK SPECIALIST [address] [facility] [address] [place] [id number] PCP - General 04/05/21 documented as of this encounter
--- OUTSIDE RECORDS SUMMARY | 2025-09-11 12:00 | XMS_ITS | Encounter Summary ---
Author Organization Healthcare Address [address] [place] [address] Care Team Providers Care Food And Nutrition Supervisor Name Role Phone Belle Barksdale APRN Primary Care Provider [phone] Encounter Details Date Type Department Care Team (Late st Contact Info) Description 09/11/2025 1:00 PM EDT Office Visit [place] [facility] [address] [place] [phone] COPD with asthma (CMS/HCC) (Primary Dx) Social [...] PM EST Appointment Cardiac Imaging [address] [place] [address] 12/05/2025 3:40 PM EST Office Visit [place] [facility] [address] [place] [address] Rebekah Son, ALBERTO [address] [place] [address] documented as of this encounter Visit Diagnoses Diagnosis COPD with asthma (CMS/[facility])- Primary documented in this encounter Additional Health Concerns Assessment Noted Time PHQ-9 Depression Total Score: 0 11/25/19 25 1:48 PM EST A fall risk assessment has been complete d for the patient 05/29/2025 2:51 PM EDT A Body Mass Index follow-up plan has been documented for the patient 09/11/2025 2:10 PM EDT documented as of this encounter Care Teams Food And Nutrition Supervisor Relationship Specialty Start Date End Date Belle Barksdale, [facility] [address] [facility] [address] [place] [address] PCP - General 04/05/21 documented as of this encounter
--- OUTSIDE RECORDS SUMMARY | 2025-09-13 09:40 | XMS_ITS | Encounter Summary ---
Author Organization [facility] Address [address] [place] [address] Care Team Providers Care Powderman Name Role Phone Belle Barksdale ALBERTO Primary Care Provider [phone] Reason for Referral * Consultation (Routine) - Authorized Specialty Diagnoses / Procedures Referred By Contac t Referred To Contact Diagnoses Other fatigue Dyspnea on exertion COPD exacerbation (CMS/HCC) COPD with asthma (CMS/HCC) Asthma-COPD overlap syndrome (CMS/HCC) Allergic rhinitis, unspecified seasonality, unspecified trigger Hiatal hernia Amanuel Barlow APRN [address] [address] Phone: tel: fax: Referral ID Status Reason Start Date Expiration Date V isits Requested Visits Authorized [id number] Authorized 09/19/2025 03/21/2027 1 1 * Imaging (Routine) - Pending Review Specialty Diagnoses / Procedures Referred By Contac t Referred To Contact Cardiology Diagnoses Dyspnea on exertion Procedures Echo, Adult Transthoracic Complete Amanuel Barlow APRN [address] [address] Phone: tel: fax: Referral ID Status Reason Start Date Expiration Date Visits Requested Visits Authorized [id number] Pending Review Perform Procedure 03/15/2027 1 1 Reason for Visit * Reason Comments Asthma COPD Follow-up * Consultation (Routine) - Closed Specialty Diagnoses / Procedures Referred By Niya delarosa Referred To Contact Diagnoses Asthma-COPD overlap syndrome (CMS/HCC) Dyspnea on exertion Amanuel Barlow APRN [address] [facility] [address] [place] [address] Phone: tel: fax: Referral ID Status Reason Start Date Expiration Date Visits Re quested Visits Authorized [id number] Closed 05/29/2025 11/28/2026 1 1 Encounter Details Date Type Department Care Team (Late st Contact Info) Description 09/13/2025 10:40 AM EDT [facility] [address] [place] [address] Amanuel Barlow APRN [address] [facility] [address] [place] [address] Other fatigue (Primary Dx); Dyspnea on exertion; COPD exacerbation (CMS/HCC); COPD with asthma (CMS/HCC); Asthma-COPD overlap syndrome (CMS/HCC); Allergic rhinitis, unspecified seasonality, unspecified trigger; Hiatal hernia Social History Tobacco Use Types Packs/Day Years Used Date Smoking Tobacco: Former Cigarettes 3 10.9 0 12/20/1975 - 1986 Passive Smoke Exposure: Past Smokeless Tobacco: Never Alcohol Use Standard Drinks/Week Comments Yes 1 (1 standard drink = 0.6 oz pure alcohol) Alcoholic Drinks/day: Social alcohol use PHQ-2 Answer Date Recorded Patient Health Questionnaire-2 Score 0 09/13/2025 PHQ-9 Answer Date Recorded Patient Health Questionnaire-9 Score 0 09/13/2025 AUDIT-C Answer Date Recorded Q1: How often do you have a drink containing alc ohol? 2-4 times a month 09/13/2025 Q2: How many drinks containi ng alcohol do you have on a typical day when you are drinking? 1 or 2 09/13/2025 Q3: How often do you have si x or more drinks on one occasion? Never 09/13/2025 Comments Unknown Sex and Gender Information Value Date Recorded Sex Assigned at Not on file Legal Sex Female 6:07 PM EDT Gender Identity Not on file Sexual Orientation Not on file documented as of this encounter Last Filed Vital Signs Vital Sign Reading Time Taken Comments Blood Pressure 151/84 09/13/2025 10:05 AM EDT Pulse 83 09/13/2025 10:05 AM EDT Temperature 36.5 C (97.7 F) 09/13/2025 10:05 AM EDT Respiratory Rate 16 09/13/2025 10:05 AM EDT Oxygen Saturation 98% 09/13/2025 10:05 AM EDT RA Inhaled Oxygen Concentration - - Weight 89.1 kg (196 lb 6.9 oz) 09/13/2025 10:05 AM EDT Height 167.6 cm (5' 6 ) 09/13/2025 10:05 AM EDT Body Mass Index 31.7 09/13/2025 10:05 AM EDT documented in this encounter Functional Status * AUDIT-C Score Answer Date of Assessment Author 2 09/13/2025 10:06 AM EDT Crystal Wellington * Question Answer Date of Assessment Author Q1: How often do you have a drink containing alcohol? 2-4 times a month 09/13/2025 10:06 AM EDT Adria Wellington Q2: How many drinks containing alcohol do you have on a typical day when you are drinking? 1 or 2 09/13/2025 10:06 AM EDT Adria Wellington Q3: How often do you have six or more drinks on one occasion? Never 09/13/2025 10:06 AM EDT Adria Wellington * Over the past 2 weeks, how often have you been bothered by any of the following problems? Question Answer Date of Assessment Author Little interest or pleasure in doing things Not at all 09/13/2025 10:07 AM EDT Adria Wellington Feeling down, depressed, or hopeless Not at all 09/13/2025 10:07 AM EDT Adria Wellington Patient Health Questionnaire -2 Score 0 09/13/2025 10:07 AM EDT Adria Wellington * Question Answer Date of Assessment Author Trouble falling or staying asleep, or sleeping too much Not at all 09/13/2025 10:07 AM EDT Crystal Person Feeling tired or having abimael le energy Not at all 09/13/2025 10:07 AM EDT Adria Wellington Poor appetite or overeating Not at all 09/13/2025 10 :07 AM EDT Crystal Wellington Feeling bad about yourself - or that you are a failure or have let yourself or your family down Not at all 09/13/2025 10:07 AM EDT Adria Wellington y Ahsan Trouble concentrating on things, such as reading the newspaper or watching television Not at all 09/13/2025 10:07 AM EDT Adria Wellington Moving or speaking so slowly that other people could have noticed? Or the opposite - being so fidgety or restless that you have been moving around a lot more than usual. Not at all 09/13/2025 10:07 AM EDT Crystal Aguirre Thoughts that you would be better off or hurting yourself in some way Not at all 09/13/2025 10:07 AM EDT Marcy Wellington Patient Health Questionnaire -9 Score 0 09/13/2025 10:07 AM EDT Adria Wellington documented as of this encounter Miscellaneous Notes * Addendum Note - Amanuel Barlow APRN - 09/13/2025 10:40 AM EDTAddended by: AMANUEL BARLOW on: 09/19/2025 03:22 PM Modules accepted: Orders * Addendum Note - Amanuel Barlow APRN - 09/13/2025 10:40 AM EDTAddended by: AMANUEL BARLOW on: 09/20/2025 10:42 AM Modules accepted: Orders * Progress Notes - Amanuel Barlow APRN - 09/13/2025 10:40 AM EDT PULMONARY FOLLOW-UP VISIT: Mago Maxwell is a 64 y.o. female is presenting today for for follow up of COPD/asthma overlap HISTORY OF PRESENT ILLNESS Ms. Maxwell returns today for a sick visit. She states pulmonary rehab was going great, but she hit a wall and doesn't have any energy. This started 2-3 weeks ago. She doesn't feel sick with anything. Then she started having more of a cough.She started her duo nebs every 4 hours. She is more short of breath than normal but not getting anyrelief from duo nebs. She is have dyspnea walking within rooms of her house, which is not normal for her. She did start duo nebs before trelegy in the AM and did notice a big difference from this. She is wondering if allergies are increasing. She restarted her xyzal but this hasn't helped her symptoms either. She has a dry cough. Unsure if its from breathing the air outside or from exertion itself. No orthopnea or peripheral edema. PFT: mild obstruction, normal lung volumes, DLCO normal Repeated to ensure lung volumes were not being affected by hiatal hernia Takes lasix PRN for peripheral edema, however hasn't needed in long time. She had a sleep study done and she was negative for ERNA. She did have her swallow study done which she tells me was normal and she was referred to GI for her hiatal hernia. Her PCP has started her on Synthroid for elevated TSH. She stopped this over the summer and never restarted it PMHx, Surgical Hx, Family Hx, and Social Hx Reviewed in EMR. Significant Changes Noted Above. Immunizations: Immunization History Administered Date(s) Administered Influenza, injectable, quadrivalent, preservative free 11/09/2023 Influenza, recombinant, quadrivalent, injectable, preservative free 08/26/2022 Influenza, seasonal, injectable 09/13/2019 [facility] COVID-19 Vaccine (Purple Cap) + 07/15/2021 Pneumococcal 20-richard Conj Vaccine 05/20/2022 Tdap 11/09/2023 VACCINE / DOSE DATE DATE DATE Flu 09/13/2019 08/26/2022 11/09/2023 Tetanus 11/09/2023 Pneumovax Shingles Allergies: Tree extract Medications: Current Outpatient Medications Medication Sig Dispense Refill albuterol (Ventolin HFA) 108 (90 Base) MCG/ACT inhaler Inhale 2 puffs every 4 hours as needed for wheezing. 18 g 5 Njeqcuawudp-Dmllykqby-Kauwie (Trelegy Ellipta) 200-62.5-25 MCG/ACT aerosol powder Inhale 1 puff daily. 60 each 11 HM Mucus Relief 600 MG 12 hr tablet ibuprofen 200 MG tablet Take 1 tablet (200 mg) by mouth every 6 (six) hours if needed for mild pain. ipratropium-albuterol (Duo-Neb) 0.5-2.5 mg/3 mL nebulizer solution Take 3 mL by nebulization daily.May also take 3 mL daily as needed for wheezing. 540 mL 0 levocetirizine (Xyzal) 5 MG tablet TAKE 1 TABLET BY MOUTH 1 (ONE) TIME EACH DAY IN THE EVENING. 30 tablet 10 azithromycin (Zithromax) 250 MG tablet Take 2 by mouth today then 1 daily for 4 days 6 tablet 0 furosemide (Lasix) 20 MG tablet (Patient not taking: Reported on 09/13/2025) levothyroxine (Synthroid, Levoxyl) 25 MCG tablet Take 2 tablets (50 mcg) by mouth 1 (one) time eachday. (Patient not taking: Reported on 09/13/2025) Pitavastatin Calcium 2 MG tablet (Patient not taking: Reported on 09/13/2025) predniSONE (Deltasone) 20 MG tablet Take 2 tablets by mouth daily for 5 days. 10 tablet 0 No current facility-administered medications for this visit. REVIEW OF SYSTEMS Review of Systems Constitutional: Positive for fatigue. Negative for chills, diaphoresis, fever and unexpected weightchange. HENT: Negative for postnasal drip, rhinorrhea and sore throat. Respiratory: Positive for cough and shortness of breath. Negative for chest tightness and wheezing. Cardiovascular: Negative for leg swelling. Skin: Negative for color change, pallor and rash. Allergic/Immunologic: Positive for environmental allergies. Psychiatric/Behavioral: Negative for sleep disturbance. Assessment Scales: CAT: COPD ASSESSMENT (CAT) How often do you cough?: 4 Do you have phelgm (mucus) in your chest?: 2 Do you have tightness in your chest?: 4 Do you feel breathless walking up a hill or stairs?: 5 Very breathless Are you limited to doing activities at home?: 2 Are you confident in leaving home despite your lung condition?: 0 Confident leaving home Do you have the ability to sleep soundly despite your lung condition?: 3 How are your energy levels?: 2 COPD Score Score: 22 PHYSICAL EXAMINATION Visit Vitals BP (!) 151/84 (BP Location: Left arm, Patient Position: Sitting) Pulse 83 Temp 36.5 ??C (97.7 ??F) (Oral) Ht 1.676 m (5' 6 ) Wt 89.1 kg (196 lb 6.9 oz) SpO2 98% Comment: RA BMI 31.70 kg/m?? Physical Exam Vitals reviewed. Constitutional: General: [...] CT CHEST WO IV CONTRAST authorized by: Amanuel Barlow APRN Study Result Narrative & Impression CLINICAL [...] uncorrected for Hb is normal. IMPRESSION 1. Other fatigue 2. Dyspnea on exertion 3. COPD exacerbation (CMS/HCC) 4. COPD with asthma (CMS/HCC) 5. Asthma-COPD overlap syndrome (CMS/HCC) 6. Allergic rhinitis, unspecified seasonality, unspecified trigger 7. Hiatal hernia Orders Placed This Encounter Procedures CBC and differential Standing Status: Future Expected Date: 09/13/2025 Expiration Date: 03/17/2027 Release to patient in [facility]: Immediate [1] Comprehensive metabolic panel Standing Status: Future Expected Date: 09/13/2025 Expiration Date: 03/17/2027 Release to patient in [facility]: Immediate [1] IgE Standing Status: Future Expected Date: 09/13/2025 Expiration Date: 03/17/2027 Release to patient in [facility]: Immediate [1] N-Terminal Probnp, Plasma Standing Status: Future Expected Date: 09/13/2025 Expiration Date: 03/14/2027 Release to patient in [facility]: Immediate [1] TSH Standing Status: Future Expected Date: 09/13/2025 Expiration Date: 03/17/2027 Release to patient in [facility]: Immediate [1] T4, free Standing Status: Future Expected Date: 09/13/2025 Expiration Date: 03/17/2027 Release to patient in [facility]: Immediate [1] Echo, Adult Transthoracic Complete Standing Status: Future Expected Date: 09/13/2025 Expiration Date: 09/13/2027 Release to patient in [facility]: Immediate DISCUSSION/SUMMARY Mago Maxwell is a 64 y.o. female who presented today for follow up on COPD/asthma. Returns for an early follow up due to increase in dyspnea with exertion, dry non productive cough and fatigue x 2-3 weeks. I will treat as an exacerbation today and will follow up next week to ensureimproved. If not, will order CXR. Will order routine labs, paying particular attention to her thyroid as she is not taking Synthroid as prescribed. I will order CBC with diff for eos, metabolic panel, thyroid panel, BNP and IgE. I have also ordered echocardiogram as it has been 3+ years since this was last done. She can continue duo nebs PRN. Can resume pulm rehab next week if she feels able to do so. She had PFTs 2 months ago that continued to show mild obstruction, normal lung volumes. Her DLCO isstill normal however has decreased some from prior. Repeated these to ensure lung volumes were not being affected by hiatal hernia #Asthma/COPD Overlap -having more dyspnea with daily activities -CAT Score today 22, up from 13! -mild upper lobe predominant emphysema --one exacerbation last year, treated for pneumonia; I have ensured this cleared on chest imaging in the past -- PFT showed a 17%/236mL BD response and patient has had significant improvement in symptoms with the addition of ICS to her inhaler (Trelegy) -- Will continue triple therapy with trelegy -continue pulmonary rehab -had EKG at [facility] in the last 6 months --last eos 320, can consider repeating and starting dupixent if still elevated #Lung Nodules -- CT today showed stable small right-sided pulmonary nodules and no new nodules. -will no longer need to follow as it has been 2 years. #Allergic Rhinitis -- recently resumed Xyzal -- Continue to avoid allergens Hiatal hernia -moderate to large -normal lung volumes FU based on response to exacerbation treatment. Addendum: TSH worsened since last check, Cr mildly elevated and platelets mildly elevated, recheck per PCP. IgE WNL. Eos 110. Addendum: 09/19, my nurse contacted patient. She has some cough and sore throat but is feeling better. Her echo is scheduled for 10/17/25. Plan/Recommendations: Diagnoses and all orders for this visit: Other fatigue - TSH; Future - T4, free; Future Dyspnea on exertion - CBC and differential; Future - Comprehensive metabolic panel; Future - IgE; Future - N-Terminal Probnp, Plasma; Future - Echo, Adult Transthoracic Complete; Future COPD exacerbation (CMS/HCC) - predniSONE (Deltasone) 20 MG tablet; Take 2 tablets by mouth daily for 5 days. - azithromycin (Zithromax) 250 MG tablet; Take 2 by mouth today then 1 daily for 4 days COPD with asthma (CMS/HCC) Asthma-COPD overlap syndrome (CMS/HCC) Allergic rhinitis, unspecified seasonality, unspecified trigger Hiatal hernia Other orders - Follow Up Pulm I will follow-up with the patient in [...] andprocedures, referring and communicating with consulting health clinical care leader and care coordination. Amanuel Barlow APRN Medicine Specialties Clinic Pulmonary Division [facility] Phone number: [phone] Fax number: [phone] documented in this encounter Plan of Treatment Upcoming Encounters Date Type Department Care Team (Late st Contact Info) Description 10/17/2025 4:00 PM EST Appointment Cardiac Imaging [address] [place] [address] 12/05/2025 3:40 PM EST [facility] [address] [place] [address] Amanuel Barlow APRN [address] [place] [address] Scheduled Orders Name Type Priority Associated Diagnoses Order Schedule Echo, Adult Transthoracic Complete Echocardiography Routine Dyspnea on exertion Expected: 09/13/2025 (Approximate), Expires: 09/13/2027 Scheduled Referrals Name Type Priority Associated Diagnoses Orde r Schedule Follow Up Pulm Outpatient Referral Routine Other fatigue Dyspnea on exertion COPD exacerbation ([facility]/HCC) COPD with asthma Asthma-COPD overlap syndrome Allergic rhinitis, unspecified seasonality, unspecified trigger Hiatal hernia Expected: 12/21/2025, Expires: 10/20/2026 documented as of this encounter Results * T4, free (09/13/2025 11:47 AM EDT) Free T4, Plasma 1.2 0.8 - 1.7 ng/dL 09/13/2025 2:41 PM EDT [facility] Blood Venous blood specimen / Unknown Venipuncture / Unknown 09/13/2025 11:47 AM EDT 09/13/2025 11:47 AM EDT us Amanuel Barlow CCNP LAB BLOOD ORDERABLES Florecita l Result Performing Organization Address City/[facility]/ZIP Co de Phone Number [facility] [address] [place] [address] * (ABNORMAL) TSH (09/13/2025 11:47 AM EDT) Thyroid Stimulating Hormone, Plasma 6.62(H) 0.40 - 4.20 uIU/mL 09/13/2025 2:41 PM EDT [facility] Blood Venous blood specimen / Unknown Venipuncture / Unknown 09/13/2025 11:47 AM EDT 09/13/2025 11:47 AM EDT us Amanuel Barlow CCNP LAB BLOOD ORDERABLES Florecita l Result Performing Organization Address [facility] [place] [address] * N-Terminal Probnp, Plasma (09/13/2025 11:47 AM EDT) N-Terminal, PROBNP, Plasma <50 0 - 899 pg/mL 09/13/2025 2:41 PM EDT [facility] Blood Venous blood specimen / Unknown Venipuncture / Unknown 09/13/2025 11:47 AM EDT 09/13/2025 11:47 AM EDT us Amanuel Barlow CCNP LAB BLOOD ORDERABLES Florecita l Result [facility] [address] [place] [id number] * IgE (09/13/2025 11:47 AM EDT) Immunoglobulin E 84 <=214 kU/L 09/15/20 8:41 AM EDT [facility] Blood Venous blood specimen / Unknown Venipuncture / Unknown 09/13/2025 11:47 AM EDT 09/13/2025 11:47 AM EDT Narrative [facility] - 09/15/2025 8:41 AM EDT REFERENCE INTERVAL: Immunoglobulin E, Serum Access complete set of age- and/or gender-specific reference intervals for this test in the [facility] Directory ([facility]). Performed By: [facility] [employer] [employer] [address] [place] [address] Account Classification Clerk: Stanley Jarvis MD, PhD CLIA Number: [id number] Amanuel Barlow APRN LAB BLOOD ORDERABLES Florecita l Result [facility] ([place]) [address] [place] [address] * (ABNORMAL) Comprehensive metabolic panel (09/13/2025 11:47 AM EDT) Glucose, Plasma 95 74 - 99 mg/dL 09/13/2025 2:41 PM EDT [facility] BUN, Plasma 19 8 - 23 mg/dL 09/13/2025 2:41 PM EDT [facility] Creatinine, Plasma 1.16(H) 0.60 - 1.10 mg/dL 09/13/2025 2:41 PM EDT [facility] BUN/Creatinine Ratio 16 09/13/2025 2:41 PM EDT [facility] Sodium, Plasma 142 136 - 145 mmol/L 09/13/2025 2:41 PM EDT [facility] Potassium, Plasma 4.7 3.6 - 4.9 mmol/L 09/13/2025 2:41 PM EDT [facility] Chloride, Plasma 105 97 - 107 mmol/L 09/13/2025 2:41 PM EDT [facility] CO2, Plasma 25 22 - 29 mmol/L 09/13/2025 2:41 PM EDT [facility] Anion Gap 12 6 - 16 mmol/L 09/13/2025 2:41 PM EDT [facility] Total Calcium, Plasma 9.5 8.9 - 10.2 mg/dL 09/13/2025 2:41 PM EDT [facility] Total Protein 7.6 6.3 - 7.9 g/dL 09/13/2025 2:41 PM EDT [facility] Albumin, Plasma 4.2 3.5 - 5.2 g/dL 09/13/2025 2:41 PM EDT [facility] AST, Plasma 20 10 - 35 U/L 09/13/2025 2:41 PM EDT [facility] ALT, Plasma 22 10 - 35 U/L 09/13/2025 2:41 PM EDT [facility] Alkaline Phosphatase, Plasma 73 46 - 142 U/L 09/13/2025 2:41 PM EDT [facility] Total Bilirubin, Plasma 0.3 0.2 - 1.1 mg/dL 09/13/2025 2:41 PM EDT [facility] eGFRcr 52.8 mL/min/1.7 3m*2 09/13/2025 2:41 PM EDT [facility] Comment:Reported eGFRcr in m L/min/1.73m2 is based the CKD-EPI 2020 equation that does not use a race coefficient. Blood Venous blood specimen / Unknown Venipuncture / Unknown 09/13/2025 11:47 AM EDT 09/13/2025 11:47 AM EDT us Amanuel Barlow APRN LAB BLOOD ORDERABLES Florecita malagon Result [facility] [address] [place] [address] * (ABNORMAL) CBC and differential (09/13/2025 11:47 AM EDT) WBC Count 6.38 3.70 - 10.30 10*3/uL LAB HEMATOLOGY METHOD 09/13/2025 1:59 PM EDT [facility] RBC Count 5.00 3.90 - 5.20 10*6/uL LAB HEMATOLOGY METHOD 09/13/2025 1:59 PM EDT [facility] HGB 11.4 11.2 - 15.7 g/dL LAB HEMATOLOGY METHOD 09/13/2025 1:59 PM EDT [facility] HCT 38.1 34.0 - 45.0 % LAB HEMATOLOGY METHOD 09/13/2025 1:59 PM EDT [facility] Platelet Count 380(H) 155 - 369 10*3/uL LAB HEMATOLOGY METHOD 09/13/2025 1:59 PM EDT [facility] MCV 76(L) 79 - 98 fL LAB HEMATOLOGY METHOD 09/13/2025 1:59 PM EDT [facility] MCH 22.8(L) 26.0 - 32.0 pg LAB HEMATOLOGY METHOD 09/13/2025 1:59 PM EDT [facility] MCHC 29.9(L) 30.7 - 35.5 g/dL LAB HEMATOLOGY METHOD 09/13/2025 1:59 PM EDT [facility] RDW 16.9(H) 11.5 - 14.5 % LAB HEMATOLOGY METHOD 09/13/2025 1:59 PM EDT [facility] MPV 9.0 8.8 - 12.5 fL LAB HEMATOLOGY METHOD 09/13/2025 1:59 PM EDT [facility] nRBC 0.0 <=0.0 per 100 WBCs LAB HEMATOLOGY METHOD 09/13/2025 1:59 PM EDT [facility] Differential Type Automated LAB HEMATOLOGY METHOD 09/13/2025 1:59 PM EDT [facility] Neutrophils % 63 % LAB HEMATOLOGY METHOD 09/13/2025 1:59 PM EDT [facility] Lymphocytes % 27 % LAB HEMATOLOGY METHOD 09/13/2025 1:59 PM EDT [facility] Monocytes % 6 % LAB HEMATOLOGY METHOD 09/13/2025 1:59 PM EDT [facility] Eosinophils % 2 % LAB HEMATOLOGY METHOD 09/13/2025 1:59 PM EDT [facility] Basophils % 1 % LAB HEMATOLOGY METHOD 09/13/2025 1:59 PM EDT [facility] Immature Granulocytes % 1 % LAB HEMATOLOGY METHOD 09/13/2025 1:59 PM EDT [facility] Neutrophils Absolute 4.07 1.60 - 6.10 10*3/uL LAB HEMATOLOGY METHOD 09/13/2025 1:59 PM EDT [facility] Lymphocytes Absolute 1.70 1.20 - 3.90 10*3/uL LAB HEMATOLOGY METHOD 09/13/2025 1:59 PM EDT [facility] Monocytes Absolute 0.41 0.30 - 0.90 10*3/uL LAB HEMATOLOGY METHOD 09/13/2025 1:59 PM EDT [facility] Eosinophils Absolute 0.11 0.00 - 0.50 10*3/uL LAB HEMATOLOGY METHOD 09/13/2025 1:59 PM EDT [facility] Basophils Absolute 0.06 0.00 - 0.10 10*3/uL LAB HEMATOLOGY METHOD 09/13/2025 1:59 PM EDT [facility] Immature Granulocytes Absolute 0.03 0.00 - 0.06 10*3/uL LAB HEMATOLOGY METHOD 09/13/2025 1:59 PM EDT [facility] Blood Venous blood specimen / Unknown Venipuncture / Unknown 09/13/2025 11:47 AM EDT 09/13/2025 11:47 AM EDT Narrative [facility] - 09/13/2025 1:59 PM EDT Therapeutic decision making should be based on absolute values, rather than percentages. us Amanuel Barlow APRN LAB BLOOD ORDERABLES Florecita malagon Result [facility] [address] [place] [address] documented in this encounter Visit Diagnoses Diagnosis Other fatigue- Primary Dyspnea on exertion Other dyspnea and respiratory abnormality COPD exacerbation (CMS/HCC) Obstructive chronic bronchitis with exacerbation COPD with asthma (CMS/HCC) Asthma-COPD overlap syndrome (CMS/HCC) Allergic rhinitis, unspecified seasonality, unspecified trigger Hiatal hernia Diaphragmatic hernia without mention of obstruction or gangrene documented in this encounter Additional Health Concerns Assessment Noted Time PHQ-9 Depression Total Score: 0 09/13/20 25 10:07 AM EDT A fall risk assessment has been complete d for the patient 09/13/2025 10:07 AM EDT A Body Mass Index follow-up plan has been documented for the patient 09/13/2025 11:20 AM EDT documented as of this encounter Care Teams Powderman Relationship Specialty Start Date End Date Belle Barksdale APRN [address] [facility] [address] [place] [address] PCP - General 04/05/21 documented as of this encounter
--- OUTSIDE RECORDS SUMMARY | 2025-09-18 12:00 | XMS_ITS | Encounter Summary ---
Author Organization Healthcare Address [address] [place] [address] Care Team Providers Care Inspector Tubes Name Role Phone Belle Barksdale APRN Primary Care Provider [phone] Encounter Details Date Type Department Care Team (Late st Contact Info) Description 09/18/2025 1:00 PM EDT Office Visit [place] [facility] Pul[facility] Rehab [address] [place] [address] COPD with asthma (CMS/HCC) (Primary Dx) Social [...] Sign Reading Time Taken Comments Blood Pressure 142/80 09/18/2025 2:00 PM EDT Pulse 113 09/18/2025 2:00 PM EDT Temperature - - Respiratory Rate - - Oxygen Saturation 98% 09/18/2025 2:00 PM EDT Inhaled Oxygen Concentration - - Weight 88.7 kg (195 lb 8.8 oz) 09/18/2025 2:00 P M EDT Height - - Body Mass Index 31.56 09/13/2025 10:05 AM EDT documented in this encounter Miscellaneous Notes * Progress Notes - Ronel Romero - 09/18/2025 1:00 PM EDT Pulmonary Rehab Daily Note Patient Name: Mago Maxwell Today's Date: 09/18/2025 General General Time In: 1250 Time Out: 1420 Family/Caregiver Present: No Visit Number: [id number] Physician on Site: Rodrigo Álvarez md Pain: 0 Weight: 88.7 kg (195 lb 8.8 oz) Vital Signs Resting Vital Signs SpO2: 98 % Pulse: 83 Supplemental Oxygen : Room Air BP: 118/80 Dyspnea Index: 0 Falls: 0 Meds Taken: y Meds Changed: n Breathing Assessment Breathing Assessment Breathing Assessment: clear bilateral Exercise Exercise Modalities Treadmill: Yes UBE: Yes Weights: Yes Treadmill Exercise Assessment Speed: 2.5 mph Grade: 0 % Time: 20 Minutes Distance: 0.65 METS: 2.86 Exercise SpO2: 96 Exercise HR: 139 Supplemental Oxygen : Room Air Exercise BP: 140/82 Exercise Dyspnea: 1 Rate of Perceived Exertion: 1 Signs & Symptoms: pt tolerated well Upper Body Ergometer Resistance: 9-8 Revolutions per Minute: 39 Time: 20 Distance: 2.07 METS: 2.8 Exercise SPO2: 96 Exercise HR: 140 Supplemental Oxygen: Room air Exercise BP: 118/80 Exercise Dyspnea: 1 Rate of Percieved Exertion: 2 Signs and Symptoms: pt tolerated well Weights Exercise Sets: 1 Reps: 10 Weight: 5 lbs Time: 10 Minutes Exercise SpO2: 96 Exercise HR: 132 Supplemental Oxygen: Room air Exercise Dyspnea: 2 Rate of Perceived Exertion: 1 Signs and Symptoms: pt tolerated well Cool Down Cool Down Exercises Cool Down Exercises: 10 Post-Activity Vital Signs Post-Activity Vital signs SpO2: 97 % Pulse: 120 Supplemental Oxygen : Room Air BP: 120/82 Dyspnea Index: 1 Rate of Percieved Exertion: 0 Functional Assessments Six Minute Walk Test Six Minute Walk Test: Yes Heart Rate: (!) 113 SpO2: 98 % Supplemental Oxygen : Room Air BP: (!) 142/80 Exercise Dyspnea: 1 Educational Classes/20 Minutes Pulmonary medications NW Pt given education packet documented in this encounter Plan of Treatment Upcoming Encounters Date Type Department Care Team (Late st Contact Info) Description 10/17/2025 4:00 PM EST Appointment Cardiac Imaging [address] [place] [address] 12/05/2025 3:40 PM EST Office Visit [place] [facility] [address] [place] [address] Rebekah Son APRN [address] [place] [address] documented as of this encounter Visit Diagnoses Diagnosis COPD with asthma (CMS/HCC)- Primary documented in this encounter Additional Health Concerns Assessment Noted Time PHQ-9 Depression Total Score: 0 09/13/20 10:07 AM EDT A fall risk assessment has been complete d for the patient 09/13/2025 10:07 AM EDT A Body Mass Index follow-up plan has been documented for the patient 09/18/2025 2:22 PM EDT documented as of this encounter Care Teams Inspector Tubes Relationship Specialty Start Date End Date Belle Barksdale, ASTRONAUT MISSION SPECIALIST [address] [place] [address] PCP - General 04/05/21 documented as of this encounter
--- NOTE | 2025-10-04 13:40 | US_ITS ---
FINAL REPORT CLINICAL HISTORY: STAGE 3a CHRONIC KIDNEY DISEASE FINDINGS: RENAL ULTRASOUND Ultrasound images of the kidneys were obtained. Limited images of the liver parenchyma demonstrates normal echogenicity. The right kidney measures 10.2 cm in length. It is normal echogenicity. There is no hydronephrosis. The left kidney measures 10.2 cm in length. It is normal echogenicity. There is no hydronephrosis. IMPRESSION: Normal renal ultrasound. Reviewed, Interpreted and Dictated by Maria Victoria Jain MD Transcribed by Angelique Macias Authenticated and [facility]
--- OUTSIDE RECORDS SUMMARY | 2025-10-04 13:55 | XMS_ITS | Encounter Summary ---
Author Organization Healthcare Address [address] [address] Care Team Providers Care Compression Molding Machine Tender Name Role Phone Belle Barksdale ALBERTO Primary Care Provider [phone] Encounter Details Date Type Department Care Team (Late st Contact Info) Description 09/14/2025 Results Follow-Up [facility] Medicine Specialties [address], [address] [place] [address] Rebekah Son APRN [address] [place] [address] Social History Tobacco Use Types [...] PM EST Appointment Cardiac Imaging [address] [place] [address] 12/05/2025 3:40 PM EST Office Visit [facility] [address] [place] [address] Rebekah Son S, JEWELRY SALES REPRESENTATIVE [address] [place] [address] documented as of this encounter Visit Diagnoses [...] documented as of this encounter Care Teams Compression Molding Machine Tender Relationship Specialty Start Date End Date Belle Barksdale S, JEWELRY SALES REPRESENTATIVE [address] [place] [facility] [address] [place] [address] PCP - General 04/05/21 documented as of this encounter
--- OUTSIDE RECORDS SUMMARY | 2025-10-04 13:55 | XMS_ITS | Data Portability ---
Author Organization [facility] Address [address] [place] [address] Assessment No assessment recorded. Plan of Treatment Reminders Order Date Submit Date Provider Last Modified By Organization Details Last Modified Time Details Appointments None recorded. Lab urinalysis, dipstick 2022 023 [email or web address] [place] [employer], [address] [place] [address] , [place], [address], 3 16:08:09 culture, urine 2022 023 [place] [facility], [address], [address], [place], [address], 3 03:08:14 thyroperoxi dase Ab, serum 2022 023 [place] [facility], [address], [address], [place], [address], 3 20:08:23 HbA1c (hemoglobin A1c), blood 2022 023 [place] [facility], [address], [address], [place], [address], 3 20:08:22 Referral None recorded. Procedures None recorded. Surgeries None recorded. Imaging MAMMO, screening, bilateral 2023 025 [facility] Scheduling Department -New Scheduling Process, [address], [place], [address], 5 14:59:53 MAMMO, screening, bilateral 2022 023 [facility] (X-Ray), [address], [place], [address], 4 16:52:00 DEXA 2022 023 [facility] (X-Ray), [address], [place], [address], 3 13:10:03 Medication Orders estradiol 0.025 mg/24 hr semiweekly transdermal patch 2022 023 [facility], [address], [place], [place], [id number], 3 13:59:17 estradiol 0.025 mg/24 hr semiweekly transdermal patch 2022 023 [facility], [address], [place], [address], 3 16:42:07 Patient TargetsNo targets recorded. Patient Instructions Encounter Date Encounter Id Patient Instructions Last Modified By Organization Details Last Modified Time 05/22/2023 [id number] mammogram: about this test [email or web address] Not available 05/22/2023 15:15:34 medical record request* [email or web address] Not available 11/06/2023 14:50:51 07/16/2023 [id number] medical record request* [email or web address] Not available 08/21/2023 [...] with diabe irma: <7.0 Not Available [facility] ([facility]) [address] [place], [address], 05/25/2023 20:08:22 05/22/2005/23/2023 THYRO ID ANTIB ODIES thyroid peroxidase (tpo) Ab <9 IU/mL 0-34 Not Available [facility] ([facility]) [address] [place], [address], 05/25/2023 20:08:23 05/22/20 23 05/25/2023 THYRO ID ANTIB ODIES thyroglobuli n antibody <1.0 IU/mL 0.0-0. 9 Thyro globu nadeen Antib kristopher measu red by Beckmarco an Coult er Metho dolog y Not Available [facility] ([facility]) [address] [place], [address], 05/25/2023 20:08:23 07/16/20 23 07/18/2023 URINE CULTU RE, ROUTI NE urine culture, routine Final report Not Available [facility] ([facility]) [address] [place], [address], 07/18/2023 03:08:14 07/16/2007/18/2023 URINE CULTU RE, ROUTI NE result 1 COMMEN T Cultu re shows less than 10,00 0 colon y formi ng units of bacte mindy per kolton liter of urine . This colon y count is not gener ally consi dered to be clini ronnie signi fican t. Not Available [facility] ([facility]) [address], [place], [address], 07/18/2023 03:08:14 07/16/20 23 07/16/2023 urina lysis , dipst ick Leukocytes Negati ve Not Available [place] [employer] [address] [place] [address] , [place], [address], 07/16/2023 13:59:32 07/16/20 23 07/16/2023 urina lysis , dipst ick Nitrite negati ve Not Available [facility]/[address] , [place], [address], 07/16/2023 13:59:32 07/16/20 23 07/16/2023 urina lysis , dipst ick Protein Negati ve Not Available [facility]/[address] , [place], [address], 07/16/2023 13:59:32 07/16/20 23 07/16/2023 urina lysis , dipst ick pH 7.0 Not Available [address] , [place], [address], 07/16/2023 13:59:32 07/16/20 23 07/16/2023 urina lysis , dipst ick Blood Small Not Available [facility]/[address] , [place], [address], 07/16/2023 13:59:32 07/16/20 23 07/16/2023 urina lysis , dipst ick Ketone Negati ve Not Available [address] , [place], [address], 07/16/2023 13:59:32 07/16/20 23 07/16/2023 urina lysis , dipst ick Bilirubin Negati ve Not Available [facility] [address] [place] [address] , [place], [address], 07/16/2023 13:59:32 07/16/20 23 07/16/2023 urina lysis , dipst ick Glucose Negati ve Not Available [place] [employer] [address] [place] [address] , [place], [address], 07/16/2023 13:59:32 07/16/20 23 07/16/2023 urina lysis , dipst ick Appearance Clear Not Available [facility] [employer] Tender [address] [place] [address] , [place], [address], 07/16/2023 13:59:32 07/16/20 23 07/16/2023 urina lysis , dipst ick Color Yellow Not Available [place] [employer] [address] [place] [address] , [place], [address], 07/16/2023 13:59:32 07/21/20 23 05/13/2023 medic al recor d reque st* No observ ation record ed. [email or web address] [facility] (Med Record) [address], [place], [address], 11/06/2023 14:50:51 10/28/20 23 10/28/2023 DEXA No observ ation record ed. [email or web address] [facility] [address], [place], [address], 01/07/2024 16:59:26 09/06/20 24 05/27/2024 MAMMO , scree moustapha, bilat eral No observ ation record ed. [email or web address] [facility] (Med Record) [address], [place], [address], 09/07/2024 14:45:18 06/01/20 25 05/30/2025 MAMMO , scree moustapha, bilat eral No observ ation record ed. [email or web address] [facility] [address], [place], [place], [address], 06/05/2025 09:28:47 Result Notes None recorded. Problems Name Problem SNOMED Code Status Onset Date Resolution Date Notes Provider Name and Address Organization Details Recorded Time Chronic obstructive pulmonary disease 86695804 Active 2022 Alma Brandt null, [place] - [facility] 3 14:10:28 History of deep vein thrombosis 808111080 Active 2022 Alma Brandt null, [place] - [facility] 3 14:11:04 Hypercholester olemia 90980054 Active 2022 Alma Brandt null, [place] - [facility] 3 14:16:31 Seasonal allergy 795297128 Active 2022 Alma Brandt null, [place] - [facility] 3 14:17:07 Fibrocystic disease of breast 59855628 Active 2022 Alma Brandt null, [place] - [facility] 3 14:30:34 Hiatal hernia 97854679 Active 2022 Vinita Cruz DO [address], [place], [address], [place] - [facility] 3 15:03:21 Acquired absence of cervix and uterus 629688207 Active 2022 Vinita Cruz DO [address], [place], [address], [place] - [facility] 3 13:07:40 Osteopenia 558947983 Active 2022 Vinita Cruz DO [address], [place], [address], [place] - [facility] 4 17:42:17 Problem Notes None recorded. Procedures Surgical History Date Name Laterality Status Provider Name and Address Organization Details Recorded Time 025 Date of Last Mammogram completed Eileen Everett [place] - [facility] 06/02/2025 10:31:29 023 Most Recent Bone Density completed Eileen Su [facility] 01/07/2024 16:59:15 023 Most Recent Mammogram completed Carmela Zacarias [facility] 07/23/2023 14:00:50 023 Colposcopy completed Zelda Mcdonough [facility] 11/07/2024 13:56:07 016 dental surgery completed Zelda Mcdonough [facility] 11/07/2024 13:56:26 009 Adnexal surgery completed Zelda Mcdonough [facility] 11/07/2024 13:56:26 008 Hysterectomy completed Zelda Mcdonough [facility] 11/07/2024 13:56:26 989 Dilation and Curettage, sharp completed Zelda Mcdonough [facility] 11/07/2024 13:56:26 ureterorenoscopy with fragmentation and removal of calculus of kidney completed Alma Brandt [facility] 05/22/2023 14:20:02 Hysterectomy, Total laparoscopic completed Alma Brandt [facility] 05/22/2023 14:21:25 foot repair completed Alma Brandt [facility] 05/22/2023 14:22:42 Imaging Results None recorded. Procedure Notes None recorded. Medical Equipment None Reported. Allergies Allergen ID Allergen Name Allergen Category Reaction Reaction Severity Criticality Documentation Date Start Date Code Code System Note Provider Name and Address Organization Details Recorded Time 031098 tree and shrub pollen environme nt,medica tion Not available Not available Not available 07/16/2023 Ravindra santana [facility] 13:04:41 Medications Name Sig Start Date [...] Updated DateTime 05/22/2023 170.18 cm 30.7 kg/m2 03181.82 g 0 122/78 mm[Hg] Alma Brandt [place] - [facility] 3 14:30:23 Date Recorded Body height Body mass index (BMI) Body weight Pain severity - 0-10 verbal numeric rating [Score] - Reported Systolic And Diastolic Provider Name and Address Organization Details Last Updated DateTime 07/16/2023 170.18 cm 30.7 kg/m2 15844.1 g 0 128/60 mm[Hg] Ravindra Hussainjoser oberto [place] - [facility] 3 13:03:58 Date Recorded Body weight Body mass index (BMI) Body height Pain severity - 0-10 verbal numeric rating [Score] - Reported Systolic And Diastolic Provider Name and Address Organization Details Last Updated DateTime 11/07/2024 47566.92 g 31.3 kg/m2 167.64 cm 0 130/86 [...] Is Your Level Of Caffeine Consumption? Occasional [email or web address] Information not available 05/22/2023 How Much Tobacco [...] Or The Highest Degree You Have Received? [id number] Information not available 11/07/2024 When Did You Quit Smoking? 16+yearssince lastcigarcarin [email or web address] Information not available 05/22/2023 Have You Recently [...] available 11/07/2024 What Is Your Relationship Status? [email or web address] Information not available 05/22/2023 Do You Use Your Seat Belt Or Car Seat Routinely? Yes Information not available 11/07/2024 Are You Sexually Active? No Information not available 11/07/2024 Do You Have Smoke And Carbon Monoxide Detectors In Your Home? Yes Information not available 11/07/2024 At What Age Did You Start Smoking Tobacco? 16 Stopped In 1984 [email or web address] Information not available 05/22/2023 Are You Passively Exposed To Smoke? No Information no t available 11/07/2024 Do You Use Sunscreen Routinely? Yes Information not available 11/07/2024 Has Tobacco Cessation Counseling Been Provided? No Information not available 05/22/2023 Sex: Female Functional Status Question Answer Note LastModified by Organizat ion Details LastModified Time Do you use any illicit or recreational drugs? No [email or web address] Information not available 05/22/2023 Do you or have you ever used any other forms of tobacco or nicotine? No [email or web address] Information not available 05/22/2023 What is your level of alcohol consumption? Occasional Information not available 05/22/2023 Do you or have you ever used smokeless tobacco? Never used smokeless tobacco Information not available 11/07/2024 Are you currently employed? No Information not available 11/07/2024 Are you able to care for yourself independently? Yes [email or web address] Information not available 05/22/2023 Do you or have you ever used e-cigarettes or vape? Never used electronic cigarettes Information not available 11/07/2024 What is your exercise level? Occasional Information not available 11/07/2024 Mental Status Question Answer Note LastModified by Organization D etails LastModified Time Do you feel stressed (tense, restless, nervous, or anxious, or unable to sleep at night)? [id number] Information not available 11/07/2024 Family History Relationship [...] 13:56:01 Medical History Condition Response Obesity Y Blood clot Y Kidney Stones Y Gynecological History Statement/Question Response Abnormal Pap [...] recombinant, quadrivalent, PF 2 completed Alma santana, [place] - [facility] 05/22/2023 14:14:34 COVID-19, mRNA, LNP-S, PF, 30 mcg/0.3 mL dose 1 completed Alma santana, [place] - [facility] 05/22/2023 14:14:34 Pneumococcal conjugate PCV20, polysaccharide KHA919 conjugate, adjuvant, PF 2 completed Alma santana, [place] - [facility] 05/22/2023 14:14:34 Influenza, split virus, trivalent, preservative 9 completed [place] - [facility] 05/22/2023 14:14:34 Past Encounters Encounter ID Performer Location Encounter Start Date Encounter Closed Date Diagnosis/Indication Diagnosis SNOMED-CT Code Diagnosis ICD10 Code Diagnosis IMO Codes Diagnosis Note [id number] DO [place] ASSOCIATE DEAN [address] [place] [address] [place] [address] 05/22/2023 13:56:48 05/22/2023 15:36:33 Menopausal syndrome 967226520 N95.9 Screening mammography 24 325562 Z12.31 [id number] DO [place] [employer]OC[employer] DEAN [address] [place] [address] [place] [address] 07/16/2023 12:49:14 07/16/2023 13:57:39 Routine gynecologic examination done 5561724319 9101 Z01.419 Depression screening 171 084530 Z13.31 Diet education 99581262 Z71.3 Counseling 987867945 Z71 .82 Exercise counselnadeen g. Patient encouraged to exercise 30 minutes 5 days a week. Examinatio n of blood pressure 489047021 Z01.30 Vaccine de clined by patient 4984972005 02 Z28.21 Screening mammography 24 821053 Z12.31 Chronic ob structive pulmonary disease 41415026 J44.9 Postmenopausal state 764 79367 Z78.0 History of long-term steroid use due to COPD Menopausal syndrome 1237 38098 N95.9 Screening for malignant neoplasm of colon 470139162 Z12.11 Cystocele 419963520 N81. 10 Acquired a bsence of cervix and uterus 750482638 Z90.710 Body mass index 30+ - obesity 464397446 Z68.30 Obesity 473943248 E66.9 [id number] DO Eliseo [place] [employer]OC[employer]ATE DEAN [address] [place] [address] [place] [phone] 11/07/2024 13:47:11 11/07/2024 14:42:37 Routine gynecologic examination done 0330913877 9101 Z01.419 Depression screening 171 684967 Z13.31 Diet education 44286796 Z71.3 Counseling 638367223 Z71 .82 Exercise counselnadeen mays Patient encouraged to exercise 30 minutes 5 days a week. Examinatio n of blood pressure 408480995 Z01.30 Vaccine de clined by patient 3094910807 02 Z28.21 Screening mammography 24 691918 Z12.31 Health Concerns Section Related Observation LastModified by Organization Detai ls LastModified Time None Recorded Concern Status LastModified by Organization Details LastModified Time None Recorded Advance Directives Directive N: Payers Insurance Date Sequence Insurance Name Policy Number Policy Harper Covered Member ID Harper Member ID Guarantor Name 10/04/2025 [place] [id number]MEDICAID) Mago Maxwell [id number] Mago Maxwell 10/04/2025 1 [employer] [facility] (MEDICAID [facility] Mago Maxwell [id number] Magobreonna Maxwell Notes Date Note Type Note Provider [...] mine. Vinita Cruz, DO [address], [place], [address], [place] - [facility] 05/22/2023 16:43:29 07/16/2023 text/html [...] . Vinita Cruz DO [address], [place], [address], [facility] - [facility] 07/22/2023 13:08:39 [...] discontinued. Vinita Cruz DO [address], [place], [address], [facility] - [facility] 11/07/2024 16:22:04 OBGyn Episode No OBEpisode recorded.
--- OUTSIDE RECORDS SUMMARY | 2025-10-04 13:55 | XMS_ITS | Clinical Summary ---
Author Organization [facility] Address [address] [place] [address] Care Team Providers Care Quality Review Specialist Name Role Phone Belle Barksdale WAREHOUSE SUPERVISOR 3RD SHIFT Primary Care Provider [phone] Allergies Active Allergy Reactions Criticality Noted Date [...] wheezing. 18 g 5 07/11/20 25 Active Fluticasone-Umec lidin-Vilant (Trelegy Ellipta) 200-62.5-25 MCG/ACT aerosol powder Inhale 1 puff daily. 60 each 11 07/28/20 25 Active ipratropium-albu terol (Duo-Neb) 0.5-2.5 mg/3 mL nebulizer solutionIndicati ons:Chronic obstructive pulmonary disease, unspecified COPD type (CMS/HCC) Take 3 mL by nebulization daily. May also take 3 mL daily as needed for wheezing. 540 mL 3 10/04/20 25 Active ipratropium-albu terol (Duo-Neb) 0.5-2.5 mg/3 mL nebulizer solutionIndicati ons:Chronic obstructive pulmonary disease, unspecified COPD type (CMS/HCC) Take 3 mL by nebulization daily. May also take 3 mL daily as needed for wheezing. 540 mL 07/11/20 25 025 Discontinu ed(Reorder ) predniSONE (Deltasone) 20 MG tabletIndication s:COPD exacerbation [...] Encounters Date Type Department Care Team Description 10/04/2025 Refill [facility] Medicine Specialties [address] [place] [address] Rebekah Son APRN Chronic obstructive pulmonary disease, unspecified COPD type (CMS/HCC) 10/02/2025 Travel 09/29/2025 Community Orders Community Practice [address] [place] [address] Belle Barksdale APRN Hiatal hernia (Primary Dx) 09/18/2025 1:00 PM EDT Office Visit [place] [facility] [address] [place] [address] COPD with asthma (CMS/HCC) (Primary Dx) 09/18/2025 Travel 09/14/2025 Results Follow-Up [facility] Medicine Specialties [address] [place] [address] Rebekah Son APRN 09/13/2025 10:40 AM EDT Office Visit [facility] Medicine Specialties [address] [place] [address] Rebekah Son, WAREHOUSE SUPERVISOR 3RD SHIFT Other fatigue (Primary Dx); Dyspnea on exertion; COPD exacerbation (CMS/HCC); COPD with asthma (CMS/HCC); Asthma-COPD overlap syndrome (CMS/HCC); Allergic rhinitis, unspecified seasonality, unspecified trigger; Hiatal hernia 09/13/2025 Travel 09/11/2025 1:00 PM EDT Office Visit [facility] Pulmonary Rehab [address] [place] [address] COPD with asthma (CMS/HCC) (Primary Dx) 09/11/2025 Travel 09/06/2025 10:30 AM EDT Office Visit [facility] Pulmonary Rehab [address] [place] [address] COPD with asthma (CMS/HCC) (Primary Dx) 09/06/2025 Travel 08/28/2025 1:00 PM EDT Office Visit [facility] Pulmonary Rehab [address] [place] [address] Chronic obstructive bronchitis (CMS/HCC) (Primary Dx) 08/28/2025 Travel 08/23/2025 1:00 PM EDT Office Visit [facility] Pulmonary Rehab [address] [place] [address] COPD with asthma (CMS/HCC) (Primary Dx) 08/23/2025 Travel 08/21/2025 1:00 PM EDT Office Visit [facility] Pulmonary Rehab [address] [place] [address] COPD with asthma (CMS/HCC) (Primary Dx) 08/21/2025 Travel 08/16/2025 1:00 PM EDT [facility] [place] [facility] [address] [place] [address] COPD with asthma (CMS/HCC) (Primary Dx) 08/16/2025 Travel 08/14/2025 1:00 PM EDT [facility] [place] [facility] [address] [place] [address] Chronic obstructive bronchitis (CMS/HCC) (Primary Dx) 08/14/2025 Travel 08/09/2025 1:00 PM EDT Office Visit [facility] Pulmonary Rehab [address] [place] [address] COPD with asthma (CMS/HCC) (Primary Dx) 08/09/2025 Travel 08/07/2025 1:00 PM EDT Office Visit [facility] Pulmonary Rehab [address] [place] [address] COPD with asthma (CMS/HCC) (Primary Dx) 08/07/2025 Travel 07/31/2025 1:00 PM EDT Office Visit [facility] Pulmonary Rehab [address] [place] [address] COPD with asthma (CMS/HCC) (Primary Dx) 07/31/2025 Travel 07/28/2025 Refill [facility] Medicine Specialties [address] [place] [address] Rebekah Son, ALBERTO 07/26/2025 1:00 PM EDT Office Visit [facility] Pulmonary Rehab [address] [place] [address] Chronic obstructive pulmonary disease, unspecified COPD type (CMS/HCC) (Primary Dx) 07/26/2025 Travel 07/19/2025 1:00 PM EDT Office Visit [facility] Pulmonary Rehab [address] [place] [address] COPD with asthma (CMS/HCC) (Primary Dx) 07/19/2025 Travel 07/17/2025 1:00 PM EDT Office Visit [facility] Pulmonary Rehab [address] [place] [address] COPD with asthma (CMS/HCC) (Primary Dx) 07/17/2025 Travel 07/12/2025 1:00 PM EDT Office Visit [facility] Pulmonary Rehab [address] [place] [address] COPD with asthma (CMS/HCC) (Primary Dx) 07/12/2025 Travel 07/11/2025 Refill [facility] Medicine Specialties [address] [place] [address] Rebekah Son APRN Chronic obstructive pulmonary disease, unspecified COPD type (CMS/HCC) 07/11/2025 Refill [facility] Medicine Specialties [address] [place] [address] Halina Peterson RN Chronic obstructive pulmonary disease, unspecified COPD type (CMS/HCC) 07/10/2025 1:00 PM EDT Office Visit [facility] Pulmonary Rehab [address] [place] [address] COPD with asthma (CMS/HCC) (Primary Dx) 07/10/2025 Travel 07/05/2025 1:00 PM EDT Office Visit [facility] Pulmonary Rehab [address] [place] [address] Chronic obstructive pulmonary disease, unspecified COPD type (CMS/HCC) (Primary Dx) 07/05/2025 Travel from Last 3 Months Immunizations Immunization Administration Dates Next Due Influenza, injectable, quadrivalent, preservativ e free 11/09/2023 Influenza, recombinant, quad rivalent, injectable, preservative free 08/26/2022 Influenza, seasonal, injectable 09/13/2019 [email or web address] COVID-19 Vaccine (Purple Cap) 12 + 07/15/2021 [...] EST Appointment Cardiac Imaging [address] [place] [address] 12/05/2025 3:40 PM EST Office [facility] [place] [facility] [address] [place] [address] Rebekah Son S, WAREHOUSE SUPERVISOR 3RD SHIFT [address] [place] [address] Health Maintenance Due Date Last Done Comments [facility]-HIV Screening 1960 [facility]-Hepatitis C Screening 1960 [facility]-Infant/Child/Adol SDOH Screenings 1960 [facility]- SDOH Screenings 1978 [facility]-Adult SDOH Screenings 1978 CT Colonography 2005 Colonoscopy 2005 FIT-DNA 2005 FIT 2005 FOBT 2005 Sigmoidoscopy 2005 [facility]-Colorectal Cancer Screening 2005 [facility]-Breast Cancer Screening 2010 [facility]-Zoster Vaccines (1 of 2) 2010 [id number] Vaccine (2 - Pfizer risk series) 08/05/2021 07/15/2021 [facility]-Depression Screening 09/13/2026 025, 09/13/2025, 05/20/2022 [facility]-DTaP,Tdap,and Td Vaccines (2 - Td or Tdap) 11/09/2033 11/09/2023 [facility]-Pneumococcal Vaccine: 50+ Years Completed 05/20/2022 [facility]-Obesity Intervention Completed 025, 09/13/2025, 09/11/2025, Additional history exists [facility]-Influenza Vaccine Completed 09/25/2025 , 11/09/2023, 08/26/2022, Additional history exists [facility]-RSV Vaccine: 60+ Years or Completed 09/25/2025 HPV Vaccines Aged Out No longer eligi [...] - 899 pg/mL 09/13/2025 2:41 PM EDT [facility] Blood Venous blood specimen / Unknown Venipuncture / Unknown 09/13/2025 11:47 AM EDT 09/13/2025 11:47 AM EDT Rebekah Son APRN LAB BLOOD ORDERABLES Florecita l Result [facility] [address] [place] [address] * (ABNORMAL) CBC and differential (09/13/2025 11:47 AM EDT) WBC Count 6.38 3.70 - 10.30 10*3/uL LAB HEMATOLOGY METHOD 09/13/2025 1:59 PM EDT [facility] RBC Count 5.00 3.90 - 5.20 10*6/uL LAB HEMATOLOGY METHOD 09/13/2025 1:59 PM EDT [facility] HGB 11.4 11.2 - 15.7 g/dL LAB HEMATOLOGY METHOD 09/13/2025 1:59 PM EDT [facility] HCT 38.1 34.0 - 45.0 % LAB HEMATOLOGY METHOD 09/13/2025 1:59 PM EDT [facility] Platelet Count 380(H) 155 - 369 10*3/uL LAB HEMATOLOGY METHOD 09/13/2025 1:59 PM EDT [facility] MCV 76(L) 79 - 98 fL LAB HEMATOLOGY METHOD 09/13/2025 1:59 PM EDT [facility] MCH 22.8(L) 26.0 - 32.0 pg LAB HEMATOLOGY METHOD 09/13/2025 1:59 PM EDT [facility] MCHC 29.9(L) 30.7 - 35.5 g/dL LAB HEMATOLOGY METHOD 09/13/2025 1:59 PM EDT [facility] RDW 16.9(H) 11.5 - 14.5 % LAB HEMATOLOGY METHOD 09/13/2025 1:59 PM EDT [facility] MPV 9.0 8.8 - 12.5 fL LAB HEMATOLOGY METHOD 09/13/2025 1:59 PM EDT [facility] nRBC 0.0 <=0.0 per 100 WBCs LAB HEMATOLOGY METHOD 09/13/2025 1:59 PM EDT [facility] Differential Type Automated LAB HEMATOLOGY METHOD 09/13/2025 1:59 PM EDT [facility] Neutrophils % 63 % LAB HEMATOLOGY METHOD 09/13/2025 1:59 PM EDT [facility] Lymphocytes % 27 % LAB HEMATOLOGY METHOD 09/13/2025 1:59 PM EDT [facility] Monocytes % 6 % LAB HEMATOLOGY METHOD 09/13/2025 1:59 PM EDT [facility] Eosinophils % 2 % LAB HEMATOLOGY METHOD 09/13/2025 1:59 PM EDT [facility] Basophils % 1 % LAB HEMATOLOGY METHOD 09/13/2025 1:59 PM EDT [facility] Immature Granulocytes % 1 % LAB HEMATOLOGY METHOD 09/13/2025 1:59 PM EDT [facility] Neutrophils Absolute 4.07 1.60 - 6.10 10*3/uL LAB HEMATOLOGY METHOD 09/13/2025 1:59 PM EDT [facility] Lymphocytes Absolute 1.70 1.20 - 3.90 10*3/uL LAB HEMATOLOGY METHOD 09/13/2025 1:59 PM EDT [facility] Monocytes Absolute 0.41 0.30 - 0.90 10*3/uL LAB HEMATOLOGY METHOD 09/13/2025 1:59 PM EDT [facility] Eosinophils Absolute 0.11 0.00 - 0.50 10*3/uL LAB HEMATOLOGY METHOD 09/13/2025 1:59 PM EDT [facility] Basophils Absolute 0.06 0.00 - 0.10 10*3/uL LAB HEMATOLOGY METHOD 09/13/2025 1:59 PM EDT [facility] Immature Granulocytes Absolute 0.03 0.00 - 0.06 10*3/uL LAB HEMATOLOGY METHOD 09/13/2025 1:59 PM EDT [facility] Blood Venous blood specimen / Unknown Venipuncture / Unknown 09/13/2025 11:47 AM EDT 09/13/2025 11:47 AM EDT Narrative [facility] - 09/13/2025 1:59 PM EDT Therapeutic decision making should be based on absolute values, rather than percentages. Rebekah Son APRN LAB BLOOD ORDERABLES Florecita l Result [facility] [address] [place] [address] * (ABNORMAL) TSH (09/13/2025 11:47 AM EDT) Thyroid Stimulating Hormone, Plasma 6.62(H) 0.40 - 4.20 uIU/mL 09/13/2025 2:41 PM EDT [facility] Blood Venous blood specimen / Unknown Venipuncture / Unknown 09/13/2025 11:47 AM EDT 09/13/2025 11:47 AM EDT Rebekah Son APRN LAB BLOOD ORDERABLES Florecita l Result [facility] [address] [place] [address] * T4, free (09/13/2025 11:47 AM EDT) Free T4, Plasma 1.2 0.8 - 1.7 ng/dL 09/13/2025 2:41 PM EDT [facility] Blood Venous blood specimen / Unknown Venipuncture / Unknown 09/13/2025 11:47 AM EDT 09/13/2025 11:47 AM EDT Rebekah Son WAREHOUSE SUPERVISOR 3RD SHIFT LAB BLOOD ORDERABLES Florecita l Result Performing Organization Address City/[facility]/ZIP Co de Phone Number [facility] [address] [place] [address] * IgE (09/13/2025 11:47 AM EDT) Immunoglobulin E 84 <=214 kU/L 09/15/20 8:41 AM EDT [facility] ([facility]) Blood Venous blood specimen / Unknown Venipuncture / Unknown 09/13/2025 11:47 AM EDT 09/13/2025 11:47 AM EDT Narrative [facility] [employer] - 09/15/2025 8:41 AM EDT REFERENCE INTERVAL: Immunoglobulin E, Serum Access complete set of age- and/or gender-specific reference intervals for this test in the [facility] Test Directory ([facility]). Performed By: [facility] [address] [place] [address] Bean Dumper: Stanley Jarvis MD, PhD CLIA Number: [id number] Rebekah Son APRN LAB BLOOD ORDERABLES Florecita l Result Performing Organization Address City/[facility] Co de Phone Number [facility] ([facility]) [address] [place] [address] * (ABNORMAL) Comprehensive metabolic panel (09/13/2025 11:47 AM EDT) Glucose, Plasma 95 74 - 99 mg/dL 09/13/2025 2:41 PM EDT [facility] BUN, Plasma 19 8 - 23 mg/dL 09/13/2025 2:41 PM EDT [facility] Creatinine, Plasma 1.16(H) 0.60 - 1.10 mg/dL 09/13/2025 2:41 PM EDT [facility] BUN/Creatinine Ratio 16 09/13/2025 2:41 PM EDT [facility] Sodium, Plasma 142 136 - 145 mmol/L 09/13/2025 2:41 PM EDT [facility] Potassium, Plasma 4.7 3.6 - 4.9 mmol/L 09/13/2025 2:41 PM EDT [facility] Chloride, Plasma 105 97 - 107 mmol/L 09/13/2025 2:41 PM EDT [facility] CO2, Plasma 25 22 - 29 mmol/L 09/13/2025 2:41 PM EDT [facility] Anion Gap 12 6 - 16 mmol/L 09/13/2025 2:41 PM EDT [facility] Total Calcium, Plasma 9.5 8.9 - 10.2 mg/dL 09/13/2025 2:41 PM EDT [facility] Total Protein 7.6 6.3 - 7.9 g/dL 09/13/2025 2:41 PM EDT [facility] Albumin, Plasma 4.2 3.5 - 5.2 g/dL 09/13/2025 2:41 PM EDT [facility] AST, Plasma 20 10 - 35 U/L 09/13/2025 2:41 PM EDT [facility] ALT, Plasma 22 10 - 35 U/L 09/13/2025 2:41 PM EDT [facility] Alkaline Phosphatase, Plasma 73 46 - 142 U/L 09/13/2025 2:41 PM EDT [facility] Total Bilirubin, Plasma 0.3 0.2 - 1.1 mg/dL 09/13/2025 2:41 PM EDT [facility] eGFRcr 52.8 mL/min/1.7 3m*2 09/13/2025 2:41 PM EDT [facility] Comment:Reported eGFRcr in m L/min/1.73m2 is based the CKD-EPI 2020 equation that does not use a race coefficient. Blood Venous blood specimen / Unknown Venipuncture / Unknown 09/13/2025 11:47 AM EDT 09/13/2025 11:47 AM EDT Rebekah Son APRN LAB BLOOD ORDERABLES Florecita malagon Result [facility] [address] [place] [address] from Last 3 Months Insurance [employer] [facility] MEDICAID Care Teams Quality Review Specialist Relationship Specialty Start Date End Date Belle Barksdale APRN [address] [place] [address] PCP - General 04/05/21
--- OUTSIDE RECORDS SUMMARY | 2025-10-04 13:55 | XMS_ITS | Encounter Summary ---
Author Organization [facility] Address [address] [place] [address] Care Team Providers Care Rehab Nursing Tech Name Role Phone Belle Barksdale APRN Primary Care Provider [phone] Reason for Visit * Reason Comments Med Refill Encounter Details Date Type Department Care Team (Late Contact Info) Description 08/22/2023 Refill [facility] Medicine Specialties [address] [place] [address] Onel Hopper MD [address] [place] [address] Asthma, unspecified asthma severity, unspecified [...] Department Care Team (Late Contact Info) Description 10/17/2025 4:00 PM EST Appointment Cardiac Imaging [address] [place] [address] 12/05/2025 3:40 PM EST Office Visit [place] [facility] [address] [place] [address] Rebekah Son, SOFTWARE INTEGRATOR [address] [place] [address] documented as of this encounter [...] documented as of this encounter Care Teams Rehab Nursing Tech Relationship Specialty Start Date End Date Belle Barksdale, SOFTWARE INTEGRATOR [address] [place] [facility] [address] [place] [address] PCP - General 04/05/21 documented as of this encounter
--- OUTSIDE RECORDS SUMMARY | 2025-10-04 13:55 | XMS_ITS | Encounter Summary ---
Author Organization Healthcare Address [address] [place] [address] Care Team Providers Care Distribution Clerk Name Role Phone Belle Barksdale APRN Primary Care Provider [phone] Encounter Details Date Type Department Care Team [...] PM EST Appointment Cardiac Imaging [address] [place] [address] 12/05/2025 3:40 PM EST Office Visit [place] [facility] [address] [place] [address] Rebekah Son, ALBERTO [address] [place] [address] documented as of this encounter [...] documented as of this encounter Care Teams Distribution Clerk Relationship Specialty Start Date End Date Belle Barksdale, DIE DRAWING CHECKER [address] [facility] [address] [place] [id number] PCP - General 04/05/21 documented as of this encounter
--- OUTSIDE RECORDS SUMMARY | 2025-10-04 13:55 | XMS_ITS | Encounter Summary ---
Author Organization Healthcare Address [address] [place] [address] Care Team Providers Care Shift Boss Name Role Phone Belle Barksdale ALBERTO Primary Care Provider [phone] Encounter Details Date Type Department Care Team [...] EST Appointment Cardiac Imaging [address] [place] [address] 12/05/2025 3:40 PM EST Office Visit [place] [facility] [address] [place] [address] Rebekah Son, ALBERTO [address] [place] [address] documented as of this encounter Visit Diagnoses [...] documented as of this encounter Care Teams Shift Boss Relationship Specialty Start Date End Date Belle Barksdale, ALBERTO [address] [facility] [address] [place] [address] PCP - General 04/05/21 documented as of this encounter
--- OUTSIDE RECORDS SUMMARY | 2025-10-04 13:56 | XMS_ITS | Encounter Summary ---
Author Organization Healthcare Address [address] [place] [address] Care Team Providers Care Central Melt Specialist Name Role Phone Belle Barksdale ALBERTO Primary Care Provider [phone] Encounter Details Date Type Department Care Team [...] EST Appointment Cardiac Imaging [address] [place] [address] 12/05/2025 3:40 PM EST Office Visit [place] [facility] [address] [place] [address] Rebekah Son, ALBERTO [address] [place] [address] documented as of this encounter Visit Diagnoses [...] documented as of this encounter Care Teams Central Melt Specialist Relationship Specialty Start Date End Date Belle Barksdale APRN [address] [facility] [address] [place] [address] PCP - General 04/05/21 documented as of this encounter
--- OUTSIDE RECORDS SUMMARY | 2025-10-04 13:56 | XMS_ITS | Encounter Summary ---
Author Organization [facility] Address [address] [place] [place] [address] Care Team Providers Care Bindery Operator Name Role Phone Belle Barksdale APRN Primary Care Provider [phone] Reason for Referral * Consultation (Routine) - Authorized Specialty Diagnoses / Procedures Referred By Niya delarosa Referred To Contact General Surgery Diagnoses Hiatal hernia Referral ID Status Reason Start Date Expiration Date V isits Requested Visits Authorized [id number] Authorized 09/29/2025 03/31/2027 1 1 Encounter Details Date Type Department Care Team (Late st Contact Info) Description 09/29/2025 Community [facility] Community Practice [address] [place] [address] Belle Barksdale APRN [address] [place] [address] Hiatal hernia (Primary Dx) Social History Tobacco Use Types [...] Appointment Cardiac Imaging [address] [place] [address] 12/05/2025 3:40 PM EST Office Visit [place] [facility] [address] [place] [address] Rebekah Son APRN [address] [place] [address] Scheduled Referrals Name Type Priority Associated Diagnoses Order Schedule Ambulatory Referral to General Surgery ([facility]) Outpatient Referral Routine Hiatal hernia Expected: 09/29/2025 (Approximate), Expires: 04/02/2027 documented as of this encounter Visit Diagnoses Diagnosis Hiatal hernia- Primary Diaphragmatic hernia without mention of obstruction or [...] documented as of this encounter Care Teams Bindery Operator Relationship Specialty Start Date End Date Belle Barksdale APRN [address] [place] [address] PCP - General 04/05/21 documented as of this encounter
--- OUTSIDE RECORDS SUMMARY | 2025-10-04 13:56 | XMS_ITS | Encounter Summary ---
Author Organization Healthcare Address [address] [place] [place] [address] Care Team Providers Care Digging Machine Operator Name Role Phone Belle Barksdale ALBERTO Primary Care Provider [phone] Encounter Details Date Type Department Care Team [...] EST Appointment Cardiac Imaging [address] [place] [address] 12/05/2025 3:40 PM EST [facility] [address] [place] [address] Rebekah Son, ALBERTO [address] [place] [address] documented as of this encounter Visit Diagnoses [...] documented as of this encounter Care Teams Digging Machine Operator Relationship Specialty Start Date End Date Belle Barksdale APRN [address] [facility] [address] [place] [address] PCP - General 04/05/21 documented as of this encounter
--- OUTSIDE RECORDS SUMMARY | 2025-10-04 13:56 | XMS_ITS | Encounter Summary ---
Author Organization Healthcare Address [address] [place] [address] Care Team Providers Care Resident Care Director Name Role Phone Belle Barksdale APRN Primary Care Provider [phone] Encounter Details Date Type Department Care Team [...] PM EST Appointment Cardiac Imaging [address] [place] [address] 12/05/2025 3:40 PM EST Office Visit [place] [facility] [address] [place] [address] Rebekah Son APRN [address] [place] [address] documented as of this encounter [...] documented as of this encounter Care Teams Resident Care Director Relationship Specialty Start Date End Date Belle Barksdale APRN [address] [facility] [address] [place] [address] PCP - General 04/05/21 documented as of this encounter
--- OUTSIDE RECORDS SUMMARY | 2025-10-04 13:56 | XMS_ITS | Encounter Summary ---
Author Organization [facility] Address [address] [place] [address] Care Team Providers Care Domestic Travel Consultant Name Role Phone Belle Barksdale ALBERTO Primary Care Provider [phone] Reason for Visit * Reason Onset Date Comments Med Refill 10/04/2025 Encounter Details Date Type Department Care Team (Late st Contact Info) Description 10/04/2025 Refill [place] [facility] Medicine Specialties [address] [place] [address] Rebekah Son, ALBERTO [address] [place] [address] Chronic obstructive pulmonary disease, unspecified COPD type (CMS/HCC) Social History Tobacco Use Types Packs/Day Years [...] PM EST Appointment Cardiac Imaging [address] [place] [address] 12/05/2025 3:40 PM EST Office Visit [place] [facility] Medicine Specialties [address] [place] [address] Rebekah Son APRN [address] [place] [address] documented as of this encounter Visit Diagnoses Diagnosis Chronic obstructive pulmonary disease, unspecified COPD type (CMS/HCC) documented in this encounter Additional Health Concerns Assessment Noted Time PHQ-9 Depression Total Score: 0 09/13/20 10:07 AM EDT A fall risk assessment has been complete d for the patient 09/13/2025 10:07 AM EDT A Body Mass Index follow-up plan has been documented for the patient 09/18/2025 2:22 PM EDT documented as of this encounter Care Teams Domestic Travel Consultant Relationship Specialty Start Date End Date Belle Barksdale, REGISTER REPAIRER [address] [facility] [address] [place] [address] PCP - General 04/05/21 documented as of this encounter
--- OUTSIDE RECORDS SUMMARY | 2025-10-04 13:56 | XMS_ITS | Encounter Summary ---
Author Organization Healthcare Address [address] [place] [address] Care Team Providers Care Skilled Trades Teacher Name Role Phone Belle Barksdale ALBERTO Primary Care Provider [phone] Encounter Details Date Type Department Care Team [...] EST Appointment Cardiac Imaging [address] [place] [address] 12/05/2025 3:40 PM EST Office Visit [facility] [address], [address] [place] [address] Rebekah Son, ALBERTO [address] [place] [address] documented as of this encounter Visit Diagnoses [...] documented as of this encounter Care Teams Skilled Trades Teacher Relationship Specialty Start Date End Date Belle Barksdale, ALBERTO 1210 [facility] [address] [place] [address] PCP - General 04/05/21 documented as of this encounter
--- OUTSIDE RECORDS SUMMARY | 2025-10-04 13:56 | XMS_ITS | Encounter Summary ---
Author Organization Healthcare Address [address] [place] [address] Care Team Providers Care Sap Ariba Consultant Name Role Phone Belle Barksdale ALBERTO Primary Care Provider [phone] Encounter Details Date Type Department Care Team [...] EST Appointment Cardiac Imaging [address] [place] [address] 12/05/2025 3:40 PM EST Office Visit [place] [facility] [address] [place] [address] Rebekah Son, ALBERTO [address] [place] [address] documented as of this encounter Visit Diagnoses [...] documented as of this encounter Care Teams Sap Ariba Consultant Relationship Specialty Start Date End Date Belle Barksdale, ALBERTO [address] [facility] [address] [place] [address] PCP - General 04/05/21 documented as of this encounter
--- OUTSIDE RECORDS SUMMARY | 2025-10-04 13:56 | XMS_ITS | Encounter Summary ---
Author Organization Healthcare Address [address] [place] [address] Care Team Providers Care Box Storage Worker Name Role Phone Belle Barksdale ALBERTO Primary Care Provider [phone] Encounter Details Date Type Department Care Team [...] EST Appointment Cardiac Imaging [address] [place] [address] 12/05/2025 3:40 PM EST Office Visit [place] [facility] [address] [place] [address] Rebekah Son, ALBERTO [address] [place] [address] documented as of this encounter Visit Diagnoses [...] documented as of this encounter Care Teams Box Storage Worker Relationship Specialty Start Date End Date Belle Barksdale APRN 1210 [facility] [place] [address] [place] [address] PCP - General 04/05/21 documented as of this encounter
--- OUTSIDE RECORDS SUMMARY | 2025-10-04 13:56 | XMS_ITS | Encounter Summary ---
Author Organization Healthcare Address [address] [place] [address] Care Team Providers Care Chief Lending Officer Name Role Phone Belle Barksdale ALBERTO Primary Care Provider [phone] Encounter Details Date Type Department Care Team [...] EST Appointment Cardiac Imaging [address] [place] [address] 12/05/2025 3:40 PM EST Office Visit [place] [facility] [address] [place] [address] Rebekah Son, ALBERTO [address] [place] [address] documented as of this encounter Visit Diagnoses [...] documented as of this encounter Care Teams Chief Lending Officer Relationship Specialty Start Date End Date Belle Barksdale APRN [address] [place] [address] PCP - General 04/05/21 documented as of this encounter
--- OUTSIDE RECORDS SUMMARY | 2025-10-04 13:56 | XMS_ITS | Encounter Summary ---
Author Organization Healthcare Address [address] [place] [address] Care Team Providers Care Hip Hop Artist Name Role Phone Belle Barksdale APRN Primary Care Provider [phone] Encounter Details Date Type Department Care Team (Latest Contact Info) Description 10/02/2025 Travel Social History Tobacco Use Types Packs/Day [...] PM EST Appointment Cardiac Imaging [address] [place] [address] 12/05/2025 3:40 PM EST Office Visit [place] [facility] [address] [place] [address] Rebekah Son, ALBERTO [address] [place] [address] documented as of this encounter [...] documented as of this encounter Care Teams Hip Hop Artist Relationship Specialty Start Date End Date Belle Barksdale, BUTCHER ALL ROUND 1210 [place] [facility] [address] [place] [id number] PCP - General 04/05/21 documented as of this encounter
--- OUTSIDE RECORDS SUMMARY | 2025-10-04 13:56 | XMS_ITS | Encounter Summary ---
Author Organization Healthcare Address [address] [place] [address] Care Team Providers Care Customs Collector Name Role Phone Belle Barksdale ALBERTO Primary Care Provider [phone] Encounter Details Date Type Department Care Team [...] EST Appointment Cardiac Imaging [address] [place] [address] 12/05/2025 3:40 PM EST Office Visit [place] [facility] [address], [address] [place] [address] Rebekah Son, ALBERTO [address] [place] [address] documented as of this encounter Visit Diagnoses [...] documented as of this encounter Care Teams Customs Collector Relationship Specialty Start Date End Date Belle Barksdale APRN [address] [place] [address] PCP - General 04/05/21 documented as of this encounter
--- OUTSIDE RECORDS SUMMARY | 2025-10-04 13:56 | XMS_ITS | Encounter Summary ---
Author Organization Healthcare Address [address] [place] [address] Care Team Providers Care Glaze Sprayer Name Role Phone Belle Barksdale ALBERTO Primary Care Provider [phone] Encounter Details Date Type Department Care Team [...] EST Appointment Cardiac Imaging [address] [place] [address] 12/05/2025 3:40 PM EST Office Visit [place] [facility] [address], [address] [place] [address] Rebekah Son, ALBERTO [address] [place] [address] documented as of this encounter Visit Diagnoses [...] documented as of this encounter Care Teams Glaze Sprayer Relationship Specialty Start Date End Date Belle Barksdale, ALBERTO [address] [place] [address] PCP - General 04/05/21 documented as of this encounter
== END 2025-10-04 23:59 | disposition home or self-care (01) ==
LOC: RAD 13:38
PROVIDERS: PCP Nurse Practitioner Family; Visit Provider Nurse Practitioner Family
DX: N18.31 Chronic kidney disease, stage 3a (principal)
CPT/HCPCS: 76770

== ENCOUNTER 2025-10-17 08:57 | Outpatient (CLI) | payer OTHER, SELFPAY ==
--- OUTSIDE RECORDS SUMMARY | 2025-08-21 12:00 | XMS_ITS | Encounter Summary ---
Author Organization Healthcare Address [address] [place] [address] Care Team Providers Care Sales Record Clerk Name Role Phone Belle Barksdale APRN Primary Care Provider [phone] Encounter Details Date Type Department Care Team (Late st Contact Info) Description 08/21/2025 1:00 PM EDT Office Visit [place] [facility] [address] [place] [address] COPD with asthma (CMS/HCC) (Primary Dx) Social [...] PM EST Appointment Cardiac Imaging [address] [place] [address] 12/05/2025 3:40 PM EST Office Visit [place] [facility] [address], [address] [place] [address] Rebekah Son APRN [address] [place] [address] documented as of this encounter Visit Diagnoses Diagnosis COPD with asthma (CMS/[facility])- Primary documented in this encounter Additional Health Concerns Assessment Noted Time PHQ-9 Depression Total Score: 0 11/25/19 25 1:48 PM EST A fall risk assessment has been complete d for the patient 05/29/2025 2:51 PM EDT A Body Mass Index follow-up plan has been documented for the patient 08/21/2025 2:27 PM EDT documented as of this encounter Care Teams Sales Record Clerk Relationship Specialty Start Date End Date Belel Barksdale, ALBERTO 1210 [facility] [address] [place] [address] PCP - General 04/05/21 documented as of this encounter
--- OUTSIDE RECORDS SUMMARY | 2025-08-23 12:00 | XMS_ITS | Encounter Summary ---
Author Organization Healthcare Address [address] [place] [address] Care Team Providers Care Global Climate Change Researcher Name Role Phone Belle Barksdale APRN Primary Care Provider [phone] Encounter Details Date Type Department Care Team (Late st Contact Info) Description 08/23/2025 1:00 PM EDT Office Visit [place] [facility] [address] [place] [phone] COPD with asthma (CMS/HCC) (Primary Dx) Social [...] Miscellaneous Notes * Progress Notes - Ronel Romreo - 08/23/2025 1:00 PM EDT Pulmonary Rehab [...] PM EST Appointment Cardiac Imaging [address] [place] [address] 12/05/2025 3:40 PM EST Office Visit [place] [facility] [address], [address] [place] [address] Rebekah Son APRN [address] [place] [address] documented as of this encounter Visit Diagnoses Diagnosis COPD with asthma (CMS/[facility])- Primary documented in this encounter Additional Health Concerns Assessment Noted Time PHQ-9 Depression Total Score: 0 11/25/19 25 1:48 PM EST A fall risk assessment has been complete d for the patient 05/29/2025 2:51 PM EDT A Body Mass Index follow-up plan has been documented for the patient 08/23/2025 2:12 PM EDT documented as of this encounter Care Teams Global Climate Change Researcher Relationship Specialty Start Date End Date Belle Barksdale APRN [address] [place] [address] PCP - General 04/05/21 documented as of this encounter
--- OUTSIDE RECORDS SUMMARY | 2025-08-28 12:00 | XMS_ITS | Encounter Summary ---
Author Organization Healthcare Address [address] [place] [address] Care Team Providers Care Community Dietitian Name Role Phone Belle Barksdale APRN Primary Care Provider [phone] Encounter Details Date Type Department Care Team (Late st Contact Info) Description 08/28/2025 1:00 PM EDT Office Visit [place] [facility] [address] [place] [address] Chronic obstructive bronchitis (CMS/HCC) (Primary Dx) Social [...] PM EST Appointment Cardiac Imaging [address] [place] [address] 12/05/2025 3:40 PM EST Office Visit [place] [facility] [address], [address] [place] [address] Rebekah oSn APRN [address] [place] [address] documented as of this encounter [...] documented as of this encounter Care Teams Community Dietitian Relationship Specialty Start Date End Date Belle Barksdale APRN [address] [facility] [address] [place] [address] PCP - General 04/05/21 documented as of this encounter
--- OUTSIDE RECORDS SUMMARY | 2025-09-06 09:30 | XMS_ITS | Encounter Summary ---
Author Organization Healthcare Address [address] [place] [address] Care Team Providers Care Small Kick Press Operator Name Role Phone Belle Barksdale APRN Primary Care Provider [phone] Encounter Details Date Type Department Care Team (Late st Contact Info) Description 09/06/2025 10:30 AM EDT Office Visit [place] [facility] Re[facility] [address] [place] [address] COPD with asthma (CMS/HCC) (Primary Dx) Social [...] - Inhaled Oxygen Concentration - - Weight 88 kg (194 lb 0.1 oz) 09/06/2025 12:00 PM EDT Height - - Body Mass Index 31.31 07/03/2025 2:00 PM EDT documented in this encounter Miscellaneous Notes * Progress Notes - Ronel Romero - 09/06/2025 10:30 AM EDT Pulmonary Rehab Daily Note Patient Name: Mago Maxwell Today's Date: 09/06/2025 General General Time In: 1250 Time Out: 1420 Family/Caregiver Present: No Visit Number: 16 Physician on Site: Viviana Colón MD Pain: 0 Weight: 88 kg (194 lb 0.1 oz) Vital Signs Resting Vital Signs SpO2: 97 % Pulse: 103 Supplemental Oxygen : Room Air BP: 132/80 Dyspnea Index: 2 Falls: 0 Meds Taken: y Meds Changed: n Breathing Assessment Breathing Assessment Breathing Assessment: clear bilateral Exercise Exercise Modalities Treadmill: Yes Recumbent Stepper : Yes Weights: Yes Treadmill Exercise Assessment Speed: 2.5 mph Grade: 2 % Time: 20 Minutes Distance: 0.78 METS: 3.36 Exercise SpO2: 97 Exercise HR: 130 Supplemental Oxygen : Room Air Exercise BP: 120/80 Exercise Dyspnea: 2 Rate of Perceived Exertion: 2 Signs & Symptoms: pt tolerated well Seated Stepper Resistance Level: 6 Steps per Minute: 70 Time: 20 Minutes Total Steps: 1366 Steps METS: 4.9 Exercise SPO2: 97 Exercise Heart Rate: 125 Supplemental Oxygen : Room Air Exercise BP: 126/80 Exercise Dyspnea: 2 Rate of Percieved Exertion: 3 Signs and Symptoms: pt tolerated well Weights Exercise Sets: 1 Reps: 12 Weight: 4 lbs Time: 10 Minutes Exercise SpO2: 97 Exercise HR: 137 Supplemental Oxygen: Room air Exercise Dyspnea: 1 Rate of Perceived Exertion: 2 Signs and Symptoms: pt tolerated well Cool Down Cool Down Exercises Cool Down Exercises: 10 Post-Activity Vital Signs Post-Activity Vital signs SpO2: 96 % Pulse: 121 Supplemental Oxygen : Room Air BP: 110/70 Dyspnea Index: 1 Rate of Percieved Exertion: 0 Educational Classes/20 Minutes Stress management/relaxation (meditation) MW Pt given education packet documented in this encounter Plan of Treatment Upcoming Encounters Date Type Department Care Team (Late st Contact Info) Description 10/17/2025 4:00 PM EST Appointment Cardiac Imaging [address] [place] [address] 12/05/2025 3:40 PM EST Office Visit [place] [facility] [address] [place] [address] Rebekah Son, ALBERTO [address] [place] [address] documented as of this encounter Visit Diagnoses Diagnosis COPD with asthma (CMS/[facility])- Primary documented in this encounter Additional Health Concerns Assessment Noted Time PHQ-9 Depression Total Score: 0 11/25/19 25 1:48 PM EST A fall risk assessment has been complete d for the patient 05/29/2025 2:51 PM EDT A Body Mass Index follow-up plan has been documented for the patient 09/06/2025 12:57 PM EDT documented as of this encounter Care Teams Small Kick Press Operator Relationship Specialty Start Date End Date Belle Barksdale, MUSHROOM SPAWN MAKER [address] [facility] [place] [address] [place] [id number] PCP - General 04/05/21 documented as of this encounter
--- OUTSIDE RECORDS SUMMARY | 2025-09-11 12:00 | XMS_ITS | Encounter Summary ---
Author Organization Healthcare Address [address] [place] [address] Care Team Providers Care Band Teacher Name Role Phone Belle Barksdale APRN Primary Care Provider [phone] Encounter Details Date Type Department Care Team (Late st Contact Info) Description 09/11/2025 1:00 PM EDT Office Visit [facility] [address] [place] [id number] COPD with asthma (CMS/HCC) (Primary Dx) Social [...] - Inhaled Oxygen Concentration - - Weight 89 kg (196 lb 3.4 oz) 09/11/2025 1:00 PM EDT Height - - Body Mass Index 31.67 07/03/2025 2:00 PM EDT documented in this encounter Miscellaneous Notes * Progress Notes - Ronel Romero - 09/11/2025 1:00 PM EDT Pulmonary Rehab Daily Note Patient Name: Mago Maxwell Today's Date: 09/11/2025 General General Time In: 1250 Time Out: 1420 Family/Caregiver Present: No Visit Number: [id number] Physician on Site: Rodrigo Álvarez MD Pain: 0 Weight: 89 kg (196 lb 3.4 oz) Vital Signs Resting Vital Signs SpO2: 97 % Pulse: 84 Supplemental Oxygen : Room Air BP: 128/78 Dyspnea Index: 0 Falls: 0 Meds Taken: y Meds Changed: n Breathing Assessment Breathing Assessment Breathing Assessment: clear bilateral Exercise Exercise Modalities Treadmill: Yes UBE: Yes Weights: Yes Treadmill Exercise Assessment Speed: 2.7 mph Grade: 2 % Time: 20 Minutes Distance: 0.62 METS: 3.6 Exercise SpO2: 97 Exercise HR: 118 Supplemental Oxygen : Room Air Exercise BP: 130/84 Exercise Dyspnea: 3 Rate of Perceived Exertion: 2 Signs & Symptoms: pt tolerated well Upper Body Ergometer Resistance: 8-9 Revolutions per Minute: 34 Time: 20 Distance: 3.16 METS: 3.6 Exercise SPO2: 99 Exercise HR: 140 Supplemental Oxygen: Room air Exercise BP: 136/80 Exercise Dyspnea: 2 Rate of Percieved Exertion: 4 Signs and Symptoms: pt tolerated well Weights Exercise Sets: 2 Reps: 12 Weight: 5 lbs Time: 10 Minutes Exercise SpO2: 96 Exercise HR: 134 Supplemental Oxygen: Room air Exercise Dyspnea: 2 Rate of Perceived Exertion: 2 Signs and Symptoms: pt tolerated well Cool Down Cool Down Exercises Cool Down Exercises: 10 Post-Activity Vital Signs Post-Activity Vital signs SpO2: 95 % Pulse: 127 Supplemental Oxygen : Room Air BP: 118/76 Dyspnea Index: 1 Rate of Percieved Exertion: 0 Educational Classes/20 Minutes Diaphragmatic relaxation (meditation) CS documented in this encounter Plan of Treatment Upcoming Encounters Date Type Department Care Team (Late st Contact Info) Description 10/17/2025 4:00 PM EST Appointment Cardiac Imaging [address] [place] [address] 12/05/2025 3:40 PM EST Office Visit [place] [facility] [address] [place] [address] Rebekah Son, ALBERTO [address] [place] [address] documented as of this encounter Visit Diagnoses Diagnosis COPD with asthma (CMS/[facility])- Primary documented in this encounter Additional Health Concerns Assessment Noted Time PHQ-9 Depression Total Score: 0 11/25/19 25 1:48 PM EST A fall risk assessment has been complete d for the patient 05/29/2025 2:51 PM EDT A Body Mass Index follow-up plan has been documented for the patient 09/11/2025 2:10 PM EDT documented as of this encounter Care Teams Band Teacher Relationship Specialty Start Date End Date Belle Barksdale, SHAREPOINT TRAINER [address] [facility] [address] [place] [address] PCP - General 04/05/21 documented as of this encounter
--- OUTSIDE RECORDS SUMMARY | 2025-09-13 09:40 | XMS_ITS | Encounter Summary ---
Author Organization [facility] Address [address] [place] [address] Care Team Providers Care Natural Developer Name Role Phone Belle Barksdale Lizbeth DOMINGUEZ Primary Care Provider [phone] Reason for Referral * Consultation (Routine) - Authorized Specialty Diagnoses / Procedures Referred By Contac t Referred To Contact Diagnoses Other fatigue Dyspnea on exertion COPD exacerbation (CMS/HCC) COPD with asthma (CMS/HCC) Asthma-COPD overlap syndrome (CMS/HCC) Allergic rhinitis, unspecified seasonality, unspecified trigger Hiatal hernia Amanuel Barlow APRN [address] [address] Phone: tel: fax: Referral ID Status Reason Start Date Expiration Date V isits Requested Visits Authorized [id number] Authorized 09/19/2025 03/21/2027 1 1 * Imaging (Routine) - Authorized Specialty Diagnoses / Procedures Referred By Contac t Referred To Contact Cardiology Diagnoses Dyspnea on exertion Procedures Echo, Adult Transthoracic Complete Amanuel Barlow APRN [address] [address] Phone: tel: fax: Referral ID Status Reason Start Date Expiration Date Visits Requested Visits Authorized [id number] Authorized Perform Procedure 03/15/2027 1 1 Reason for Visit * Reason Comments Asthma COPD Follow-up * Consultation (Routine) - Closed Specialty Diagnoses / Procedures Referred By Niya delarosa Referred To Contact Diagnoses Asthma-COPD overlap syndrome (CMS/HCC) Dyspnea on exertion Amanuel Barlow APRN [address] [place] [address] Phone: tel: fax: Referral ID Status Reason Start Date Expiration Date Visits Re quested Visits Authorized [id number] Closed 05/29/2025 11/28/2026 1 1 Encounter Details Date Type Department Care Team (Late st Contact Info) Description 09/13/2025 10:40 AM EDT Office Visit [place] [facility] [address] [place] [address] Amanuel Barlow APRN [address] [place] [address] Other fatigue (Primary Dx); Dyspnea [...] 2-4 times a month 09/13/2025 10:06 AM TRICIAT Adria Wellington Q2: How many drinks containing [...] things Not at all 09/13/2025 10:07 AM TRICIAT Adria Wellington Feeling down, depressed, or hopeless [...] 10:07 AM EDT Adria Wellington y Ahsan Poor appetite or overeating Not at all 09/13/2025 10 :07 AM EDT Crystal Wellington Feeling bad about yourself - or that you are a failure or have let yourself or your family down Not at all 09/13/2025 10:07 AM EDT Adria Wellington Trouble concentrating on things, such as reading [...] preservative free 08/26/2022 Influenza, seasonal, injectable 09/13/2019 Gentis-ExSafe COVID-19 Vaccine (Purple Cap) + 07/15/2021 Pneumococcal 20-richard Conj Vaccine 05/20/2022 Tdap 11/09/2023 VACCINE / DOSE DATE DATE DATE Flu 09/13/2019 08/26/2022 11/09/2023 Tetanus 11/09/2023 Pneumovax Shingles Allergies: Tree extract Medications: Current Outpatient Medications Medication Sig Dispense Refill albuterol (Ventolin HFA) 108 (90 Base) MCG/ACT inhaler Inhale 2 puffs every 4 hours as needed for wheezing. 18 g 5 Pczmggrifep-Jmyvpkezk-Mjmrvc (Trelegy Ellipta) 200-62.5-25 MCG/ACT aerosol powder Inhale [...] Expiration Date: 03/17/2027 Release to patient in [facility]: Immediate [1] Comprehensive metabolic panel Standing Status: Future Expected Date: 09/13/2025 Expiration Date: 03/17/2027 Release to patient in [facility]: Immediate [1] IgE Standing Status: Future Expected Date: 09/13/2025 Expiration Date: 03/17/2027 [facility] [[facility]] N-Terminal Probnp, Plasma Standing Status: Future Expected Date: 09/13/2025 Expiration Date: 03/14/2027 [facility] [1] TSH Standing Status: Future Expected Date: 09/13/2025 Expiration Date: 03/17/2027 Release to patient in [facility]: Immediate [1] T4, free Standing Status: Future Expected Date: 09/13/2025 Expiration Date: 03/17/2027 Release to patient in [facility]: Immediate [1] Echo, Adult Transthoracic Complete Standing Status: Future Expected Date: 09/13/2025 Expiration Date: 09/13/2027 Release to patient in [facility]: Immediate DISCUSSION/SUMMARY Mago Maxwell is a 64 [...] trelegy -continue pulmonary rehab -had EKG at [facility] in the last 6 months --last eos [...] andprocedures, referring and communicating with consulting health health care attorney and care coordination. Amanuel Barlow APRN [facility] Special[facility] Clinic Pulmonary Division [facility] Phone number: [phone] Fax number: [phone] documented in this encounter Plan of Treatment Upcoming Encounters Date Type Department Care Team (Late st Contact Info) Description 10/17/2025 4:00 PM EST Appointment Cardiac Imaging [address] [place] [address] 12/05/2025 3:40 PM EST Office Visit [facility] Medicine Specialties [address] [place] [address] Amanuel Barlow APRN [address] [place] [address] Scheduled Orders Name Type Priority Associated Diagnoses Order Schedule Echo, Adult Transthoracic Complete Echocardiography Routine Dyspnea on exertion Expected: 09/13/2025 (Approximate), Expires: 09/13/2027 Scheduled Referrals Name Type Priority Associated Diagnoses Orde r Schedule Follow Up Pulm Outpatient Referral Routine Other fatigue Dyspnea on exertion COPD exacerbation (CMS/HCC) COPD with asthma Asthma-COPD overlap syndrome Allergic rhinitis, unspecified seasonality, unspecified trigger Hiatal hernia Expected: 12/21/2025, Expires: 10/20/2026 documented as of this encounter Results * T4, free (09/13/2025 11:47 AM EDT) Free T4, Plasma 1.2 0.8 - 1.7 ng/dL 09/13/2025 2:41 PM EDT [facility] Blood Venous blood specimen / Unknown Venipuncture / Unknown 09/13/2025 11:47 AM EDT 09/13/2025 11:47 AM EDT us Amanuel Barlow PETROGRAPHER LAB BLOOD ORDERABLES Florecita l Result Performing Organization Address City/[facility]/[place] [address] * (ABNORMAL) TSH (09/13/2025 11:47 AM EDT) Thyroid Stimulating Hormone, Plasma 6.62(H) 0.40 - 4.20 uIU/mL 09/13/2025 2:41 PM EDT [facility] Blood Venous blood specimen / Unknown Venipuncture / Unknown 09/13/2025 11:47 AM EDT 09/13/2025 11:47 AM EDT us Amanuel Barlow PETROGRAPHER LAB BLOOD ORDERABLES Florecita l Result Performing Organization Address City/[facility] [place] [address] * N-Terminal Probnp, Plasma (09/13/2025 11:47 AM EDT) N-Terminal, PROBNP, Plasma <50 0 - 899 pg/mL 09/13/2025 2:[address] [facility] Blood Venous blood specimen / Unknown Venipuncture / Unknown 09/13/2025 11:47 AM EDT 09/13/2025 11:47 AM EDT us Amanuel Barlow PETROGRAPHER LAB BLOOD ORDERABLES Florecita l Result [facility] [address] [place] [id number] * IgE (09/13/2025 11:47 AM EDT) Immunoglobulin E 84 <=214 kU/L 09/15/20 8:41 AM EDT [facility] ([facility]) Blood Venous blood specimen / Unknown Venipuncture / Unknown 09/13/2025 11:47 AM EDT 09/13/2025 11:47 AM EDT Narrative [facility] ([facility]) - 09/15/2025 8:41 AM EDT REFERENCE INTERVAL: Immunoglobulin E, Serum Access complete set of age- and/or gender-specific reference intervals for this test in the [facility] Test Directory ([employer]). Performed By: [facility] [address] [place] [address] Clinical Law Professor: Stanley Jarvis MD, PhD CLIA Number: [id number] Amanuel Barlow APRN LAB BLOOD ORDERABLES Florecita l Result [facility] ([facility]) [address] [place] [address] * (ABNORMAL) Comprehensive metabolic panel (09/13/2025 11:47 AM EDT) Glucose, Plasma 95 74 - 99 mg/dL 09/13/2025 2:41 PM EDT [facility] BUN, Plasma 19 8 - 23 mg/dL 09/13/2025 2:41 PM EDT [facility] Creatinine, Plasma 1.16(H) 0.60 - 1.10 mg/dL 09/13/2025 2:41 PM EDT [facility] BUN/Creatinine Ratio 16 09/13/2025 2:41 PM EDT [facility] Sodium, Plasma 142 136 - 145 mmol/L 09/13/2025 2:41 PM EDT [facility] Potassium, Plasma 4.7 3.6 - 4.9 mmol/L 09/13/2025 2:41 PM EDT [facility] Chloride, Plasma 105 97 - 107 mmol/L 09/13/2025 2:41 PM EDT [facility] CO2, Plasma 25 22 - 29 mmol/L 09/13/2025 2:41 PM EDT [facility] Anion Gap 12 6 - 16 mmol/L 09/13/2025 2:41 PM EDT [facility] Total Calcium, Plasma 9.5 8.9 - 10.2 mg/dL 09/13/2025 2:41 PM EDT [facility] Total Protein 7.6 6.3 - 7.9 g/dL 09/13/2025 2:41 PM EDT [facility] Albumin, Plasma 4.2 3.5 - 5.2 g/dL 09/13/2025 2:41 PM EDT [facility] AST, Plasma 20 10 - 35 U/L 09/13/2025 2:41 PM EDT [facility] ALT, Plasma 22 10 - 35 U/L 09/13/2025 2:41 PM EDT [facility] Alkaline Phosphatase, Plasma 73 46 - 142 U/L 09/13/2025 2:41 PM EDT [facility] Total Bilirubin, Plasma 0.3 0.2 - 1.1 mg/dL 09/13/2025 2:41 PM EDT [facility] eGFRcr 52.8 mL/min/1.7 3m*2 09/13/2025 2:41 PM EDT [facility] Comment:Reported eGFRcr in m L/min/1.73m2 is based the CKD-EPI 2020 equation that does not use a race coefficient. Blood Venous blood specimen / Unknown Venipuncture / Unknown 09/13/2025 11:47 AM EDT 09/13/2025 11:47 AM EDT us Amanuel Barlow APRN LAB BLOOD ORDERABLES Florecita malagon Result [facility] [address] [place] [address] * (ABNORMAL) CBC and differential (09/13/2025 11:47 AM EDT) WBC Count 6.38 3.70 - 10.30 10*3/uL LAB HEMATOLOGY METHOD 09/13/2025 1:59 PM EDT [facility] RBC Count 5.00 3.90 - 5.20 10*6/uL LAB HEMATOLOGY METHOD 09/13/2025 1:59 PM EDT [facility] HGB 11.4 11.2 - 15.7 g/dL LAB HEMATOLOGY METHOD 09/13/2025 1:59 PM EDT [facility] HCT 38.1 34.0 - 45.0 % LAB HEMATOLOGY METHOD 09/13/2025 1:59 PM EDT [facility] Platelet Count 380(H) 155 - 369 10*3/uL LAB HEMATOLOGY METHOD 09/13/2025 1:59 PM EDT [facility] MCV 76(L) 79 - 98 fL LAB HEMATOLOGY METHOD 09/13/2025 1:59 PM EDT [facility] MCH 22.8(L) 26.0 - 32.0 pg LAB HEMATOLOGY METHOD 09/13/2025 1:59 PM EDT [facility] MCHC 29.9(L) 30.7 - 35.5 g/dL LAB HEMATOLOGY METHOD 09/13/2025 1:59 PM EDT [facility] RDW 16.9(H) 11.5 - 14.5 % LAB HEMATOLOGY METHOD 09/13/2025 1:59 PM EDT [facility] MPV 9.0 8.8 - 12.5 fL LAB HEMATOLOGY METHOD 09/13/2025 1:59 PM EDT [facility] nRBC 0.0 <=0.0 per 100 WBCs LAB HEMATOLOGY METHOD 09/13/2025 1:59 PM EDT [facility] Differential Type Automated LAB HEMATOLOGY METHOD 09/13/2025 1:59 PM EDT [facility] Neutrophils % 63 % LAB HEMATOLOGY METHOD 09/13/2025 1:59 PM EDT [facility] Lymphocytes % 27 % LAB HEMATOLOGY METHOD 09/13/2025 1:59 PM EDT [facility] Monocytes % 6 % LAB HEMATOLOGY METHOD 09/13/2025 1:59 PM EDT [facility] Eosinophils % 2 % LAB HEMATOLOGY METHOD 09/13/2025 1:59 PM EDT [facility] Basophils % 1 % LAB HEMATOLOGY METHOD 09/13/2025 1:59 PM EDT [facility] Immature Granulocytes % 1 % LAB HEMATOLOGY METHOD 09/13/2025 1:59 PM EDT [facility] Neutrophils Absolute 4.07 1.60 - 6.10 10*3/uL LAB HEMATOLOGY METHOD 09/13/2025 1:59 PM EDT [facility] Lymphocytes Absolute 1.70 1.20 - 3.90 10*3/uL LAB HEMATOLOGY METHOD 09/13/2025 1:59 PM EDT [facility] Monocytes Absolute 0.41 0.30 - 0.90 10*3/uL LAB HEMATOLOGY METHOD 09/13/2025 1:59 PM EDT [facility] Eosinophils Absolute 0.11 0.00 - 0.50 10*3/uL LAB HEMATOLOGY METHOD 09/13/2025 1:59 PM EDT [facility] Basophils Absolute 0.06 0.00 - 0.10 10*3/uL LAB HEMATOLOGY METHOD 09/13/2025 1:59 PM EDT [facility] Immature Granulocytes Absolute 0.03 0.00 - 0.06 10*3/uL LAB HEMATOLOGY METHOD 09/13/2025 1:59 PM EDT [facility] Blood Venous blood specimen / Unknown Venipuncture / Unknown 09/13/2025 11:47 AM EDT 09/13/2025 11:47 AM EDT Narrative [facility] - 09/13/2025 1:59 PM EDT Therapeutic decision making should be based on absolute values, rather than percentages. us Amanuel Barlow APRN LAB BLOOD ORDERABLES Florecita malagon Result [facility] [address] [place] [address] documented in this encounter Visit Diagnoses Diagnosis [...] documented as of this encounter Care Teams Natural Developer Relationship Specialty Start Date End Date Belle Barksdale APRN [address] [place] [address] PCP - General 04/05/21 documented as of this encounter
--- OUTSIDE RECORDS SUMMARY | 2025-09-18 12:00 | XMS_ITS | Encounter Summary ---
Author Organization Healthcare Address [address] [place] [address] Care Team Providers Care Industrial Gas Service Helper Name Role Phone Belle Barksdale APRN Primary Care Provider [phone] Encounter Details Date Type Department Care Team (Late st Contact Info) Description 09/18/2025 1:00 PM EDT Office Visit [place] [facility] Pulmonary Rehab [address] [place] [address] COPD with asthma (CMS/HCC) (Primary Dx) Social [...] PM EST Appointment Cardiac Imaging [address] [place] [address] 12/05/2025 3:40 PM EST Office Visit [place] [facility] Medicine Specialties [address] [place] [address] Rebekah Son APRN [address] [place] [address] documented as of this encounter Visit Diagnoses [...] documented as of this encounter Care Teams Industrial Gas Service Helper Relationship Specialty Start Date End Date Belle Barksdale, CLINIC PHYSICIAN [address] [place] [address] PCP - General 04/05/21 documented as of this encounter
--- NOTE | 2025-10-17 08:59 | XR_ITS ---
FINAL REPORT TECHNIQUE: Bone densitometry calculations of the lumbar spine and left hip were obtained. CLINICAL HISTORY: SCREENING COMPARISON: 10/28/2023 FINDINGS: Using L1-4, the bone mineral density of the spine is 0.800 g/cm2, corresponding to T-score of -2.2 and a Z score of -0.5. This is within the range of osteopenia. The bone mineral density change versus baseline is -8.8%. Using the left hip, the bone mineral density of the femoral neck is 0.710 g/cm2, corresponding to a T-score of -1.3 and a Z-score of 0.2. This is within the range of osteopenia. The bone mineral density change versus baseline is 7.4%. Using the right hip, the bone mineral density of the femoral neck is 0.675 g/cm?, corresponding to a T-score of -1.6 and a Z-score of -0.1. This is within the range of osteopenia. The bone mineral density change versus baseline is -0.9%. NOTE: T-score: Standard deviation compared with peak bone mass of young adult mean. *Following the recommendations of the International Society of Bone densitometry, classification of hip BMD is based on the lower of two T-scores; total hip or femoral neck. IMPRESSION: 1. Bone mineral density of the lumbar spine within the range of osteopenia. 2. Bone mineral density of the bilateral femoral necks within the range of osteopenia. Reviewed, Interpreted and Dictated by Zainab Mendez MD Transcribed by Shira Oreilly Authenticated and [facility]
--- OUTSIDE RECORDS SUMMARY | 2025-10-17 08:59 | XMS_ITS | Encounter Summary ---
Author Organization [facility] Address [address] [place] [address] Care Team Providers Care Numerical Control Tool Programmer Name Role Phone Belle Barksdale APRN Primary Care Provider [phone] Reason for Visit * Reason Comments Med Refill Encounter Details Date Type Department Care Team (Late Contact Info) Description 08/22/2023 Refill [facility] [address], [address] [place] [address] Onel Hopper MD [address] [place] [address] Asthma, unspecified asthma severity, unspecified [...] PM EST Appointment Cardiac Imaging [address] [place] [address] 12/05/2025 3:40 PM EST Office Visit [place] [facility] [address], [address] [place] [address] Rebekah Son, SMALL APPLIANCE ASSEMBLY SUPERVISOR [address] [place] [address] documented as of this encounter [...] documented as of this encounter Care Teams Numerical Control Tool Programmer Relationship Specialty Start Date End Date Belle Barksdale, SMALL APPLIANCE ASSEMBLY SUPERVISOR 1210 [place] [facility] [address] [place] [address] PCP - General 04/05/21 documented as of this encounter
--- OUTSIDE RECORDS SUMMARY | 2025-10-17 08:59 | XMS_ITS | Clinical Summary ---
Author Organization [facility] Address [address] [place] [address] Care Team Providers Care Global Consumer Sector Vice President Name Role Phone Belle Barksdale APRN Primary Care Provider [phone] Allergies Active Allergy Reactions Criticality Noted Date [...] Type Department Care Team Description 10/04/2025 Refill [facility] [address] [place] [address] Rebekah Son APRN Chronic obstructive pulmonary disease, unspecified COPD type (CMS/HCC) 10/02/2025 Travel 09/29/2025 [facility] [address] [place] [address] Belle Barksdale APRN Hiatal hernia (Primary Dx) 09/18/2025 1:00 PM EDT Office Visit [place] [facility] [address] [place] [address] COPD with asthma (CMS/HCC) (Primary Dx) 09/18/2025 Travel 09/14/2025 Results Follow-Up [facility] [address], [address] [place] [address] Rebekah Son APRN 09/13/2025 10:40 AM EDT Office Visit [facility] [address], [address] [place] [address] Rebekah Son, RECRUITING TEAM LEAD Other fatigue (Primary Dx); Dyspnea on exertion; COPD exacerbation (CMS/HCC); COPD with asthma (CMS/HCC); Asthma-COPD overlap syndrome (CMS/HCC); Allergic rhinitis, unspecified seasonality, unspecified trigger; Hiatal hernia 09/13/2025 Travel 09/11/2025 1:00 PM EDT Office Visit [facility] [address] [place] [address] COPD with asthma (CMS/HCC) (Primary Dx) 09/11/2025 Travel 09/06/2025 10:30 AM EDT Office Visit [facility] [address] [place] [address] COPD with asthma (CMS/HCC) (Primary Dx) 09/06/2025 Travel 08/28/2025 1:00 PM EDT Office Visit [facility] [address] [place] [address] Chronic obstructive bronchitis (CMS/HCC) (Primary Dx) 08/28/2025 Travel 08/23/2025 1:00 PM EDT Office Visit [facility] [address] [place] [address] COPD with asthma (CMS/HCC) (Primary Dx) 08/23/2025 Travel 08/21/2025 1:00 PM EDT Office Visit [facility] [address] [place] [address] COPD with asthma (CMS/HCC) (Primary Dx) 08/21/2025 Travel 08/16/2025 1:00 PM EDT [facility] [address] [place] [address] COPD with asthma (CMS/HCC) (Primary Dx) 08/16/2025 Travel 08/14/2025 1:00 PM EDT [facility] [address] [place] [address] Chronic obstructive bronchitis (CMS/HCC) (Primary Dx) 08/14/2025 Travel 08/09/2025 1:00 PM EDT Office Visit [facility] [address] [place] [address] COPD with asthma (CMS/HCC) (Primary Dx) 08/09/2025 Travel 08/07/2025 1:00 PM EDT Office Visit [facility] [address] [place] [address] COPD with asthma (CMS/HCC) (Primary Dx) 08/07/2025 Travel 07/31/2025 1:00 PM EDT Office Visit [facility] [address] [place] [address] COPD with asthma (CMS/HCC) (Primary Dx) 07/31/2025 Travel 07/28/2025 Refill [facility] [address] [place] [address] Rebekah Son, ALBERTO 07/26/2025 1:00 PM EDT Office Visit [facility] [address] [place] [address] Chronic obstructive pulmonary disease, unspecified COPD type (CMS/HCC) (Primary Dx) 07/26/2025 Travel 07/19/2025 1:00 PM EDT Office Visit [facility] [address] [place] [address] COPD with asthma (CMS/HCC) (Primary Dx) 07/19/2025 Travel 07/17/2025 1:00 PM EDT Office Visit [facility] [address] [place] [address] COPD with asthma ([facility]) (Primary Dx) 07/17/2025 Travel from Last 3 Months Immunizations Immunization Administration Dates Next Due Influenza, injectable, quadrivalent, preservativ e free 11/09/2023 Influenza, recombinant, quad rivalent, injectable, preservative free 08/26/2022 Influenza, seasonal, injectable 09/13/2019 [employer] COVID-19 Vaccine (Purple Cap) 12 + 07/15/2021 [...] EST Appointment Cardiac Imaging [address] [place] [address] 12/05/2025 3:40 PM EST Office Visit [place] [facility] [address], [address] [place] [address] Rebekah Son S, RECRUITING TEAM LEAD [address] [place] [address] Health Maintenance Due Date Last Done Comments [facility]-HIV Screening 1960 [facility]-Hepatitis C Screening 1960 [facility]-Infant/Child/Adol SDOH Screenings 1960 [facility]- SDOH Screenings 1978 [facility]-Adult SDOH Screenings 1978 CT Colonography 2005 Colonoscopy 2005 FIT-DNA 2005 FIT 2005 FOBT 2005 Sigmoidoscopy 2005 [facility]-Colorectal Cancer Screening 2005 [facility]-Breast Cancer Screening 2010 [facility]-Zoster Vaccines (1 of 2) 2010 ICD-WUWMT-98 Vaccine (2 - Pfizer risk series) 08/05/2021 07/15/2021 [facility]-Depression Screening 09/13/2026 , 09/13/2025, 05/20/2022 [facility]-DTaP,Tdap,and Td Vaccines (2 - Td or Tdap) 11/09/2033 11/09/2023 [facility]-Pneumococcal Vaccine: 50+ Years Completed 05/20/2022 [facility]-Obesity Intervention Completed , 09/13/2025, 09/11/2025, Additional history exists [facility]-Influenza Vaccine [...] - 899 pg/mL 09/13/2025 2:41 PM EDT [facility] Blood Venous blood specimen / Unknown Venipuncture / Unknown 09/13/2025 11:47 AM EDT 09/13/2025 11:47 AM EDT us Rebekah Son RECRUITING TEAM LEAD LAB BLOOD ORDERABLES Florecita l Result [facility] [address] [place] [address] * (ABNORMAL) CBC and differential (09/13/2025 11:47 AM EDT) WBC Count 6.38 3.70 - 10.30 10*3/uL LAB HEMATOLOGY METHOD 09/13/2025 1:59 PM EDT [facility] RBC Count 5.00 3.90 - 5.20 10*6/uL LAB HEMATOLOGY METHOD 09/13/2025 1:59 PM EDT [facility] HGB 11.4 11.2 - 15.7 g/dL LAB HEMATOLOGY METHOD 09/13/2025 1:59 PM EDT [facility] HCT 38.1 34.0 - 45.0 % LAB HEMATOLOGY METHOD 09/13/2025 1:59 PM EDT [facility] Platelet Count 380(H) 155 - 369 10*3/uL LAB HEMATOLOGY METHOD 09/13/2025 1:59 PM EDT [facility] MCV 76(L) 79 - 98 fL LAB HEMATOLOGY METHOD 09/13/2025 1:59 PM EDT [facility] MCH 22.8(L) 26.0 - 32.0 pg LAB HEMATOLOGY METHOD 09/13/2025 1:59 PM EDT [facility] MCHC 29.9(L) 30.7 - 35.5 g/dL LAB HEMATOLOGY METHOD 09/13/2025 1:59 PM EDT [facility] RDW 16.9(H) 11.5 - 14.5 % LAB HEMATOLOGY METHOD 09/13/2025 1:59 PM EDT [facility] MPV 9.0 8.8 - 12.5 fL LAB HEMATOLOGY METHOD 09/13/2025 1:59 PM EDT [facility] nRBC 0.0 <=0.0 per 100 WBCs LAB HEMATOLOGY METHOD 09/13/2025 1:59 PM EDT [facility] Differential Type Automated LAB HEMATOLOGY METHOD 09/13/2025 1:59 PM EDT [facility] Neutrophils % 63 % LAB HEMATOLOGY METHOD 09/13/2025 1:59 PM EDT [facility] Lymphocytes % 27 % LAB HEMATOLOGY METHOD 09/13/2025 1:59 PM EDT [facility] Monocytes % 6 % LAB HEMATOLOGY METHOD 09/13/2025 1:59 PM EDT [facility] Eosinophils % 2 % LAB HEMATOLOGY METHOD 09/13/2025 1:59 PM EDT [facility] Basophils % 1 % LAB HEMATOLOGY METHOD 09/13/2025 1:59 PM EDT [facility] Immature Granulocytes % 1 % LAB HEMATOLOGY METHOD 09/13/2025 1:59 PM EDT [facility] Neutrophils Absolute 4.07 1.60 - 6.10 10*3/uL LAB HEMATOLOGY METHOD 09/13/2025 1:59 PM EDT [facility] Lymphocytes Absolute 1.70 1.20 - 3.90 10*3/uL LAB HEMATOLOGY METHOD 09/13/2025 1:59 PM EDT [facility] Monocytes Absolute 0.41 0.30 - 0.90 10*3/uL LAB HEMATOLOGY METHOD 09/13/2025 1:59 PM EDT [facility] Eosinophils Absolute 0.11 0.00 - 0.50 10*3/uL LAB HEMATOLOGY METHOD 09/13/2025 1:59 PM EDT [facility] Basophils Absolute 0.06 0.00 - 0.10 10*3/uL LAB HEMATOLOGY METHOD 09/13/2025 1:59 PM EDT [facility] Immature Granulocytes Absolute 0.03 0.00 - 0.06 10*3/uL LAB HEMATOLOGY METHOD 09/13/2025 1:59 PM EDT [facility] Blood Venous blood specimen / Unknown Venipuncture / Unknown 09/13/2025 11:47 AM EDT 09/13/2025 11:47 AM EDT Narrative [facility] - 09/13/2025 1:59 PM EDT Therapeutic decision making should be based on absolute values, rather than percentages. us Rebekah Son APRN LAB BLOOD ORDERABLES Florecita manas Result [facility] [address] [place] [address] * (ABNORMAL) TSH (09/13/2025 11:47 AM EDT) Thyroid Stimulating Hormone, Plasma 6.62(H) 0.40 - 4.20 uIU/mL 09/13/2025 2:41 PM EDT [facility] Blood Venous blood specimen / Unknown Venipuncture / Unknown 09/13/2025 11:47 AM EDT 09/13/2025 11:47 AM EDT Rebekah Lizbeth Huy RECRUITING TEAM LEAD LAB BLOOD ORDERABLES Florecita l Result Performing Organization Address City/[facility] [place] [address] * T4, free (09/13/2025 11:47 AM EDT) Pathologist [facility] Free T4, Plasma 1.2 0.8 - 1.7 ng/dL 09/13/2025 2:41 PM EDT [facility] Blood Venous blood specimen / Unknown Venipuncture / Unknown 09/13/2025 11:47 AM EDT 09/13/2025 11:47 AM EDT Rebekah Son APRN LAB BLOOD ORDERABLES Florecita l Result Performing Organization Address [facility] [place] [address] * IgE (09/13/2025 11:47 AM EDT) Pathologist [facility] Immunoglobulin E 84 <=214 kU/L 09/15/20 8:41 AM EDT [facility]) Blood Venous blood specimen / Unknown Venipuncture / Unknown 09/13/2025 11:47 AM EDT 09/13/2025 11:47 AM EDT Narrative [facility]) - 09/15/2025 8:41 AM EDT REFERENCE INTERVAL: Immunoglobulin E, Serum Access complete set of age- and/or gender-specific reference intervals for this test in the [facility] Test Directory ([employer]). Performed By: [facility]) [address] [place] [id number] Grain Mill Worker: Stanley Jarvis MD, PhD CLIA Number: [id number] us Rebekah Son RECRUITING TEAM LEAD LAB BLOOD ORDERABLES Florecita malagon Result [facility] ([facility]) [address] [place] [address] * (ABNORMAL) Comprehensive metabolic panel (09/13/2025 11:47 AM EDT) Glucose, Plasma 95 74 - 99 mg/dL 09/13/2025 2:41 PM EDT [facility] BUN, Plasma 19 8 - 23 mg/dL 09/13/2025 2:41 PM EDT [facility] Creatinine, Plasma 1.16(H) 0.60 - 1.10 mg/dL 09/13/2025 2:41 PM EDT [facility] BUN/Creatinine Ratio 16 09/13/2025 2:41 PM EDT [facility] Sodium, Plasma 142 136 - 145 mmol/L 09/13/2025 2:41 PM EDT [facility] Potassium, Plasma 4.7 3.6 - 4.9 mmol/L 09/13/2025 2:41 PM EDT [facility] Chloride, Plasma 105 97 - 107 mmol/L 09/13/2025 2:41 PM EDT [facility] CO2, Plasma 25 22 - 29 mmol/L 09/13/2025 2:41 PM EDT [facility] Anion Gap 12 6 - 16 mmol/L 09/13/2025 2:41 PM EDT [facility] Total Calcium, Plasma 9.5 8.9 - 10.2 mg/dL 09/13/2025 2:41 PM EDT [facility] Total Protein 7.6 6.3 - 7.9 g/dL 09/13/2025 2:41 PM EDT [facility] Albumin, Plasma 4.2 3.5 - 5.2 g/dL 09/13/2025 2:41 PM EDT [facility] AST, Plasma 20 10 - 35 U/L 09/13/2025 2:41 PM EDT [facility] ALT, Plasma 22 10 - 35 U/L 09/13/2025 2:41 PM EDT [facility] Alkaline Phosphatase, Plasma 73 46 - 142 U/L 09/13/2025 2:41 PM EDT [facility] Total Bilirubin, Plasma 0.3 0.2 - 1.1 mg/dL 09/13/2025 2:41 PM EDT [facility] eGFRcr 52.8 mL/min/1.7 3m*2 09/13/2025 2:41 PM EDT [facility] Comment:Reported eGFRcr in m L/min/1.73m2 is based the CKD-EPI 2020 equation that does not use a race coefficient. Blood Venous blood specimen / Unknown Venipuncture / Unknown 09/13/2025 11:47 AM EDT 09/13/2025 11:47 AM EDT us Rebekah Son APRN LAB BLOOD ORDERABLES Florecita l Result [facility] [address] [place] [address] from Last 3 Months Insurance [employer] [facility] MEDICAID Care Teams Global Consumer Sector Vice President Relationship Specialty Start Date End Date Belle Barksdale APRN [address] [place] [address] [place] [id number] PCP - General 04/05/21
--- OUTSIDE RECORDS SUMMARY | 2025-10-17 09:00 | XMS_ITS | Encounter Summary ---
Author Organization Healthcare Address [address] [place] [address] Care Team Providers Care Residential Roofer Name Role Phone Belle Barksdale ALBERTO Primary Care Provider [phone] Encounter Details Date Type Department Care Team [...] EST Appointment Cardiac Imaging [address] [place] [address] 12/05/2025 3:40 PM EST Office Visit [place] [facility] [address], [address] [place] [address] Rebekah Son, ALBERTO [address] [place] [address] documented as of this encounter Visit Diagnoses [...] documented as of this encounter Care Teams Residential Roofer Relationship Specialty Start Date End Date Belle Barksdale, ALBERTO [address] [facility] [address] [place] [address] PCP - General 04/05/21 documented as of this encounter
--- OUTSIDE RECORDS SUMMARY | 2025-10-17 09:00 | XMS_ITS | Encounter Summary ---
Author Organization [facility] Address [address] [place] [address] Care Team Providers Care Professor Of Astronomy Name Role Phone Belle Barksdale ALBERTO Primary Care Provider [phone] Reason for Visit * Reason Onset Date Comments Med Refill 10/04/2025 Encounter Details Date Type Department Care Team (Late st Contact Info) Description 10/04/2025 Refill [facility] [address] [place] [address] Rebekah Son, ALBERTO [address] [place] [address] Chronic obstructive pulmonary disease, unspecified [...] PM EST Appointment Cardiac Imaging [address] [place] [address] 12/05/2025 3:40 PM EST Office Visit [facility] [address] [place] [address] Rebekah Son APRN [address] [place] [address] documented as of this encounter Visit Diagnoses [...] documented as of this encounter Care Teams Professor Of Astronomy Relationship Specialty Start Date End Date Belle Barksdale, TIN FLIPPER [address] [place] [facility] [address] [place] [address] PCP - General 04/05/21 documented as of this encounter
--- OUTSIDE RECORDS SUMMARY | 2025-10-17 09:00 | XMS_ITS | Encounter Summary ---
Author Organization Healthcare Address [address] [place] [address] Care Team Providers Care School Psychometrist Name Role Phone Belle Barksdale ALBERTO Primary Care Provider [phone] Encounter Details Date Type Department Care Team (Late st Contact Info) Description 09/14/2025 Results Follow-Up [facility] Medicine Specialties [address] [place] [address] Rebekah Son APRN [address] [place] [address] Social History Tobacco Use Types [...] PM EST Appointment Cardiac Imaging [address] [place] [address] 12/05/2025 3:40 PM EST Office Visit [place] [facility] Medicine Specialties [address] [place] [address] Rebekah Son S, MATERIALS PLANNING ANALYST [address] [place] [address] documented as of this encounter Visit Diagnoses [...] as of this encounter Care Teams School Psychometrist Relationship Specialty Start Date End Date Belle Barksdale S, MATERIALS PLANNING ANALYST [address] [place] [facility] [address] [place] [address] PCP - General 04/05/21 documented as of this encounter
--- OUTSIDE RECORDS SUMMARY | 2025-10-17 09:00 | XMS_ITS | Encounter Summary ---
Author Organization Healthcare Address [address] [place] [address] Care Team Providers Care Truck Driving Name Role Phone Belle Barksdale APRN Primary Care Provider [phone] Encounter Details Date Type Department Care Team [...] PM EST Appointment Cardiac Imaging [address] [place] [address] 12/05/2025 3:40 PM EST Office Visit [place] [facility] Medicine Specialties [address] [place] [address] Rebekah Son, ALBERTO [address] [place] [address] documented as of this encounter [...] documented as of this encounter Care Teams Truck Driving Relationship Specialty Start Date End Date Belle Barksdale, THERMAL MOLDER [address] [place] [facility] [address] [place] [id number] PCP - General 04/05/21 documented as of this encounter
--- OUTSIDE RECORDS SUMMARY | 2025-10-17 09:00 | XMS_ITS | Encounter Summary ---
Author Organization Healthcare Address [address] [place] [address] Care Team Providers Care Balancing Machine Set Up Worker Name Role Phone Belle Barksdale APRN Primary Care Provider [phone] Encounter Details Date Type Department Care Team [...] PM EST Appointment Cardiac Imaging [address] [place] [address] 12/05/2025 3:40 PM EST Office Visit [place] [facility] Medicine [facility]ties [address] [place] [address] Rebekah Son APRN [address] [place] [address] documented as of this encounter [...] documented as of this encounter Care Teams Balancing Machine Set Up Worker Relationship Specialty Start Date End Date Belle Barksdale APRN [address] [facility] 36 [place] [address] PCP - General 04/05/21 documented as of this encounter
--- OUTSIDE RECORDS SUMMARY | 2025-10-17 09:00 | XMS_ITS | Encounter Summary ---
Author Organization [facility] Address [address] [place] [address] Care Team Providers Care Rn Enterostomal Name Role Phone Belle Barksdale APRN Primary Care Provider [phone] Reason for Referral * Consultation (Routine) - Authorized Specialty Diagnoses / Procedures Referred By Niya delarosa Referred To Contact General Surgery Diagnoses Hiatal hernia Referral ID Status Reason Start Date Expiration Date V isits Requested Visits Authorized [id number] Authorized 09/29/2025 03/31/2027 1 1 Encounter Details Date Type Department Care Team (Late st Contact Info) Description 09/29/2025 Community [facility] [address] [place] [address] Belle Barksdale APRN [address] [place] [address] [place] [address] Hiatal hernia (Primary Dx) Social [...] PM EST Appointment Cardiac Imaging [address] [place] [address] 12/05/2025 3:40 PM EST Office Visit [place] [facility] Medicine Specialties [address] [place] [address] Rebekah Son APRN [address] [place] [address] Scheduled Referrals Name Type Priority Associated Diagnoses [...] documented as of this encounter Care Teams Rn Enterostomal Relationship Specialty Start Date End Date Belle Barksdale APRN [address] [place] [address] PCP - General 04/05/21 documented as of this encounter
--- OUTSIDE RECORDS SUMMARY | 2025-10-17 09:00 | XMS_ITS | Encounter Summary ---
Author Organization Healthcare Address [address] [place] [address] Care Team Providers Care Choke Setter Name Role Phone Belle Barksdale ALBERTO Primary Care Provider [phone] Encounter Details Date Type Department Care Team [...] EST Appointment Cardiac Imaging [address] [place] [address] 12/05/2025 3:40 PM EST Office Visit [place] [facility] Medicine Specialties [address] [place] [address] Rebekah Son, ALBERTO [address] [place] [address] documented as of this encounter Visit Diagnoses [...] documented as of this encounter Care Teams Choke Setter Relationship Specialty Start Date End Date Belle Barksdale APRN [address] [place] [address] PCP - General 04/05/21 documented as of this encounter
--- OUTSIDE RECORDS SUMMARY | 2025-10-17 09:00 | XMS_ITS | Encounter Summary ---
Author Organization Healthcare Address [address] [place] [address] Care Team Providers Care Manager Developmental Name Role Phone Belle Barksdale ALBERTO Primary Care Provider [phone] Encounter Details Date Type Department Care Team [...] EST Appointment Cardiac Imaging [address] [place] [address] 12/05/2025 3:40 PM EST Office Visit [place] [facility] Medicine Specialties [address] [place] [address] Rebekah Son, ALBERTO [address] [place] [address] documented as of this encounter Visit Diagnoses [...] documented as of this encounter Care Teams Manager Developmental Relationship Specialty Start Date End Date Belle Barksdale APRN 1210 [facility] 36 [place] [address] PCP - General 04/05/21 documented as of this encounter
--- OUTSIDE RECORDS SUMMARY | 2025-10-17 09:00 | XMS_ITS | Encounter Summary ---
Author Organization Healthcare Address [address] [place] [address] Care Team Providers Care Needle Loom Operator Helper Name Role Phone Belle Barksdale ALBERTO Primary Care Provider [phone] Encounter Details Date Type Department Care Team [...] EST Appointment Cardiac Imaging [address] [place] [address] 12/05/2025 3:40 PM EST Office Visit [place] [facility] Medicine Specialties [address] [place] [address] Rebekah Son, ALBERTO [address] [place] [address] documented as of this encounter Visit Diagnoses [...] documented as of this encounter Care Teams Needle Loom Operator Helper Relationship Specialty Start Date End Date Belle Barksdale APRN 1210 [facility] 36 [place] [address] PCP - General 04/05/21 documented as of this encounter
--- OUTSIDE RECORDS SUMMARY | 2025-10-17 09:00 | XMS_ITS | Encounter Summary ---
Author Organization Healthcare Address [address] [place] [address] Care Team Providers Care Intelligence Specialist Name Role Phone Belle Barksdale APRN Primary Care Provider [phone] Encounter Details Date Type Department Care Team [...] PM EST Appointment Cardiac Imaging [address] [place] [address] 12/05/2025 3:40 PM EST Office Visit [place] [facility] Medicine Specialties [address] [place] [address] Rebekah Son, ALBERTO [address] [place] [address] documented as of this encounter [...] documented as of this encounter Care Teams Intelligence Specialist Relationship Specialty Start Date End Date Belle Barksdale, TECHNICAL ADJUSTER [address] [place] [facility] [address] [place] [id number] PCP - General 04/05/21 documented as of this encounter
--- OUTSIDE RECORDS SUMMARY | 2025-10-17 09:00 | XMS_ITS | Data Portability ---
Author Organization [facility] Address [address] [place] [address] Assessment No assessment recorded. Plan of Treatment Reminders Order Date Submit Date Provider Last Modified By Organization Details Last Modified Time Details Appointments None recorded. Lab urinalysis, dipstick 2022 023 [email or web address] [facility], [address] [place] [address] , [place], [address], 3 16:08:09 culture, urine 2022 023 [place] [facility], [address], [address], [place], [address], 3 03:08:14 thyroperoxi dase Ab, serum 2022 023 ANISHA [facility], [address], [address], [place], [address], 3 20:08:23 HbA1c (hemoglobin A1c), blood 2022 023 ANISHA [facility], [address], [address], [place], [address], 3 20:08:22 Referral None recorded. Procedures None recorded. Surgeries None recorded. Imaging MAMMO, screening, bilateral 2023 025 [facility] Scheduling Department -New Scheduling Process, [address], [place], [address], 5 14:59:53 MAMMO, screening, bilateral 2022 023 [facility] (X-Ray), [address], [place], [address], 4 16:52:00 DEXA 2022 023 [facility] (X-Ray), [address], [place], [address], 3 13:10:03 Medication Orders estradiol 0.025 mg/24 hr semiweekly transdermal patch 2022 023 [employer], [address], [place], [place], [id number], 3 13:59:17 estradiol 0.025 mg/24 hr semiweekly transdermal patch 2022 023 [email or web address], [address], [place], [address], 3 16:42:07 Patient TargetsNo targets recorded. Patient Instructions Encounter Date Encounter Id Patient Instructions Last Modified By Organization Details Last Modified Time 05/22/2023 [id number] mammogram: about this test [email or web address] Not available 05/22/2023 15:15:34 medical record request* [email or web address] Not available 11/06/2023 14:50:51 07/16/2023 [id number] medical record request* [email or web address] Not available 08/21/2023 [...] with diabe irma: <7.0 Not Available [facility] ([facility]) [address] [place], [address], 05/25/2023 20:08:22 05/22/2005/23/2023 THYRO ID ANTIB ODIES thyroid peroxidase (tpo) Ab <9 IU/mL 0-34 Not Available [facility] ([facility]) [address] [place], [address], 05/25/2023 20:08:23 05/22/20 23 05/25/2023 THYRO ID ANTIB ODIES thyroglobuli n antibody <1.0 IU/mL 0.0-0. 9 Thyro globu nadeen Antib kristopher measu red by Beckmarco an Coult er Metho dolog y Not Available [facility] ([facility]) [address] [place], [address], 05/25/2023 20:08:23 07/16/20 23 07/18/2023 URINE CULTU RE, ROUTI NE urine culture, routine Final report Not Available [facility] ([facility]) [address] [place], [address], 07/18/2023 03:08:14 07/16/2007/18/2023 URINE CULTU RE, ROUTI NE result 1 COMMEN T Cultu re shows less than 10,00 0 colon y formi ng units of bacte mindy per kolton liter of urine . This colon y count is not gener ally consi dered to be clini ronnie signi fican t. Not Available [facility] ([facility]) [address] [facility], [place], [address], 07/18/2023 03:08:14 07/16/20 23 07/16/2023 urina lysis , dipst ick Leukocytes Negati ve Not Available [facility] [address] [place] [address] , [place], [address], 07/16/2023 13:59:32 07/16/20 23 07/16/2023 urina lysis , dipst ick Nitrite negati ve Not Available [facility]/[address] , [place], [address], 07/16/2023 13:59:32 07/16/20 23 07/16/2023 urina lysis , dipst ick Protein Negati ve Not Available [facility]/[address] , [place], [address], 07/16/2023 13:59:32 07/16/20 23 07/16/2023 urina lysis , dipst ick pH 7.0 Not Available [address] , [place], [address], 07/16/2023 13:59:32 07/16/20 23 07/16/2023 urina lysis , dipst ick Blood Small Not Available [facility]/[address] , [place], [address], 07/16/2023 13:59:32 07/16/20 23 07/16/2023 urina lysis , dipst ick Ketone Negati ve Not Available [address] , [place], [address], 07/16/2023 13:59:32 07/16/20 23 07/16/2023 urina lysis , dipst ick Bilirubin Negati ve Not Available [facility] [address] [place] [address] , [place], [address], 07/16/2023 13:59:32 07/16/20 23 07/16/2023 urina lysis , dipst ick Glucose Negati ve Not Available [facility] [address] [place] [address] , [place], [address], 07/16/2023 13:59:32 07/16/20 23 07/16/2023 urina lysis , dipst ick Appearance Clear Not Available [facility] [address] [place] [address] , [place], [address], 07/16/2023 13:59:32 07/16/20 23 07/16/2023 urina lysis , dipst ick Color Yellow Not Available [facility] [address] [place] [address] , [place], [address], 07/16/2023 13:59:32 07/21/20 23 05/13/2023 medic al recor d reque st* No observ ation record ed. [email or web address] [facility] (Med Record) [address], [place], [address], 11/06/2023 14:50:51 10/28/20 23 10/28/2023 DEXA No observ ation record ed. [email or web address] [facility] [address], [place], [address], 01/07/2024 16:59:26 09/06/20 24 05/27/2024 MAMMO , scree moustapha, bilat eral No observ ation record ed. [email or web address] [facility] (Med Record) [address], [place], [address], 09/07/2024 14:45:18 06/01/20 25 05/30/2025 MAMMO , scree moustapha, bilat eral No observ ation record ed. [email or web address] [facility] [address], [place], [place], [address], 06/05/2025 09:28:47 Result Notes None recorded. Problems Name Problem SNOMED Code Status Onset Date Resolution Date Notes Provider Name and Address Organization Details Recorded Time Chronic obstructive pulmonary disease 40903331 Active 2022 Alma Brandt null, [place] - [facility] 3 14:10:28 History of deep vein thrombosis 790421540 Active 2022 Alma Brandt null, [place] - [facility] 3 14:11:04 Hypercholester olemia 92426374 Active 2022 Alma Brandt null, [place] - [facility] 3 14:16:31 Seasonal allergy 408712815 Active 2022 Alma Brandt null, [place] - [facility] 3 14:17:07 Fibrocystic disease of breast 10431761 Active 2022 Alma Brandt null, [place] - [facility] 3 14:30:34 Hiatal hernia 33610225 Active 2022 Vinita Cruz DO [address], [place], [address], [place] - [facility] 3 15:03:21 Acquired absence of cervix and uterus 244965379 Active 2022 Vinita Cruz DO [address], [place], [address], [place] - [facility] 3 13:07:40 Osteopenia 958017494 Active 2022 Vinita Cruz DO [address], [place], [address], [place] - [facility] 4 17:42:17 Problem Notes None recorded. Procedures Surgical History Date Name Laterality Status Provider Name and Address Organization Details Recorded Time 025 Date of Last Mammogram completed Eileen Everett [place] - [facility] 06/02/2025 10:31:29 023 Most Recent Bone Density completed Eileen Su [facility] 01/07/2024 16:59:15 023 Most Recent Mammogram completed Carmela Zacarias [facility] 07/23/2023 14:00:50 023 Colposcopy completed Zelda Mcdonough [facility] 11/07/2024 13:56:07 016 dental surgery completed Zelda Mcdonough [facility] 11/07/2024 13:56:26 009 Adnexal surgery completed Zelda Mcdonough [facility] 11/07/2024 13:56:26 008 Hysterectomy completed Zelda Mcdonough [facility] 11/07/2024 13:56:26 989 Dilation and Curettage, sharp completed Zelda Mcdonough [facility] 11/07/2024 13:56:26 ureterorenoscopy with fragmentation and removal of calculus of kidney completed Alma Brandt [facility] 05/22/2023 14:20:02 Hysterectomy, Total laparoscopic completed Alma Brandt [facility] 05/22/2023 14:21:25 foot repair completed Alma Brandt [facility] 05/22/2023 14:22:42 Imaging Results None recorded. Procedure Notes None recorded. Medical Equipment None Reported. Allergies Allergen ID Allergen Name Allergen Category Reaction Reaction Severity Criticality Documentation Date Start Date Code Code System Note Provider Name and Address Organization Details Recorded Time 987906 tree and shrub pollen environme nt,medica tion Not available Not available Not available 07/16/2023 Ravindra santana [facility] 13:04:41 Medications Name Sig Start Date Stop [...] Updated DateTime 05/22/2023 170.18 cm 30.7 kg/m2 45218.82 g 0 122/78 mm[Hg] Alma Brandt [place] - [facility] 3 14:30:23 Date Recorded Body height Body mass index (BMI) Body weight Pain severity - 0-10 verbal numeric rating [Score] - Reported Systolic And Diastolic Provider Name and Address Organization Details Last Updated DateTime 07/16/2023 170.18 cm 30.7 kg/m2 85264.1 g 0 128/60 mm[Hg] Ravindra Hussainjose roberto [place] - [facility] 3 13:03:58 Date Recorded Body weight Body mass index (BMI) Body height Pain severity - 0-10 verbal numeric rating [Score] - Reported Systolic And Diastolic Provider Name and Address Organization Details Last Updated DateTime 11/07/2024 09120.92 g 31.3 kg/m2 167.64 cm 0 130/86 [...] Is Your Level Of Caffeine Consumption? Occasional [email or web address] Information not available 05/22/2023 How Much Tobacco [...] Or The Highest Degree You Have Received? [id number] Information not available 11/07/2024 When Did You Quit Smoking? 16+yearssince lastcigarcarin [email or web address] Information not available 05/22/2023 Have You Recently [...] available 11/07/2024 What Is Your Relationship Status? [email or web address] Information not available 05/22/2023 Do You Use Your Seat Belt Or Car Seat Routinely? Yes Information not available 11/07/2024 Are You Sexually Active? No Information not available 11/07/2024 Do You Have Smoke And Carbon Monoxide Detectors In Your Home? Yes Information not available 11/07/2024 At What Age Did You Start Smoking Tobacco? 16 Stopped In 1984 Information not available 05/22/2023 Are You Passively Exposed To Smoke? No Information no t available 11/07/2024 Do You Use Sunscreen Routinely? Yes Information not available 11/07/2024 Has Tobacco Cessation Counseling Been Provided? No [email or web address] Information not available 05/22/2023 Sex: Female Functional Status Question Answer Note LastModified by Organizat ion Details LastModified Time Do you use any illicit or recreational drugs? No [email or web address] Information not available 05/22/2023 Do you or have you ever used any other forms of tobacco or nicotine? No [email or web address] Information not available 05/22/2023 What is your level of alcohol consumption? Occasional [email or web address] Information not available 05/22/2023 Do you or have you ever used smokeless tobacco? Never used smokeless tobacco Information not available 11/07/2024 Are you currently employed? No Information not available 11/07/2024 Are you able to care for yourself independently? Yes [email or web address] Information not available 05/22/2023 Do you or have you ever used e-cigarettes or vape? Never used electronic cigarettes Information not available 11/07/2024 What is your exercise level? Occasional Information not available 11/07/2024 Mental Status Question Answer Note LastModified by Organization D etails LastModified Time Do you feel stressed (tense, restless, nervous, or anxious, or unable to sleep at night)? [id number] Information not available 11/07/2024 Family History Relationship [...] recombinant, quadrivalent, PF 2 completed Alma santana, [place] - [facility] 05/22/2023 14:14:34 COVID-19, mRNA, LNP-S, PF, 30 mcg/0.3 mL dose 1 completed Alma santana, [place] - [facility] 05/22/2023 14:14:34 Pneumococcal conjugate PCV20, polysaccharide GAX150 conjugate, adjuvant, PF 2 completed Alma santana, [place] - [facility] 05/22/2023 14:14:34 Influenza, split virus, trivalent, preservative 9 completed [place] - [facility] 05/22/2023 14:14:34 Past Encounters Encounter ID Performer Location Encounter Start Date Encounter Closed Date Diagnosis/Indication Diagnosis SNOMED-CT Code Diagnosis ICD10 Code Diagnosis IMO Codes Diagnosis Note [id number] DO Luna [place] [facility] [address] [place] [address] [place] [id number] 05/22/2023 13:56:48 05/22/2023 15:36:33 Menopausal syndrome 989972047 N95.9 Screening mammography 24 767065 Z12.31 [id number] DO Luna [place] [facility]ENTIST [address] [place] [address] [place] [id number] 07/16/2023 12:49:14 07/16/2023 13:57:39 Routine gynecologic examination done 5037321436 9101 Z01.419 Depression screening 171 015509 Z13.31 Diet education 96958544 Z71.3 Counseling 064271158 Z71 .82 Exercise counselnadeen g. Patient encouraged to exercise 30 minutes 5 days a week. Examinatio n of blood pressure 350578837 Z01.30 Vaccine de clined by patient 7990872037 02 Z28.21 Screening mammography 24 012773 Z12.31 Chronic ob structive pulmonary disease 46620027 J44.9 Postmenopausal state 764 09795 Z78.0 History of residential steroid use due to COPD Menopausal syndrome 1237 51587 N95.9 Screening for malignant neoplasm of colon 717088212 Z12.11 Cystocele 161238257 N81. 10 Acquired a bsence of cervix and uterus 790681849 Z90.710 Body mass index 30+ - obesity 889919539 Z68.30 Obesity 808888515 E66.9 [id number] DO Eliseo [place] [facility] LABORAT[facility] SCIENTIST [address] [place] [address] [place] [id number] 11/07/2024 13:47:11 11/07/2024 14:42:37 Routine gynecologic examination done 5450271037 9101 Z01.419 Depression screening 171 651718 Z13.31 Diet education 51687064 Z71.3 Counseling 730574128 Z71 .82 Exercise counselnadeen mays Patient encouraged to exercise 30 minutes 5 days a week. Examinatio n of blood pressure 777296531 Z01.30 Vaccine de clined by patient 5896353971 02 Z28.21 Screening mammography 24 087072 Z12.31 Health Concerns Section Related Observation LastModified by Organization Detai ls LastModified Time None Recorded Concern Status LastModified by Organization Details LastModified Time None Recorded Advance Directives Directive N: Payers Insurance Date Sequence Insurance Name Policy Number Policy Harper Covered Member ID Harper Member ID Guarantor Name 10/04/2025 [place] [employer]MEDICAID) Mago Maxwell [id number] Mago Maxwell 10/04/2025 1 [facility] [facility] (MEDICAID [facility] Mago Maxwell [id number] Magobreonna Maxwell Notes Date Note Type Note [...] mine. Vinita Cruz, DO [address], [place], [address], [place] - [facility] 05/22/2023 16:43:29 07/16/2023 text/html [...] . Vinita Cruz DO [address], [place], [address], [facility] - [facility] 07/22/2023 13:08:39 11/07/2024 text/html Annual [...] discontinued. Vinita Cruz DO [address], [place], [address], [facility] - [facility] 11/07/2024 16:22:04 OBGyn Episode No OBEpisode recorded.
--- OUTSIDE RECORDS SUMMARY | 2025-10-17 09:00 | XMS_ITS | Encounter Summary ---
Author Organization Healthcare Address [address] [place] [address] Care Team Providers Care Basin Cleaner Name Role Phone Belle Barksdale ALBERTO Primary Care Provider [phone] Encounter Details Date Type Department Care Team [...] EST Appointment Cardiac Imaging [address] [place] [address] 12/05/2025 3:40 PM EST [facility] [address] [place] [address] Rebekah Son, ALBERTO [address] [place] [address] documented as of this encounter Visit Diagnoses [...] documented as of this encounter Care Teams Basin Cleaner Relationship Specialty Start Date End Date Belle Barksdale, ALBERTO [address] [facility], [place], [facility] [address] [place] [address] PCP - General 04/05/21 documented as of this encounter
== END 2025-10-17 23:59 | disposition home or self-care (01) ==
LOC: RAD 08:57
PROVIDERS: PCP Nurse Practitioner Family; Visit Provider Nurse Practitioner Family
DX: Z13.820 Encounter for screening for osteoporosis (principal); M85.88 Other specified disorders of bone density and structure, other site
CPT/HCPCS: 77080